=== PATIENT | male | born 1950 | race Caucasian/White ===

== ENCOUNTER → 2018-12-31 09:29 | Outpatient (CLI) | payer MEDICARE, SELFPAY ==
[2018-12-31 11:01] LABS: Hemoglobin A1C% w Est Avg Glu 7.7 % (4.0-6.0)
[2018-12-31 11:09] LABS: BUN Creatinine Ratio 25.6 (6-22); Blood Urea Nitrogen 23 mg/dL (9-20); Calcium 9.6 mg/dL (8.4-10.2); Carbon Dioxide 27 mmol/L (22-32); Chloride 101 mmol/L (98-107); Cholesterol 164 mg/dL (140-199); Estimated Glomerular Filt Rate > 60.0 mL/min (>60); Glucose 199 mg/dL (80-110); HDL Cholesterol 50 mg/dL (40-60); HEMOLYSIS 17 (0-50); LDL Cholesterol Calculated 96 mg/dL (<100); Potassium 4.6 mmol/L (3.4-5.1); Sodium 137 mmol/L (137-145); Triglycerides 92 mg/dL (35-150)
[2018-12-31 11:10] LABS: Creatinine Urine Random 38.7 mg/dL
[2018-12-31 11:14] LABS: Microalbumi Creatinin Ratio Ur 51.6 ug/mg CR (<30)
[2018-12-31 11:38] LABS: Prostate Specific Antigen 8.36 ng/mL (0.10-4.00)
== END ==
PROVIDERS: PCP Internal Medicine; Visit Provider Internal Medicine
DX: E11.9 Type 2 diabetes mellitus without complications (principal); I25.10 Atherosclerotic heart disease of native coronary artery without angina pectoris; I48.91 Unspecified atrial fibrillation; K52.9 Noninfective gastroenteritis and colitis, unspecified; Z87.898 Personal history of other specified conditions
CPT/HCPCS: 36415; 80048; 80061; 82043; 82570; 83036; 84153

== ENCOUNTER → 2019-03-19 10:12 | Outpatient (CLI) | payer MEDICARE, SELFPAY ==
[2019-03-19 11:28] LABS: Hemoglobin A1C% w Est Avg Glu 9.4 % (4.0-6.0)
[2019-03-19 11:38] LABS: Blood Urea Nitrogen 19 mg/dL (9-20); Calcium 9.9 mg/dL (8.4-10.2); Carbon Dioxide 28 mmol/L (22-32); Chloride 100 mmol/L (98-107); Estimated Glomerular Filt Rate > 60.0 mL/min (>60); Glucose 235 mg/dL (80-110); HEMOLYSIS < 15 (0-50); Sodium 136 mmol/L (137-145)
[2019-03-19 11:40] LABS: Potassium 5.5 mmol/L (3.4-5.1)
== END ==
PROVIDERS: PCP Internal Medicine; Visit Provider Internal Medicine
DX: E11.9 Type 2 diabetes mellitus without complications (principal); J44.9 Chronic obstructive pulmonary disease, unspecified; Z87.898 Personal history of other specified conditions
CPT/HCPCS: 36415; 80048; 83036

== ENCOUNTER → 2019-06-09 09:12 | Outpatient (CLI) | payer MEDICARE, SELFPAY ==
[2019-06-09 09:46] LABS: Hemoglobin A1C% w Est Avg Glu 8.5 % (4.0-6.0)
[2019-06-09 09:47] LABS: BUN Creatinine Ratio 19.6 (6-22); Blood Urea Nitrogen 18 mg/dL (9-20); Calcium 9.6 mg/dL (8.4-10.2); Carbon Dioxide 28 mmol/L (22-32); Chloride 104 mmol/L (98-107); Estimated Glomerular Filt Rate > 60.0 mL/min (>60); Glucose 198 mg/dL (80-110); HEMOLYSIS < 15 (0-50); Potassium 5.1 mmol/L (3.4-5.1); Sodium 137 mmol/L (137-145)
== END ==
PROVIDERS: PCP Internal Medicine; Referring Provider Internal Medicine; Visit Provider Internal Medicine
DX: E11.65 Type 2 diabetes mellitus with hyperglycemia (principal)
CPT/HCPCS: 36415; 80048; 83036

== ENCOUNTER → 2019-08-30 08:51 | Outpatient (CLI) | payer MEDICARE, SELFPAY ==
[2019-08-30 10:02] LABS: Hemoglobin A1C% w Est Avg Glu 7.3 % (4.0-6.0)
[2019-08-30 10:19] LABS: BUN Creatinine Ratio 24.5 (6-22); Blood Urea Nitrogen 24 mg/dL (9-20); Calcium 9.9 mg/dL (8.4-10.2); Carbon Dioxide 28 mmol/L (22-32); Chloride 105 mmol/L (98-107); Estimated Glomerular Filt Rate > 60.0 mL/min (>60); Glucose 132 mg/dL (80-110); HEMOLYSIS < 15 (0-50); Potassium 4.2 mmol/L (3.4-5.1); Sodium 138 mmol/L (137-145)
[2019-08-30 10:48] LABS: Prostate Specific Antigen 7.41 ng/mL (0.10-4.00)
== END ==
PROVIDERS: PCP Internal Medicine; Referring Provider Internal Medicine; Visit Provider Internal Medicine
DX: E11.65 Type 2 diabetes mellitus with hyperglycemia (principal); R97.20 Elevated prostate specific antigen [PSA]
CPT/HCPCS: 36415; 80048; 83036; 84153

== ENCOUNTER → 2019-12-15 10:00 | Outpatient (CLI) | payer MEDICARE, SELFPAY ==
[2019-12-15 11:21] LABS: Hemoglobin A1C% w Est Avg Glu 8.2 % (4.0-6.0)
[2019-12-15 11:42] LABS: BUN Creatinine Ratio 22.5 (6-22); Blood Urea Nitrogen 23 mg/dL (9-20); Calcium 9.3 mg/dL (8.4-10.2); Carbon Dioxide 27 mmol/L (22-32); Chloride 105 mmol/L (98-107); Estimated Glomerular Filt Rate > 60.0 mL/min (>60); Glucose 206 mg/dL (80-110); HEMOLYSIS < 15 (0-50); Potassium 4.9 mmol/L (3.4-5.1); Sodium 137 mmol/L (137-145)
== END ==
PROVIDERS: PCP Internal Medicine; Referring Provider Internal Medicine; Visit Provider Internal Medicine
DX: E11.65 Type 2 diabetes mellitus with hyperglycemia (principal)
CPT/HCPCS: 36415; 80048; 83036

== ENCOUNTER → 2020-03-16 07:32 | Outpatient (CLI) | payer MEDICARE, SELFPAY ==
[2020-03-16 08:38] LABS: Hemoglobin A1C% w Est Avg Glu 9.7 % (4.0-6.0)
[2020-03-16 08:59] LABS: BUN Creatinine Ratio 23.3 (6-22); Blood Urea Nitrogen 24 mg/dL (9-20); Calcium 9.2 mg/dL (8.4-10.2); Carbon Dioxide 26 mmol/L (22-32); Chloride 103 mmol/L (98-107); Estimated Glomerular Filt Rate > 60.0 mL/min (>60); Glucose 314 mg/dL (80-110); HEMOLYSIS < 15 (0-50); Sodium 135 mmol/L (137-145)
== END ==
PROVIDERS: PCP Internal Medicine; Referring Provider Internal Medicine; Visit Provider Internal Medicine
DX: E11.65 Type 2 diabetes mellitus with hyperglycemia (principal); I25.10 Atherosclerotic heart disease of native coronary artery without angina pectoris
CPT/HCPCS: 36415; 80048; 83036

== ENCOUNTER → 2020-06-16 07:00 | Outpatient (CLI) | payer MEDICARE, SELFPAY ==
[2020-06-16 08:17] LABS: Hemoglobin A1C% w Est Avg Glu 8.7 % (4.0-6.0)
[2020-06-16 08:19] LABS: Alanine Aminotransferase 14 IU/L (<50); Albumin Globulin Ratio 1.5 (1.0-2.8); Alkaline Phosphatase 62 U/L (38-126); Aspartate Aminotransferase 18 IU/L (17-59); BUN Creatinine Ratio 18.9 (6-22); Bilirubin Total 0.3 mg/dL (0.2-1.3); Blood Urea Nitrogen 17 mg/dL (9-20); Calcium 9.5 mg/dL (8.4-10.2); Carbon Dioxide 29 mmol/L (22-32); Chloride 105 mmol/L (98-107); Estimated Glomerular Filt Rate > 60.0 mL/min (>60); Globulin 2.6 g/dL (1.7-4.1); Glucose 187 mg/dL (80-110); HEMOLYSIS < 15 (0-50); Potassium 4.4 mmol/L (3.4-5.1); Sodium 138 mmol/L (137-145); Total Protein 6.6 g/dL (6.3-8.2)
== END ==
PROVIDERS: PCP Internal Medicine; Referring Provider Internal Medicine; Visit Provider Internal Medicine
DX: E11.65 Type 2 diabetes mellitus with hyperglycemia (principal)
CPT/HCPCS: 36415; 80053; 83036

== ENCOUNTER → 2020-06-16 15:01 | Outpatient (CLI) | payer MEDICARE, SELFPAY ==
[2020-06-16] MEDS: COVID-19 VACC, Ad26(JANSSEN)/PF 0.5 ML IM (15:11)
== END ==
PROVIDERS: PCP Internal Medicine; Visit Provider Internal Medicine
DX: Z23 Encounter for immunization (principal); E11.65 Type 2 diabetes mellitus with hyperglycemia
CPT/HCPCS: 0031A; 36415; 80053; 83036; 91303

== ENCOUNTER → 2020-08-28 07:55 | Outpatient (CLI) | payer MEDICARE, SELFPAY ==
[2020-08-28 08:55] LABS: Add Manual Diff / Slide Review NO; Basophils Absolute Auto 100 /uL (0-100); Eosinophils Absolute Auto 200 /uL (0-450); Eosinophils Percent Auto 2.9 % (2-4); Hemoglobin 14.8 g/dL (13.5-17.5); Lymphocytes Absolute Auto 1900 /uL (1100-4500); Lymphocytes Percent Auto 27.4 % (25-40); Mean Corpuscular HGB Conc 34.4 % (30-36); Mean Corpuscular Hemoglobin 30.9 PG (26-34); Mean Corpuscular Volume 89.7 fL (80-100); Monocytes Absolute Auto 600 /uL (0-900); Monocytes Percent Auto 8.1 % (3-14); Neutrophils Absolute Auto 4200 /uL (1500-7000); Neutrophils Percent Auto 60.6 % (50-75); Platelet Count 193 X10^3/uL (150-400); Red Blood Cell Count 4.79 X10^6/uL (4.5-5.9)
[2020-08-28 08:59] LABS: Hemoglobin A1C% w Est Avg Glu 9.1 % (4.0-6.0)
[2020-08-28 09:01] LABS: Alanine Aminotransferase 14 IU/L (<50); Albumin 3.9 g/dL (3.5-5.0); Albumin Globulin Ratio 1.4 (1.0-2.8); Alkaline Phosphatase 73 U/L (38-126); Aspartate Aminotransferase 16 IU/L (17-59); BUN Creatinine Ratio 19.5 (6-22); Bilirubin Total 0.6 mg/dL (0.2-1.3); Blood Urea Nitrogen 17 mg/dL (9-20); Calcium 9.4 mg/dL (8.4-10.2); Carbon Dioxide 26 mmol/L (22-32); Chloride 105 mmol/L (98-107); Cholesterol 116 mg/dL (140-199); Estimated Glomerular Filt Rate > 60.0 mL/min (>60); Globulin 2.8 g/dL (1.7-4.1); Glucose 242 mg/dL (80-110); HDL Cholesterol 42 mg/dL (40-60); HEMOLYSIS < 15 (0-50); LDL Cholesterol Calculated 63 mg/dL (<100); Potassium 4.8 mmol/L (3.4-5.1); Sodium 138 mmol/L (137-145); Total Protein 6.7 g/dL (6.3-8.2); Triglycerides 55 mg/dL (35-150)
== END ==
PROVIDERS: PCP Internal Medicine; Referring Provider Internal Medicine; Visit Provider Internal Medicine
DX: E11.65 Type 2 diabetes mellitus with hyperglycemia (principal); I10 Essential (primary) hypertension; I25.10 Atherosclerotic heart disease of native coronary artery without angina pectoris; I48.91 Unspecified atrial fibrillation; J44.9 Chronic obstructive pulmonary disease, unspecified; Z79.01 Long term (current) use of anticoagulants
CPT/HCPCS: 36415; 80053; 80061; 83036; 85025

== ENCOUNTER → 2020-12-07 09:06 | Outpatient (CLI) | payer MEDICARE, SELFPAY ==
[2020-12-07 11:01] LABS: Hemoglobin A1C% w Est Avg Glu 8.1 % (4.0-6.0)
[2020-12-07 11:39] LABS: BUN Creatinine Ratio 26.1 (6-22); Blood Urea Nitrogen 23 mg/dL (9-20); Calcium 9.4 mg/dL (8.4-10.2); Carbon Dioxide 27 mmol/L (22-32); Chloride 105 mmol/L (98-107); Estimated Glomerular Filt Rate > 60.0 mL/min (>60); Glucose 163 mg/dL (80-110); HEMOLYSIS < 15 (0-50); Potassium 4.7 mmol/L (3.4-5.1); Sodium 137 mmol/L (137-145)
== END ==
PROVIDERS: PCP Internal Medicine; Referring Provider Internal Medicine; Visit Provider Internal Medicine
DX: E11.65 Type 2 diabetes mellitus with hyperglycemia (principal)
CPT/HCPCS: 36415; 80048; 83036

== ENCOUNTER → 2021-03-12 10:18 | Outpatient (CLI) | payer MEDICARE, SELFPAY ==
[2021-03-12 12:09] LABS: Alanine Aminotransferase 14 IU/L (<50); Albumin 4.3 g/dL (3.5-5.0); Albumin Globulin Ratio 1.4 (1.0-2.8); Alkaline Phosphatase 77 U/L (38-126); Aspartate Aminotransferase 17 IU/L (17-59); BUN Creatinine Ratio 14.3 (6-22); Bilirubin Total 0.9 mg/dL (0.2-1.3); Blood Urea Nitrogen 14 mg/dL (9-20); Calcium 9.6 mg/dL (8.4-10.2); Carbon Dioxide 28 mmol/L (22-32); Chloride 100 mmol/L (98-107); Cholesterol 123 mg/dL (140-199); Estimated Glomerular Filt Rate > 60.0 mL/min (>60); Globulin 3.1 g/dL (1.7-4.1); Glucose 216 mg/dL (80-110); HDL Cholesterol 49 mg/dL (40-60); HEMOLYSIS < 15 (0-50); LDL Cholesterol Calculated 57 mg/dL (<100); Potassium 4.7 mmol/L (3.4-5.1); Sodium 135 mmol/L (137-145); Total Protein 7.4 g/dL (6.3-8.2); Triglycerides 85 mg/dL (35-150)
== END ==
PROVIDERS: PCP Internal Medicine; Referring Provider Internal Medicine; Visit Provider Internal Medicine
DX: E11.65 Type 2 diabetes mellitus with hyperglycemia (principal); I10 Essential (primary) hypertension; E78.2 Mixed hyperlipidemia
CPT/HCPCS: 36415; 80053; 80061; 83036

== ENCOUNTER → 2021-10-03 08:25 | Outpatient (CLI) | payer MEDICARE, SELFPAY ==
[2021-10-03 08:50] LABS: Hemoglobin A1C% w Est Avg Glu 9.9 % (4.0-6.0)
[2021-10-03 08:59] LABS: BUN Creatinine Ratio 24.7 (6-22); Blood Urea Nitrogen 24 mg/dL (9-20); Calcium 9.5 mg/dL (8.4-10.2); Carbon Dioxide 24 mmol/L (22-32); Chloride 104 mmol/L (98-107); Estimated Glomerular Filt Rate > 60 mL/min (>60); Glucose 242 mg/dL (80-110); HEMOLYSIS < 15 (0-50); Potassium 4.6 mmol/L (3.4-5.1); Sodium 138 mmol/L (137-145)
== END ==
PROVIDERS: PCP Internal Medicine; Referring Provider Internal Medicine; Visit Provider Internal Medicine
DX: E11.65 Type 2 diabetes mellitus with hyperglycemia (principal); E78.2 Mixed hyperlipidemia; I10 Essential (primary) hypertension
CPT/HCPCS: 36415; 80048; 83036

== ENCOUNTER → 2021-10-08 09:58 | Outpatient (CLI) | payer MEDICARE, SELFPAY ==
--- NOTE | 2021-10-08 10:00 | DI.RAD.S_ITS ---
PROCEDURE: XR CHEST 2V INDICATIONS: dyspnea on exertion TECHNIQUE: 2 views of the chest were acquired. COMPARISON: None. FINDINGS: Surgical changes and devices: None. Lungs and pleura: Minimal generalized interstitial prominence can be seen. No pleural effusions or pneumothorax. Mediastinum: The cardiac contours are mildly enlarged. The aorta demonstrates calcification and tortuosity. Bones and chest wall: No suspicious bony abnormalities. Age-appropriate bony degenerative changes are seen. Soft tissues appear unremarkable. IMPRESSION: Mild cardiomegaly with minimal interstitial prominence. Please consider early CHF. Dictated by: Mk Cotto M.D. on 10/08/2021 at 10:36 Approved by: Mk Cotto M.D. on 10/08/2021 at 10:37
== END ==
PROVIDERS: PCP Internal Medicine; Referring Provider Internal Medicine; Visit Provider Internal Medicine
DX: I51.7 Cardiomegaly (principal); R06.00 Dyspnea, unspecified
CPT/HCPCS: 71046

== ENCOUNTER → 2021-10-26 12:59 | Outpatient (CLI) | payer MEDICARE, SELFPAY ==
[2021-10-26 13:38] LABS: COVID19 -Nasal RAPID Negative (Negative)
== END ==
PROVIDERS: PCP Internal Medicine; Referring Provider Internal Medicine; Visit Provider Internal Medicine
DX: Z20.822 Contact with and (suspected) exposure to COVID-19 (principal)
CPT/HCPCS: 87635; C9803

== ENCOUNTER → 2021-10-26 13:04 | Outpatient (CLI) | payer MEDICARE, SELFPAY ==
--- NOTE | 2021-10-31 09:15 | P.PFT.S_ITS ---
Pulmonary Function Test Referral & Results Date Patient Seen: 10/26/21 Requesting provider: Homer Falk Results: The spirometry demonstrates an FVC of 4.35 L which is 83% of predicted. The FEV1 was measured at 2.79 L which is 73% of predicted. The FEV1/FVC ratio was 64 which is 88% of predicted. Following the administration of bronchodilator there was a 37% improvement in FEF 25-75%. Lung volumes show an SVC of 3.99 L which is 75% of predicted. The diffusing capacity was measured at 24.07 which is 61% of predicted. No hemoglobin value was provided, so no correction for potential anemia could be made, if appropriate. The maximum voluntary ventilation was reduced Interpretation: This study demonstrates mild obstructive lung disease based on reduction FEV1 although FEV1/FVC ratio is preserved. There is evidence of benefit in small airway flow after bronchodilator administration based on improvement in FEF 25- 75% as above There is also [id number] reduction in lung volumes based on reduced SVC which may explain the abnormality in the FEV1 above There is a audl-pj-thicefsg reduction diffusing capacity as well suggesting disease at the capillary alveolar level Clinical correlation suggested
== END ==
PROVIDERS: PCP Internal Medicine; Referring Provider Internal Medicine; Visit Provider Internal Medicine
DX: R06.09 Other forms of dyspnea (principal); Z20.822 Contact with and (suspected) exposure to COVID-19; F17.210 Nicotine dependence, cigarettes, uncomplicated; J98.8 Other specified respiratory disorders
CPT/HCPCS: 87635; 94060; 94726; 94729; C9803

== ENCOUNTER → 2021-12-11 13:02 | Outpatient (CLI) | payer MEDICARE, SELFPAY ==
--- NOTE | 2022-01-02 11:55 | DIAB.MNT ---
Initial Diabetes Medical Nutrition Therapy Assessment Name: Jim Dominguez Date: 01/02/22 Time: 110-205p Dx: Type II Diabetes Provider: Dileep Jim presents for initial visit regarding T2Dm. Reports diagnosis of DM when he had his NV in 2005. Denies FH of DM. Reports eating at his brother's house often since passed three years ago. States he does not cook. Most meals come from brother's house, convenience foods, or the casino. Reports trying to read food labels but needs more help. Feels DM is somewhat overwhelming due to not completely understanding DM and potentially needing insulin. Recently cut out ice cream, misses this. Reduced CHO intake. Cut out peas and reduced other carb portions. Declined DSME classes at this time. Diet Recall: 730a: apple sauce cup or half can sliced peaches or sausage 1p: hot dog without bun or leftovers 6p: 8oz meat with green beans or half cup corn, and small baked potato or half cup rice sn: nothing or sf cookies x 2-3 Beverages: 16oz x 2-3 water, cocktail with sf soda Anthropometrics: Ht: 6'3 Wt: 215# reported Physical Activity: COPD barrier. Will walk 30 mins infrequently Self-Monitoring Blood Glucose: None. Interested in starting. No rx for supplies currently. Contacted PCP JESUS for rx today. Diabetes Medications: 1000mg Metformin BID 5mg glipizide BID 30mg Pioglitizone Pertinent Labs: hgA1c 9.9% 09/2021 Past Medical History: (Last Updated 12/11/20 @ 13:56 by Homer Falk MD) Atrial fibrillation (~2005) CAD (coronary artery disease) (~2005) [place] 2006 Colitis (~2004) COPD (chronic obstructive pulmonary disease) (~2008) Diabetes mellitus (~2005) Diabetes type 2, uncontrolled Elevated PSA Negative biopsy in past Essential hypertension Hearing loss (~1999) Knee pain Mixed hyperlipidemia Vision disorder Wear glasses Nutrition Rx: Plate Method Nutrition Diagnosis: - Physical inactivity r/t COPD barrier and stage of change aeb pt report - Self monitoring deficit r/t knowledge deficit aeb pt report - Nutrition knowledge deficit r/t no previous MNT /DSME aeb pt report Intervention: This participant was very receptive. Provided appropriate educational handouts. Discussed the following topics: Completed intake assessment. Discussed barriers to care. Pathophysiology of T2DM HgA1c, its correlation to blood glucose numbers, and rationale for goal Importance of self-monitoring, how often, and when to check. Suggested checking at different times to evaluate meals Plate Method, impact of macronutrients on blood sugar, meal timing, carbohydrate counting, pairing macronutrients and spreading out carbohydrates for better blood glucose management Recommended servings for carbohydrates at meals and snacks [facility] nutrition Hydration and BG Brainstormed appropriate meal plan based on food preferences Role of physical activity and following provider guidelines for safety Created SMART goals for patient self-care and success. Goals: Aim for 3-4 x 16oz water per day Try to walk daily (aim for 10 min after meals) Pair CHO and pro for meals/snacks Follow-up: YUSEF BURDICK follow-up in 2-3 weeks Rahel Bartlett RDN, CDCES Certified Diabetes Care and Bar Manager P: [phone] Thank you for this referral
== END ==
PROVIDERS: PCP Internal Medicine; Referring Provider Internal Medicine; Visit Provider Internal Medicine
DX: E11.9 Type 2 diabetes mellitus without complications (principal); Z71.3 Dietary counseling and surveillance; Z79.84 Long term (current) use of oral hypoglycemic drugs
CPT/HCPCS: 97802

== ENCOUNTER → 2022-01-02 10:01 | Outpatient (CLI) | payer MEDICARE, SELFPAY ==
--- NOTE | 2022-01-16 10:55 | DIAB.MNTFU ---
Follow-up Diabetes Medical Nutrition Therapy Assessment Name: Jim Dominguez Date: 01/02/22 Time: [id number] Dx: Type II Diabetes Provider: Dileep Jim presents for follow-up today. States he has been conscious of carb portions, especially when eating at the casino, which he anticipates will be more often with brother and his going out of town. Also endorses increased vegetable intake. He cut out cookies and pastries. Furthermore, he is no longer going back for second helpings when eating at his brother's house. Has increased water intake as discussed. Diet recall indicates some high saturated fat intake with sausages and steak. Additionally, some meals at the casino high in carb with fries and fruit portions. Today he has questions about the different types of DM. overdue for eye appt. Anthropometrics: Ht: 6'3 Wt: 215# reported last visit Physical Activity: COPD barrier. Has tried walking more, but having knee pain. States he needs a knee replacement. Plans to chat with ortho on this today. Use to love walking the beach soon after his passed. Considering stationary bike. Self-Monitoring Blood Glucose: Reports checki nsome FBG and pc readings. Recent FBG elevated at 160 and 152. PC readings 180 and 190 (H). Diabetes Medications: 1000mg Metformin BID 5mg glipizide BID 30mg Pioglitizone Pertinent Labs: hgA1c 9.9% 09/2021 Past Medical History: (Last Updated 01/14/22 @ 15:09 by Homer Falk MD) Atrial fibrillation (~2005) CAD (coronary artery disease) (~2005) [place] 2006 Colitis (~2004) COPD (chronic obstructive pulmonary disease) (~2008) Diabetes mellitus (~2005) Elevated PSA Negative biopsy in past Essential hypertension Hearing loss (~1999) Knee pain Mixed hyperlipidemia Vision disorder Wear glasses Nutrition Rx: Plate Method Nutrition Diagnosis: - Physical inactivity r/t COPD barrier and knee pain aeb pt report- in progress - Self monitoring deficit r/t knowledge deficit aeb pt report- improved - Nutrition knowledge deficit r/t no previous MNT /DSME aeb pt report - improved Intervention: This participant was very receptive. Provided appropriate educational handouts. Discussed the following topics: Blood sugar review. Impact of food intake on results. Different types of DM. Plate Method and eating out portions Heart health nutrition: fats, fiber, and sodium Physical activity plan and progress Created SMART goals for patient self-care and success. Goals: Aim for 3-4 x 16oz water per day- met Try to walk daily (aim for 10 min after meals)- not met Pair CHO and pro for meals/snacks- met Call for eye appointment-new Look into exercise bike-new For cod dinner at [employer] order baked potato instead of fries-new Bring meter next visit- new Follow-up: YUSEF BURDICK follow-up in 3-4 weeks Rahel Bartlett RDN, GENNARO Certified Diabetes Care and Roll Sheeting Cutter P: [phone] Thank you for this referral
== END ==
PROVIDERS: PCP Internal Medicine; Referring Provider Internal Medicine; Visit Provider Internal Medicine
DX: E11.9 Type 2 diabetes mellitus without complications (principal); Z79.84 Long term (current) use of oral hypoglycemic drugs; Z71.3 Dietary counseling and surveillance
CPT/HCPCS: 97803

== ENCOUNTER → 2022-01-08 12:57 | Outpatient (CLI) | payer MEDICARE, SELFPAY ==
[2022-01-08 13:55] LABS: Hemoglobin A1C% w Est Avg Glu 7.5 % (4.0-6.0)
[2022-01-08 14:46] LABS: BUN Creatinine Ratio 23.5 (6-22); Blood Urea Nitrogen 23 mg/dL (9-20); Calcium 9.4 mg/dL (8.4-10.2); Carbon Dioxide 25 mmol/L (22-32); Chloride 104 mmol/L (98-107); Estimated Glomerular Filt Rate > 60 mL/min (>60); Glucose 168 mg/dL (80-110); HEMOLYSIS < 15 (0-50); Potassium 4.5 mmol/L (3.4-5.1); Sodium 138 mmol/L (137-145)
== END ==
PROVIDERS: PCP Internal Medicine; Referring Provider Internal Medicine; Visit Provider Internal Medicine
DX: E11.65 Type 2 diabetes mellitus with hyperglycemia (principal); E11.9 Type 2 diabetes mellitus without complications; E78.2 Mixed hyperlipidemia
CPT/HCPCS: 36415; 80048; 83036

== ENCOUNTER → 2022-01-21 13:57 | Outpatient (CLI) | payer MEDICARE, SELFPAY ==
[2022-01-21 15:18] LABS: Influenza A - CEPHEID Flu A NEGATIVE (NEGATIVE); Influenza B - CEPHEID Flu B NEGATIVE (NEGATIVE)
[2022-01-21 15:22] LABS: COVID-19 CEPHEID 4-PLEX PCR POSITIVE (Negative)
== END ==
PROVIDERS: PCP Internal Medicine; Visit Provider Nurse Practitioner Family
DX: R05.1 Acute cough (principal); Z20.828 Contact with and (suspected) exposure to other viral communicable diseases
CPT/HCPCS: 0240U

== ENCOUNTER → 2022-05-01 12:46 | Outpatient (CLI) | payer MEDICARE, SELFPAY ==
[2022-05-01 14:06] LABS: Hemoglobin A1C% w Est Avg Glu 8.7 % (4.0-6.0)
[2022-05-01 14:14] LABS: BUN Creatinine Ratio 24.7 (6-22); Blood Urea Nitrogen 24 mg/dL (9-20); Calcium 9.4 mg/dL (8.4-10.2); Carbon Dioxide 27 mmol/L (22-32); Chloride 102 mmol/L (98-107); Estimated Glomerular Filt Rate > 60 mL/min (>60); Glucose 210 mg/dL (80-110); HEMOLYSIS < 15 (0-50); Potassium 4.5 mmol/L (3.4-5.1); Sodium 138 mmol/L (137-145)
== END ==
PROVIDERS: PCP Internal Medicine; Referring Provider Internal Medicine; Visit Provider Internal Medicine
DX: E11.65 Type 2 diabetes mellitus with hyperglycemia (principal); E11.29 Type 2 diabetes mellitus with other diabetic kidney complication; I10 Essential (primary) hypertension; R80.9 Proteinuria, unspecified
CPT/HCPCS: 36415; 80048; 83036

== ENCOUNTER 2022-05-29 19:38 | Emergency (ER) | payer MEDICARE, SELFPAY ==
[2022-05-29] VITALS (11 sets, daily range): BP systolic 111–138; BP diastolic 65–87; PULSE 85–112; RESP 18–26; O2SAT 97–99; BMI 27.5
--- NOTE | 2022-05-29 19:40 | DI.CT.S_ITS ---
PROCEDURE: CT CERVICAL SPINE WO CON INDICATIONS: fall, head injury, eliquis, LOC, etoh TECHNIQUE: Noncontrast 3 mm thick sections acquired from the skull base to the T4 level. Sagittal and coronal reformats were then constructed. For radiation dose reduction, the following was used: automated exposure control, adjustment of mA and/or kV according to patient size. COMPARISON: None. FINDINGS: Image quality: Excellent. Bones: The craniocervical junction is intact. Mild degenerative space loss and spurring at the atlantodental interval. No cervical vertebral body fractures or pathologic subluxation. Grade 1 anterolisthesis C4 on five. Facet degeneration and ankylosis on the left at C3-4 and degeneration without ankylosis on the left at C4-5 and C5-6. Moderate disc degeneration at C6-7. Mild endplate spurring. Soft tissues: Prevertebral soft tissues are normal in thickness. No paravertebral hematomas. No apical pneumothoraces. IMPRESSION: 1. No CT evidence of acute cervical spine injury. 2. Multilevel degeneration as described. Dictated by: Anna Wells M.D. on 05/29/2022 at 20:46 Approved by: Anna Wlels M.D. on 05/29/2022 at 20:50
--- NOTE | 2022-05-29 19:40 | DI.CT.S_ITS ---
PROCEDURE: CT HEAD/BRAIN WO CON INDICATIONS: fall, LOC, thinners, LOC TECHNIQUE: Noncontrast 4.5 mm thick angled axial sections acquired from the foramen magnum to the vertex, with coronal and sagittal reformats. For radiation dose reduction, the following was used: automated exposure control, adjustment of mA and/or kV according to patient size. COMPARISON: None. FINDINGS: Image quality: Excellent. CSF spaces: Basal cisterns are patent. No extra-axial fluid collections. The ventricles are symmetric in size and shape. Brain: No intracranial bleeds or masses. There is cerebral volume loss for age, with resultant ventricular and sulcal prominence. There are periventricular and deep white matter chronic small vessel ischemic changes. Tiny left basal ganglia lacunar infarct. There is intracranial internal carotid artery atherosclerosis. Skull and face: Small midline frontal soft tissue contusion and moderate laceration. No underlying fracture or foreign body. Sinuses: Visualized sinuses and mastoids are clear. IMPRESSION: 1. No CT evidence of acute intracranial trauma. 2. Frontal laceration without foreign body or underlying fracture. Dictated by: Anna Wells M.D. on 05/29/2022 at 20:11 Approved by: Anna Wells M.D. on 05/29/2022 at 20:15
--- NOTE | 2022-05-29 19:41 | ED.TRAUMA ---
HPI - Trauma General Chief Complaint: Trauma Stated Complaint: GLF Thinners Time Seen by Provider: 05/29/22 19:39 History of Present Illness HPI narrative: 71-year-old male smoker and daily drinker with history of hypertension, hyperlipidemia, coronary artery disease, AFib on Eliquis presents by EMS as a modified trauma for injury sustained as a consequence of a ground level fall just prior to arrival. The patient had been at the [facility] and admits to drinking a large amount of alcohol today and somehow tripped and fell forward striking his head on a rock. He has a large irregular laceration in his central forehead. He does not have full recall of the event and had a loss of consciousness. He denies any blurred vision or trouble with speech. He denies neck pain, nausea, vomiting, chest pain or shortness of breath. He denies any extremity injuries. His tetanus will need to be updated today Related Data Previous Rx's Medication Instructions Recorded fluocinonide 0.05 % topical 1 applic topical BID #60 mL 10/09/20 solution budesonide 3 mg 3 mg PO DAILY #90 ea 07/09/21 capsule,delayed,extended release albuterol sulfate 90 mcg/actuation 2 puff inhalation Q6H PRN 09/07/21 aerosol inhaler shortness of breath or wheezing #54 grams atorvastatin 20 mg tablet 20 mg PO DAILY #90 tabs 11/08/21 blood sugar diagnostic (Blood #100 ea 12/11/21 Glucose Test strips) blood-glucose meter #1 ea 12/11/21 lancets 30 gauge #100 ea 12/11/21 fluticasone 500 mcg-salmeterol 50 1 inh inhalation BID #60 ea 01/14/22 mcg/dose blistr powdr for inhalation (Advair Diskus) pioglitazone 30 mg tablet 30 mg PO DAILY #90 tabs 02/07/22 apixaban 5 mg tablet (Eliquis) 5 mg PO BID #180 tabs 02/11/22 metformin 1,000 mg tablet 1,000 mg PO BID #180 tabs 02/11/22 omeprazole 20 mg capsule,delayed 20 mg PO DAILY #90 caps 04/08/22 release glipizide 10 mg tablet, extended 10 mg PO BID #180 tabs 05/07/22 release 24 hr lisinopril 5 mg tablet 5 mg PO DAILY #90 tabs 05/07/22 metoprolol succinate 100 mg 100 mg PO BID #180 tabs 05/07/22 tablet,extended release 24 hr cephalexin 500 mg capsule 500 mg PO Q6H 7 days #28 caps 05/30/22 Allergies Allergy/AdvReac Type Severity Reaction Status Date / Time naproxen Allergy Severe Anaphylaxis Verified 05/29/22 19:56 linagliptin AdvReac Severe myalgias Verified 05/29/22 19:56 Review of Systems Review of Systems Narrative: GENERAL: See HPI HEENT: Denies sinus pain, ear pain, sore throat, difficulty swallowing, dizziness. RESPIRATORY: Denies dyspnea, cough, wheezing, hemoptysis, sputum. CARDIOVASCULAR: Denies chest pain, palpitations, orthopnea, edema, GASTROINTESTINAL: Denies nausea, vomiting, abdominal pain, diarrhea, constipation, melena. : Denies dysuria, frequency, incontinence, hematuria, urinary retention. MUSCULOSKELETAL: See HP SKIN: Denies rash, skin lesions, or other NEUROLOGIC: See HPI PSYCHIATRIC: No concerning psychosocial issues. 12 point review of systems is negative except for those stated above Patient History Medical History Atrial fibrillation (~2005) CAD (coronary artery disease) (~2005) Colitis (~2004) COPD (chronic obstructive pulmonary disease) (~2008) Diabetes mellitus (~2005) Elevated PSA Essential hypertension Hearing loss (~1999) Knee pain Mixed hyperlipidemia Vision disorder Surgical History Anesthesia History of heart artery stent (~2005) Family History Father History of heart disease Mother Aneurysm Sister Cancer Social History Smoking Status: Current every day smoker Smoking Status: Current every day smoker (1/2 a day now per patient. 10/08/21.) Exam Narrative Exam Narrative: GENERAL: [71] year old patient appears stated age. Well-developed patient, in mild distress. GCS 15 HEAD: Large irregular depressed wound and central forehead with minimal bleeding, no other obvious head injury, abrasions, lacerations. EYES: Pupils equal round and reactive. No hyphema Extraocular motions intact. No scleral icterus. No injection or drainage. ENT: Nose without bleeding, purulent drainage. No nasal septal hematoma Throat without erythema, tonsillar hypertrophy or exudate. Airway patent. NECK: Trachea midline. Non tender, no step-offs or crepitance. Patient in C-collar from EMS CARDIOVASCULAR: Regular rate and rhythm without murmurs, gallops, or rubs. RESPIRATORY: Clear to auscultation. Breath sounds equal bilaterally. No wheezes, rales, or rhonchi. GASTROINTESTINAL: Abdomen soft, non-tender, nondistended. EXTREMITIES: No edema or joint tenderness. BACK: Nontender without deformity or crepitance. No flank tenderness. NEURO: AOx3. SKIN: No rash or erythema of visible areas Initial Vital Signs Initial Vital Signs: Vital Signs Pulse Rate 103 H 05/29/22 19:52 Pulse Oximetry 97 05/29/22 19:52 Procedures Laceration Repair Laceration 1: Site: face Size (cm): 4 Description: stellate Depth: involves muscle layer Local Anesthetic: lidocaine 2% and with epi Amount of anesthesia used (mL): 6 Pre-repair: wound explored and irrigated extensively Skin layer closed with: nylon Skin layer suture size: 5-0 Number of sutures: 5 Technique: simple, interrupted Subcutaneous layer closed with: vicryl Subcutaneous layer suture size: 4-0 Number of sutures: 3 Technique: simple, interrupted Course Orders Ordered: ED Orders 05/29/22 19:40 CT cervical spine wo con Stat CT head/brain wo con Stat 05/29/22 19:52 Complete Blood Count AUTO DIFF Stat Comprehensive Metabolic Panel Stat Ethanol (ETOH) Stat Prothrombin Time INR Stat 05/29/22 21:57 Urine Culture Stat Urine Microscopic Stat 05/30/22 00:03 CT head/brain wo con Stat 05/30/22 01:46 CT chest abd pel w con Stat Discontinued Medications Diphtheria/Tetanus/Acell Pertussis (Tet,Diph,Pertuss(Acell),Vac/Pf 0.5 Ml Syringe) 0.5 ml IM .ONCE ONE Stop: 05/29/22 19:40 Last Admin: 05/29/22 20:11 Dose: 0.5 ml Documented By: ARJUN Metoprolol Succinate (Metoprolol Er 50 Mg Tablet) 100 mg PO NOW ONE Stop: 05/30/22 03:17 Last Admin: 05/30/22 03:38 Dose: 100 mg Documented By: EMMA Reevaluation(s) Reevaluation #1: Patient is speaking clearly, ambulating through the department with significant improvement over the course of the visit MDM - Trauma Lab Data 05/29/22 19:52 05/29/22 19:52 Labs: Lab Results 05/29/22 05/29/22 05/29/22 Range/Units 19:52 19:52 19:52 WBC 10.2 (4.5-11.0) X10^3/uL RBC 4.83 (4.5-5.9) X10^6/uL Hgb 14.6 (13.5-17.5) g/dL Hct 44.0 (41-53) % MCV 91.0 (80-100) fL MCH 30.2 (26-34) PG MCHC 33.2 (30-36) % RDW 14.7 (11.6-14.8) % Plt Count 240 (150-400) X10^3/uL Neut % (Auto) 56.9 (50-75) % Lymph % (Auto) 31.9 (25-40) % [place] % (Auto) 8.6 (3-14) % Eos % (Auto) 1.7 L (2-4) % Baso % (Auto) 0.9 (0-2) % Neut # (Auto) 5800 (2646-7405) /uL Lymph # (Auto) 3300 (4729-2204) /uL [place] # (Auto) 900 (0-900) /uL Eos # (Auto) 200 (0-450) /uL Baso # (Auto) 100 (0-100) /uL PT 13.1 H (10.1-12.7) SECONDS INR 1.1 (0.9-1.3) Sodium 138 (137-145) mmol/L Potassium 4.0 (3.4-5.1) mmol/L Chloride 103 (98-107) mmol/L Carbon Dioxide 19 L (22-32) mmol/L BUN 25 H (9-20) mg/dL Creatinine 1.27 H (0.66-1.25) mg/dL Estimated GFR 60 (>60) mL/min BUN/Creatinine Ratio 19.7 (6-22) Glucose 143 H (80-110) mg/dL Calcium 9.3 (8.4-10.2) mg/dL Total Bilirubin 0.4 (0.2-1.3) mg/dL AST 22 (17-59) IU/L ALT 20 (<50) IU/L Alkaline Phosphatase 73 (38-126) U/L Total Protein 7.7 (6.3-8.2) g/dL Albumin 4.5 (3.5-5.0) g/dL Globulin 3.2 (1.7-4.1) g/dL Albumin/Globulin Ratio 1.4 (1.0-2.8) Urine RBC (0-5/HPF) Urine WBC (0-5/HPF) Ur Squamous Epith Cells (0-5/HPF) Urine Bacteria (None) Hyaline Casts (None) Urine Mucus (Negative) Ethyl Alcohol ( - 10) mg/dL 05/29/22 05/29/22 Range/Units 19:52 21:57 WBC (4.5-11.0) X10^3/uL RBC (4.5-5.9) X10^6/uL Hgb (13.5-17.5) g/dL Hct (41-53) % MCV (80-100) fL MCH (26-34) PG MCHC (30-36) % RDW (11.6-14.8) % Plt Count (150-400) X10^3/uL Neut % (Auto) (50-75) % Lymph % (Auto) (25-40) % [place] % (Auto) (3-14) % Eos % (Auto) (2-4) % Baso % (Auto) (0-2) % Neut # (Auto) (1806-6539) /uL Lymph # (Auto) (9069-9627) /uL [place] # (Auto) (0-900) /uL Eos # (Auto) (0-450) /uL Baso # (Auto) (0-100) /uL PT (10.1-12.7) SECONDS INR (0.9-1.3) Sodium (137-145) mmol/L Potassium (3.4-5.1) mmol/L Chloride (98-107) mmol/L Carbon Dioxide (22-32) mmol/L BUN (9-20) mg/dL Creatinine (0.66-1.25) mg/dL Estimated GFR (>60) mL/min BUN/Creatinine Ratio (6-22) Glucose (80-110) mg/dL Calcium (8.4-10.2) mg/dL Total Bilirubin (0.2-1.3) mg/dL AST (17-59) IU/L ALT (<50) IU/L Alkaline Phosphatase (38-126) U/L Total Protein (6.3-8.2) g/dL Albumin (3.5-5.0) g/dL Globulin (1.7-4.1) g/dL Albumin/Globulin Ratio (1.0-2.8) Urine RBC 1-5/hpf (0-5/HPF) Urine WBC None seen (0-5/HPF) Ur Squamous Epith Cells 0-1 /hpf (0-5/HPF) Urine Bacteria Occasional (0-1) (None) Hyaline Casts 5-10/lpf (None) Urine Mucus 2+ H (Negative) Ethyl Alcohol 112 H ( - 10) mg/dL Urine Dip Bedside Urine Glucose Negative Bedside Urine Bilirubin - Negative Bedside Urine Ketone +/- 5 Urine Specific [place] 1.025 Bedside Urine Occult Blood +/- Bedside Urine pH 6.0 Bedside Urine Protein + 30 Bedside Urine Urobilinogen - Negative Bedside Urine Nitrite - Negative Bedside Urine Leukocytes - Negative Esterase MDM Narrative Medical decision making narrative: CC: 71-year-old male ground level fall with head injury Complicating co-morbidities: Age, anticoagulation Data collected from: Patient Medical records reviewed: Prior notes reviewed in our EMR Differential considered, but not limited to: Laceration, depressed skull fracture, intracranial hemorrhage versus other Exam documented above, pertinent findings include: Large irregular, deep centrally located forehead laceration with a small amount of tissue loss, no other head injury, no neck pain, lungs clear, abdomen soft Lab Test results independently reviewed as above. Pertinent findings: Independently reviewed EKG as above Imaging studies independently reviewed: CT of head without intracranial hemorrhage, repeated a few hours later without change. C-spine clear, no significant traumatic injury on chest, abdomen or pelvis Treatments: Metoprolol 100 mg, patient had not had his nightly meds and became a bit tachycardic over the course of the night, Re-evaluations: Patient becomes increasingly alert and oriented over the course of the visit, GCS is 15 Discussion: Patient with high-risk ground level fall on anticoagulation and alcohol. Over the course of the visit he becomes greatly improved in terms of alertness and mentation. Imaging is reassuring, labs are unremarkable. Irregular laceration on forehead is repaired. He has a great friend at the bedside that will be with him over the course of the night. Disposition: see below, along with detailed discharge instructions that have been reviewed with patient as well as indications for ED re-evaluation and additional outpatient follow up Discharge Plan Departure Patient Disposition: Home Clinical Impression: Complex laceration of forehead Instructions: DI for Trauma Activity Restrictions/Additional Instructions: *You have been diagnosed with [fall with head injury ] *What to do: *Please continue to take your regular medications as directed. [x ] New medication prescriptions sent to your pharmacy: [facility] [ ] New medication written as a paper prescription [ ] No new medications given *Please follow up with your primary care provider in 2-3 days, call for an appointment. Let them know you were seen in the Emergency Department and that we ask that you be seen in follow up. We will electronically transmit a record of today's note if your PCP is in our system Please keep the wound clean and dry to the best of your ability. Please monitor for signs of infection such as redness to the skin or increasing pain. Have the sutures/zohra removed by your doctor in about 7 days. If you are unable to get into your doctor, we would be happy to remove the sutures/zohra in that same timeframe. *Return to Emergency Department if you should have any new, worsening or concerning symptoms, such as [fever greater than 101 F, shaking chills, worsening pain, persistent vomiting or other bothersome symptoms] Prescriptions: New cephalexin 500 mg capsule 500 mg PO Q6H 7 Days Qty: 28 0RF No Action fluocinonide 0.05 % solution 1 applic topical BID Qty: 60 3RF budesonide 3 mg capsule,delayed,extend.release 3 mg PO DAILY Qty: 90 3RF albuterol sulfate 90 mcg/actuation HFA aerosol inhaler 2 puff inhalation Q6H PRN (Reason: shortness of breath or wheezing) Qty: 54 0RF atorvastatin 20 mg tablet 20 mg PO DAILY Qty: 90 3RF (DME) blood-glucose meter Misc See Rx Instructions .Route Qty: 1 0RF Rx Instructions: Use to check BS once daily (DME) Blood Glucose Test Strip See Rx Instructions .Route Qty: 100 3RF Rx Instructions: Use to test BS once daily. (DME) lancets 30 gauge misc See Rx Instructions .Route Qty: 100 3RF Rx Instructions: Use to check BS once daily. pioglitazone 30 mg tablet 30 mg PO DAILY Qty: 90 1RF metformin 1,000 mg tablet 1,000 mg PO BID Qty: 180 3RF Eliquis 5 mg tablet 5 mg PO BID Qty: 180 3RF omeprazole 20 mg capsule,delayed release(DR/EC) 20 mg PO DAILY Qty: 90 3RF glipizide 10 mg tablet extended release 24hr 10 mg PO BID Qty: 180 2RF lisinopril 5 mg tablet 5 mg PO DAILY Qty: 90 2RF metoprolol succinate 100 mg tablet extended release 24 hr 100 mg PO BID Qty: 180 2RF fluticasone propion-salmeterol [Advair Diskus] 500-50 mcg/dose blister with device 1 inh inhalation BID Qty: 60 4RF Referrals: Homer Falk MD [Primary Care Provider] - Stand Alone Forms: Patient Portal/API
[2022-05-29 19:55] LABS: Add Manual Diff / Slide Review NO; Basophils Absolute Auto 100 /uL (0-100); Basophils Percent Auto 0.9 % (0-2); Eosinophils Absolute Auto 200 /uL (0-450); Eosinophils Percent Auto 1.7 % (2-4); Hemoglobin 14.6 g/dL (13.5-17.5); Lymphocytes Absolute Auto 3300 /uL (1100-4500); Lymphocytes Percent Auto 31.9 % (25-40); Mean Corpuscular HGB Conc 33.2 % (30-36); Mean Corpuscular Hemoglobin 30.2 PG (26-34); Monocytes Absolute Auto 900 /uL (0-900); Monocytes Percent Auto 8.6 % (3-14); Neutrophils Absolute Auto 5800 /uL (1500-7000); Neutrophils Percent Auto 56.9 % (50-75); Platelet Count 240 X10^3/uL (150-400); Red Blood Cell Count 4.83 X10^6/uL (4.5-5.9); Red Cell Distribution Width 14.7 % (11.6-14.8); White Blood Cell Count 10.2 X10^3/uL (4.5-11.0)
[2022-05-29 20:08] LABS: INR 1.1 (0.9-1.3); Prothrombin Time 13.1 SECONDS (10.1-12.7)
[2022-05-29] MEDS: TET,DIPH,PERTUSS(ACELL),VAC/PF 0.5 ML SYRINGE IM (20:11)
[2022-05-29 20:21] LABS: Ethanol (ETOH) 112 mg/dL
[2022-05-29 20:22] LABS: Alanine Aminotransferase 20 IU/L (<50); Albumin 4.5 g/dL (3.5-5.0); Albumin Globulin Ratio 1.4 (1.0-2.8); Alkaline Phosphatase 73 U/L (38-126); Aspartate Aminotransferase 22 IU/L (17-59); BUN Creatinine Ratio 19.7 (6-22); Bilirubin Total 0.4 mg/dL (0.2-1.3); Blood Urea Nitrogen 25 mg/dL (9-20); Calcium 9.3 mg/dL (8.4-10.2); Carbon Dioxide 19 mmol/L (22-32); Chloride 103 mmol/L (98-107); Estimated Glomerular Filt Rate 60 mL/min (>60); Globulin 3.2 g/dL (1.7-4.1); Glucose 143 mg/dL (80-110); HEMOLYSIS 16 (0-50); Sodium 138 mmol/L (137-145); Total Protein 7.7 g/dL (6.3-8.2)
[2022-05-29 22:17] LABS: RBC Urine 1-5/HPF (0-5/HPF)
[2022-05-29 22:18] LABS: Bacteria Urine Occasional (0-1); Hyaline Casts Urine 5-10/LPF; Mucus Urine 2+ (Negative); Squamous Epithelial Cell Urine 0-1 /HPF (0-5/HPF); WBC Urine None Seen (0-5/HPF)
[2022-05-30] VITALS (9 sets, daily range): BP systolic 143–176; BP diastolic 81–103; PULSE 72–129; RESP 18–25; O2SAT 84–100
--- NOTE | 2022-05-30 00:03 | DI.CT.S_ITS ---
PROCEDURE: CT HEAD/BRAIN WO CON INDICATIONS: head injury, high risk TECHNIQUE: Noncontrast 4.5 mm thick angled axial sections acquired from the foramen magnum to the vertex, with coronal and sagittal reformats. For radiation dose reduction, the following was used: automated exposure control, adjustment of mA and/or kV according to patient size. COMPARISON: [facility], CT, CT HEAD/BRAIN WO CON, 05/29/2022, 19:44. FINDINGS: Image quality: Excellent. CSF spaces: Basal cisterns are patent. No extra-axial fluid collections. There is moderate cerebral volume loss, with resultant ventricular and sulcal prominence. Brain: No intracranial hemorrhage, mass, or mass effect. There are subcortical, periventricular and deep white matter hypodensities consistent with moderate chronic small vessel ischemic changes. A focal hypodensity is also redemonstrated in the left basal ganglia consistent sequelae of a prior lacunar infarct or prominent [place] space. The jackson-white matter junction appears preserved. There is intracranial internal carotid artery atherosclerosis. Skull and face: Calvarium and visualized facial bones appear intact, without suspicious lesions. There is a soft tissue laceration anteriorly in the forehead region. Sinuses: Visualized sinuses and mastoids are clear. IMPRESSION: 1. No acute intracranial abnormality. 2. Moderate cerebral volume loss and chronic white matter small vessel ischemic changes. 3. Hypodensity in the left basal ganglia redemonstrated suggesting sequelae of a prior lacunar infarct or prominent [place] space. Dictated by: Sameer Roche M.D. on 05/30/2022 at 1:09 Approved by: Sameer Roche M.D. on 05/30/2022 at 1:12
--- NOTE | 2022-05-30 01:46 | DI.CT.S_ITS ---
PROCEDURE: CT CHEST ABD PEL W CON INDICATIONS: worsening left chest/rib/abdominal pain, thinners TECHNIQUE: After the administration of oral and intravenous contrast, axial sections acquired from the supraclavicular neck to the pubic symphysis. Coronal and sagittal reformats were performed. For radiation dose reduction, the following was used: automated exposure control, adjustment of mA and/or kV according to patient size. COMPARISON: None. FINDINGS: Image quality: Excellent. CHEST: Lower Neck: No enlarged lymph nodes. Thyroid: Thyroid gland appears unremarkable. Axillae: No enlarged lymph nodes. Chest Wall: Unremarkable. Lungs and Airways: No consolidation or suspicious nodules. Upper lobe predominant pulmonary emphysematous changes. No suspicious nodules or masses. No septal thickening or nodularity. Bibasilar atelectasis. Pleura: No pneumothorax or pleural effusions. Heart: Heart size is normal. No pericardial effusion. Coronary atherosclerotic vascular calcifications are noted. Thoracic Vessels: The aorta and pulmonary arteries demonstrate normal size. Atherosclerotic calcifications of the aortic arch are present. Mediastinum and [place]: A nonspecific enlarged prevascular lymph node adjacent to the aortic arch measuring approximately 1.3 x 2.0 cm (image 20/series 2). Otherwise, no evidence for suspicious mediastinal or hilar adenopathy. Esophagus: No wall thickening. No hiatal hernia. ABDOMEN: Liver: There are a few scattered subcentimeter hepatic hypodensities which are too small to accurately characterize but likely represent cysts versus hemangiomas. Gallbladder: Unremarkable. Biliary ducts: Unremarkable. Pancreas: Unremarkable. Spleen: Unremarkable. Adrenal Glands: Unremarkable. Kidneys and Ureters: Kidneys are symmetric in size and enhancement, and there is no obstructive uropathy. No perinephric inflammatory changes. Ureters are normal in course and caliber. Small incompletely characterized partially exophytic right renal hypodensities likely representing cysts. Stomach and Bowel: Stomach, small bowel loops, and colon are unremarkable. Peritoneum: No abnormal intraperitoneal fluid. No free air. Ventral Wall: No hernia. Abdominal Nodes: No retroperitoneal or mesenteric adenopathy by size criteria. Vessels: Scattered atherosclerotic calcifications of the abdominal aorta and iliac vessels without aneurysmal dilatation. The inferior vena cava appears patent.. PELVIS: Pelvic Organs: Mild prostatomegaly. Prostate gland measures approximately 5.6 x 4.2 cm in axial cross-sectional dimension (image 127/series 2). Bladder: Urinary bladder thickness appears normal for degree of distention. No perivesicular inflammatory stranding. Pelvic Nodes: No enlarged lymph nodes. Miscellaneous: No inguinal hernias are seen. Bones: No acute vertebral body compression fractures. Multilevel spondylitic changes throughout the imaged spine. No suspicious osseous lesions. IMPRESSION: 1. CT chest, abdomen, and pelvis without acute abnormalities. 2. A nonspecific enlarged prevascular mediastinal lymph node. Attention on follow-up imaging recommended. 3. Prostatomegaly. 4. Atherosclerosis. 5. Upper lobe predominant pulmonary emphysematous changes. Other chronic findings as above. No significant discrepancy with the security shift manager radiology preliminary report. Dictated by: Marino Orozco M.D. on 05/30/2022 at 7:30 Approved by: Marino Orozco M.D. on 05/30/2022 at 7:39
[2022-05-30] MEDS: METOPROLOL ER 50 MG TABLET 100 MG PO (03:38)
== END 2022-05-30 04:44 | disposition home or self-care (01) ==
PROVIDERS: Emergency Provider Emergency Medicine; PCP Internal Medicine
DX: S01.81XA Laceration without foreign body of other part of head, initial encounter (principal); F10.129 Alcohol abuse with intoxication, unspecified; Y90.5 Blood alcohol level of 100-119 mg/100 ml; W01.198A Fall on same level from slipping, tripping and stumbling with subsequent striking against other object, initial encounter; Z23 Encounter for immunization; R07.9 Chest pain, unspecified; Z79.01 Long term (current) use of anticoagulants
CPT/HCPCS: 12013; 36415; 70450; 71260; 72125; 74177; 80053; 80320; 81003; 81015; 85025; 85610; 87086; 90471; 93005; 93010; 99284; 99285; 90715; Q9967

== ENCOUNTER 2022-06-06 14:07 | Emergency (ER) | payer MEDICARE, SELFPAY ==
[2022-06-06] VITALS (13 sets, daily range): BP systolic 126–165; BP diastolic 69–81; PULSE 72–112; RESP 15–24; TEMP 36.6; O2SAT 96–99; BMI 26.9
--- NOTE | 2022-06-06 14:40 | DI.CT.S_ITS ---
PROCEDURE: CT HEAD/BRAIN WO CON INDICATIONS: confusion prior fall TECHNIQUE: Noncontrast 4.5 mm thick angled axial sections acquired from the foramen magnum to the vertex, with coronal and sagittal reformats. For radiation dose reduction, the following was used: automated exposure control, adjustment of mA and/or kV according to patient size. COMPARISON: [facility], CT, CT HEAD/BRAIN WO CON, 05/29/2022, 19:44. [facility], CT, CT HEAD/BRAIN WO CON, 05/30/2022, 0:17. FINDINGS: Image quality: Excellent. CSF spaces: Basal cisterns are patent. No extra-axial fluid collections. The ventricles are symmetric in size and shape. Brain: No intracranial bleeds or masses. There is cerebral volume loss for age, with resultant ventricular and sulcal prominence. There are periventricular and deep white matter chronic small vessel ischemic changes. A few scattered apparent remote lacunar infarcts can be seen. There is intracranial internal carotid artery atherosclerosis. Skull and face: Mild hematoma can be seen involving the central/right forehead, which is improved compared to the prior head CT. Calvarium and visualized facial bones appear intact, without suspicious lesions. Sinuses: Visualized sinuses and mastoids are clear. IMPRESSION: No acute intracranial hemorrhage is seen. No acute intracranial process is seen. Central/right forehead hematoma seen, which is improved compared to the prior. Dictated by: Mk Cotto M.D. on 06/06/2022 at 14:10 Approved by: Mk Cotto M.D. on 06/06/2022 at 14:11
[2022-06-06 14:56] LABS: Add Manual Diff / Slide Review NO; Basophils Absolute Auto 100 /uL (0-100); Basophils Percent Auto 1.2 % (0-2); Eosinophils Absolute Auto 100 /uL (0-450); Eosinophils Percent Auto 1.7 % (2-4); Hematocrit 42.1 % (41-53); Hemoglobin 14.2 g/dL (13.5-17.5); Lymphocytes Absolute Auto 1700 /uL (1100-4500); Lymphocytes Percent Auto 22.3 % (25-40); Mean Corpuscular HGB Conc 33.8 % (30-36); Mean Corpuscular Volume 88.9 fL (80-100); Monocytes Absolute Auto 700 /uL (0-900); Monocytes Percent Auto 9.2 % (3-14); Neutrophils Absolute Auto 5100 /uL (1500-7000); Neutrophils Percent Auto 65.6 % (50-75); Platelet Count 263 X10^3/uL (150-400); Red Blood Cell Count 4.73 X10^6/uL (4.5-5.9); Red Cell Distribution Width 14.5 % (11.6-14.8); White Blood Cell Count 7.8 X10^3/uL (4.5-11.0)
--- NOTE | 2022-06-06 15:01 | PC.NURSE ---
Patient was seen in the ER t-8 for GLF and head laceration. Patient states he has been having pain and tinnitus in the left ear since the fall. Patient states he is taking 1500mg of tylenol three times, daily.
[2022-06-06 15:10] LABS: Alanine Aminotransferase 21 IU/L (<50); Albumin 4.2 g/dL (3.5-5.0); Albumin Globulin Ratio 1.2 (1.0-2.8); Alkaline Phosphatase 73 U/L (38-126); Aspartate Aminotransferase 20 IU/L (17-59); BUN Creatinine Ratio 19.1 (6-22); Bilirubin Total 0.4 mg/dL (0.2-1.3); Blood Urea Nitrogen 18 mg/dL (9-20); Calcium 9.7 mg/dL (8.4-10.2); Carbon Dioxide 27 mmol/L (22-32); Chloride 101 mmol/L (98-107); Creatine Kinase 46 U/L (55-170); Estimated Glomerular Filt Rate > 60 mL/min (>60); Globulin 3.4 g/dL (1.7-4.1); Glucose 198 mg/dL (80-110); HEMOLYSIS < 15 (0-50); Lactate (Lactic Acid) 2.6 mmol/L (0.7-2.1); Lipase 85 U/L (23-300); Potassium 4.3 mmol/L (3.4-5.1); Sodium 136 mmol/L (137-145); Total Protein 7.6 g/dL (6.3-8.2)
[2022-06-06] MEDS: SODIUM CHLORIDE 0.9% 1,000 ML 150 ML IV (15:14)
[2022-06-06 15:21] LABS: Troponin I < 0.012 ng/mL (0.01-0.034)
[2022-06-06 15:27] LABS: Procalcitonin 0.03 ng/mL (<0.5)
[2022-06-06 15:29] LABS: Appearance Urine UA CLEAR; Bilirubin Urine UA NEGATIVE (NEGATIVE); Color Urine UA YELLOW; Glucose Urine UA NEGATIVE (Negative); Ketones Urine UA NEGATIVE (NEGATIVE); Leukocyte Esterase Urine UA NEGATIVE (NEGATIVE); Nitrite Urine UA NEGATIVE (Negative); Occult Blood Urine UA TRACE-INTACT (Negative); Protein Urine UA NEGATIVE (Negative); Urobilinogen Urine UA 0.2 E.U./dL (0.2); pH Urine UA 5.5 (4.5-8.0)
[2022-06-06 15:39] LABS: Amorphous Sediment Urine 1+; Bacteria Urine None Seen; Culture Indicated Urine Cult Not Indicated; RBC Urine 1-5/HPF (0-5/HPF); WBC Urine None Seen (0-5/HPF)
--- NOTE | 2022-06-06 16:10 | ED.HEATRA ---
HPI - Head Injury General Chief complaint: Head Injury Stated complaint: F/U from [facility] Time Seen by Provider: 06/06/22 14:39 Source: patient and RN notes reviewed Mode of arrival: Wheelchair History of Present Illness HPI Narrative: Patient is a 71-year-old male history of atrial fibrillation on Eliquis presenting today from PCP office. He was seen and evaluated in the ED on 05/29/2022 for a ground level fall loss of consciousness in forehead laceration. He was following up to have sutures removed. It was found that he had a very large scab unable to find 2 of the 5 sutures and thought he may have been more confused than normal. Patient is A&O x4 he is able to follow commands. He reports that he quit drinking at the time of the event. He has not had any shakes or seizures. He is reports that he did not drink that much. He denies any chest pain palpitations shortness of breath fevers chills nausea vomiting or any other symptoms. Concern was for increased confusion on Eliquis after fall. Related Data Previous Rx's Medication Instructions Recorded fluocinonide 0.05 % topical 1 applic topical BID #60 mL 10/09/20 solution budesonide 3 mg 3 mg PO DAILY #90 ea 07/09/21 capsule,delayed,extended release albuterol sulfate 90 mcg/actuation 2 puff inhalation Q6H PRN 09/07/21 aerosol inhaler shortness of breath or wheezing #54 grams atorvastatin 20 mg tablet 20 mg PO DAILY #90 tabs 11/08/21 blood sugar diagnostic (Blood #100 ea 12/11/21 Glucose Test strips) blood-glucose meter #1 ea 12/11/21 lancets 30 gauge #100 ea 12/11/21 fluticasone 500 mcg-salmeterol 50 1 inh inhalation BID #60 ea 01/14/22 mcg/dose blistr powdr for inhalation (Advair Diskus) pioglitazone 30 mg tablet 30 mg PO DAILY #90 tabs 02/07/22 apixaban 5 mg tablet (Eliquis) 5 mg PO BID #180 tabs 02/11/22 metformin 1,000 mg tablet 1,000 mg PO BID #180 tabs 02/11/22 omeprazole 20 mg capsule,delayed 20 mg PO DAILY #90 caps 04/08/22 release glipizide 10 mg tablet, extended 10 mg PO BID #180 tabs 05/07/22 release 24 hr lisinopril 5 mg tablet 5 mg PO DAILY #90 tabs 05/07/22 metoprolol succinate 100 mg 100 mg PO BID #180 tabs 05/07/22 tablet,extended release 24 hr Allergies Allergy/AdvReac Type Severity Reaction Status Date / Time naproxen Allergy Severe Anaphylaxis Verified 06/06/22 14:35 linagliptin AdvReac Severe myalgias Verified 06/06/22 14:35 Review of Systems Review of Systems ROS Unobtainable: All systems reviewed & are unremarkable except as noted in HPI and below Patient History Medical History Atrial fibrillation (~2005) CAD (coronary artery disease) (~2005) Colitis (~2004) COPD (chronic obstructive pulmonary disease) (~2008) Diabetes mellitus (~2005) Elevated PSA Essential hypertension Hearing loss (~1999) Knee pain Mixed hyperlipidemia Vision disorder Surgical History Anesthesia History of heart artery stent (~2005) Family History Father History of heart disease Mother Aneurysm Sister Cancer Social History Smoking Status: Current every day smoker Smoking Status: Current every day smoker tobacco type: cigarettes alcohol intake frequency: holidays/special occasions only Alcohol type: beer Substance Use Type: does not use Exam Initial Vital Signs Initial Vital Signs: Vital Signs Temperature 97.9 F 06/06/22 14:28 Pulse Rate 72 06/06/22 14:28 Respiratory Rate 16 06/06/22 14:28 Blood Pressure 155/77 H 06/06/22 14:28 Pulse Oximetry 99 06/06/22 14:28 Oxygen Delivery Method Room Air 06/06/22 14:28 GENERAL: Alert well-appearing 71-year-old and in no acute distress. HEENT: Head scabbed over forehead no obvious sutures seen slight depression,EOMI, pupils reactive, face symmetric, moist mucous membranes CARDIOVASCULAR: Regular rate and rhythm without murmurs, rubs or gallops. RESPIRATORY: Breath sounds equal bilaterally, no wheezes rales or rhonchi. ABDOMEN: Soft, nontender. Normoactive bowel sounds all 4 quadrants. No guarding or rebound. EXTREMITIES: Normal range of motion, no clubbing or edema. Neurovascularly intact NEUROLOGICAL: Alert and oriented x4.Normal gait and speech. [employer] strength equal bilaterally SKIN: Warm, dry, no laceration, no petechiae, no rashes or lesions. Course Orders Ordered: Discontinued Medications Sodium Chloride (Normal Saline 0.9%) 1,000 mls @ 150 mls/hr IV CONT YOU Last Infusion: 06/06/22 16:40 Dose: 0 mls/hr Documented By: Admin: 06/06/22 15:14 Dose: 150 mls/hr Documented By: RB Vital Signs Vital signs: Vital Signs - 8 hr 06/06/22 14:28 Temperature 97.9 F Pulse Rate 72 Respiratory Rate 16 Blood Pressure 155/77 H Pulse Oximetry 99 Oxygen Delivery Method Room Air MDM - Head Injury Lab Data 06/06/22 14:40 06/06/22 14:40 Labs: Lab Results 06/06/22 06/06/22 06/06/22 Range/Units 14:40 14:40 14:40 WBC 7.8 (4.5-11.0) X10^3/uL RBC 4.73 (4.5-5.9) X10^6/uL Hgb 14.2 (13.5-17.5) g/dL Hct 42.1 (41-53) % MCV 88.9 (80-100) fL MCH 30.0 (26-34) PG MCHC 33.8 (30-36) % RDW 14.5 (11.6-14.8) % Plt Count 263 (150-400) X10^3/uL Neut % (Auto) 65.6 (50-75) % Lymph % (Auto) 22.3 L (25-40) % [place] % (Auto) 9.2 (3-14) % Eos % (Auto) 1.7 L (2-4) % Baso % (Auto) 1.2 (0-2) % Neut # (Auto) 5100 (5964-4468) /uL Lymph # (Auto) 1700 (9892-7270) /uL [place] # (Auto) 700 (0-900) /uL Eos # (Auto) 100 (0-450) /uL Baso # (Auto) 100 (0-100) /uL Sodium 136 L (137-145) mmol/L Potassium 4.3 (3.4-5.1) mmol/L Chloride 101 (98-107) mmol/L Carbon Dioxide 27 (22-32) mmol/L BUN 18 (9-20) mg/dL Creatinine 0.94 (0.66-1.25) mg/dL Estimated GFR > 60 (>60) mL/min BUN/Creatinine Ratio 19.1 (6-22) Glucose 198 H (80-110) mg/dL Lactate 2.6 H (0.7-2.1) mmol/L Calcium 9.7 (8.4-10.2) mg/dL Total Bilirubin 0.4 (0.2-1.3) mg/dL AST 20 (17-59) IU/L ALT 21 (<50) IU/L Alkaline Phosphatase 73 (38-126) U/L Total Creatine Kinase 46 L (55-170) U/L CK-MB (CK-2) TNP CK-MB (CK-2) Rel Index TNP Troponin I < 0.012 (0.01-0.034) ng/mL Total Protein 7.6 (6.3-8.2) g/dL Albumin 4.2 (3.5-5.0) g/dL Globulin 3.4 (1.7-4.1) g/dL Albumin/Globulin Ratio 1.2 (1.0-2.8) Lipase 85 (23-300) U/L Procalcitonin (<0.5) ng/mL Urine Color Urine Appearance Urine pH (4.5-8.0) Ur Specific [place] (1.000-1.035) Urine Protein (Negative) Urine Glucose (UA) (Negative) g/dL Urine Ketones (NEGATIVE) Urine Occult Blood (Negative) Urine Nitrate (Negative) Urine Bilirubin (NEGATIVE) Urine Urobilinogen (0.2) E.U./dL Ur Leukocyte Esterase (NEGATIVE) Urine RBC (0-5/HPF) Urine WBC (0-5/HPF) Amorphous Sediment Urine Bacteria (None) Ur Culture Indicated? SARS-CoV-2 (PCR) (Negative) Influenza A (RT-PCR) (NEGATIVE) Influenza B (RT-PCR) (NEGATIVE) RSV (PCR) (Negative) 03/06/06/22 06/06/22 Range/Units 14:40 15:03 16:10 WBC (4.5-11.0) X10^3/uL RBC (4.5-5.9) X10^6/uL Hgb (13.5-17.5) g/dL Hct (41-53) % MCV (80-100) fL MCH (26-34) PG MCHC (30-36) % RDW (11.6-14.8) % Plt Count (150-400) X10^3/uL Neut % (Auto) (50-75) % Lymph % (Auto) (25-40) % [place] % (Auto) (3-14) % Eos % (Auto) (2-4) % Baso % (Auto) (0-2) % Neut # (Auto) (7280-0862) /uL Lymph # (Auto) (0479-3862) /uL [place] # (Auto) (0-900) /uL Eos # (Auto) (0-450) /uL Baso # (Auto) (0-100) /uL Sodium (137-145) mmol/L Potassium (3.4-5.1) mmol/L Chloride (98-107) mmol/L Carbon Dioxide (22-32) mmol/L BUN (9-20) mg/dL Creatinine (0.66-1.25) mg/dL Estimated GFR (>60) mL/min BUN/Creatinine Ratio (6-22) Glucose (80-110) mg/dL Lactate (0.7-2.1) mmol/L Calcium (8.4-10.2) mg/dL Total Bilirubin (0.2-1.3) mg/dL AST (17-59) IU/L ALT (<50) IU/L Alkaline Phosphatase (38-126) U/L Total Creatine Kinase (55-170) U/L CK-MB (CK-2) CK-MB (CK-2) Rel Index Troponin I (0.01-0.034) ng/mL Total Protein (6.3-8.2) g/dL Albumin (3.5-5.0) g/dL Globulin (1.7-4.1) g/dL Albumin/Globulin Ratio (1.0-2.8) Lipase (23-300) U/L Procalcitonin 0.03 (<0.5) ng/mL Urine Color Yellow Urine Appearance Clear Urine pH 5.5 (4.5-8.0) Ur Specific [place] 1.010 (1.000-1.035) Urine Protein Negative (Negative) Urine Glucose (UA) Negative (Negative) g/dL Urine Ketones Negative (NEGATIVE) Urine Occult Blood Trace-intact (Negative) Urine Nitrate Negative (Negative) Urine Bilirubin Negative (NEGATIVE) Urine Urobilinogen 0.2 (0.2) E.U./dL Ur Leukocyte Esterase Negative (NEGATIVE) Urine RBC 1-5/hpf (0-5/HPF) Urine WBC None seen (0-5/HPF) Amorphous Sediment 1+ Urine Bacteria None seen (None) Ur Culture Indicated? Cult not indicated SARS-CoV-2 (PCR) Negative (Negative) Influenza A (RT-PCR) Flu a negative (NEGATIVE) Influenza B (RT-PCR) Flu b negative (NEGATIVE) RSV (PCR) Negative (Negative) Imaging Data CT scan - head: Radiologist's Impression: PROCEDURE:? CT HEAD/BRAIN WO CON ? INDICATIONS:? confusion prior fall ? TECHNIQUE:? Noncontrast 4.5 mm thick angled axial sections acquired from the foramen magnum to the vertex, with coronal and sagittal reformats.? For radiation dose reduction, the following was used:? automated exposure control, adjustment of mA and/or kV according to patient size.? ? COMPARISON:? [facility], CT, CT HEAD/BRAIN WO CON, 05/29/2022, 19:44.? [facility], CT, CT HEAD/BRAIN WO CON, 05/30/2022, 0:17. ? FINDINGS:? Image quality:? Excellent.? ? CSF spaces:? Basal cisterns are patent.? No extra-axial fluid collections.? The ventricles are symmetric in size and shape.? ? Brain:? No intracranial bleeds or masses.? There is cerebral volume loss for age, with resultant ventricular and sulcal prominence.? There are periventricular and deep white matter chronic small vessel ischemic changes.? A few scattered apparent remote lacunar infarcts can be seen.? There is intracranial internal carotid artery atherosclerosis.? ? Skull and face:? Mild hematoma can be seen involving the central/right forehead, which is improved compared to the prior head CT.? Calvarium and visualized facial bones appear intact, without suspicious lesions.? ? Sinuses:? Visualized sinuses and mastoids are clear.? ? ? IMPRESSION:? No acute intracranial hemorrhage is seen.? ? No acute intracranial process is seen.? ? Central/right forehead hematoma seen, which is improved compared to the prior. ? ? Dictated by: Mk Cotto M.D. on 06/06/2022 at 14:10 ? ? ECG Data Interpretation: Atrial fibrillation rate [address] changes right bundle-branch block noted similar to priors MDM Narrative Medical decision making narrative: Patient is 71-year-old male who presents from PCP with possible increasing confusion. He is doing A&O x3 here without focal deficits. Repeat head CT does not show any intracranial hemorrhage. Blood work is overall reassuring without sign of infection. Viral panel is pending but he is not really having infectious symptoms. Lactate minimally elevated 2.6 procalcitonin 0.03 troponin is negative. He does not seem significantly confused he is ambulatory. At this time no indication for admission or further workup Discharge Plan Departure Patient Disposition: Home Clinical Impression: Closed head injury Instructions: DI for Closed Head Injury Activity Restrictions/Additional Instructions: *You have been diagnosed with closed head injury *What to do: At this time use soap and water, apply antibiotic ointment 1-2 times daily *Continue to take medications as directed *Follow up with your primary care provider in 2-3 days or call [phone] *Return to ER if you should have increasing confusion falls weakness numbness tingling or any new, worsening or concerning symptoms Prescriptions: No Action fluocinonide 0.05 % solution 1 applic topical BID Qty: 60 3RF budesonide 3 mg capsule,delayed,extend.release 3 mg PO DAILY Qty: 90 3RF albuterol sulfate 90 mcg/actuation HFA aerosol inhaler 2 puff inhalation Q6H PRN (Reason: shortness of breath or wheezing) Qty: 54 0RF atorvastatin 20 mg tablet 20 mg PO DAILY Qty: 90 3RF (DME) blood-glucose meter Misc See Rx Instructions .Route Qty: 1 0RF Rx Instructions: Use to check BS once daily (DME) Blood Glucose Test Strip See Rx Instructions .Route Qty: 100 3RF Rx Instructions: Use to test BS once daily. (DME) lancets 30 gauge misc See Rx Instructions .Route Qty: 100 3RF Rx Instructions: Use to check BS once daily. pioglitazone 30 mg tablet 30 mg PO DAILY Qty: 90 1RF metformin 1,000 mg tablet 1,000 mg PO BID Qty: 180 3RF Eliquis 5 mg tablet 5 mg PO BID Qty: 180 3RF omeprazole 20 mg capsule,delayed release(DR/EC) 20 mg PO DAILY Qty: 90 3RF glipizide 10 mg tablet extended release 24hr 10 mg PO BID Qty: 180 2RF lisinopril 5 mg tablet 5 mg PO DAILY Qty: 90 2RF metoprolol succinate 100 mg tablet extended release 24 hr 100 mg PO BID Qty: 180 2RF fluticasone propion-salmeterol [Advair Diskus] 500-50 mcg/dose blister with device 1 inh inhalation BID Qty: 60 4RF Referrals: Homer Falk MD [Primary Care Provider] - Stand Alone Forms: Patient Portal/API
[2022-06-06 16:51] LABS: Reflexed Lactate in 2 Hours Y
[2022-06-06 16:59] LABS: Influenza A - CEPHEID Flu A NEGATIVE (NEGATIVE); Influenza B - CEPHEID Flu B NEGATIVE (NEGATIVE); Respiratory Syncytial Virus Negative (Negative)
[2022-06-06 17:42] LABS: COVID-19 CEPHEID 4-PLEX PCR Negative (Negative)
== END 2022-06-06 16:40 | disposition home or self-care (01) ==
PROVIDERS: Emergency Provider Emergency Medicine; PCP Internal Medicine
DX: R41.0 Disorientation, unspecified (principal); S09.90XA Unspecified injury of head, initial encounter; Z20.822 Contact with and (suspected) exposure to COVID-19; Z79.01 Long term (current) use of anticoagulants
CPT/HCPCS: 0241U; 36415; 70450; 80053; 81001; 82550; 83605; 83690; 84145; 84484; 85025; 93005; 99284

== ENCOUNTER → 2022-07-30 11:30 | Outpatient (CLI) | payer MEDICARE, SELFPAY ==
[2022-07-30 13:37] LABS: Alanine Aminotransferase 17 IU/L (<50); Albumin 4.6 g/dL (3.5-5.0); Albumin Globulin Ratio 1.5 (1.0-2.8); Alkaline Phosphatase 88 U/L (38-126); Aspartate Aminotransferase 19 IU/L (17-59); BUN Creatinine Ratio 18.2 (6-22); Bilirubin Total 0.8 mg/dL (0.2-1.3); Blood Urea Nitrogen 18 mg/dL (9-20); Calcium 9.9 mg/dL (8.4-10.2); Carbon Dioxide 27 mmol/L (22-32); Chloride 101 mmol/L (98-107); Estimated Glomerular Filt Rate > 60 mL/min (>60); Globulin 3.1 g/dL (1.7-4.1); Glucose 168 mg/dL (80-110); HEMOLYSIS < 15 (0-50); Potassium 4.8 mmol/L (3.4-5.1); Sodium 138 mmol/L (137-145); Total Protein 7.7 g/dL (6.3-8.2)
[2022-07-30 15:10] LABS: Creatinine Urine Random 19.9 mg/dL
[2022-07-30 15:14] LABS: Microalbumi Creatinin Ratio Ur 195.9 ug/mg CR (<30); Microalbumin Urine Random 3.9 mg/dL (0-1.6)
[2022-07-31 04:12] LABS: x Labcorp Estim. Avg Glu (eAG) 200 mg/dL (.); x Labcorp Hemoglobin A1c 8.6 % (4.8-5.6)
== END ==
PROVIDERS: PCP Internal Medicine; Referring Provider Internal Medicine; Visit Provider Internal Medicine
DX: E78.2 Mixed hyperlipidemia (principal); I10 Essential (primary) hypertension; R80.9 Proteinuria, unspecified; E11.29 Type 2 diabetes mellitus with other diabetic kidney complication
CPT/HCPCS: 36415; 80053; 82043; 82570; 83036

== ENCOUNTER → 2022-10-09 13:21 | Outpatient (CLI) | payer MEDICARE, SELFPAY ==
--- NOTE | 2022-10-09 13:23 | DI.US.S_ITS ---
PROCEDURE: US ARTERIAL DUPLEX LE RT INDICATIONS: Type 2 diabetes mellitus with foot ulcer TECHNIQUE: Color and pulse Doppler interrogation was performed of the right lower extremity arterial system, with image documentation. COMPARISON: None. FINDINGS: Common femoral artery: 85 cm/sec, with triphasic flow. Deep femoral artery: 77 cm/sec, with biphasic flow. Proximal superficial femoral artery: 94 cm/sec, with biphasic flow. Mid superficial femoral artery: 133 cm/sec, with triphasic flow. Distal superficial femoral artery: 43 cm/sec, with triphasic flow. Popliteal artery: 49 cm/sec, with triphasic flow. Posterior tibial artery: 23 cm/sec, with biphasic flow. Anterior tibial artery/dorsalis pedis: 111 cm/sec, with biphasic flow. Quintana-scale imaging description: Mild atheromatous plaque throughout. No sonographic evidence for hemodynamically significant stenosis. IMPRESSION: No sonographic findings to suggest hemodynamically significant stenosis of the right lower extremity. Dictated by: Johana Omalley M.D. on 10/09/2022 at 16:56 Approved by: Johana Omalley M.D. on 10/09/2022 at 16:57
== END ==
PROVIDERS: PCP Internal Medicine; Referring Provider Podiatrist; Visit Provider Podiatrist
DX: E11.621 Type 2 diabetes mellitus with foot ulcer (principal); L97.512 Non-pressure chronic ulcer of other part of right foot with fat layer exposed
CPT/HCPCS: 93926

== ENCOUNTER → 2022-10-30 11:39 | Outpatient (CLI) | payer MEDICARE, SELFPAY ==
[2022-10-30 12:45] LABS: Hemoglobin A1C% w Est Avg Glu 8.3 % (4.0-6.0)
[2022-10-30 13:02] LABS: Alanine Aminotransferase 19 IU/L (<50); Albumin 4.1 g/dL (3.5-5.0); Albumin Globulin Ratio 1.4 (1.0-2.8); Alkaline Phosphatase 68 U/L (38-126); Aspartate Aminotransferase 20 IU/L (17-59); BUN Creatinine Ratio 17.6 (6-22); Bilirubin Total 0.5 mg/dL (0.2-1.3); Blood Urea Nitrogen 16 mg/dL (9-20); Calcium 9.3 mg/dL (8.4-10.2); Carbon Dioxide 26 mmol/L (22-32); Chloride 104 mmol/L (98-107); Cholesterol 135 mg/dL (140-199); Estimated Glomerular Filt Rate > 60 mL/min (>60); Glucose 175 mg/dL (80-110); HDL Cholesterol 47 mg/dL (40-60); HEMOLYSIS < 15 (0-50); LDL Cholesterol Calculated 72 mg/dL (<100); Potassium 4.8 mmol/L (3.4-5.1); Sodium 138 mmol/L (137-145); Total Protein 7.1 g/dL (6.3-8.2); Triglycerides 78 mg/dL (35-150)
== END ==
PROVIDERS: PCP Internal Medicine; Referring Provider Internal Medicine; Visit Provider Internal Medicine
DX: E11.9 Type 2 diabetes mellitus without complications (principal); I10 Essential (primary) hypertension; I48.91 Unspecified atrial fibrillation
CPT/HCPCS: 36415; 80053; 80061; 83036

== ENCOUNTER 2022-11-28 12:11 | Day surgery (SDC) | payer MEDICARE, SELFPAY ==
--- NOTE | 2022-11-28 | PATH_ITS ---
[facility] Accession Number: [id number] No. of containers..03 Tissue . 01 Material submitted: . PART A: colon - CECAL POLYP PART B: colon - TRANSVERSE POLYP PART C: rectum - RECTAL POLYPS . 01 Diagnosis: A. COLON, CECUM, POLYP BIOPSY: - TUBULAR ADENOMA --- B. COLON, TRANSVERSE, POLYP BIOPSY: - TUBULAR ADENOMA --- C. COLON, RECTUM, POLYPS BIOPSIES: -HYPERPLASTIC POLYPS. TXN 12/02/2022 1246 Local . 01 Electronically signed: . Tawfeq MD Joanna, Pathologist NPI- [id number] . 01 Gross description: . Part A: CECAL POLYP: Received in formalin is multiple fragment(s) of montoya, soft tissue measuring 1.5 x 0.5 x 0.2 cm in aggregate submitted entirely in 1 cassette(s) Part B: TRANSVERSE POLYP: Received in formalin is multiple fragment(s) of montoya, soft tissue measuring 1.0 x 0.5 x 0.1 cm in aggregate submitted entirely in 1 cassette(s) Part C: RECTAL POLYPS: Received in formalin is multiple fragment(s) of montoya, soft tissue measuring 1.2 x 0.5 x 0.1 cm in aggregate submitted entirely in 1 cassette(s) /AAY 11/30/2022 2232 Local . 01 Pathologist provided ICD-10: Z12.11 . 01 CPT . 528064, 806574, 669099 Specimen Comment: A courtesy copy of this report has been sent to [phone] Performed at: 01 [facility] [address] [place] [address] [address] [facility], [place], [place] [id number] MD Sameer Valerio MD Phone: [phone]
[2022-11-28] MEDS: LACTATED RINGERS 1,000 ML 42 ML IV (12:34)
[2022-11-28 12:53] VITALS: BP 154/88; PULSE 110; RESP 20; TEMP 36.3; O2SAT 99; BMI 26.9
--- NOTE | 2022-11-28 13:27 | PM.HP.1 ---
History of Present Illness History of Present Illness Date Patient Seen: 11/28/22 Time Patient Seen: 13:27 Chief complaint: Colonoscopy Narrative: Jim is a 72 year old man here for his colonoscopy. His last colonoscopy was about 10 years ago. He did not have polyps but was diagnosed with colitis. He takes eliquis for atrial fibrillation. [facility] Medical History Atrial fibrillation (~2005) CAD (coronary artery disease) (~2005) Colitis (~2004) COPD (chronic obstructive pulmonary disease) (~2008) Diabetes mellitus (~2005) Elevated PSA Essential hypertension Fungal infection of toenail Hearing loss (~1999) Knee pain Mixed hyperlipidemia Vision disorder Surgical History Anesthesia History of heart artery stent (~2005) Family History Father History of heart disease Mother Aneurysm Sister Cancer Social History household members: none Smoking Status: Current every day smoker Meds Home Medications and Allergies Home Medications Medication Instructions Recorded Confirmed Type albuterol sulfate 90 mcg/actuation 2 puff inhalation Q6H PRN 09/07/21 11/28/22 Rx aerosol inhaler shortness of breath or wheezing #54 grams atorvastatin 20 mg tablet 20 mg PO DAILY #90 tabs 11/08/21 11/28/22 Rx blood sugar diagnostic (Blood #100 ea 12/11/21 11/18/22 Rx Glucose Test strips) blood-glucose meter #1 ea 12/11/21 11/18/22 Rx lancets 30 gauge #100 ea 12/11/21 11/18/22 Rx apixaban 5 mg tablet (Eliquis) 5 mg PO BID #180 tabs 02/11/22 11/28/22 Rx metformin 1,000 mg tablet 1,000 mg PO BID #180 tabs 02/11/22 11/28/22 Rx omeprazole 20 mg capsule,delayed 20 mg PO DAILY #90 caps 04/08/22 11/28/22 Rx release glipizide 10 mg tablet, extended 10 mg PO BID #180 tabs 05/07/22 11/28/22 Rx release 24 hr lisinopril 20 mg tablet 20 mg PO DAILY #90 tabs 06/25/22 11/28/22 Rx budesonide 3 mg 3 mg PO DAILY #90 ea 08/12/22 11/28/22 Rx capsule,delayed,extended release pioglitazone 30 mg tablet 30 mg PO DAILY #90 tabs 08/12/22 11/28/22 Rx metoprolol succinate 100 mg 100 mg PO BID #180 tabs 11/04/22 11/28/22 Rx tablet,extended release 24 hr Allergies Allergy/AdvReac Type Severity Reaction Status Date / Time naproxen Allergy Severe Anaphylaxis Verified 11/28/22 12:43 linagliptin AdvReac Severe myalgias Verified 11/28/22 12:43 Exam Vital Signs (past 8 hours): - 11/28/22 12:53 Temperature 97.3 F L Pulse Rate 110 H Respiratory Rate 20 Blood Pressure 154/88 H Pulse Oximetry 99 Oxygen Delivery Method Room Air Oxygen Delivery Method Room Air Const General: No acute distress Assessment & Plan Assessment and plan (1) Colon cancer screening: Status: Acute Plan Jim is here for his colonoscopy. We reviewed the risks and benefits and he would like to proceed.
--- NOTE | 2022-11-28 14:52 | PM.OP.COLON ---
Operative Date/Time/Diagnoses Date of procedure: 11/28/22 Time of procedure: 14:52 Pre-op diagnosis: Colon cancer screening Post-op diagnosis: same Procedure & Clinicians Study performed: Colonoscopy Same procedure as scheduled: Yes Surgeon: Sky Higgins Procedure Notes Procedure in detail: Surgeon: Sky Higgins MD Anesthesia: Tavia Hawthorne CRNA Procedure: The patient was brought to the endoscopy suite, placed in left lateral decubitus position. The patient was connected to monitoring devices. A time-out was performed. Sedation was administered. Once the patient was adequately sedated, a digital rectal exam was performed and was normal. The scope was then inserted and advanced to the cecum where the appendiceal orifice was identified and photographed. The scope was then slowly withdrawn over greater than 6 minutes. The mucosa was thoroughly inspected. There was a 1 cm flat polyp in the cecum removed with a hot snare. There was a 5 mm polyp in the transverse colon removed with a cold snare. There were 2 flat polyps in the rectum each about 7 mm, both removed cold snare and sent together. The scope was retroflexed in the rectum. No other abnormalities were seen. The scope was straightened and removed. The patient was awakened and brought to recovery. Scope withdrawal time: 16 minutes Sedation time: 23 minutes EBL: 5 mL Findings: 1 cm flat polyp in the cecum, 5 mm polyp in the transverse colon and 2 7 mm flat polyps in the rectum Post-procedure Disposition: PACU
[2022-11-28 14:55] VITALS: BP 127/79; PULSE 122; RESP 16; TEMP 36.1; O2SAT 98
[2022-11-28 15:00] VITALS: BP 126/79; PULSE 115; RESP 16; O2SAT 98
[2022-11-28 15:02] VITALS: BP 134/87; PULSE 100; RESP 16; O2SAT 98
[2022-11-28 15:10] VITALS: BP 123/99; PULSE 92; RESP 16; TEMP 36.2; O2SAT 99
[2022-11-28] MEDS: ONDANSETRON 4 MG/2 ML INJ (15:19)
[2022-11-28 15:34] VITALS: BP 124/77; PULSE 114; RESP 16; TEMP 36.2; O2SAT 98
== END 2022-11-28 15:50 | disposition home or self-care (01) ==
PROVIDERS: PCP Internal Medicine; Referring Provider Surgery; Visit Provider Surgery
PROC: 0DJD8ZZ Inspection of Lower Intestinal Tract, Via Natural or Artificial Opening Endoscopic (ICD-10-PCS; CPT 45378; principal; 2022-11-28 13:15)
DX: Z12.11 Encounter for screening for malignant neoplasm of colon (principal); D12.0 Benign neoplasm of cecum; D12.3 Benign neoplasm of transverse colon; K62.1 Rectal polyp
CPT/HCPCS: 45385; J2405; J2704

== ENCOUNTER → 2022-12-24 12:27 | Outpatient (CLI) | payer MEDICARE, SELFPAY ==
[2022-12-24 13:29] LABS: Influenza A - CEPHEID Flu A NEGATIVE (NEGATIVE); Influenza B - CEPHEID Flu B NEGATIVE (NEGATIVE); Respiratory Syncytial Virus Negative (Negative)
[2022-12-24 13:40] LABS: COVID-19 CEPHEID 4-PLEX PCR Negative (Negative)
== END ==
PROVIDERS: PCP Internal Medicine; Visit Provider Physician Assistant
DX: R05.1 Acute cough (principal)
CPT/HCPCS: 0241U

== ENCOUNTER → 2023-02-01 09:24 | Outpatient (CLI) | payer MEDICARE, SELFPAY ==
[2023-02-01 09:58] LABS: Hemoglobin A1C% w Est Avg Glu 9.4 % (4.0-6.0)
[2023-02-01 10:02] LABS: BUN Creatinine Ratio 17.4 (6-22); Blood Urea Nitrogen 16 mg/dL (9-20); Calcium 9.8 mg/dL (8.4-10.2); Carbon Dioxide 27 mmol/L (22-32); Chloride 101 mmol/L (98-107); Estimated Glomerular Filt Rate > 60 mL/min (>60); Glucose 229 mg/dL (80-110); HEMOLYSIS 15 (0-50); Potassium 4.5 mmol/L (3.4-5.1); Sodium 135 mmol/L (137-145)
== END ==
PROVIDERS: PCP Internal Medicine; Referring Provider Internal Medicine; Visit Provider Internal Medicine
DX: E11.9 Type 2 diabetes mellitus without complications (principal); E78.2 Mixed hyperlipidemia; I10 Essential (primary) hypertension
CPT/HCPCS: 36415; 80048; 83036

== ENCOUNTER → 2023-02-19 11:17 | Outpatient (CLI) | payer MEDICARE, SELFPAY | PROVIDERS: PCP Internal Medicine; Referring Provider Internal Medicine; Visit Provider Internal Medicine | DX: J44.9 Chronic obstructive pulmonary disease, unspecified (principal); F17.210 Nicotine dependence, cigarettes, uncomplicated | CPT/HCPCS: 94060; 94726; 94729 ==

== ENCOUNTER → 2023-02-19 14:28 | Outpatient (CLI) | payer MEDICARE, SELFPAY ==
--- NOTE | 2023-02-19 17:15 | DIAB.MNT ---
Addendum entered by Rahel Bartlett 03/13/23 17:18: Jim called today and reported 250mg/dl 2 hour after one applesauce. Reports most BG ranging from 180-260mg/dl. RD messaged provider regarding GLP1 coverage. No Bydureon rx on file and no response from provider. Message was closed out. Today RD re messaged provider + workgroup to see if a plan could be instated sooner than later. Pt seems particularly worried about BG. Asked that he call provider to either determine a plan or perhaps move appt up if possible if hyperglycemia continues, especially >250mg/dl. Addendum entered by Rahel Bartlett 02/26/23 14:40: Jim called today to report bydureon is covered by insurance for $160 for 3 mo versus $200 per month for Trulicity. Open to trying GLP1 or insulin at this point. Waking with elevated BG >180. BG often 200-300 during day per report. Only checks BG q couple days. Discussed pros/cons for both GLP1 and insulin. he would like to try bydureon. RD messaged provider workgroup. Original Note: Initial Diabetes Medical Nutrition Therapy Assessment Name: Jim Dominguez Date: 02/19/23 Time: 235-335p Dx: Type II Diabetes Provider: Dileep Jim presents for initial DM education visit. Last visit over one year ago. HgA1c up to 9.4%. Reports a finger stick of 300mg/dl pre lunch this week. PCP added Trulicity, however pt report this is unaffordable for him, >$200/mo. Has been weary of any injectables, however recent BG of 300 has made him more amenable to these therapies. Diet recall indicates large carb portions at dinner. Brother is recovering from cancer tx and has been rather sick. Jim has not been able to go over for dinner as he did previously, which was previously a balanced lower carb meal for him. Limited cooking knowledge. Eats at Polish restaurant or casino or frozen dinner. Reports leg pain that is exacerbated with walking. Has reduced smoking from 20 to 5 cigarettes per day. Smoker x40 years. Peripheral artery disease risk with DM and smoking. Reports increased SOB which has impacted his ability to go on walks. States he is not sure why hgA1c has increased or why this might be bad for health. Diet Recall: 730a: apple sauce cup 1p: beef brat and sugar free cookies OR 2 hot dogs OR veggie and ranch 5-6p: Polish restaurant (3 tacos, rice and beans 1-2 x per week), Casino (steak, veg, mashed potatoes OR fish with fruit cup and some fries OR shrimp scampi x 3+ cups no veg) 8-9p: nothing or Sf cookies with milk x 12-16oz Beverages: water 16oz x 4-5, milk, sf gatorade Anthropometrics: Ht: 6'3 Wt: 98kg at last PCP visit Physical Activity: No program d/t SOB and knee pain. States he needs a knee replacement, but cannot get replacement with elevated hgA1c. Self-Monitoring Blood Glucose: Limited results. Those reported 180-300mg/dl Diabetes Medications: 1000mg Metformin BID 10 mg glipizide BID 30mg Pioglitizone 0.75mg Trulicity (not taking) Pertinent Labs: HgA1c 8.6% 07/2022 8.3% 10/2022 9.4% 01/2023 Past Medical History: (Last Updated 02/03/23 @ 14:06 by Homer Falk MD) Atrial fibrillation (~2005) CAD (coronary artery disease) (~2005) [place] 2006 Colitis (~2004) COPD (chronic obstructive pulmonary disease) (~2008) Diabetes mellitus (~2005) Elevated PSA Negative biopsy in past Essential hypertension Fungal infection of toenail H/O adenomatous polyp of colon Hearing loss (~1999) Knee pain Mixed hyperlipidemia Vision disorder Wear glasses Nutrition Rx: Carbohydrates: Meal: 45-60g Snack: 15-30g Nutrition Diagnosis: Excessive CHO intake r/t increased eating out and limited cooking knowledge aeb diet recall, pt report, increase in hgA1c Physical inactivity r/t knee and leg pain aeb pt report Self monitoring deficit r/t stage of change preparation aeb pt report of motivation after finger stick of 300mg/dl Intervention: This participant was very receptive. Provided appropriate educational handouts. Discussed the following topics: Completed intake assessment. HgA1c, its correlation to blood glucose numbers, and rationale for goal Importance of self-monitoring, how often, and when to check. Plate Method, impact of macronutrients on blood sugar, pairing macronutrients and spreading out carbohydrates for better blood glucose management Eating out strategies Easy cooking for one ideas Recommended servings for carbohydrates at meals and snacks Heart health nutrition Brainstormed appropriate meal plan based on food preferences Role of physical activity Medication management: GLP1 and insulin education Created SMART goals for patient self-care and success. Goals: Call insurance regarding GLP1 coverage Try steamer veggies Try frozen brown rice When eating out, cut meal in half and add veggies Check FBG and bring next visit Follow-up: YUSEF BURDICK follow-up in 2-3 weeks. Jim plans to call RD/[facility] about GLP1 coverage next week. Will reach out to PCP for update if different GLP1 is covered or insulin is indicated. Rahel Bartlett RDN, [facility] Certified Diabetes Care and Materials Specialist P: [phone] Thank you for this referral
== END ==
PROVIDERS: PCP Internal Medicine; Referring Provider Internal Medicine; Visit Provider Internal Medicine
DX: E11.9 Type 2 diabetes mellitus without complications (principal); Z79.84 Long term (current) use of oral hypoglycemic drugs; Z79.85 Long-term (current) use of injectable non-insulin antidiabetic drugs; Z71.3 Dietary counseling and surveillance; J44.9 Chronic obstructive pulmonary disease, unspecified; F17.210 Nicotine dependence, cigarettes, uncomplicated
CPT/HCPCS: 94060; 94726; 94729; 97802

== ENCOUNTER → 2023-04-02 11:14 | Outpatient (CLI) | payer MEDICARE, SELFPAY ==
[2023-04-02 12:10] LABS: BUN Creatinine Ratio 16.9 (6-22); Blood Urea Nitrogen 14 mg/dL (9-20); Calcium 9.2 mg/dL (8.4-10.2); Carbon Dioxide 24 mmol/L (22-32); Chloride 101 mmol/L (98-107); Estimated Glomerular Filt Rate > 60 mL/min (>60); Glucose 239 mg/dL (80-110); HEMOLYSIS < 15 (0-50); Potassium 4.6 mmol/L (3.4-5.1); Sodium 134 mmol/L (137-145)
[2023-04-02 12:21] LABS: Hemoglobin A1C% w Est Avg Glu 8.9 % (4.0-6.0)
== END ==
LOC: LAB 11:14
PROVIDERS: PCP Internal Medicine; Referring Provider Internal Medicine; Visit Provider Internal Medicine
DX: E11.29 Type 2 diabetes mellitus with other diabetic kidney complication (principal); R80.9 Proteinuria, unspecified; I10 Essential (primary) hypertension
CPT/HCPCS: 36415; 80048; 83036

== ENCOUNTER → 2023-04-11 10:53 | Outpatient (CLI) | payer MEDICARE, SELFPAY ==
--- NOTE | 2023-04-22 17:12 | DIAB.FU ---
Addendum entered by Rahel Bartlett 04/22/23 17:20: RD has msged provider about rx for insulin and cgm. Original Note: Follow-up Diabetes Education Assessment Name: Jim Dominguez Date: 04/11/23 Time: Dx: Type II Diabetes Jim presents for follow-up. Last PCP visit, they discussed insulin and potential for CGM. Jim does not have a smart phone, but we can use the Dexcom instrument and control service person to demo a CGM. Provider notes indicate potential for 70/30 due to cost, however [facility] now limits cost of insulin to $35 per month. Jim has reported increasingly SOB. Per provider notes, this is r/t COPD. Jim reports still smoking about 20 cigarettes per day in his efforts of cessation. Self-Monitoring Blood Glucose: Not checking BG as often. Reports morning reading recently of 160mg/dl and afternoon 1 hr pc of 210mg/dl. Diabetes Medications: 1000mg Metformin BID 10 mg glipizide BID Pertinent Labs: HgA1c 8.6% 07/2022 8.3% 10/2022 9.4% 01/2023 Past Medical History: (Last Updated 02/03/23 @ 14:06 by Homer Falk MD) Atrial fibrillation (~2005) CAD (coronary artery disease) (~2005) [place] 2006 Colitis (~2004) COPD (chronic obstructive pulmonary disease) (~2008) Diabetes mellitus (~2005) Elevated PSA Negative biopsy in past Essential hypertension Fungal infection of toenail H/O adenomatous polyp of colon Hearing loss (~1999) Knee pain Mixed hyperlipidemia Vision disorder Wear glasses Intervention: This participant was very receptive. Provided appropriate educational handouts. Discussed the following topics: Blood sugar and hga1c correlation and rationale Goals for BG and hga1c CMG options and pros/cons Insulin types, actions, and MCR coverage CGM self placement of starter kit, precautions, when to finger stick, insurance coverage for devices Created SMART goals for patient self-care and success. Goals: Wear CGM x 10 days Call [facility] about ordering if wanting to keep CGM Use meter as needed, as directed Follow-up: YUSEF BURDICK follow-up in 2-3 weeks Rahel Bartlett RDN, [facility] Certified Diabetes Care and Grind Operator P: [phone] Thank you for this referral
== END ==
LOC: DIET 10:53
PROVIDERS: PCP Internal Medicine; Referring Provider Internal Medicine; Visit Provider Internal Medicine
DX: E11.9 Type 2 diabetes mellitus without complications (principal); Z79.84 Long term (current) use of oral hypoglycemic drugs; Z71.3 Dietary counseling and surveillance
CPT/HCPCS: G0108

== ENCOUNTER → 2023-04-25 13:44 | Outpatient (CLI) | payer MEDICARE, SELFPAY ==
--- NOTE | 2023-05-07 17:31 | DIAB.MNTFU ---
Follow-up Diabetes Medical Nutrition Therapy Assessment Name: Jim Dominguez Date: 04/25/23 Time: 2-3p Dx: Type II Diabetes Jim presents for DM follow-up. Reports significant reduction in food portions. So much so that his BG per the CGM are 78% in range. With these changes, he may not need insulin. May benefit from low dose HS long acting insulin to get some of the elevations in range, but overall much improved. He is very interested in keeping the CGM going, however insurance is unlikely to cover without insulin. We reviewed out of pocket options. Jim also signed up for MOW. Continues to be SOB, has appt to see pulmonology. Also reports leg pain that gets worse with walking, resolves with sitting. Potentially PAD, which with more activity and improved bg could help with this. Cont at 4-5 cigarettes per day. Diet recall: 730a: apple sauce cup 1230p: 2 hot dogs with bread 5-6p: brats with v dinner pasta lean cuisine OR reduced portions at [facility] (taking home some) 8-9p: sf coofies with milk Has lost 8# per report with diet changes. Anthropometrics: Wt: 93kg last EMR wt Physical Activity: Limited by SOB and let pain Self-Monitoring Blood Glucose: Some elevations after lunch or dinner, but overall much improved BG. Previous checks showing consistent BG >200mg/dl. TIR: <1% very high 21% high 78% in range <1% low Diabetes Medications: 1000mg Metformin BID 10 mg glipizide BID Pertinent Labs: HgA1c 8.6% 07/2022 8.3% 10/2022 9.4% 01/2023 Past Medical History: (Last Updated 02/03/23 @ 14:06 by Homer Falk MD) Atrial fibrillation (~2005) CAD (coronary artery disease) (~2005) [place] 2006 Colitis (~2004) COPD (chronic obstructive pulmonary disease) (~2008) Diabetes mellitus (~2005) Elevated PSA Negative biopsy in past Essential hypertension Fungal infection of toenail H/O adenomatous polyp of colon Hearing loss (~1999) Knee pain Mixed hyperlipidemia Vision disorder Wear glasses Nutrition Rx: Carbohydrates: Meal:45-60g Snack:15-30g Nutrition Diagnosis: Excessive CHO intake r/t increased eating out and limited cooking knowledge aeb diet recall, pt report, increase in hgA1c- improved Physical inactivity r/t knee and leg pain aeb pt report- in progress Self monitoring deficit r/t stage of change preparation aeb pt report of motivation after finger stick of 300mg/dl- improved Intervention: This participant was very receptive. Provided appropriate educational handouts. Discussed the following topics: Blood sugar review and trends. Impact of food intake on results. Eating out and portion recs Physical activity plan and progress and barriers Smoking cessation CGM options Created SMART goals for patient self-care and success. Goals: Wear CGM x 10 days- met Use meter as needed, as directed - met Reduce cigarettes to 3-4 per day or less- new Continue to reduce carb portions- new Continue to take home part of casino meal- new Follow-up: YUSEF BURDICK follow-up in 2-3 weeks Rahel Bartlett RDN, [facility] Certified Diabetes Care and Control Officer Manager P: [phone] Thank you for this referral
== END ==
PROVIDERS: PCP Internal Medicine; Referring Provider Internal Medicine; Visit Provider Internal Medicine
DX: E11.9 Type 2 diabetes mellitus without complications (principal); Z79.84 Long term (current) use of oral hypoglycemic drugs; Z71.3 Dietary counseling and surveillance
CPT/HCPCS: 97803

== ENCOUNTER → 2023-05-14 12:59 | Outpatient (CLI) | payer MEDICARE, SELFPAY ==
--- NOTE | 2023-05-15 15:15 | DIAB.MNTFU ---
Follow-up Diabetes Medical Nutrition Therapy Assessment Name: Jim Dominguez Date: 05/14/23 Time: 1-145p Dx: Type II Diabetes Jim presents for Dm follow-up. Continues watching portions, as he did when wearing CGM. Enjoying MOW for lunch meals. Chooses DM friendly option. Was down to 3 cigarettes for a few days, but other days up to 5. Reports CGM out of pocket may be expensive but wants to explore options. Unclear if he is having elevated FBG, which might warrant HS insulin. This would also support CGM coverage by insurance. Last time he wore a CGM, he had varying FBG levels in range and elevated. Also, plans to start pulmonary rehab and increase activity. This may help reduce BG as well resulting in no need for insulin or CGM. Reports overall feels unstable on his feet, especially in the morning. Hoping pulmonary rehab may help with strength and balance. use to walk daily for exercise. Unable to do this currently due to SOB. Diet recall: 730a: apple sauce ns added cup 1p:MOW meal, ie salmon few potatoes and broccoli sn:nothing or sf cookies with milk 6p: casino meal, ie 3pc fish without batter, half portion fries and 1c fruit 8-9p nothing or sf cookies x 5 with milk OR banana OR orange Leida: water 48-60oz, sf orange gatorade Anthropometrics: Wt: 93kg last EMR wt Physical Activity: Limited by SOB and leg pain and balance. Self-Monitoring Blood Glucose: Difficulty with finger sticks due to unable to get blood from finger. Reports one result recently of 200mg/dl 1 hour after casserole from MOW. Last CGM wear: TIR: <1% very high 21% high 78% in range <1% low Diabetes Medications: 1000mg Metformin BID 10 mg glipizide BID Pertinent Labs: HgA1c 8.6% 07/2022 8.3% 10/2022 9.4% 01/2023 Past Medical History: (Last Updated 02/03/23 @ 14:06 by Homer Falk MD) Atrial fibrillation (~2005) CAD (coronary artery disease) (~2005) [place] 2006 Colitis (~2004) COPD (chronic obstructive pulmonary disease) (~2008) Diabetes mellitus (~2005) Elevated PSA Negative biopsy in past Essential hypertension Fungal infection of toenail H/O adenomatous polyp of colon Hearing loss (~1999) Knee pain Mixed hyperlipidemia Vision disorder Wear glasses Nutrition Rx: Carbohydrates: Meal:45-60g Snack:15-30g Nutrition Diagnosis: Physical inactivity r/t knee and leg pain, SOB, unsteadiness aeb pt report- in progress Self monitoring deficit r/t difficulty with finger sticks aeb pt report - new Inconsistent protein intake r/t nutrition knowledge deficit aeb diet recall- new Intervention: This participant was very receptive. Provided appropriate educational handouts. Discussed the following topics: Blood sugar checks strategy Checking FBG to present to provider to determine DM med options prn CGM options: if on insulin vs not on insulin out of pocket (coupon options) v not using CGM if BG improving with activity and diet changes Macronutrient pairing and carb portion review Physical activity plan Smoking cessation progress and plan Created SMART goals for patient self-care and success. Goals: Reduce cigarettes to 3-4 per day or less- in progress Continue to reduce carb portions- met Continue to take home part of casino meal- met Keep cigarettes to 4 or less per day- new Add nuts to fruit and apple sauce- new Check FBG as best as you can and bring to PCP - new Follow-up: YUSEF BURDICK follow-up in 4 weeks Rahel Bartlett RDN, [facility] Certified Diabetes Care and Product Development Worker P: [phone] Thank you for this referral
== END ==
PROVIDERS: PCP Internal Medicine; Referring Provider Internal Medicine; Visit Provider Internal Medicine
DX: E11.9 Type 2 diabetes mellitus without complications (principal); Z79.84 Long term (current) use of oral hypoglycemic drugs; Z71.3 Dietary counseling and surveillance
CPT/HCPCS: 97803

== ENCOUNTER → 2023-07-02 10:08 | Outpatient (CLI) | payer MEDICARE, SELFPAY ==
[2023-07-02 11:03] LABS: Hemoglobin A1C% w Est Avg Glu 9.5 % (4.0-6.0)
[2023-07-02 11:09] LABS: BUN Creatinine Ratio 15.1 (6-22); Blood Urea Nitrogen 14 mg/dL (9-20); Calcium 9.8 mg/dL (8.4-10.2); Carbon Dioxide 27 mmol/L (22-32); Chloride 102 mmol/L (98-107); Estimated Glomerular Filt Rate > 60 mL/min (>60); Glucose 167 mg/dL (80-110); HEMOLYSIS < 15 (0-50); Potassium 4.5 mmol/L (3.4-5.1); Sodium 136 mmol/L (137-145)
== END ==
LOC: LAB 10:09
PROVIDERS: PCP Internal Medicine; Referring Provider Internal Medicine; Visit Provider Internal Medicine
DX: E11.9 Type 2 diabetes mellitus without complications (principal); I10 Essential (primary) hypertension
CPT/HCPCS: 36415; 80048; 83036

== ENCOUNTER → 2023-07-10 13:54 | Outpatient (CLI) | payer MEDICARE, SELFPAY ==
--- NOTE | 2023-07-29 08:30 | DIAB.FU ---
Addendum entered by Rahel Bartlett 07/29/23 13:19: Asked him to call pharmacy again to determine hold up on SMBG supplies. If further issue to call PCP about rx. RD messaged ADS to determine CGM supplies status. Addendum entered by Rahel Bartlett 07/29/23 13:12: Phone call: has not received CGM. Cannot garbage pick up man test strips either. Contacted PCP and pharmacy to troubleshoot issues. HS insulin x 12u. One low and tx with OJ. Most FBG 90-120mg/dl. Original Note: Follow-up Diabetes Education Assessment Name: Jim Dominguez Date: 07/10/23 Time: Dx: Type II Diabetes Jim presents for Dm follow-up. New rx for insulin. Needing insulin education. Has not received CGM. Rx for glargine 15u BID. Pt is weary of this dose since last visit we discussed usual starting dose to 10-15u HS. If pt decides to start at lower than Rx dose, RD will follow-up via phone call to help titrate up prn. Self-Monitoring Blood Glucose: Finger sticks, inconsistent recently. Plans to restart FBG and start CGM once received. Diabetes Medications: 1000mg Metformin BID 10 mg glipizide BID 15u BID Glargine Pertinent Labs: HgA1c 8.6% 07/2022 8.3% 10/2022 9.4% 01/2023 8.9% 03/2023 9.5% 06/2023 Past Medical History: (Last Updated 02/03/23 @ 14:06 by Homer Falk MD) Atrial fibrillation (~2005) CAD (coronary artery disease) (~2005) [place] 2006 Colitis (~2004) COPD (chronic obstructive pulmonary disease) (~2008) Diabetes mellitus (~2005) Elevated PSA Negative biopsy in past Essential hypertension Fungal infection of toenail H/O adenomatous polyp of colon Hearing loss (~1999) Knee pain Mixed hyperlipidemia Vision disorder Wear glasses Intervention: This participant was very receptive. Provided appropriate educational handouts. Discussed the following topics: Medication management Instructions on how to inject insulin, where to inject, used demo pen in cushion for return demo Rule of 15 review Action of insulin and precautions Titration schedule based on FBG Created SMART goals for patient self-care and success. Goals: Keep cigarettes to 4 or less per day- not discussed today Add nuts to fruit and apple sauce- met Check FBG as best as you can and bring to PCP - met Start Glargine at 10-15u HS- new Check FBG and increase 2-3u q 2-3 days if FBG >130mg/dl- new Follow-up: YUSEF BURDICK follow-up in 2-3 weeks 1:1. RD to call Jim tomorrow for FBG review and then again in one week for review of FBG. Rahel Bartlett RDN, [facility] Certified Diabetes Care and Prosthetist P: [phone] Thank you for this referral
== END ==
PROVIDERS: PCP Internal Medicine; Referring Provider Internal Medicine
DX: E11.9 Type 2 diabetes mellitus without complications (principal); Z79.4 Long term (current) use of insulin; Z79.84 Long term (current) use of oral hypoglycemic drugs; Z71.3 Dietary counseling and surveillance
CPT/HCPCS: G0109

== ENCOUNTER → 2023-08-05 15:03 | Outpatient (CLI) | payer MEDICARE, SELFPAY ==
--- NOTE | 2023-08-05 15:40 | DIAB.FU ---
Continuous Glucose Monitor (CGM) Diabetes Education Name: Jim Dominguez Date: 08/05/23 Time: 3-330p Presents with personal CGM devices, G7 with international nurse. Reduced insulin to 10u HS. FBG all low 100s. Recent after lunch 140mg/dl. Interventions: ? Reviewed CGM use and equipment ? Discussed when to check blood sugars using finger stick ? Reviewed high and low blood sugar signs/symptoms and treatment options ? Provided education for self-administration of CGM placement ? Educated patient on alarm settings ? Discussed when to replace equipment and disposal Follow-up: 10 days if needing additional review of self placement and for review of BG trends Rahel Bartlett RDN, [facility] Registered Dietitian, Certified Diabetes Care and Monogram Operator [phone] [email or web address]
== END ==
PROVIDERS: PCP Internal Medicine
DX: E11.9 Type 2 diabetes mellitus without complications (principal); Z79.4 Long term (current) use of insulin; Z71.3 Dietary counseling and surveillance
CPT/HCPCS: 95249

== ENCOUNTER → 2023-08-15 11:31 | Outpatient (CLI) | payer MEDICARE, SELFPAY ==
--- NOTE | 2023-09-18 10:50 | DIAB.FU ---
Follow-up Diabetes Education Assessment Name: Jim Dominguez Date: 08/15/23 Time: 9005-6276 Dx: Type II Diabetes Jim presents for Dm follow-up. Continues to work on diet changes. Insulin injections going well per report. Needs review of CGM sensor placement. Does endorse a few lows, which he seemingly over treated with juice and glucose tabs and resulted in hyperglycemia. Self-Monitoring Blood Glucose: FBG in goal per CGM report with some a little too low, often 65-115mg/dl. Denies any low symptoms. TIR: 3% very high 24% high 72% in range <1% low 0% very low 150mg/dl average 50mg/dl std dev 33.5% variation Diabetes Medications: 1000mg Metformin BID 10 mg glipizide BID 12u BID Glargine Pertinent Labs: HgA1c 8.6% 07/2022 8.3% 10/2022 9.4% 01/2023 8.9% 03/2023 9.5% 06/2023 Past Medical History: (Last Updated 02/03/23 @ 14:06 by Homer Falk MD) Atrial fibrillation (~2005) CAD (coronary artery disease) (~2005) [place] 2006 Colitis (~2004) COPD (chronic obstructive pulmonary disease) (~2008) Diabetes mellitus (~2005) Elevated PSA Negative biopsy in past Essential hypertension Fungal infection of toenail H/O adenomatous polyp of colon Hearing loss (~1999) Knee pain Mixed hyperlipidemia Vision disorder Wear glasses Intervention: This participant was very receptive. Provided appropriate educational handouts. Discussed the following topics: Rule of 15 Review to tx lows but avoid elevations after Brief review of how to start new CGM sensor Medication management Reducing Lantus to lower risk of lows Created SMART goals for patient self-care and success. Goals: Keep cigarettes to 4 or less per day- not discussed today Add nuts to fruit and apple sauce- met Check FBG as best as you can and bring to PCP - met Start Glargine at 10-15u HS- new Check FBG and increase 2-3u q 2-3 days if FBG >130mg/dl- new Follow-up: YUSEF BURDICK follow-up in 2-3 weeks Rahel Bartlett RDN, GENNARO Certified Diabetes Care and Spanish Speaking Babysitter P: [phone] Thank you for this referral
== END ==
PROVIDERS: PCP Internal Medicine; Referring Provider Internal Medicine
DX: E11.9 Type 2 diabetes mellitus without complications (principal); Z71.3 Dietary counseling and surveillance; Z79.84 Long term (current) use of oral hypoglycemic drugs; Z79.4 Long term (current) use of insulin
CPT/HCPCS: G0108

== ENCOUNTER 2023-08-23 19:55 | Inpatient (IN) | payer MEDICARE, SELFPAY ==
[2023-08-23 19:57] VITALS: BP 148/83; PULSE 86; RESP 18; TEMP 37.3; O2SAT 98; BMI 26.2
[2023-08-23] MEDS: SODIUM CHLORIDE 0.9% 1,000 ML 1000 ML IV ×2 (20:20→21:36)
[2023-08-23 20:31] LABS: Add Manual Diff / Slide Review NO; Basophils Absolute Auto 100 /uL (0-100); Basophils Percent Auto 0.7 % (0-2); Eosinophils Absolute Auto 0 /uL (0-450); Eosinophils Percent Auto 0.2 % (2-4); Hematocrit 39.9 % (41-53); Hemoglobin 13.2 g/dL (13.5-17.5); Lymphocytes Absolute Auto 1300 /uL (1100-4500); Lymphocytes Percent Auto 8.9 % (25-40); Mean Corpuscular Hemoglobin 29.1 PG (26-34); Mean Corpuscular Volume 88.1 fL (80-100); Monocytes Absolute Auto 1300 /uL (0-900); Neutrophils Absolute Auto 11600 /uL (1500-7000); Neutrophils Percent Auto 81.2 % (50-75); Platelet Count 223 X10^3/uL (150-400); Red Blood Cell Count 4.53 X10^6/uL (4.5-5.9); Red Cell Distribution Width 14.4 % (11.6-14.8); White Blood Cell Count 14.3 X10^3/uL (4.5-11.0)
[2023-08-23 20:35] LABS: BUN Creatinine Ratio 20.7 (6-22); Blood Urea Nitrogen 19 mg/dL (9-20); Calcium 9.3 mg/dL (8.4-10.2); Carbon Dioxide 22 mmol/L (22-32); Chloride 105 mmol/L (98-107); Estimated Glomerular Filt Rate > 60 mL/min (>60); Glucose 160 mg/dL (80-110); HEMOLYSIS 35 (0-50); Lactate (Lactic Acid) 1.3 mmol/L (0.7-2.1); Potassium 4.5 mmol/L (3.4-5.1); Sodium 132 mmol/L (137-145)
--- NOTE | 2023-08-23 21:10 | ED_ITS ---
HPI - Abdominal Pain General Chief Complaint: Abdominal Pain Stated Complaint: freq. painful urination Time Seen by Provider: 08/23/23 20:12 Source: patient and EMS Mode of arrival: EMS History of Present Illness HPI narrative: Patient is a 73-year-old male history of insulin-dependent diabetes, atrial fibrillation on Eliquis, presenting today with increased confusion and painful frequent urination. He reports he lives alone he is significantly weak and can not get up and around at home. He called EMS to bring him to. He has been complaining of some painful frequent urination probably for a couple days. Denies any sort of pain. He is confused and generally weak. Denies any chest pain palpitations or shortness of breath. Related Data Previous Rx's Medication Instructions Recorded albuterol sulfate 90 mcg/actuation 2 puff inhalation Q6H PRN 09/07/21 aerosol inhaler shortness of breath or wheezing #54 grams blood-glucose meter #1 ea 12/11/21 budesonide 3 mg 3 mg PO DAILY #90 ea 08/12/22 capsule,delayed,extended release metoprolol succinate 100 mg 100 mg PO BID #180 tabs 11/04/22 tablet,extended release 24 hr glipizide 10 mg tablet, extended 10 mg PO BID #180 tabs 12/25/22 release 24 hr atorvastatin 20 mg tablet 20 mg PO DAILY #90 tabs 12/30/22 omeprazole 20 mg capsule,delayed 20 mg PO DAILY #90 caps 01/07/23 release apixaban 5 mg tablet (Eliquis) 5 mg PO BID #180 tabs 01/29/23 metformin 1,000 mg tablet 1,000 mg PO BID #180 tabs 02/28/23 fluticasone 250 mcg-salmeterol 50 1 inh inhalation BID #60 ea 04/29/23 mcg/dose blistr powdr for inhalation (Wixela Inhub) ipratropium 0.5 mg-albuterol 3 mg 3 ml inhalation BID #180 mL 04/29/23 (2.5 mg base)/3 mL nebulization soln fluticasone furoate 200 1 inh inhalation DAILY #60 ea 05/20/23 mcg-vilanterol 25 mcg/dose inhalation powder (Breo Ellipta) lisinopril 20 mg tablet 20 mg PO DAILY #90 tabs 03/26/24 pen needle, diabetic 31 gauge x #100 ea 07/10/2303/13 blood sugar diagnostic (Blood #100 ea 07/23/23 Glucose Test strips) lancets 30 gauge #100 ea 07/23/23 insulin glargine 100 unit/mL (3 12 unit (0.12 mL) SUBCUT QPM #15 mL 07/31/23 mL) subcutaneous pen Disabled Parking #1 ea 08/01/23 Allergies Allergy/AdvReac Type Severity Reaction Status Date / Time naproxen Allergy Severe Anaphylaxis Verified 07/31/23 15:19 linagliptin AdvReac Severe myalgias Verified 07/31/23 15:19 Patient History Medical History (Updated 08/24/23 @ 00:04 by Kristie Crystal DO) H/O adenomatous polyp of colon Fungal infection of toenail Mixed hyperlipidemia Essential hypertension Elevated PSA CAD (coronary artery disease) (~2005) Knee pain Vision disorder COPD (chronic obstructive pulmonary disease) (~2008) Hearing loss (~1999) Colitis (~2004) Diabetes mellitus (~2005) Atrial fibrillation (~2005) Surgical History Anesthesia History of heart artery stent (~2005) Family History Father History of heart disease Mother Aneurysm Sister Cancer Social History household members: none Smoking Status: Current every day smoker Smoking Status: Current every day smoker tobacco type: cigarettes alcohol intake frequency: holidays/special occasions only Alcohol type: beer Substance Use Type: does not use Exam Initial Vital Signs Initial Vital Signs: Vital Signs Temperature 99.2 F 08/23/23 19:57 Pulse Rate 86 08/23/23 19:57 Respiratory Rate 18 08/23/23 19:57 Blood Pressure 148/83 H 08/23/23 19:57 Pulse Oximetry 98 08/23/23 19:57 Oxygen Delivery Method Room Air 08/23/23 19:57 GENERAL: Alert mildly confused 73-year-old male and in no acute distress. HEENT: Head atraumatic,EOMI, pupils reactive, face symmetric, dry mucous membranes CARDIOVASCULAR: Regular rate and rhythm without murmurs, rubs or gallops. RESPIRATORY: Breath sounds equal bilaterally, no wheezes rales or rhonchi. ABDOMEN: Soft, nontender. Normoactive bowel sounds all 4 quadrants. No guarding or rebound. EXTREMITIES: Normal range of motion, no clubbing or edema. Neurovascularly intact NEUROLOGICAL: Alert, can move extremities but all very weak hard time lifting legs. No focal deficits SKIN: Warm, dry, no laceration, no petechiae, no rashes or lesions. Course Orders Ordered: ED Orders 08/23/23 20:00 BMP [Basic Metabolic Panel] Stat CBC Auto Diff [Complete Blood Count AUTO DIFF] Stat Lactate (Lactic Acid) Stat Troponin & CK Cardiac Panel Stat 08/23/23 20:33 Blood Culture Stat 08/23/23 21:15 CT head/brain wo con Stat Chest [XR chest 1V] Stat EKG-12 Lead Stat 08/23/23 21:54 UA Complete [Urinalysis and Microscopic] Stat Urine Culture Stat Acetaminophen (Acetaminophen 325 Mg Tablet) 650 mg PO Q6H PRN PRN Reason: Fever/Mild Pain (1-3) Albuterol (Albuterol Hfa Mdi 60 Puff/8 Gm Inhaler) 2 puff INH Q6H PRN PRN Reason: shortness of breath or wheezing Albuterol (Albuterol 2.5 Mg/3 Ml Neb (Adult)) 2.5 mg INH Q4HRWA [facility] Albuterol/Ipratropium (Albuterol/Ipratropium 3 Ml Ampul) 3 ml INH BID [facility] Apixaban (Apixaban 5 Mg Tablet) 5 mg PO BID [facility] Atorvastatin Calcium (Atorvastatin 20 Mg Tablet) 20 mg PO DAILY [facility] Budesonide (Budesonide 3 Mg Cap) 3 mg PO DAILY [facility] Budesonide (Budesonide 0.5 Mg/2 Ml Neb) 0.5 mg INH RTBID [facility] Insulin Glargine (Insulin Glargine 100 Unit/Ml 3ml Pen) 12 unit SUBCUT QPM [facility] Lisinopril (Lisinopril 20 Mg Tablet) 20 mg PO DAILY [facility] Metformin HCl (Metformin Hcl 500 Mg Tablet) 1,000 mg PO BID [facility] Metoprolol Succinate (Metoprolol Er 50 Mg Tablet) 100 mg PO BID [facility] Naloxone HCl (Naloxone 0.4 Mg/Ml Vial) 0.2 mg IV Q2MIN PRN PRN Reason: Opiate Reversal Ondansetron HCl (Ondansetron 4 Mg Odt) 4 mg PO Q8HR PRN PRN Reason: Nausea And Vomiting Pantoprazole Sodium (Pantoprazole Dr 20 Mg Tablet) 20 mg PO 0600 [facility] Discontinued Medications Sodium Chloride (Normal Saline 0.9%) 1,000 mls @ 1,000 mls/hr IV BOLUS ONE Stop: 08/23/23 21:11 Last Infusion: 08/23/23 21:30 Dose: Infused Documented By: Admin: 08/23/23 20:20 Dose: 1,000 mls/hr Documented By: MARKIE Sodium Chloride (Normal Saline 0.9%) 1,000 mls @ 1,000 mls/hr IV BOLUS ONE Stop: 08/23/23 22:14 Last Infusion: 08/23/23 22:39 Dose: Infused Documented By: Admin: 08/23/23 21:36 Dose: 1,000 mls/hr Documented By: MARKIE Ceftriaxone Sodium 1,000 mg/ (Sodium Chloride) 100 mls @ 200 mls/hr IV NOW ONE Stop: 08/23/23 22:42 Last Infusion: 08/23/23 23:35 Dose: Infused Documented By: Admin: 08/23/23 22:50 Dose: 200 mls/hr Documented By: MARKIE Vital Signs Vital signs: Vital Signs - 8 hr 08/23/23 19:57 Temperature 99.2 F Pulse Rate 86 Respiratory Rate 18 Blood Pressure 148/83 H Pulse Oximetry 98 Oxygen Delivery Method Room Air MDM - Abdominal Pain Lab Data 08/23/23 20:00 08/23/23 20:00 Labs: Lab Results 08/23/23 08/23/23 Range/Units 20:00 21:54 WBC 14.3 H (4.5-11.0) X10^3/uL RBC 4.53 (4.5-5.9) X10^6/uL Hgb 13.2 L (13.5-17.5) g/dL Hct 39.9 L (41-53) % MCV 88.1 (80-100) fL MCH 29.1 (26-34) PG MCHC 33.0 (30-36) % RDW 14.4 (11.6-14.8) % Plt Count 223 (150-400) X10^3/uL Neut % (Auto) 81.2 H (50-75) % Lymph % (Auto) 8.9 L (25-40) % [place] % (Auto) 9.0 (3-14) % Eos % (Auto) 0.2 L (2-4) % Baso % (Auto) 0.7 (0-2) % Neut # (Auto) 62455 H (5888-2886) /uL Lymph # (Auto) 1300 (8826-5155) /uL [place] # (Auto) 1300 H (0-900) /uL Eos # (Auto) 0 (0-450) /uL Baso # (Auto) 100 (0-100) /uL Sodium 132 L (137-145) mmol/L Potassium 4.5 (3.4-5.1) mmol/L Chloride 105 (98-107) mmol/L Carbon Dioxide 22 (22-32) mmol/L BUN 19 (9-20) mg/dL Creatinine 0.92 (0.66-1.25) mg/dL Estimated GFR > 60 (>60) mL/min BUN/Creatinine Ratio 20.7 (6-22) Glucose 160 H (80-110) mg/dL Lactate 1.3 (0.7-2.1) mmol/L Calcium 9.3 (8.4-10.2) mg/dL Total Creatine Kinase 55 (55-170) U/L Troponin I < 0.012 (0.01-0.034) ng/mL Urine Color Yellow Urine Appearance Sl cloudy Urine pH 6.0 (4.5-8.0) Ur Specific [place] 1.015 (1.000-1.035) Urine Protein 1+ H (Negative) Urine Glucose (UA) Negative (Negative) g/dL Urine Ketones Negative (NEGATIVE) Urine Occult Blood 3+ H (Negative) Urine Nitrate Positive H (Negative) Urine Bilirubin Negative (NEGATIVE) Urine Urobilinogen 1.0 (0.2) E.U./dL Ur Leukocyte Esterase 3+ H (NEGATIVE) Urine RBC 10-30/hpf H (0-5/HPF) Urine WBC 10-30/hpf H (0-5/HPF) Ur Squamous Epith Cells 1-5 /hpf (0-5/HPF) Urine Bacteria Many (>30) H (None) Ur Culture Indicated? Specimen cultured Vol Urine Centrifuged 10ml (spun) Point of care testing: Urine Dip Bedside Urine Glucose Negative Bedside Urine Bilirubin - Negative Bedside Urine Ketone - Negative Urine Specific [place] 1.015 Bedside Urine Occult Blood +++ Bedside Urine pH 5.5 Bedside Urine Protein + 30 Bedside Urine Urobilinogen - Negative Bedside Urine Nitrite + Positive Bedside Urine Leukocytes +++ [address] scan - head: Radiologist's Impression: PROCEDURE: CT HEAD/BRAIN WO CON INDICATIONS: confusion weakness TECHNIQUE: Noncontrast 4.5 mm thick angled axial sections acquired from the foramen magnum to the vertex, with coronal and sagittal reformats. For radiation dose reduction, the following was used: automated exposure control, adjustment of mA and/or kV according to patient size. COMPARISON: [facility], CT, CT HEAD/BRAIN WO CON, 06/06/2022, 14:53. [facility], CT, CT HEAD/BRAIN WO CON, 05/30/2022, 0:17. FINDINGS: Image quality: Diagnostic. CSF spaces: Basal cisterns are patent. No extra-axial fluid collections. The ventricles are symmetric in size and shape. Brain: No intracranial bleeds or masses. There is cerebral volume loss for age, with resultant ventricular and sulcal prominence. There are periventricular and deep white matter chronic small vessel ischemic changes. There is intracranial internal carotid artery atherosclerosis. Skull and face: Calvarium and visualized facial bones appear intact, without suspicious lesions. Sinuses: Visualized sinuses and mastoids are clear. IMPRESSION: No acute intracranial pathology. Dictated by: Moi Lopez M.D. on 08/23/2023 at 22:10 CT scan - abdomen/pelvis: Radiologist's Impression: PROCEDURE: CT KIDNEY URETER BLADDER (KUB) INDICATIONS: uti sepsis r/o stone TECHNIQUE: Axial sections were acquired from the lung bases to the pubic symphysis. Coronal and sagittal reformats were performed. For radiation dose reduction, the following was used: automated exposure control, adjustment of mA and/or kV according to patient size. COMPARISON: [facility], CT, CT HEAD/BRAIN WO CON, 06/06/2022, 14:53. FINDINGS: Image quality: Diagnostic. Lower Chest: No significant findings. URINARY: Right Kidney: No stones or hydronephrosis. Right Ureter: No hydroureter. Left Kidney: No stones or hydronephrosis. Left Ureter: No hydroureter. Bladder: Normal wall thickness. No stones. ABDOMEN: Liver: No contour-deforming solid mass. Gallbladder: No radiopaque gallstones or wall thickening. Biliary ducts: No biliary dilation. Pancreas: No ductal dilation. Spleen: Size is within normal limits. Adrenal Glands: No adrenal nodules. Stomach and Bowel: Normal colonic caliber, without significant wall thickening. Peritoneum: No abnormal intraperitoneal fluid. No free air. Ventral Wall: No hernia. Abdominal Nodes: No enlarged retroperitoneal or mesenteric lymph nodes. Vessels: Aorta and inferior vena cava are normal in size. PELVIS: Pelvic Organs: Unremarkable. Pelvic Nodes: Unremarkable. Miscellaneous: No inguinal hernias are seen. Bones: Unremarkable. IMPRESSION: No obstructing stones or hydronephrosis. No visualized evidence of urinary tract infection. Dictated by: Moi Lopez M.D. on 08/23/2023 at 23:46 Approved by: Moi Lopez M.D. on 08/23/2023 at 23:47 ECG Data Interpretation: Atrial fibrillation rate 84 right bundle-branch block similar to previous EKG no ischemic changes MDM Narrative Medical decision making narrative: MDM CC: Weakness painful frequent urination Complicating co-morbidities: Atrial fibrillation on Eliquis Corroborating data: [ ] Data collected from: [ ] Medical records reviewed: yes Differential considered: [ ] Exam documented above, pertinent findings include: Generally weak mildly confused male dry mucous membranes diffusely weak difficulty lifting legs off gurney Lab Test results independently reviewed a urinalysis is s above. Pertinent findings: WBC 14, hemoglobin 13.2, hematocrit 39.9, platelets sodium 132, potassium 4.5 , chloride 105, carbon dioxide 22, BUN 19, creatinine 0.9, lactate 1.3 troponin negative Urinalysis positive for nitrates and bacteria consistent with UTI Independently reviewed EKG as above atrial fibrillation without ischemia Imaging studies independently reviewed: Consultations: [ ] accepts patient Treatments: IV fluids normal saline, Rocephin Re-evaluations: [ ] Discussion: Patient 73-year-old male presents today with painful frequent urination along with weakness. He is unable to get up on his own. He is found to have a UTI with leukocytosis of 14. He is overall weak he seems mildly confused. Lactate is noted to be 1.3 no evidence of severe sepsis no, hypotension Discharge Plan Departure Patient Disposition: Admitted as Observation Clinical Impression: Acute UTI, Weakness Admit Date/Time: 08/23/23 22:58 Admit Provider: Arcenio Dotson
--- NOTE | 2023-08-23 21:15 | DI.RAD.S_ITS ---
PROCEDURE: XR CHEST 1V INDICATIONS: weakness TECHNIQUE: One view of the chest was acquired. COMPARISON: [facility], CR, XR CHEST 2V, 10/08/2021, 10:01. FINDINGS: Surgical changes and devices: None. Lungs and pleura: Lungs are clear. No pleural effusions or pneumothorax. Mediastinum: Mediastinal contours appear normal. Heart size is mildly globally enlarged. Bones and chest wall: No suspicious bony lesions. Overlying soft tissues appear unremarkable. IMPRESSION: Mild global cardiomegaly without evidence of acute CHF. Dictated by: Moi Lopez M.D. on 08/23/2023 at 22:09 Approved by: Moi Lopez M.D. on 08/23/2023 at 22:09
--- NOTE | 2023-08-23 21:15 | EKG_ITS ---
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
--- NOTE | 2023-08-23 21:15 | DI.CT.S_ITS ---
PROCEDURE: CT HEAD/BRAIN WO CON INDICATIONS: confusion weakness TECHNIQUE: Noncontrast 4.5 mm thick angled axial sections acquired from the foramen magnum to the vertex, with coronal and sagittal reformats. For radiation dose reduction, the following was used: automated exposure control, adjustment of mA and/or kV according to patient size. COMPARISON: [facility], CT, CT HEAD/BRAIN WO CON, 06/06/2022, 14:53. [facility], CT, CT HEAD/BRAIN WO CON, 05/30/2022, 0:17. FINDINGS: Image quality: Diagnostic. CSF spaces: Basal cisterns are patent. No extra-axial fluid collections. The ventricles are symmetric in size and shape. Brain: No intracranial bleeds or masses. There is cerebral volume loss for age, with resultant ventricular and sulcal prominence. There are periventricular and deep white matter chronic small vessel ischemic changes. There is intracranial internal carotid artery atherosclerosis. Skull and face: Calvarium and visualized facial bones appear intact, without suspicious lesions. Sinuses: Visualized sinuses and mastoids are clear. IMPRESSION: No acute intracranial pathology. Dictated by: Moi Lopez M.D. on 08/23/2023 at 22:10 Approved by: Moi Lopez M.D. on 08/23/2023 at 22:10
[2023-08-23 21:33] LABS: Creatine Kinase 55 U/L (55-170)
[2023-08-23 21:46] LABS: Troponin I < 0.012 ng/mL (0.01-0.034)
--- NOTE | 2023-08-23 21:47 | EKG_ITS ---
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
[2023-08-23 22:03] LABS: Appearance Urine UA SL CLOUDY; Bilirubin Urine UA NEGATIVE (NEGATIVE); Color Urine UA YELLOW; Glucose Urine UA NEGATIVE (Negative); Ketones Urine UA NEGATIVE (NEGATIVE); Leukocyte Esterase Urine UA 3+ (NEGATIVE); Nitrite Urine UA POSITIVE (Negative); Occult Blood Urine UA 3+ (Negative); Protein Urine UA 1+ (Negative); Specific Gravity Urine UA 1.015 (1.000-1.035)
[2023-08-23 22:18] LABS: Bacteria Urine Many (>30); Culture Indicated Urine Specimen Cultured; RBC Urine 10-30/HPF (0-5/HPF); Squamous Epithelial Cell Urine 1-5 /HPF (0-5/HPF); Urine Volume 10mL (spun); WBC Urine 10-30/HPF (0-5/HPF)
[2023-08-23] MEDS: cefTRIAXone 1,000 MG in SODIUM CHLORIDE 0.9% 100 ML 200 MG IV (22:50)
--- NOTE | 2023-08-23 22:59 | DI.CT.S_ITS ---
PROCEDURE: CT KIDNEY URETER BLADDER (KUB) INDICATIONS: uti sepsis r/o stone TECHNIQUE: Axial sections were acquired from the lung bases to the pubic symphysis. Coronal and sagittal reformats were performed. For radiation dose reduction, the following was used: automated exposure control, adjustment of mA and/or kV according to patient size. COMPARISON: [facility], CT, CT HEAD/BRAIN WO CON, 06/06/2022, 14:53. FINDINGS: Image quality: Diagnostic. Lower Chest: No significant findings. URINARY: Right Kidney: No stones or hydronephrosis. Right Ureter: No hydroureter. Left Kidney: No stones or hydronephrosis. Left Ureter: No hydroureter. Bladder: Normal wall thickness. No stones. ABDOMEN: Liver: No contour-deforming solid mass. Gallbladder: No radiopaque gallstones or wall thickening. Biliary ducts: No biliary dilation. Pancreas: No ductal dilation. Spleen: Size is within normal limits. Adrenal Glands: No adrenal nodules. Stomach and Bowel: Normal colonic caliber, without significant wall thickening. Peritoneum: No abnormal intraperitoneal fluid. No free air. Ventral Wall: No hernia. Abdominal Nodes: No enlarged retroperitoneal or mesenteric lymph nodes. Vessels: Aorta and inferior vena cava are normal in size. PELVIS: Pelvic Organs: Unremarkable. Pelvic Nodes: Unremarkable. Miscellaneous: No inguinal hernias are seen. Bones: Unremarkable. IMPRESSION: No obstructing stones or hydronephrosis. No visualized evidence of urinary tract infection. Dictated by: Moi Lopez M.D. on 08/23/2023 at 23:46 Approved by: Moi Lopez M.D. on 08/23/2023 at 23:47
[2023-08-23 23:34] VITALS: BMI 26.2
[2023-08-23 23:47] VITALS: BP 135/65; PULSE 84; RESP 18; O2SAT 95
[2023-08-24] VITALS (8 sets, daily range): BP systolic 99–145; BP diastolic 48–95; PULSE 71–97; RESP 16–18; TEMP 36.2–36.6; O2SAT 97–98
--- NOTE | 2023-08-24 01:50 | PC.ADMIT ---
[address] Admission Note: Patient admitted to AC unit @ 23:30 from ED. Alert and oriented x 4, pleasant. Stand pivot to bed with SBA. Denies pain. Oriented to room and call light. Call light within reach and calls appropriately. The patient,Jim Dominguez,73 y/o, was given written information regarding hospital policies, unit procedures and contact persons. Patient's smoking status: Current every day smoker. Vital Signs - 8 hr 08/23/23 19:57 08/23/23 23:34 08/23/23 23:47 Temperature 99.2 F Pulse Rate 86 84 Respiratory Rate 18 18 Blood Pressure 148/83 H 135/65 Pulse Oximetry 98 95 Oxygen Delivery Method Room Air Room Air Room Air Oxygen Flow Rate 08/24/23 00:00 Temperature 97.1 F L Pulse Rate 87 Respiratory Rate 18 Blood Pressure 135/95 H Pulse Oximetry 98 Oxygen Delivery Method Oxygen Flow Rate 0
[2023-08-24] MEDS: PANTOPRAZOLE DR 20 MG TABLET PO (05:12)
[2023-08-24 06:54] LABS: Add Manual Diff / Slide Review NO; Basophils Absolute Auto 0 /uL (0-100); Basophils Percent Auto 0.2 % (0-2); Eosinophils Absolute Auto 100 /uL (0-450); Eosinophils Percent Auto 0.8 % (2-4); Hematocrit 35.3 % (41-53); Hemoglobin 11.8 g/dL (13.5-17.5); Lymphocytes Absolute Auto 1500 /uL (1100-4500); Lymphocytes Percent Auto 13.2 % (25-40); Mean Corpuscular HGB Conc 33.4 % (30-36); Mean Corpuscular Hemoglobin 29.3 PG (26-34); Mean Corpuscular Volume 87.7 fL (80-100); Monocytes Absolute Auto 1100 /uL (0-900); Monocytes Percent Auto 9.6 % (3-14); Neutrophils Absolute Auto 8800 /uL (1500-7000); Neutrophils Percent Auto 76.2 % (50-75); Platelet Count 191 X10^3/uL (150-400); Red Blood Cell Count 4.03 X10^6/uL (4.5-5.9); Red Cell Distribution Width 14.5 % (11.6-14.8); White Blood Cell Count 11.6 X10^3/uL (4.5-11.0)
[2023-08-24 07:10] LABS: BUN Creatinine Ratio 20.8 (6-22); Blood Urea Nitrogen 16 mg/dL (9-20); Calcium 8.4 mg/dL (8.4-10.2); Carbon Dioxide 24 mmol/L (22-32); Chloride 107 mmol/L (98-107); Estimated Glomerular Filt Rate > 60 mL/min (>60); Glucose 145 mg/dL (80-110); HEMOLYSIS < 15 (0-50); Potassium 3.9 mmol/L (3.4-5.1); Sodium 134 mmol/L (137-145)
[2023-08-24] MEDS: METFORMIN HCL 500 MG TABLET 1000 MG PO ×2 (09:29→20:52)
[2023-08-24] MEDS: lisinopriL 20 MG TABLET PO (09:29)
[2023-08-24] MEDS: ATORVASTATIN 20 MG TABLET PO (09:29)
[2023-08-24] MEDS: APIXABAN 5 MG TABLET PO ×2 (09:29→20:51)
[2023-08-24] MEDS: METOPROLOL ER 50 MG TABLET 100 MG PO ×2 (09:30→20:50)
[2023-08-24] MEDS: BUDESONIDE 3 MG CAP PO (09:30)
--- NOTE | 2023-08-24 09:55 | P.HP_ITS ---
History of Present Illness History of Present Illness Date Patient Seen: 08/24/23 Time Patient Seen: 10:30 Date of Onset of Symptoms: 08/22/23 Chief complaint: freq. painful urination Narrative: Jim is a 73-year-old male with diabetes, hypertension, AFib on Xarelto, COPD. Patient is new to me and seen as cross cover for Dr. Falk. Presented to the ER last night with increasing confusion and frequent, painful urination. Lives alone and reported being too weak to get up from his recliner so called EMS to bring him to hospital. Dysuria and frequency started day prior to presentation. No fever, chills, chest pain, shortness for breath. ER evaluation notable for mild leukocytosis 14.3, mild anemia 13.2, sodium 132, glucose 160, lactate 1.3, CK 55, negative troponin. UA demonstrated leuk esterase and occult blood, positive nitrite. EKG with atrial fibrillation, no ischemic changes. CT head negative for acute intracranial pathology. CT KUB did not reveal any obstructing stones or hydronephrosis. Received ceftriaxone 1 g IV and was admitted for UTI treatment due to weakness and inability to discharge safely since he lives alone. [facility] Medical History (Updated 08/24/23 @ 00:04 by Kristie Crystal DO) H/O adenomatous polyp of colon Fungal infection of toenail Mixed hyperlipidemia Essential hypertension Elevated PSA CAD (coronary artery disease) (~2005) Knee pain Vision disorder COPD (chronic obstructive pulmonary disease) (~2008) Hearing loss (~1999) Colitis (~2004) Diabetes mellitus (~2005) Atrial fibrillation (~2005) Surgical History Anesthesia History of heart artery stent (~2005) Family History Father History of heart disease Mother Aneurysm Sister Cancer Social History household members: none Smoking Status: Current every day smoker Meds Home Medications and Allergies Home Medications Medication Instructions Recorded Confirmed Type albuterol sulfate 90 mcg/actuation 2 puff inhalation Q6H PRN 09/07/21 08/24/23 Rx aerosol inhaler shortness of breath or wheezing #54 grams blood-glucose meter #1 ea 12/11/21 07/31/23 Rx budesonide 3 mg 3 mg PO DAILY #90 ea 08/12/22 08/24/23 Rx capsule,delayed,extended release metoprolol succinate 100 mg 100 mg PO BID #180 tabs 11/04/22 08/24/23 Rx tablet,extended release 24 hr glipizide 10 mg tablet, extended 10 mg PO BID #180 tabs 12/25/22 08/24/23 Rx release 24 hr atorvastatin 20 mg tablet 20 mg PO DAILY #90 tabs 12/30/22 08/24/23 Rx omeprazole 20 mg capsule,delayed 20 mg PO DAILY #90 caps 01/07/23 08/24/23 Rx release apixaban 5 mg tablet (Eliquis) 5 mg PO BID #180 tabs 01/29/23 08/24/23 Rx metformin 1,000 mg tablet 1,000 mg PO BID #180 tabs 02/28/23 08/24/23 Rx fluticasone 250 mcg-salmeterol 50 1 inh inhalation BID #60 ea 04/29/23 08/24/23 Rx mcg/dose blistr powdr for inhalation (Wixela Inhub) ipratropium 0.5 mg-albuterol 3 mg 3 ml inhalation BID #180 mL 04/29/23 08/24/23 Rx (2.5 mg base)/3 mL nebulization soln fluticasone furoate 200 1 inh inhalation DAILY #60 ea 05/20/23 08/24/23 Rx mcg-vilanterol 25 mcg/dose inhalation powder (Breo Ellipta) lisinopril 20 mg tablet 20 mg PO DAILY #90 tabs 06/03/23 08/24/23 Rx pen needle, diabetic 31 gauge x #100 ea 07/10/23 07/31/23 Rx 1/4 blood sugar diagnostic (Blood #100 ea 07/23/23 07/31/23 Rx Glucose Test strips) lancets 30 gauge #100 ea 07/23/23 07/31/23 Rx insulin glargine 100 unit/mL (3 12 unit (0.12 mL) SUBCUT QPM #15 mL 07/31/23 08/24/23 Rx mL) subcutaneous pen Disabled Parking #1 ea 08/01/23 Rx Allergies Allergy/AdvReac Type Severity Reaction Status Date / Time naproxen Allergy Severe Anaphylaxis Verified 07/31/23 15:19 linagliptin AdvReac Severe myalgias Verified 07/31/23 15:19 Review of Systems Review of Systems ROS: Yes All systems reviewed with the patient and are negative except as otherwise documented Exam Vital Signs (past 8 hours): - 08/24/23 06:00 Temperature 97.9 F Pulse Rate 80 Respiratory Rate 16 Blood Pressure 124/75 Pulse Oximetry 97 Oxygen Flow Rate 0 Oxygen Delivery Method Room Air Oxygen Flow Rate 0 Narrative Exam Narrative: General: Pleasant, NAD HEENT: NC/AT, EOMI, moist membranes CV: RRR, normal S1-S2, no m/g/r Resp: CTAB, comfortable WOB Abd: Soft, NTND, +BS Ext: No edema Skin: No rash or lesions noted Neuro: A&O x3, moves all extremities, no focal deficits Objective Imaging CT scan - head: Radiologist's impression: PROCEDURE: CT HEAD/BRAIN WO CON INDICATIONS: confusion weakness TECHNIQUE: Noncontrast 4.5 mm thick angled axial sections acquired from the foramen magnum to the vertex, with coronal and sagittal reformats. For radiation dose reduction, the following was used: automated exposure control, adjustment of mA and/or kV according to patient size. COMPARISON: [facility], CT, CT HEAD/BRAIN WO CON, 06/06/2022, 14:53. [facility], CT, CT HEAD/BRAIN WO CON, 05/30/2022, 0:17. FINDINGS: Image quality: Diagnostic. CSF spaces: Basal cisterns are patent. No extra-axial fluid collections. The ventricles are symmetric in size and shape. Brain: No intracranial bleeds or masses. There is cerebral volume loss for age, with resultant ventricular and sulcal prominence. There are periventricular and deep white matter chronic small vessel ischemic changes. There is intracranial internal carotid artery atherosclerosis. Skull and face: Calvarium and visualized facial bones appear intact, without suspicious lesions. Sinuses: Visualized sinuses and mastoids are clear. IMPRESSION: No acute intracranial pathology. Dictated by: Moi Lopez M.D. on 08/23/2023 at 22:10 Approved by: Moi Lopez M.D. on 08/23/2023 at 22:10 CT scan - abdomen: Radiologist's impression: PROCEDURE: CT KIDNEY URETER BLADDER (KUB) INDICATIONS: uti sepsis r/o stone TECHNIQUE: Axial sections were acquired from the lung bases to the pubic symphysis. Coronal and sagittal reformats were performed. For radiation dose reduction, the following was used: automated exposure control, adjustment of mA and/or kV according to patient size. COMPARISON: [facility], CT, CT HEAD/BRAIN WO CON, 06/06/2022, 14:53. FINDINGS: Image quality: Diagnostic. Lower Chest: No significant findings. URINARY: Right Kidney: No stones or hydronephrosis. Right Ureter: No hydroureter. Left Kidney: No stones or hydronephrosis. Left Ureter: No hydroureter. Bladder: Normal wall thickness. No stones. ABDOMEN: Liver: No contour-deforming solid mass. Gallbladder: No radiopaque gallstones or wall thickening. Biliary ducts: No biliary dilation. Pancreas: No ductal dilation. Spleen: Size is within normal limits. Adrenal Glands: No adrenal nodules. Stomach and Bowel: Normal colonic caliber, without significant wall thickening. Peritoneum: No abnormal intraperitoneal fluid. No free air. Ventral Wall: No hernia. Abdominal Nodes: No enlarged retroperitoneal or mesenteric lymph nodes. Vessels: Aorta and inferior vena cava are normal in size. PELVIS: Pelvic Organs: Unremarkable. Pelvic Nodes: Unremarkable. Miscellaneous: No inguinal hernias are seen. Bones: Unremarkable. IMPRESSION: No obstructing stones or hydronephrosis. No visualized evidence of urinary tract infection. Dictated by: Moi Lopez M.D. on 08/23/2023 at 23:46 Approved by: Moi Lopez M.D. on 08/23/2023 at 23:47 Labs 08/24/23 06:40 08/24/23 06:40 Labs: Laboratory Results - last 24 hr 08/23/23 08/23/23 08/24/23 20:00 21:54 06:40 WBC 14.3 H 11.6 H RBC 4.53 4.03 L Hgb 13.2 L 11.8 L Hct 39.9 L 35.3 L MCV 88.1 87.7 MCH 29.1 29.3 MCHC 33.0 33.4 RDW 14.4 14.5 Plt Count 223 191 Neut % (Auto) 81.2 H 76.2 H Lymph % (Auto) 8.9 L 13.2 L [place] % (Auto) 9.0 9.6 Eos % (Auto) 0.2 L 0.8 L Baso % (Auto) 0.7 0.2 Neut # (Auto) 70075 H 8800 H Lymph # (Auto) 1300 1500 [place] # (Auto) 1300 H 1100 H Eos # (Auto) 0 100 Baso # (Auto) 100 0 Sodium 132 L 134 L Potassium 4.5 3.9 Chloride 105 107 Carbon Dioxide 22 24 BUN 19 16 Creatinine 0.92 0.77 Estimated GFR > 60 > 60 BUN/Creatinine Ratio 20.7 20.8 Glucose 160 H 145 H Lactate 1.3 Calcium 9.3 8.4 Total Creatine Kinase 55 Troponin I < 0.012 Urine Color Yellow Urine Appearance Sl cloudy Urine pH 6.0 Ur Specific [place] 1.015 Urine Protein 1+ H Urine Glucose (UA) Negative Urine Ketones Negative Urine Occult Blood 3+ H Urine Nitrate Positive H Urine Bilirubin Negative Urine Urobilinogen 1.0 Ur Leukocyte Esterase 3+ H Urine RBC 10-30/hpf H Urine WBC 10-30/hpf H Ur Squamous Epith Cells 1-5 /hpf Urine Bacteria Many (>30) H Ur Culture Indicated? 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 use Diabetes mellitus complication status: with kidney complications Diabetes mellitus complication detail: with microalbuminuria Qualified Code(s): E11.29 - Type 2 diabetes mellitus with other diabetic kidney complication; R80.9 - Proteinuria, unspecified Status: Chronic (4) Atrial fibrillation: Qualifiers: Atrial fibrillation type: unspecified Qualified Code(s): I48.91 - Unspecified atrial fibrillation Status: Chronic (5) Essential hypertension: Status: Chronic (6) CAD (coronary artery disease): Problem details: [place] 2005 Qualifiers: Coronary Disease-Associated Artery/Lesion type: [place] artery [place] vs. transplanted heart: [place] heart Associated angina: without angina Qualified Code(s): I25.10 - Atherosclerotic heart disease of [place] coronary artery without angina pectoris Status: Chronic (7) COPD (chronic obstructive pulmonary disease): Qualifiers: COPD type: emphysema Emphysema type: centrilobular Qualified Code(s): J43.2 - Centrilobular emphysema Status: Chronic Assessment & Plan narrative: # UTI -Rocephin 1 g daily -Ucx pending # Weakness: Most likely due to infection -PT eval -CM consulted for dispo planning # DM -Home metformin, glipizide, glargine 12 units q.h.s. -Carb controlled diet # AFib -Home Eliquis b.i.d. -Tele # CAD/HTN -Home lisinopril, metoprolol # COPD -Home fluticasone-salmeterol, budesonide, DuoNebs Dispo: Obs vs full admit pending PT eval of weakness, safety for discharge Diet: Carb controlled DVT ppx: Eliquis Code: DNAR PCP: Dileep MDM: Amy Dominguez (brother, ) Time Spent With Patient Time with patient: less than 30 minutes PROFEE Charge Codes Initial inpatient/observation care: [id number]
--- NOTE | 2023-08-24 12:16 | PT.IIE ---
Surgical History (Last Reviewed 11/18/22 @ 12:03 by TYLER Ambriz) Anesthesia History of heart artery stent (~2005) Medical History (Last Updated 02/03/23 @ 14:06 by Homer Falk MD) Atrial fibrillation (~2005) CAD (coronary artery disease) (~2005) Colitis (~2004) COPD (chronic obstructive pulmonary disease) (~2008) Diabetes mellitus (~2005) Elevated PSA Essential hypertension Fungal infection of toenail H/O adenomatous polyp of colon Hearing loss (~1999) Knee pain Mixed hyperlipidemia Vision disorder Physical Therapy Inpatient Evaluation/Re-Eval M1 PT/OT-IP Prior Functional Status Start: 08/24/23 11:04 Freq: NEEDED Status: Active Protocol: Document 08/24/23 11:30 MB (Rec: 08/24/23 12:16 MB [id number]) Medical Review Prior Functional Status Medical History Reviewed Yes Diet/Fluid Consistency Regular Communication PAUMA Mobility and Gait I, pt reports near falls and fall at home Activities of Daily Living and IADL's I, drove, brother checks in on him Social History Household Members none Living Arrangements House Number of Floors (Floors) One Floor Number of Stairs To Enter/Railing? 7 steps with one rail to enter Home Environment Standard Height Toilet,Walk in Shower Home Equipment Straight Cane Employment Status Retired M2 PT-IP Current Condition Start: 08/24/23 11:04 Freq: NEEDED Status: Active Protocol: Document 08/24/23 11:30 MB (Rec: 08/24/23 12:16 MB [id number]) Physical Therapy Current Condition Current Condition Evaluation Date 08/24/23 Treatment Diagnosis UTI and weakness M3 PT-IP Subjective Start: 08/24/23 11:04 Freq: NEEDED Status: Active Protocol: Document 08/24/23 11:30 MB (Rec: 08/24/23 12:16 MB [id number]) Subjective Physical Therapy Visit Type Type Initial Evaluation Visit Start Time 11:30 Visit Stop Time 12:02 Number of SWEET PICKLED FRUIT MAKER Visits 0 Physical Therapy Visit Comments Patient Comments Pt is agreeable to PT. Therapy Pain Assessment Pain When Pain Assessed At Rest Pain Present Pain Present Denied Pain M4 PT-IP Mobility and Gait Start: 08/24/23 11:04 Freq: NEEDED Status: Active Protocol: Document 08/24/23 11:30 MB (Rec: 06/16/24 12:16 MB [id number]) PT-Bed Mobility Assessment Supine to Sit Supine to Sit Standby Assistance,1 Person Assistance,Head of Bed Elevated,Bedrails Scooting Scooting to Edge of Bed Standby Assistance PT-Transfer Assessment Sit to and From Stand Sit to and from Stand Contact Guard Assistance,1 Person Assistance,Use of Upper Extremities Equipment Transfer Assistive Device Gait Belt,Front Wheeled Walker Orthotic/Prosthetic Devices or Brace: No Transfers Transfer Destination Chair,Toilet Transfer Technique Ambulation Transfer Ability Level of Assist Contact Guard Assistance,1 Person Assistance,Use of Upper Extremities Comments Mobility Comments PT provides CGA to move pt to check orthostatics and BP and HR in RUE: supine 126/79, 78; standing 166/80, 85 and pt has urinary incontinence once standing and asks to walk to BR. Pt starts walking before PT is ready. Set-up assist and sitting on toilet to doff wet brief and re-don, similar to doff wet socks and don clean ones Gait Assessment Gait Gait Assistance Required: Contact Guard Assist Distance (Feet) 15 Able to Maintain Weight Bearing Status Yes During Gait Assistive Devices Assistive Device Gait Belt,Front Wheeled Walker Orthotic/Prosthetic Devices or Brace: No Gait Deviations General Gait Pattern Flexed Trunk Factors Limiting Gait Function Factors Limiting Gait Function Decreased Strength,Poor Safety Awareness Comments Gait Comments Pt presents with decreased functional strength with standing and gait today and he requires use of RW for balance. He does not use AD at baseline. Gait 15'x1 and 10' x1 with RW PT-Balance Assessment Sitting Balance and Reactions Static Sitting Balance Ability Good Dynamic Sitting Balance Ability Good Standing Balance and Reactions Static Standing Balance Ability Fair Dynamic Standing Balance Ability Fair Device Used RW M5 PT-IP Objective Assessments Start: 08/24/23 11:04 Freq: NEEDED Status: Active Protocol: Document 08/24/23 11:30 MB (Rec: 08/24/23 12:16 MB [id number]) Orientation Orientation/Cognition Level of Alertness Alert Orientation Name,Birthday,Month,Date,Year, Day of Week,Place,Situation Language Function Ability Hard of Hearing Safety Awareness Decreased Safety Awareness Memory Description No Deficits Noted Comments Brother often interrupts to disagree with pt and he states that pt has had recent increase in urinary incontinence and weakness and they are both concerned about this Gross Range of Motion Upper Extremity ROM Assessment Within Functional Limits Lower Extremity ROM Impairments Decreased ankle and foot movement with doffing and donning briefs and socks in sitting Strength Comments Strength Comments Pt does not tolerate MMT well today and he has functional weakness in legs, greater in distal LE with standing and gait today Other Assessments Other Other Assessments Discoloration in distal LEs in dependent position when sitting on toilet M6 PT-IP Treatment Start: 08/24/23 11:04 Freq: NEEDED Status: Active Protocol: Document 08/24/23 11:30 MB (Rec: 08/24/23 12:16 MB [id number]) Physical Therapy Treatment Education Education Provided Safety M7 PT-IP Assessment and Plan Start: 08/24/23 11:04 Freq: NEEDED Status: Active Protocol: Document 08/24/23 11:30 MB (Rec: 08/24/23 12:16 MB [id number]) PT Summary Assessment and Plan Potential Rehabilitation Potential Fair Status of Condition at Evaluation Evolving Summary Impairments Strength,Balance,Bed Mobility, Transfers,Gait,Activity Tolerance Progress Towards Goals Slow Progress due to Activity Tolerance Assessment Summary Pt is a 73 y/o male who lives alone and whose older brother checks in on him and who is present for evaluation. Brother and pt are concerned about progressive urinary incontinence and weakness. Pt is incontinent of urine upon standing today and he presents with functional weakness in his legs with STS, gait and donning and doffing briefs and socks sitting on commode today. Attempting to check orthostatics and urinary incontinence limit for ROM and MMT and coordination and longer gait today. Pt will benefit from ongoing PT and increased assistance at d/c. Recommend up with nsg and RW. Goals Bed Mobility Goal Independent Transfer Goal Independent,Cane,Front Wheeled Walker Gait Goal Independent,Cane,Front Wheel Walker Gait Distance 100 Other Goals Pt will ascend and descend 7 steps with rail and no more than superv to allow safe home entrance. Days to Meet Goals 5 Frequency of Treatment Frequency Of Treatment Once a Day Treatment Plan Physical Therapy Treatment Plan Bed Mobility Training,Transfer Training,Gait Training, Therapeutic Exercise,Balance Retraining,Discharge Planning, Hot or Cold Pack,Neuromuscular Re-ed,Coordination Retraining ,Manual Therapy Weight Bearing Status Weight Bearing Status Weight Bear as Tolerated Recommendations To Nursing Amount of Assist Needed 1 Person Assist Discharge Recommendations Other Discharge Recommendations Ongoing PT and increased assistance at d/c Transportation Needs at Discharge Private Vehicle,Wheelchair/ Cabulance
--- NOTE | 2023-08-24 14:09 | CM.DANOTE ---
Initial DCP Assessment Visit Note Reviewed EMR and team rounds for status updates. Met with pt and his brother at bedside to introduce self and role, pt was found to be sitting upright in his recliner, alert/oriented but still slightly forgetful and confused. Pt resides alone in his own home here in [place], his brother also lives in [place] and is available for post-d/c assistance in the home. Brother confirms that he will also plan to transport pt home once he's medically cleared for home d/c. Payor: Medicare PCP: Dr. Falk Pt is a 73 year-old M who presented to to the ED via EMS last evening after he was experiencing worsening confusion, weakness, painful/frequent urination, and could not even get up to walk around the house. CT imaging of his bladder along with labs confirmed a UTI/sepsis, and was started on IV ABO's. Pt also needed 2LO2 in the ED, however today he has been weaned off of oxygen, blood pressure is low today. Pt will be working with therapies today, pt is agreeable to either Home Health or continue OP PT. THEE has not made any referrals at this time, will plan to discuss this with him again on Friday. DCP will continue to follow and assist with any further evolving needs/assistance prior to his home d/c. Discharge Planning/Care Management CM Discharge Assessment Start: 08/24/23 13:54 Freq: Status: Active Protocol: Document 08/24/23 13:54 DPL (Rec: 08/24/23 14:09 DPL [id number]) Discharge Planning Assessment Assigned Environmental Science Program Director THEE Ching Advance Directives? No History Provided By Patient,Family Member,Medical Record Has Patient been admitted in last 30 No days? Prior Living Arrangements House Household Members none Type of transporation used prior to Drives own vehicle admit Independent with ADL's Yes Is patient alert and oriented? Yes Caregiver for Another No Community Services used prior to Physical Therapy admission: Comment OP PT DME Already Rented / Owned FWW / Walker,Cane Patient/Family Preference Home with Home Health Comment Need to confirm preference and initiate referral. Barriers to Discharge No Discharge Plan Home Community Services Physical Therapy Transportation Arrangement Brother If patient plan is home with home health No : Has signed face to face form been completed? Whiteboard Updated in Patient Room with Yes name and ext. # of Environmental Science Program Director Review Status In Process Please Provide Date Initial DC 08/24/23 Assessment Was Performed
[2023-08-24] MEDS: glipiZIDE 5 MG TABLET 10 MG PO (16:49)
[2023-08-24] MEDS: cefTRIAXone 1,000 MG in SODIUM CHLORIDE 0.9% 100 ML 200 MG IV (16:55)
[2023-08-24] MEDS: BUDESONIDE 0.5 MG/2 ML NEB INH (19:25)
[2023-08-24] MEDS: ALBUTEROL/IPRATROPIUM 3 ML AMPUL INH (19:25)
[2023-08-24] MEDS: ALBUTEROL 2.5 MG/3 ML NEB (ADULT) INH (23:28)
[2023-08-25] VITALS (8 sets, daily range): BP systolic 133–156; BP diastolic 69–88; PULSE 73–86; RESP 16–18; TEMP 35.9–36.7; O2SAT 96–100
[2023-08-25] MEDS: glipiZIDE 5 MG TABLET 10 MG PO ×2 (06:11→17:44)
[2023-08-25] MEDS: PANTOPRAZOLE DR 20 MG TABLET PO (06:12)
--- NOTE | 2023-08-25 07:44 | P.PN_ITS ---
Subjective Subjective Date Patient Seen: 08/25/23 Time Patient Seen: 07:44 Interval history: Patient admitted by Dr. Dotson yesterday for weakness classic UTI symptoms maybe some element of confusion Vital signs have been stable since admission. Up with physical therapy yesterday still quite weak and unstable on his feet. Blood sugars have been remarkably well controlled since admission, blood cultures negative and urine culture still pending Continues on parental antibiotic therapy Patient feels better seems more oriented alert etcetera but very hesitant about going home today which he understood might be possible Exam Vital Signs (past 8 hours): - 08/25/23 05:20 Temperature 98.0 F Pulse Rate 79 Respiratory Rate 18 Blood Pressure 156/87 H Pulse Oximetry 100 Oxygen Flow Rate 0 Oxygen Delivery Method Room Air Oxygen Flow Rate 0 Objective Labs 08/24/23 06:40 08/24/23 06:40 [facility] Medical History (Updated 08/24/23 @ 00:04 by Kristie Crystal DO) H/O adenomatous polyp of colon Fungal infection of toenail Mixed hyperlipidemia Essential hypertension Elevated PSA CAD (coronary artery disease) (~2005) Knee pain Vision disorder COPD (chronic obstructive pulmonary disease) (~2008) Hearing loss (~1999) Colitis (~2004) Diabetes mellitus (~2005) Atrial fibrillation (~2005) Surgical History Anesthesia History of heart artery stent (~2005) Family History Father History of heart disease Mother Aneurysm Sister Cancer Social History household members: none Smoking Status: Current every day smoker Assessment & Plan Assessment & Plan narrative: 1. Complicated UTI-continue with the parental ceftriaxone until we have culture results. 2. Weakness-continue with physical therapy, expect to improve as infection is treated 3. Diabetes-adequate control for now. No changes today 4. COPD-stable. Continue current meds 5. History coronary disease-no evidence of active cardiac ischemia etcetera 6. Atrial fibrillation-stable. Continue current meds including anticoagulation 7. Disposition-depending on physical therapy anticipate patient here another day or 2 regaining strength and probably can return home to his previous living environment. May or may not require home health services. PROFEE Charge codes Subsequent inpatient/observation care: [id number]
[2023-08-25] MEDS: BUDESONIDE 3 MG CAP PO (08:30)
[2023-08-25] MEDS: APIXABAN 5 MG TABLET PO ×2 (08:30→20:46)
[2023-08-25] MEDS: ATORVASTATIN 20 MG TABLET PO (08:30)
[2023-08-25] MEDS: lisinopriL 20 MG TABLET PO (08:31)
[2023-08-25] MEDS: METOPROLOL ER 50 MG TABLET 100 MG PO ×2 (08:31→20:46)
[2023-08-25] MEDS: METFORMIN HCL 500 MG TABLET 1000 MG PO ×2 (08:31→20:46)
--- NOTE | 2023-08-25 12:25 | PT.IPTN ---
Current Diagnoses Type 2 diabetes mellitus with other diabetic kidney complication (08/23/23) Essential (primary) hypertension (08/23/23) Atherosclerotic heart disease of [place] coronary artery without angina pectoris (08/23/23) Unspecified atrial fibrillation (08/23/23) Centrilobular emphysema (08/23/23) Urinary tract infection, site not specified (08/23/23) Weakness (08/23/23) Proteinuria, unspecified (08/23/23) Physical Therapy Treatment Note M2 PT-IP Current Condition Start: 08/24/23 11:04 Freq: NEEDED Status: Active Protocol: Document 08/24/23 11:30 MB (Rec: 08/24/23 12:16 MB [id number]) Physical Therapy Current Condition Current Condition Evaluation Date 08/24/23 Treatment Diagnosis UTI and weakness M3 PT-IP Subjective Start: 08/24/23 11:04 Freq: NEEDED Status: Active Protocol: Document 08/25/23 11:50 NM (Rec: 08/25/23 12:25 NM [id number]) Subjective Physical Therapy Visit Type Type Treatment Note Visit Start Time 11:50 Visit Stop Time 12:02 Physical Therapy Visit Comments Patient Comments Pt agrees to participate in PT , reports has been up ambulating with nursing and to shower M4 PT-IP Mobility and Gait Start: 08/24/23 11:04 Freq: NEEDED Status: Active Protocol: Document 08/25/23 11:50 NM (Rec: 08/25/23 12:25 NM [id number]) PT-Transfer Assessment Sit to and From Stand Sit to and from Stand Standby Assistance Equipment Transfer Assistive Device Gait Belt,Front Wheeled Walker Comments Mobility Comments Pt sitting on EOB with nursing upon PT arrival. Pt performed several seated marches prior to standing. Performed sit> stand to FWW from elevated bed with CGA to steady, PT cueing pt for FWW placement for safety. Gait Assessment Gait Gait Assistance Required: Contact Guard Assist Distance (Feet) 80 Assistive Devices Assistive Device Front Wheeled Walker Comments Gait Comments Pt ambulated in [place] with FWW x40 ft with CGA to steady, then turned and returned to room. Reports legs are fatigued and wanting to sit again. Pt cued pt for FWW safety while turning as pt extending arms to hold FWW in front. Ambulated x40 ft using FWW with CGA, transferring to chair. PT cued pt to maintain hold on FWW while turning to back up to chair for safety as pt attempts to discard FWW to side. Stand>sit with CGA for safety, cueing to reach back to chair for safety prior to sitting and eccentric control with descent. Pt left sitting up in chair with tray in front , chair alarm activated, and call light within reach. M5 PT-IP Objective Assessments Start: 08/24/23 11:04 Freq: NEEDED Status: Active Protocol: Document 08/24/23 11:30 MB (Rec: 08/24/23 12:16 MB [id number]) Orientation Orientation/Cognition Level of Alertness Alert Orientation Name,Birthday,Month,Date,Year, Day of Week,Place,Situation Language Function Ability Hard of Hearing Safety Awareness Decreased Safety Awareness Memory Description No Deficits Noted Comments Brother often interrupts to disagree with pt and he states that pt has had recent increase in urinary incontinence and weakness and they are both concerned about this Gross Range of Motion Upper Extremity ROM Assessment Within Functional Limits Lower Extremity ROM Impairments Decreased ankle and foot movement with doffing and donning briefs and socks in sitting Strength Comments Strength Comments Pt does not tolerate MMT well today and he has functional weakness in legs, greater in distal LE with standing and gait today Other Assessments Other Other Assessments Discoloration in distal LEs in dependent position when sitting on toilet M6 PT-IP Treatment Start: 08/24/23 11:04 Freq: NEEDED Status: Active Protocol: Document 08/24/23 11:30 MB (Rec: 08/24/23 12:16 MB [id number]) Physical Therapy Treatment Education Education Provided Safety M7 PT-IP Assessment and Plan Start: 08/24/23 11:04 Freq: NEEDED Status: Active Protocol: Document 08/25/23 11:50 NM (Rec: 08/25/23 12:25 NM [id number]) PT Summary Assessment and Plan Summary Assessment Summary Pt CGA for transfers to FWW and gait with FWW for safety. Able to ambulate 80 ft with FWW, but fatigues easily and requires assistance to maintain balance. Pt also requires frequent cues for safety with FWW placement. Pt has decreased activity tolerance, poor BLE strength and balance. Pt would benefit from AD use for balance during gait and transfers, in addition to decrease fall risk . PT recommending home with assistance and HHPT or OP PT. Goals Bed Mobility Goal Independent Transfer Goal Independent,Cane,Front Wheeled Walker Gait Goal Independent,Cane,Front Wheel Walker Gait Distance 100 Other Goals Pt will ascend and descend 7 steps with rail and no more than superv to allow safe home entrance. Days to Meet Goals 5 Frequency of Treatment Frequency Of Treatment Once a Day Treatment Plan Physical Therapy Treatment Plan Bed Mobility Training,Transfer Training,Gait Training, Therapeutic Exercise,Balance Retraining,Discharge Planning, Hot or Cold Pack,Neuromuscular Re-ed,Coordination Retraining ,Manual Therapy Other Recommendations and Next Treatment Gait training and stairs Focus Recommendations To Nursing Amount of Assist Needed 1 Person Assist Discharge Recommendations Other Discharge Recommendations Ongoing PT and increased assistance at d/c Transportation Needs at Discharge Private Vehicle,Wheelchair/ Cabulance
--- NOTE | 2023-08-25 15:02 | CM.DPC ---
DCP Cont Per MD, pt's cultures still pending and to work with PT more and not yet medically stable to discharge. Per PT, recommending home with increased assist and outpt vs HH. SW met bedside with pt (who is [facility]) and his older brother and explained role and discussed outpt vs HH. Pt confirms he is currently active with outpt PT 3xs a week and brother feels there is some benefit to pt going to appointments and working on his strength at outpt but they will review [facility] regarding HH services and discussed PT would only be twice a week but could maybe benefit from OT and/fieldwork coordinator. Brother lives nearby and rents pt the house he lives in and they are regularly in contact and spend time together. Plan: SW to follow closely for further PT and ongoing discussion with pt and brother to determine HH vs resume outpt PT 3x week at discharge. THEE Ferrell
[2023-08-25] MEDS: cefTRIAXone 1,000 MG in SODIUM CHLORIDE 0.9% 100 ML 200 MG IV (17:44)
[2023-08-25] MEDS: BUDESONIDE 0.5 MG/2 ML NEB INH (20:39)
[2023-08-25] MEDS: ALBUTEROL/IPRATROPIUM 3 ML AMPUL INH (20:39)
[2023-08-25] MEDS: SODIUM CHLORIDE 0.9% FLUSH 10 ML IV (20:59)
[2023-08-26] VITALS (7 sets, daily range): BP systolic 128–157; BP diastolic 67–82; PULSE 58–110; RESP 18–20; TEMP 35.8–36.4; O2SAT 97–99
[2023-08-26] MEDS: PANTOPRAZOLE DR 20 MG TABLET PO (05:31)
[2023-08-26] MEDS: glipiZIDE 5 MG TABLET 10 MG PO ×2 (06:37→16:10)
[2023-08-26] MEDS: APIXABAN 5 MG TABLET PO ×2 (08:13→21:25)
[2023-08-26] MEDS: ATORVASTATIN 20 MG TABLET PO (08:13)
[2023-08-26] MEDS: METFORMIN HCL 500 MG TABLET 1000 MG PO ×2 (08:13→21:25)
[2023-08-26] MEDS: METOPROLOL ER 50 MG TABLET 100 MG PO ×2 (08:14→21:25)
[2023-08-26] MEDS: lisinopriL 20 MG TABLET PO (08:15)
[2023-08-26] MEDS: SODIUM CHLORIDE 0.9% FLUSH 10 ML IV ×2 (08:16→21:26)
--- NOTE | 2023-08-26 08:25 | PM.PN.1 ---
Subjective Subjective Date Patient Seen: 08/26/23 Time Patient Seen: 08:25 Interval history: Patient is still quite weak up on his feet. Does not really feel like he is much improved over yesterday but somewhat improved over admission status Growing E coli from urine and nothing from blood cultures. E coli is sensitive to all tested antibiotics Blood sugars reasonably well controlled Exam Vital Signs (past 8 hours): - 08/26/23 02:00 08/26/23 08:14 08/26/23 08:15 Temperature 97.2 F L Pulse Rate 79 Respiratory Rate 20 Blood Pressure 139/78 157/82 H 157/82 H Pulse Oximetry 98 Oxygen Delivery Method Room Air Oxygen Flow Rate 0 Objective Labs 08/24/23 06:40 08/24/23 06:40 [facility] Medical History (Updated 08/24/23 @ 00:04 by Kristie Crystal DO) H/O adenomatous polyp of colon Fungal infection of toenail Mixed hyperlipidemia Essential hypertension Elevated PSA CAD (coronary artery disease) (~2005) Knee pain Vision disorder COPD (chronic obstructive pulmonary disease) (~2008) Hearing loss (~1999) Colitis (~2004) Diabetes mellitus (~2005) Atrial fibrillation (~2005) Surgical History Anesthesia History of heart artery stent (~2005) Family History Father History of heart disease Mother Aneurysm Sister Cancer Social History household members: none Smoking Status: Current every day smoker Assessment & Plan Assessment & Plan narrative: 1. Complicated UTI-based on culture results will switch to IV first generation cephalosporin. Still think he would benefit from parental antibiotics given lack of improvement in his global weakness but hopefully can switch to oral antibiotics in the next 24 hours or so 2. Weakness-continue with physical therapy, expect to improve as infection is treated. Hopefully as we continue treatment he will improve 3. Diabetes-adequate control for now. No changes today 4. COPD-stable. Continue current meds 5. History coronary disease-no evidence of active cardiac ischemia etcetera 6. Atrial fibrillation-stable. Continue current meds including anticoagulation 7. Disposition-depending on physical therapy anticipate patient here another day or 2 regaining strength and probably can return home to his previous living environment. May or may not require home health services. PROFEE Charge codes Subsequent inpatient/observation care: [id number]
[2023-08-26] MEDS: CEFAZOLIN VIAL 1 GM in SODIUM CHLORIDE 0.9% 100 ML IV ×2 (09:29→16:10)
--- NOTE | 2023-08-26 09:47 | PT.IPTN ---
Current Diagnoses Type 2 diabetes mellitus with other diabetic kidney complication (08/23/23) Essential (primary) hypertension (08/23/23) Atherosclerotic heart disease of [place] coronary artery without angina pectoris (08/23/23) Unspecified atrial fibrillation (08/23/23) Centrilobular emphysema (08/23/23) Urinary tract infection, site not specified (08/23/23) Weakness (08/23/23) Proteinuria, unspecified (08/23/23) Physical Therapy Treatment Note M2 PT-IP Current Condition Start: 08/24/23 11:04 Freq: NEEDED Status: Active Protocol: Document 08/24/23 11:30 MB (Rec: 08/24/23 12:16 MB [id number]) Physical Therapy Current Condition Current Condition Evaluation Date 08/24/23 Treatment Diagnosis UTI and weakness M3 PT-IP Subjective Start: 08/24/23 11:04 Freq: NEEDED Status: Active Protocol: Document 08/26/23 10:13 TS (Rec: 08/26/23 10:22 TS [id number]) Subjective Physical Therapy Visit Type Type Treatment Note Visit Start Time 09:47 Visit Stop Time 10:10 Number of 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 Pt is agreeable to PT. M4 PT-IP Mobility and Gait Start: 08/24/23 11:04 Freq: NEEDED Status: Active Protocol: Document 08/26/23 10:13 TS (Rec: 08/26/23 10:22 TS [id number]) PT-Transfer Assessment Sit to and From Stand Sit to and from Stand Standby Assistance Equipment Transfer Assistive Device None,Gait Belt Orthotic/Prosthetic Devices or Brace: No Comments Mobility Comments Pt is impulsive to stand before therapist is ready. STS with no AD SBA. He ambulated in room ~30 CGA with no AD, he is unsteady and grabs for IV pole for balance. Pt ambulated ~100 with FWW in hallway, has better balance with use of AD . Pt ambulated back to room, performed stairs x7 with single rail SBA. Pt was left in chair, all needs met. Gait Assessment Gait Gait Assistance Required: Standby Assistance,Contact Guard Assist Distance (Feet) 130 Able to Maintain Weight Bearing Status Yes During Gait Assistive Devices Assistive Device None,Gait Belt,Front Wheeled Walker Orthotic/Prosthetic Devices or Brace: No Factors Limiting Gait Function Factors Limiting Gait Function Decreased Activity Tolerance, Decreased Strength,Poor Safety Awareness Stair Climbing Assessment Evaluation Level of Assist On Stairs Standby Assistance Devices Stair Climbing Assistive Devices Front Wheel Walker Technique/Endurance Stair Climbing Direction Ascend and Descend Stair Climbing Technique Step to Step Number of Steps Climbed 7 Comments Stair Climbing Comments See mobility comments PT-Balance Assessment Sitting Balance and Reactions Static Sitting Balance Ability Good Dynamic Sitting Balance Ability Good Standing Balance and Reactions Static Standing Balance Ability Fair Dynamic Standing Balance Ability Fair Device Used RW M5 PT-IP Objective Assessments Start: 08/24/23 11:04 Freq: NEEDED Status: Active Protocol: Document 08/24/23 11:30 MB (Rec: 08/24/23 12:16 MB [id number]) Orientation Orientation/Cognition Level of Alertness Alert Orientation Name,Birthday,Month,Date,Year, Day of Week,Place,Situation Language Function Ability Hard of Hearing Safety Awareness Decreased Safety Awareness Memory Description No Deficits Noted Comments Brother often interrupts to disagree with pt and he states that pt has had recent increase in urinary incontinence and weakness and they are both concerned about this Gross Range of Motion Upper Extremity ROM Assessment Within Functional Limits Lower Extremity ROM Impairments Decreased ankle and foot movement with doffing and donning briefs and socks in sitting Strength Comments Strength Comments Pt does not tolerate MMT well today and he has functional weakness in legs, greater in distal LE with standing and gait today Other Assessments Other Other Assessments Discoloration in distal LEs in dependent position when sitting on toilet M6 PT-IP Treatment Start: 08/24/23 11:04 Freq: NEEDED Status: Active Protocol: Document 08/26/23 10:13 TS (Rec: 08/26/23 10:22 [id number]) Physical Therapy Treatment Education Education Provided Safety M7 PT-IP Assessment and Plan Start: 08/24/23 11:04 Freq: NEEDED Status: Active Protocol: Document 08/26/23 10:13 TS (Rec: 08/26/23 10:22 TS [id number]) PT Summary Assessment and Plan Potential Rehabilitation Potential Fair Summary Impairments Strength,Balance,Bed Mobility, Gait,Activity Tolerance Assessment Summary Jim is making progress with his mobility. He is SBA for STS with no AD, he is impulsive to stand before therapist is ready. He ambulated ~30'CGA with no AD, he is unsteady with no AD and reaches for IV pole for balance. He ambulated ~100' with FWW, he is more steady and CIGAR MAKING MACHINE SUPERVISOR is recommending use of FWW. He progressed to stairs x7 with use of single rail. His movements overall are slowdue to wekaness and fatigue. PT is recommending home with assist and HHPT. Goals Bed Mobility Goal Independent Transfer Goal Independent,Cane,Front Wheeled Walker Gait Goal Independent,Cane,Front Wheel Walker Gait Distance 100 Other Goals Pt will ascend and descend 7 steps with rail and no more than superv to allow safe home entrance. Days to Meet Goals 5 Frequency of Treatment Frequency Of Treatment Once a Day Treatment Plan Physical Therapy Treatment Plan Bed Mobility Training,Transfer Training,Gait Training, Therapeutic Exercise,Balance Retraining,Discharge Planning, Hot or Cold Pack,Neuromuscular Re-ed,Coordination Retraining ,Manual Therapy Other Recommendations and Next Treatment Gait training and stairs Focus Weight Bearing Status Weight Bearing Status Weight Bear as Tolerated Recommendations To Nursing Amount of Assist Needed Standby Assistance Discharge Recommendations PT Discharge Recommendations Home with Assistance,Home Health Transportation Needs at Discharge Private Vehicle
--- NOTE | 2023-08-26 10:27 | CM.DPC ---
DCP Cont. Reviewed EMR and team rounds for status updates. Pt will need to remain inpt for at least another few days, he was started on a new IV antibiotic today, remains very weak when standing, UTI is complicated, per MD. We will be upgrading him to INPT. Plan to continue to monitor for d/c needs re: HH vs. OP PT.
[2023-08-26] MEDS: INSULIN GLARGINE 100 UNIT/ML 3ML PEN 12 UNIT SUBCUT (17:15)
[2023-08-27] VITALS (9 sets, daily range): BP systolic 110–148; BP diastolic 59–92; PULSE 63–102; RESP 14–18; TEMP 35.9–36.7; O2SAT 98–99
[2023-08-27] MEDS: CEFAZOLIN VIAL 1 GM in SODIUM CHLORIDE 0.9% 100 ML IV ×3 (00:04→16:04)
[2023-08-27] MEDS: glipiZIDE 5 MG TABLET 10 MG PO ×2 (07:53→16:04)
[2023-08-27] MEDS: PANTOPRAZOLE DR 20 MG TABLET PO (07:54)
[2023-08-27] MEDS: APIXABAN 5 MG TABLET PO ×2 (08:01→21:10)
[2023-08-27] MEDS: lisinopriL 20 MG TABLET PO (08:01)
[2023-08-27] MEDS: METFORMIN HCL 500 MG TABLET 1000 MG PO ×2 (08:01→21:10)
[2023-08-27] MEDS: ATORVASTATIN 20 MG TABLET PO (08:02)
[2023-08-27] MEDS: SODIUM CHLORIDE 0.9% FLUSH 10 ML IV ×2 (08:03→21:11)
[2023-08-27] MEDS: METOPROLOL ER 50 MG TABLET 100 MG PO ×2 (08:03→21:10)
--- NOTE | 2023-08-27 08:43 | PM.PN.1 ---
Subjective Subjective Date Patient Seen: 08/27/23 Time Patient Seen: 08:44 Interval history: Patient is still says he feels pretty weak on his feet although he was walking with a walker around the hospital pretty effectively yesterday. Urine culture shows E coli that is sensitive to all tested antibiotics, as noted previously Antibiotic switch to first generation cephalosporin yesterday without evidence of negative effect Patient reports still has urinary frequency and burning with urination Blood sugar probably barely adequately controlled averaging around 180 Patient is somewhat hesitant to return home as yet as he lives alone etcetera Exam Vital Signs (past 8 hours): - 08/27/23 05:46 08/27/23 08:01 08/27/23 08:03 Temperature 98.1 F Pulse Rate 63 Respiratory Rate 14 Blood Pressure 133/59 L 145/92 H 145/92 H Pulse Oximetry 98 Oxygen Delivery Method Room Air Oxygen Flow Rate 0 Objective Labs 08/24/23 06:40 08/24/23 06:40 [facility] Medical History (Updated 08/24/23 @ 00:04 by Kristie Crystal DO) H/O adenomatous polyp of colon Fungal infection of toenail Mixed hyperlipidemia Essential hypertension Elevated PSA CAD (coronary artery disease) (~2005) Knee pain Vision disorder COPD (chronic obstructive pulmonary disease) (~2008) Hearing loss (~1999) Colitis (~2004) Diabetes mellitus (~2005) Atrial fibrillation (~2005) Surgical History Anesthesia History of heart artery stent (~2005) Family History Father History of heart disease Mother Aneurysm Sister Cancer Social History household members: none Smoking Status: Current every day smoker Assessment & Plan Assessment & Plan narrative: 1. Complicated UTI-continue with parental antibiotics for now. Plan to switch to oral antibiotics and most likely discharge tomorrow 2. Weakness-continue with physical therapy here in the hospital. At this point it has not clear whether he will require outpatient or home health physical therapy upon discharge but he would benefit from 1 or the other. I think he needs another 24 hours in the hospital to work with skilled therapy here before he would be truly safe for discharge home 3. Diabetes-barely adequate control for now. No changes today 4. COPD-stable. Continue current meds. Patient is not really wanting scheduled nebulizer treatments so we have discontinued those he will have them available as needed 5. History coronary disease-no evidence of active cardiac ischemia etcetera 6. Atrial fibrillation-stable. Continue current meds including anticoagulation 7. Disposition-I am planning on most likely discharging patient tomorrow. Whether not he will need home health physical therapy verses outpatient physical therapy has yet to be determined 1 of the reasons to keep him in the hospital today. I am afraid that if he went home today he would be much more likely to fail and need to return than if he was kept in the hospital another 24 or more hours [facility]EE Charge codes Subsequent inpatient/observation care: [id number]
--- NOTE | 2023-08-27 09:45 | PT.IPTN ---
Current Diagnoses Type 2 diabetes mellitus with other diabetic kidney complication (08/26/23) Essential (primary) hypertension (08/26/23) Atherosclerotic heart disease of [place] coronary artery without angina pectoris (08/26/23) Unspecified atrial fibrillation (08/26/23) Centrilobular emphysema (08/26/23) Urinary tract infection, site not specified (08/26/23) Weakness (08/26/23) Proteinuria, unspecified (08/26/23) Physical Therapy Treatment Note M2 PT-IP Current Condition Start: 08/24/23 11:04 Freq: NEEDED Status: Active Protocol: Document 08/24/23 11:30 MB (Rec: 08/24/23 12:16 MB [id number]) Physical Therapy Current Condition Current Condition Evaluation Date 08/24/23 Treatment Diagnosis UTI and weakness M3 PT-IP Subjective Start: 08/24/23 11:04 Freq: NEEDED Status: Active Protocol: Document 08/27/23 10:11 TS (Rec: 08/27/23 10:21 TS [id number]) Subjective Physical Therapy Visit Type Type Treatment Note Visit Start Time 09:45 Visit Stop Time 10:05 Number of HAT MARKER Visits 2 Physical Therapy Visit Comments Patient Comments Pt found resting sitting EOB, reports feeling like he has more energy today, is agreeable to PT. M4 PT-IP Mobility and Gait Start: 08/24/23 11:04 Freq: NEEDED Status: Active Protocol: Document 08/27/23 10:11 TS (Rec: 08/27/23 10:21 TS [id number]) PT-Transfer Assessment Sit to and From Stand Sit to and from Stand Standby Assistance Equipment Transfer Assistive Device None,Gait Belt Orthotic/Prosthetic Devices or Brace: No Comments Mobility Comments Pt is impulsive to stand before therapist is ready with FWW. STS with no AD SBA, pt braces back of LE's against bed for support. He ambulated ~250'SBA with FWW. He performed steps x6 with BUE support on handrails, pt is slow to descend steps and reports pain in B knees. He ambulated back to room, sat EOB, all needs met. Gait Assessment Gait Gait Assistance Required: Standby Assistance Distance (Feet) 250 Able to Maintain Weight Bearing Status Yes During Gait Assistive Devices Assistive Device None,Gait Belt,Front Wheeled Walker Orthotic/Prosthetic Devices or Brace: No Factors Limiting Gait Function Factors Limiting Gait Function Decreased Activity Tolerance, Decreased Strength,Poor Safety Awareness Comments Gait Comments See mobility comments Stair Climbing Assessment Evaluation Level of Assist On Stairs Standby Assistance Devices Stair Climbing Assistive Devices Front Wheel Walker Technique/Endurance Stair Climbing Direction Ascend and Descend Stair Climbing Technique Step to Step Number of Steps Climbed 7 Comments Stair Climbing Comments See mobility comments PT-Balance Assessment Sitting Balance and Reactions Static Sitting Balance Ability Good Dynamic Sitting Balance Ability Good Standing Balance and Reactions Static Standing Balance Ability Fair Dynamic Standing Balance Ability Fair Device Used RW M5 PT-IP Objective Assessments Start: 08/24/23 11:04 Freq: NEEDED Status: Active Protocol: Document 08/24/23 11:30 MB (Rec: 08/24/23 12:16 MB [id number]) Orientation Orientation/Cognition Level of Alertness Alert Orientation Name,Birthday,Month,Date,Year, Day of Week,Place,Situation Language Function Ability Hard of Hearing Safety Awareness Decreased Safety Awareness Memory Description No Deficits Noted Comments Brother often interrupts to disagree with pt and he states that pt has had recent increase in urinary incontinence and weakness and they are both concerned about this Gross Range of Motion Upper Extremity ROM Assessment Within Functional Limits Lower Extremity ROM Impairments Decreased ankle and foot movement with doffing and donning briefs and socks in sitting Strength Comments Strength Comments Pt does not tolerate MMT well today and he has functional weakness in legs, greater in distal LE with standing and gait today Other Assessments Other Other Assessments Discoloration in distal LEs in dependent position when sitting on toilet M6 PT-IP Treatment Start: 08/24/23 11:04 Freq: NEEDED Status: Active Protocol: Document 08/27/23 10:11 TS (Rec: 08/27/23 10:21 [id number]) Physical Therapy Treatment Education Education Provided Safety M7 PT-IP Assessment and Plan Start: 08/24/23 11:04 Freq: NEEDED Status: Active Protocol: Document 08/27/23 10:11 TS (Rec: 08/27/23 10:21 [id number]) PT Summary Assessment and Plan Potential Rehabilitation Potential Fair Summary Impairments Strength,Balance,Bed Mobility, Gait,Activity Tolerance Progress Towards Goals Progressing Toward Goals Assessment Summary Jim is making progress with his mobility. He is SBA for STS with no AD. He continues to be impulsive to stand before therapist is ready with FWW. He progressed his ambulation to ~250'SBA with FWW, has no buckling or LOB. He performed stairs x6 with B handrails. His energy is improved but continues to have slow movements. PT is recommending Home with assist and HHPT. Goals Bed Mobility Goal Independent Transfer Goal Independent,Cane,Front Wheeled Walker Gait Goal Independent,Cane,Front Wheel Walker Gait Distance 100 Other Goals Pt will ascend and descend 7 steps with rail and no more than superv to allow safe home entrance. Days to Meet Goals 5 Frequency of Treatment Frequency Of Treatment Once a Day Treatment Plan Physical Therapy Treatment Plan Bed Mobility Training,Transfer Training,Gait Training, Therapeutic Exercise,Balance Retraining,Discharge Planning, Hot or Cold Pack,Neuromuscular Re-ed,Coordination Retraining ,Manual Therapy Other Recommendations and Next Treatment Gait training and stairs Focus Weight Bearing Status Weight Bearing Status Weight Bear as Tolerated Recommendations To Nursing Amount of Assist Needed Standby Assistance Discharge Recommendations PT Discharge Recommendations Home with Assistance,Home Health Transportation Needs at Discharge Private Vehicle
--- NOTE | 2023-08-27 10:40 | CM.DPC ---
DCP Cont. Reviewed EMR and team rounds for status updates. Dr. Falk has decided to keep pt for 1-more day for continued IV ABO's. Pt declines the need for Home Health at d/c, plan is for discharge home tomorrow. His brother is planning on transporting him.
[2023-08-27] MEDS: INSULIN GLARGINE 100 UNIT/ML 3ML PEN 12 UNIT SUBCUT (16:49)
[2023-08-28] VITALS: BP 153/78; PULSE 71; RESP 18; TEMP 36.8; O2SAT 98
[2023-08-28] MEDS: CEFAZOLIN VIAL 1 GM in SODIUM CHLORIDE 0.9% 100 ML IV ×2 (00:33→08:26)
[2023-08-28 05:45] VITALS: BP 152/76; PULSE 66; RESP 16; TEMP 36.9; O2SAT 97
[2023-08-28] MEDS: PANTOPRAZOLE DR 20 MG TABLET PO (06:06)
[2023-08-28 08:00] VITALS: BP 141/86; PULSE 90; RESP 16; TEMP 36.3; O2SAT 98
--- NOTE | 2023-08-28 08:19 | PM.DS.1 ---
History of Present Illness History of Present Illness Date Patient Seen: 08/28/23 Time Patient Seen: 08:19 Chief complaint: freq. painful urination Narrative: Jim is a 73-year-old male with diabetes, hypertension, AFib on Xarelto, COPD. Patient is new to me and seen as cross cover for Dr. Falk. Presented to the ER last night with increasing confusion and frequent, painful urination. Lives alone and reported being too weak to get up from his recliner so called EMS to bring him to hospital. Dysuria and frequency started day prior to presentation. No fever, chills, chest pain, shortness for breath. ER evaluation notable for mild leukocytosis 14.3, mild anemia 13.2, sodium 132, glucose 160, lactate 1.3, CK 55, negative troponin. UA demonstrated leuk esterase and occult blood, positive nitrite. EKG with atrial fibrillation, no ischemic changes. CT head negative for acute intracranial pathology. CT KUB did not reveal any obstructing stones or hydronephrosis. Received ceftriaxone 1 g IV and was admitted for UTI treatment due to weakness and inability to discharge safely since he lives alone. {from Dr. Dotson's H&P 08/24/2023} Discharge Providers Provider Date of admission: 08/26/23 11:42 Discharge Date: 08/28/23 Primary care physician: Homer Falk MD Consults: 08/24/23 00:36 Consult to Discharge Planning Routine Comment: 08/24/23 10:17 Consult to Physical Therapy Evaluate & Treat Comment: Physician Instructions: Evaluate and Treat Discharge provider: Homer Falk MD Summary Hospital Course Discharge Diagnosis: 1. Complicated urinary tract infection with E coli 2. Diabetes mellitus type 2 on oral medication, without long-term use of insulin 3. COPD 4. Chronic atrial fibrillation 5. Coronary artery disease 6. Hypertension 7. Hyperlipidemia Hospital Course: Patient was admitted as above with probable UTI. Blood cultures remained negative but urine culture eventually did grow E coli that was sensitive to all tested antibiotics. Initially started on broad-spectrum parental antibiotics once the organism was identified this was tailored to more appropriate parental antibiotics. He was continued on parental antibiotics given his slow improvement in regards to his symptoms of urinary frequency and dysuria. He also remained globally weak for longer than I would have expected However with physical therapy and time patient was much improved he was up and around able to ambulate in his room without difficulty and able to ambulate without particular difficulty in the halls of the hospital. He was quickly fatigued but otherwise had no other symptoms Therefore he was felt to be safe for discharge by the morning of the 27 August to continue a course of outpatient oral antibiotic therapy Patient's blood pressure and blood sugars are adequately controlled during this hospitalization Patient's breathing was not an active issue Patient has heart rate with his atrial fibrillation was not an active issue either Status at Discharge Cognitive/behavioral status at discharge: oriented Functional status at discharge: independent ambulation Overall status at discharge: patient is progressing back to baseline Time Spent with Patient Time spent: Less than 30 minutes Exam Vital Signs (past 8 hours): - 08/28/23 05:45 Temperature 98.4 F Pulse Rate 66 Respiratory Rate 16 Blood Pressure 152/76 H Pulse Oximetry 97 Oxygen Flow Rate 0 Oxygen Delivery Method Room Air Oxygen Flow Rate 0 Narrative Exam Narrative: HEENT-unremarkable, normocephalic atraumatic Neck-no lymphadenopathy no bruits Lungs-clear anteriorly and posteriorly no wheezes no crackles good breath sounds Heart-regular rate and rhythm, no murmur, rub, or gallop. normal S1-S2 Abdomen-positive bowel tones, soft, nontender, nondistended, no hepatosplenomegaly, no masses palpable Neuro-normal to screening exam, gait not tested Extremities-no cyanosis clubbing or edema Objective Labs 08/24/23 06:40 08/24/23 06:40 [facility] Medical History H/O adenomatous polyp of colon Fungal infection of toenail Mixed hyperlipidemia Essential hypertension Elevated PSA CAD (coronary artery disease) (~2005) Knee pain Vision disorder COPD (chronic obstructive pulmonary disease) (~2008) Hearing loss (~1999) Colitis (~2004) Diabetes mellitus (~2005) Atrial fibrillation (~2005) Surgical History Anesthesia History of heart artery stent (~2005) Family History Father History of heart disease Mother Aneurysm Sister Cancer Social History household members: none Smoking Status: Current every day smoker Discharge Assessment & Plan Assessment and Plan Plan of Treatment: Patient to continue all his usual medications upon discharge Patient will continue on oral antibiotic therapy for an additional 7 days, in part due to the slow improvement he experienced while on IV antibiotics Patient will be seen in the outpatient clinic in 7-10 days as well, for follow-up to ensure near complete resolution of symptoms Discharge Plan Discharge Plan Patient Disposition: Home Discharge orders & Medications Prescriptions: New cephalexin 500 mg capsule 1,000 mg PO BID 7 Days Qty: 28 0RF Continued albuterol sulfate 90 mcg/actuation HFA aerosol inhaler 2 puff inhalation Q6H PRN (Reason: shortness of breath or wheezing) Qty: 54 0RF Patient Comments: takes PRN (DME) blood-glucose meter Misc See Rx Instructions .Route Qty: 1 0RF Rx Instructions: Use to check BS once daily budesonide 3 mg capsule,delayed,extend.release 3 mg PO DAILY Qty: 90 3RF metoprolol succinate 100 mg tablet extended release 24 hr 100 mg PO BID Qty: 180 3RF glipizide 10 mg tablet extended release 24hr 10 mg PO BID Qty: 180 2RF atorvastatin 20 mg tablet 20 mg PO DAILY Qty: 90 3RF omeprazole 20 mg capsule,delayed release(DR/EC) 20 mg PO DAILY Qty: 90 3RF Eliquis 5 mg tablet 5 mg PO BID Qty: 180 3RF metformin 1,000 mg tablet 1,000 mg PO BID Qty: 180 3RF fluticasone furoate-vilanterol [Breo Ellipta] 200-25 mcg/dose blister with device 1 inh inhalation DAILY Qty: 60 11RF lisinopril 20 mg tablet 20 mg PO DAILY Qty: 90 3RF (DME) pen needle, diabetic 31 gauge x 1/4 needle See Rx Instructions .Route Qty: 100 6RF Rx Instructions: Use to Inject Insulin twice a day (DME) Blood Glucose Test Strip See Rx Instructions .Route Qty: 100 3RF Rx Instructions: Use to test BS once daily. (DME) lancets 30 gauge misc See Rx Instructions .Route Qty: 100 3RF Rx Instructions: Use to check BS once daily. (DME) Disabled Parking See Rx Instructions .ROUTE .MEDSUPPLY Qty: 1 0RF Rx Instructions: Patient qualifies for disabled parking as per the attached form. insulin glargine 100 unit/mL (3 mL) insulin pen 12 unit SUBCUT QPM Qty: 15 3RF pioglitazone [Actos] 30 mg Tablet 30 mg PO DAILY fluticasone propion-salmeterol [Wixela Inhub] 250-50 mcg/dose blister with device 1 inh inhalation BID Qty: 60 5RF Patient Comments: takes prn ipratropium-albuterol 0.5 mg-3 mg(2.5 mg base)/3 mL solution for nebulization 3 ml inhalation BID Qty: 180 5RF Patient Comments: takes PRN Follow up/Referrals: Homer Falk MD [Primary Care Provider] - 1 Week Discharge Health Status Multidrug resistant organism: No MDRO Diet/Activity/Treatments Diet: Diet as Tolerated and Carb-consistent/Diabetic Skin/Wound/Dressing Care Report to your healthcare provider any signs of infection, such as:: chills, fever and increased pain Visit Report/Discharge Packet Instructions: DI for Urinary Tract Infection (UTI), How to Prevent Falls Stand Alone Forms: Patient Portal/API, Stroke Signs & Symptoms Discharge Data Primary Care Provider: Homer Falk PROFEE Charge Codes Discharge inpatient/observation: [id number]
--- NOTE | 2023-08-28 08:25 | CM.DPC ---
DCP Cont. Reviewed EMR and team rounds for status updates. Pt has been medically cleared for home d/c, his brother will transport him home later this morning, no further d/c needs identified at this time.
[2023-08-28] MEDS: METFORMIN HCL 500 MG TABLET 1000 MG PO (08:27)
[2023-08-28] MEDS: ATORVASTATIN 20 MG TABLET PO (08:27)
[2023-08-28] MEDS: APIXABAN 5 MG TABLET PO (08:27)
[2023-08-28 08:28] VITALS: BP 141/86; PULSE 90
[2023-08-28] MEDS: METOPROLOL ER 50 MG TABLET 100 MG PO (08:28)
[2023-08-28] MEDS: lisinopriL 20 MG TABLET PO (08:28)
[2023-08-28] MEDS: SODIUM CHLORIDE 0.9% FLUSH 10 ML IV (08:35)
[2023-08-28] MEDS: glipiZIDE 5 MG TABLET 10 MG PO (08:38)
[2023-08-28] MEDS: BUDESONIDE 3 MG CAP PO (08:40)
--- NOTE | 2023-08-28 11:31 | PC.NURSE ---
Patient is A&OX4, VSS, afebrile. MD Falk at bedside clearing patient for discharge home today. He receives a.m. medications with last IV antibiotics. He calls his brother for ride home. He finishes breakfast and verbalizes understanding of discharge medications, recommendations and follow up appointment with MD Falk in 1 week. He is escorted by [employer] with all belongings for discharge home today at approximately 1010 this a.m.
== END 2023-08-28 10:10 | disposition home or self-care (01) | DRG 689 ==
LOC: ED 21:09 → AC 22:59
PROVIDERS: Admitting Provider Family Medicine; Emergency Provider Emergency Medicine; PCP Internal Medicine; Referring Provider Emergency Medicine; Visit Provider Internal Medicine
DX: N39.0 Urinary tract infection, site not specified (principal); G93.41 Metabolic encephalopathy; I48.20 Chronic atrial fibrillation, unspecified; F17.200 Nicotine dependence, unspecified, uncomplicated; E11.29 Type 2 diabetes mellitus with other diabetic kidney complication; R80.9 Proteinuria, unspecified; I10 Essential (primary) hypertension; I25.10 Atherosclerotic heart disease of native coronary artery without angina pectoris; J43.2 Centrilobular emphysema; B96.20 Unspecified Escherichia coli [E. coli] as the cause of diseases classified elsewhere; E78.2 Mixed hyperlipidemia; Z79.84 Long term (current) use of oral hypoglycemic drugs; Z79.01 Long term (current) use of anticoagulants
CPT/HCPCS: 36415; 70450; 71045; 74176; 80048; 81001; 81003; 82550; 82962; 83605; 84484; 85025; 87040; 87077; 87086; 87186; 93005; 96365; 97116; 97161; 97530; 99222; 99232; 99238; 99284; 99406; G0378; A9270; J0690; J0696; J7613

== ENCOUNTER 2023-09-04 14:15 | Outpatient (RCR) | payer MEDICARE, SELFPAY | END 2023-09-04 16:15 | LOC: PUL 14:15 | PROVIDERS: PCP Internal Medicine; Referring Provider Internal Medicine Critical Care Medicine; Visit Provider Internal Medicine Critical Care Medicine | DX: J44.9 Chronic obstructive pulmonary disease, unspecified (principal) | CPT/HCPCS: 93010; 94625; 94626 ==

== ENCOUNTER 2023-09-12 06:46 | Emergency (ER) | payer MEDICARE, SELFPAY ==
[2023-09-12] VITALS (7 sets, daily range): BP systolic 131–174; BP diastolic 70–83; PULSE 80–98; RESP 18–20; TEMP 36.8–37; O2SAT 94–99; BMI 25.6
--- NOTE | 2023-09-12 07:54 | PC.NURSE ---
Pt seen d/c from on 08/27 with PO abx for UTI. Pt states that he took the full course of abx and he is now experiencing increased urinary frequency, burning and pain with urination. Pt experiencing hematuria with clots. Pt a&ox4.
--- NOTE | 2023-09-12 07:59 | ED_ITS ---
HPI - Male Genitourinary General Chief complaint: Urogenital-Male Stated complaint: peeing blood clots had bladder infection 08/27 Time Seen by Provider: 09/12/23 07:58 Source: patient, RN notes reviewed and old records reviewed Mode of arrival: Ambulatory Limitations: no limitations History of Present Illness HPI Narrative: 73-year-old male with a history of diabetes on insulin, hypertension, atrial fibrillation on apixaban, COPD who had recent hospitalization for UTI with metabolic encephalopathy discharged on 08/28/2023 discharged home on cephalexin and presents with complaint of hematuria, frequency and dysuria. Patient states he noticed bit of urinary frequency sense of urgency on the when he saw his primary care physician. States his urine was not tested at that time. Patient states started having hematuria in the last 24 hours, he is seeing clots in his urine. He thinks he is emptying his bladder but states he is having frequency, urgency and persistent hematuria. Patient states no fevers, no confusion or alterations in mental status, no chest pain or shortness of breath, no nausea or vomiting. Denies any abdominal back or flank pain. No other bleeding. Patient states he did finish his antibiotics after his hospitalization. Related Data Home Medications Medication Instructions Recorded Confirmed pioglitazone 30 mg tablet (Actos) 30 mg PO DAILY 08/24/23 09/08/23 Previous Rx's Medication Instructions Recorded albuterol sulfate 90 mcg/actuation 2 puff inhalation Q6H PRN 09/07/21 aerosol inhaler shortness of breath or wheezing #54 grams blood-glucose meter #1 ea 12/11/21 metoprolol succinate 100 mg 100 mg PO BID #180 tabs 11/04/22 tablet,extended release 24 hr glipizide 10 mg tablet, extended 10 mg PO BID #180 tabs 12/25/22 release 24 hr atorvastatin 20 mg tablet 20 mg PO DAILY #90 tabs 12/30/22 omeprazole 20 mg capsule,delayed 20 mg PO DAILY #90 caps 01/07/23 release apixaban 5 mg tablet (Eliquis) 5 mg PO BID #180 tabs 01/29/23 metformin 1,000 mg tablet 1,000 mg PO BID #180 tabs 02/28/23 fluticasone 250 mcg-salmeterol 50 1 inh inhalation BID #60 ea 04/29/23 mcg/dose blistr powdr for inhalation (Wixela Inhub) ipratropium 0.5 mg-albuterol 3 mg 3 ml inhalation BID #180 mL 04/29/23 (2.5 mg base)/3 mL nebulization soln fluticasone furoate 200 1 inh inhalation DAILY #60 ea 05/20/23 mcg-vilanterol 25 mcg/dose inhalation powder (Breo Ellipta) lisinopril 20 mg tablet 20 mg PO DAILY #90 tabs 06/03/23 pen needle, diabetic 31 gauge x #100 ea 07/10/2303/13 blood sugar diagnostic (Blood #100 ea 07/23/23 Glucose Test strips) lancets 30 gauge #100 ea 07/23/23 insulin glargine 100 unit/mL (3 12 unit (0.12 mL) SUBCUT QPM #15 mL 07/31/23 mL) subcutaneous pen Disabled Parking #1 ea 08/01/23 budesonide 3 mg 3 mg PO DAILY #90 ea 08/28/23 capsule,delayed,extended release nitrofurantoin 100 mg PO Q12H 7 days #14 caps 09/12/23 monohydrate/macrocrystals 100 mg capsule (Macrobid) Allergies Allergy/AdvReac Type Severity Reaction Status Date / Time naproxen Allergy Severe Anaphylaxis Verified 09/08/23 10:30 linagliptin AdvReac Severe myalgias Verified 09/08/23 10:30 Review of Systems Review of Systems ROS Unobtainable: All systems reviewed & are unremarkable except as noted in HPI and below Patient History Medical History H/O adenomatous polyp of colon Fungal infection of toenail Mixed hyperlipidemia Essential hypertension Elevated PSA CAD (coronary artery disease) (~2005) Knee pain Vision disorder COPD (chronic obstructive pulmonary disease) (~2008) Hearing loss (~1999) Colitis (~2004) Diabetes mellitus (~2005) Atrial fibrillation (~2005) Surgical History Anesthesia History of heart artery stent (~2005) Family History Father History of heart disease Mother Aneurysm Sister Cancer Social History household members: none Smoking Status: Current every day smoker Smoking Status: Current every day smoker tobacco type: cigarettes alcohol intake frequency: holidays/special occasions only Alcohol type: beer Substance Use Type: does not use Exam Narrative Exam Narrative: GENERAL: Alert and oriented x three, male in mild distress seated on the edge of the bed. HEENT: Head normocephalic, atraumatic, EOMI, pupils reactive, face symmetric, moist mucous membranes NECK: Supple, full range of motion CARDIOVASCULAR: Regular rate and rhythm without murmurs, rubs or gallops. RESPIRATORY: Breath sounds equal bilaterally, no wheezes rales or rhonchi. ABDOMEN: Soft, nontender. Normoactive bowel sounds all 4 quadrants. No guarding or rebound, rigidity, no mass : No CVA tenderness bilaterally EXTREMITIES: Normal range of motion, no clubbing or edema. Neurovascularly intact NEUROLOGICAL: Cranial nerves II through XII grossly intact. Moving all extremities, normal gait. SKIN: Warm, dry, no petechiae, no rashes or lesions. Initial Vital Signs Initial Vital Signs: Vital Signs Temperature 98.3 F 09/12/23 06:53 Pulse Rate 82 09/12/23 06:53 Respiratory Rate 18 09/12/23 06:53 Blood Pressure 174/83 H 09/12/23 06:53 Pulse Oximetry 97 09/12/23 06:53 Oxygen Delivery Method Room Air 09/12/23 06:53 Course Orders Ordered: Discontinued Medications Nitrofurantoin Macrocrystals (Nitrofurantoin Er 100 Mg Capsule) 100 mg PO NOW ONE Stop: 09/12/23 08:21 Last Admin: 09/12/23 08:45 Dose: 100 mg Documented By: ALIYAH Vital Signs Vital signs: Vital Signs - 8 hr 09/12/23 06:53 09/12/23 07:14 09/12/23 07:15 Temperature 98.3 F Pulse Rate 82 98 H Respiratory Rate 18 Blood Pressure 174/83 H 131/70 Pulse Oximetry 97 99 Oxygen Delivery Method Room Air 09/12/23 07:15 Temperature Pulse Rate 91 H Respiratory Rate Blood Pressure Pulse Oximetry 97 Oxygen Delivery Method MDM - Male Genitourinary Lab Data Labs: Lab Results 09/12/23 Range/Units 07:57 Urine Color Red Urine Appearance Turbid Urine pH 6.5 (4.5-8.0) Ur Specific [place] 1.025 (1.000-1.035) Urine Protein 3+ H (Negative) Urine Glucose (UA) Negative (Negative) g/dL Urine Ketones Negative (NEGATIVE) Urine Occult Blood 3+ H (Negative) Urine Nitrate Negative (Negative) Urine Bilirubin Negative (NEGATIVE) Urine Urobilinogen 1.0 (0.2) E.U./dL Ur Leukocyte Esterase Trace H (NEGATIVE) Urine RBC >100/hpf H (0-5/HPF) Urine WBC 1-5/hpf (0-5/HPF) Ur Squamous Epith Cells None seen (0-5/HPF) Ur Transition Epith Cell 0-1/hpf (0-5/HPF) Urine Bacteria Few (2-10) H (None) Ur Culture Indicated? Specimen cultured Vol Urine Centrifuged 10ml (spun) MDM Narrative Medical decision making narrative: 73-year-old male with recent E coli, pansensitive UTI who was treated with cephalexin for 7 days later on 08/28/2023. Patient presents with frequency, dysuria and hematuria. He is on apixaban daily. UA shows Bladder scan Patient's vitals are overall appropriate, he states he does not feel similar to when he had his UTI required hospitalization. After discussion about lab work this was deferred. We will start patient on antibiotic. Discharge Plan Departure Patient Disposition: Home Clinical Impression: Acute UTI, Hematuria Instructions: DI for Urinary Tract Infection (UTI) Activity Restrictions/Additional Instructions: Your urine does show signs of infection today, it was sent for culture. Cultures takes 48-72 hours to result, if it shows resistance to the antibiotic you have been prescribed you will be contacted to change it. If it shows appropriate antibiotics you will not be contacted. Take antibiotics until completed. Prescription sent to [facility] in [place]. Please return for fevers, new or worsening abdominal back or flank pain, increasing bleeding, difficulty or inability to urinate, new lightheadedness or passing out, nausea or vomiting or other new or concerning changes. Prescriptions: New nitrofurantoin monohyd/m-cryst [Macrobid] 100 mg capsule 100 mg PO Q12H 7 Days Qty: 14 0RF Rx Instructions: must administer with a meal/food No Action albuterol sulfate 90 mcg/actuation HFA aerosol inhaler 2 puff inhalation Q6H PRN (Reason: shortness of breath or wheezing) Qty: 54 0RF Patient Comments: takes PRN (DME) blood-glucose meter Misc See Rx Instructions .Route Qty: 1 0RF Rx Instructions: Use to check BS once daily metoprolol succinate 100 mg tablet extended release 24 hr 100 mg PO BID Qty: 180 3RF glipizide 10 mg tablet extended release 24hr 10 mg PO BID Qty: 180 2RF atorvastatin 20 mg tablet 20 mg PO DAILY Qty: 90 3RF omeprazole 20 mg capsule,delayed release(DR/EC) 20 mg PO DAILY Qty: 90 3RF Eliquis 5 mg tablet 5 mg PO BID Qty: 180 3RF metformin 1,000 mg tablet 1,000 mg PO BID Qty: 180 3RF fluticasone furoate-vilanterol [Breo Ellipta] 200-25 mcg/dose blister with device 1 inh inhalation DAILY Qty: 60 11RF lisinopril 20 mg tablet 20 mg PO DAILY Qty: 90 3RF (DME) pen needle, diabetic 31 gauge x 1/4 needle See Rx Instructions .Route Qty: 100 6RF Rx Instructions: Use to Inject Insulin twice a day (DME) Blood Glucose Test Strip See Rx Instructions .Route Qty: 100 3RF Rx Instructions: Use to test BS once daily. (DME) lancets 30 gauge misc See Rx Instructions .Route Qty: 100 3RF Rx Instructions: Use to check BS once daily. (DME) Disabled Parking See Rx Instructions .ROUTE .MEDSUPPLY Qty: 1 0RF Rx Instructions: Patient qualifies for disabled parking as per the attached form. budesonide 3 mg capsule,delayed,extend.release 3 mg PO DAILY Qty: 90 3RF insulin glargine 100 unit/mL (3 mL) insulin pen 12 unit SUBCUT QPM Qty: 15 3RF pioglitazone [Actos] 30 mg Tablet 30 mg PO DAILY fluticasone propion-salmeterol [Wixela Inhub] 250-50 mcg/dose blister with device 1 inh inhalation BID Qty: 60 5RF Patient Comments: takes prn ipratropium-albuterol 0.5 mg-3 mg(2.5 mg base)/3 mL solution for nebulization 3 ml inhalation BID Qty: 180 5RF Patient Comments: takes PRN Referrals: Homer Falk MD [Primary Care Provider] - Stand Alone Forms: Patient Portal/API
[2023-09-12 08:10] LABS: Bilirubin Urine UA NEGATIVE (NEGATIVE); Glucose Urine UA NEGATIVE (Negative); Ketones Urine UA NEGATIVE (NEGATIVE); Leukocyte Esterase Urine UA TRACE (NEGATIVE); Nitrite Urine UA NEGATIVE (Negative); Protein Urine UA 3+ (Negative); Specific Gravity Urine UA 1.025 (1.000-1.035); pH Urine UA 6.5 (4.5-8.0)
[2023-09-12 08:13] LABS: Appearance Urine UA TURBID; Bacteria Urine Few (2-10); Color Urine UA RED; Occult Blood Urine UA 3+ (Negative); RBC Urine >100/HPF (0-5/HPF); Squamous Epithelial Cell Urine None Seen (0-5/HPF); Transitional Epi Cells Urine 0-1/HPF (0-5/HPF); Urine Volume 10mL (spun); WBC Urine 1-5/HPF (0-5/HPF)
[2023-09-12 08:14] LABS: Culture Indicated Urine Specimen Cultured
[2023-09-12] MEDS: NITROFURANTOIN ER 100 MG CAPSULE PO (08:45)
== END 2023-09-12 08:55 | disposition home or self-care (01) ==
PROVIDERS: Emergency Provider Emergency Medicine; PCP Internal Medicine
DX: N39.0 Urinary tract infection, site not specified (principal)
CPT/HCPCS: 81001; 87077; 87086; 87186; 99283

== ENCOUNTER → 2023-09-20 12:17 | Outpatient (CLI) | payer MEDICARE, SELFPAY ==
[2023-08-23 23:34] VITALS: BMI 26.2
[2023-09-20 13:28] LABS: Hemoglobin A1C% w Est Avg Glu 7.7 % (4.0-6.0)
[2023-09-20 14:18] LABS: BUN Creatinine Ratio 23.2 (6-22); Blood Urea Nitrogen 22 mg/dL (9-20); Calcium 9.5 mg/dL (8.4-10.2); Carbon Dioxide 24 mmol/L (22-32); Chloride 103 mmol/L (98-107); Estimated Glomerular Filt Rate > 60 mL/min (>60); Glucose 172 mg/dL (80-110); HEMOLYSIS < 15 (0-50); Potassium 4.3 mmol/L (3.4-5.1); Sodium 135 mmol/L (137-145)
== END ==
LOC: LAB 12:18
PROVIDERS: PCP Internal Medicine; Referring Provider Internal Medicine; Visit Provider Internal Medicine
DX: E11.9 Type 2 diabetes mellitus without complications (principal)
CPT/HCPCS: 36415; 80048; 83036

== ENCOUNTER 2023-09-20 19:00 | Inpatient (IN) | payer MEDICARE, SELFPAY ==
--- NOTE | 2023-09-20 | DI.MRI.S_ITS ---
PROCEDURE: MR HEAD/BRAIN WO CON INDICATIONS: suspected stroke, facial droop and unilateral weakness TECHNIQUE: Non-contrast axial T1 spin echo, axial T2 fast spin echo, sagittal and axial FLAIR, coronal T2 fast spin echo, axial gradient echo, axial diffusion and ADC through the brain. COMPARISON: [facility], CT, CT ANGIO HEAD AND NECK, 09/20/2023, 19:15. [facility], CT, CT HEAD/BRAIN WO CON, 09/20/2023, 19:15. FINDINGS: Image quality: Diagnostic, with note made of motion artifact. CSF spaces: Ventricles appear symmetric in size and shape. Basal cisterns are patent. No extra-axial fluid collections. Brain: There are few patchy areas abnormal increase diffusion-weighted signal within the right MCA distribution. Associated dark signal can be seen on the ADC map. There is developing T2 weighted signal seen at these sites. No intracranial bleeds or mass effects. There is cerebral volume loss for age. There are periventricular and deep white matter chronic small vessel ischemic changes. Brainstem appears normal. No chronic ischemic insults. Normal intravascular flow voids are present. Skull and face: Calvarial bone marrow is normal in signal. Orbits are normal. Sinuses: Sinuses and mastoids are clear. 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 Dictated by: Mk Cotto M.D. on 09/21/2023 at 8:21 Approved by: Mk Cotto M.D. on 09/21/2023 at 8:25
--- NOTE | 2023-09-20 19:01 | DI.CT.S_ITS ---
PROCEDURE: CT HEAD/BRAIN WO CON INDICATIONS: L FACIAL DROOP, LUE/LLE WEAKNESS X 28HRS TECHNIQUE: Noncontrast 4.5 mm thick angled axial sections acquired from the foramen magnum to the vertex, with coronal and sagittal reformats. For radiation dose reduction, the following was used: automated exposure control, adjustment of mA and/or kV according to patient size. COMPARISON: [facility], CT, CT HEAD/BRAIN WO CON, 06/06/2022, 14:53. [facility], CT, CT ANGIO HEAD AND NECK, 09/20/2023, 19:15. [facility], CT, CT HEAD/BRAIN WO CON, 08/23/2023, 21:26. FINDINGS: Image quality: Diagnostic. CSF spaces: Basal cisterns are patent. No extra-axial fluid collections. The ventricles are symmetric in size and shape. Brain: No intracranial bleeds or masses. There is cerebral volume loss for age, with resultant ventricular and sulcal prominence. There are periventricular and deep white matter chronic small vessel ischemic changes. Multiple areas of remote appearing lacunar infarct can be seen, which appear similar to the prior. There is intracranial internal carotid artery atherosclerosis. Skull and face: Calvarium and visualized facial bones appear intact, without suspicious lesions. Sinuses: Visualized sinuses and mastoids are clear. IMPRESSION: No acute intracranial hemorrhage is seen. No acute intracranial pathology. If there is strong clinical suspicion for an acute stroke, please consider a brain MRI for further evaluation, as it is more sensitive (assuming that there is no contraindication to MRI). Dictated by: Mk Cotto M.D. on 09/20/2023 at 18:54 Approved by: Mk Cotto M.D. on 09/20/2023 at 18:56
--- NOTE | 2023-09-20 19:01 | DI.RAD.S_ITS ---
PROCEDURE: XR CHEST 1V INDICATIONS: STROKE SYMPTOMS X 28HRS TECHNIQUE: One view of the chest was acquired. COMPARISON: [facility], CR, XR CHEST 1V, 08/23/2023, 21:26. FINDINGS: Surgical changes and devices: None. Lungs and pleura: On this semiupright portable chest examination, no large pneumothorax or large pleural effusions are seen. No focal infiltrates are seen. Mediastinum: The cardiac contours are within normal limits. The aorta demonstrates calcification and tortuosity. Bones and chest wall: No suspicious bony lesions. Age-appropriate bony degenerative changes are seen. Overlying soft tissues appear unremarkable. IMPRESSION: Limited portable chest examination, without a significant cardiopulmonary abnormality identified. No focal infiltrates are seen. Dictated by: Mk Cotto M.D. on 09/20/2023 at 18:18 Approved by: Mk Cotto M.D. on 09/20/2023 at 18:18
[2023-09-20 19:06] VITALS: BP 160/77; PULSE 73; RESP 17; TEMP 36.6; O2SAT 97
--- NOTE | 2023-09-20 19:09 | DI.CT.S_ITS ---
PROCEDURE: CT ANGIO HEAD AND NECK INDICATIONS: L SIDED WEAKNESS/DROOP X 28HRS TECHNIQUE: After the administration of intravenous contrast, 1 mm thick sections acquired from the aortic arch through the [place]. 3-dimensional glnqmgw-ssdtjfhmu-fwolwspxpk (MIP) and/or volume rendering reformats were acquired of the central intracranial vasculature and neck separately. For radiation dose reduction, the following was used: automated exposure control, adjustment of mA and/or kV according to patient size. COMPARISON: None. FINDINGS: Image quality: Limited by bolus timing, with venous contamination. BRAIN: CSF spaces: Ventricles are normal in size and shape. Basal cisterns are patent. No extra-axial fluid collections. Brain: No significant abnormality of the brain can be seen. Skull and face: Calvarium and facial bones appear intact, without suspicious lesions. Orbits appear normal. Sinuses: Sinuses and mastoids are clear. HEAD CT ANGIOGRAPHY: Anterior circulation: Intracranial internal carotid arteries are normal in size and flow. There is a diminutive left A1 segment, with a corresponding robust right A1 segment. This is considered to be a normal developmental variant of the [place], of typically no clinical consequence. The flow within the paired anterior cerebral arteries is otherwise normal and symmetric. The flow within the middle cerebral arteries is normal and symmetric. The anterior communicating artery is seen. No aneurysms are seen. Posterior circulation: Visualized portions of the vertebral arteries demonstrate normal caliber, and join to form a normal appearing basilar artery. Flow within the posterior cerebral arteries is normal and symmetric. No aneurysms are seen. NECK CT ANGIOGRAPHY: Carotid system: The great vessels demonstrate a conventional anatomy as they arise from the aortic arch. The origins of the common carotid arteries appear patent. The common carotid arteries demonstrate normal caliber and courses. The bifurcation regions demonstrate atherosclerotic irregularity and calcification. Less than 50% narrowing can be seen on each side. The more distal internal carotid arteries demonstrate normal course and caliber. Posterior circulation: The origins of the vertebral arteries both appear widely patent. The more superior extracranial portions of both vertebral arteries also demonstrate normal courses and calibers. They join to form a normal appearing basilar artery. Soft tissues: Visualized neck soft tissues demonstrate no suspicious abnormalities. Bones: No suspicious bony lesions. Visualized cervical spine appears normally aligned. Moderate cervical spine degenerative change is seen. IMPRESSION: No significant intracranial arterial abnormality is seen. No significant abnormality is seen within the arteries of the neck, with note made of focal atherosclerotic change of the carotid bifurcation regions. Any quantitative measurements of stenosis were performed using NASCET criteria. Dictated by: Mk Cotto M.D. on 09/20/2023 at 18:57 Approved by: Mk Cotto M.D. on 09/20/2023 at 18:59
--- NOTE | 2023-09-20 19:09 | ED.PEDFEVER ---
HPI - Pediatric Fever General Stated Complaint: Stroke Alert Time Seen by Provider: 09/20/23 19:00 Related Data Home Medications Medication Instructions Recorded Confirmed pioglitazone 30 mg tablet (Actos) 30 mg PO DAILY 08/24/23 09/08/23 Previous Rx's Medication Instructions Recorded albuterol sulfate 90 mcg/actuation 2 puff inhalation Q6H PRN 09/07/21 aerosol inhaler shortness of breath or wheezing #54 grams blood-glucose meter #1 ea 12/11/21 metoprolol succinate 100 mg 100 mg PO BID #180 tabs 11/04/22 tablet,extended release 24 hr glipizide 10 mg tablet, extended 10 mg PO BID #180 tabs 12/25/22 release 24 hr atorvastatin 20 mg tablet 20 mg PO DAILY #90 tabs 12/30/22 omeprazole 20 mg capsule,delayed 20 mg PO DAILY #90 caps 01/07/23 release apixaban 5 mg tablet (Eliquis) 5 mg PO BID #180 tabs 01/29/23 metformin 1,000 mg tablet 1,000 mg PO BID #180 tabs 02/28/23 fluticasone 250 mcg-salmeterol 50 1 inh inhalation BID #60 ea 04/29/23 mcg/dose blistr powdr for inhalation (Wixela Inhub) ipratropium 0.5 mg-albuterol 3 mg 3 ml inhalation BID #180 mL 04/29/23 (2.5 mg base)/3 mL nebulization soln fluticasone furoate 200 1 inh inhalation DAILY #60 ea 05/20/23 mcg-vilanterol 25 mcg/dose inhalation powder (Breo Ellipta) lisinopril 20 mg tablet 20 mg PO DAILY #90 tabs 06/03/23 pen needle, diabetic 31 gauge x #100 ea 07/10/2303/13 blood sugar diagnostic (Blood #100 ea 07/23/23 Glucose Test strips) lancets 30 gauge #100 ea 07/23/23 insulin glargine 100 unit/mL (3 12 unit (0.12 mL) SUBCUT QPM #15 mL 07/31/23 mL) subcutaneous pen Disabled Parking #1 ea 08/01/23 budesonide 3 mg 3 mg PO DAILY #90 ea 08/28/23 capsule,delayed,extended release Allergies Allergy/AdvReac Type Severity Reaction Status Date / Time naproxen Allergy Severe Anaphylaxis Verified 09/08/23 10:30 linagliptin AdvReac Severe myalgias Verified 09/08/23 10:30 Patient History Medical History H/O adenomatous polyp of colon Fungal infection of toenail Mixed hyperlipidemia Essential hypertension Elevated PSA CAD (coronary artery disease) (~2005) Knee pain Vision disorder COPD (chronic obstructive pulmonary disease) (~2008) Hearing loss (~1999) Colitis (~2004) Diabetes mellitus (~2005) Atrial fibrillation (~2005) Surgical History Anesthesia History of heart artery stent (~2005) Family History Father History of heart disease Mother Aneurysm Sister Cancer Social History household members: none Smoking Status: Current every day smoker Smoking Status: Current every day smoker tobacco type: cigarettes alcohol intake frequency: holidays/special occasions only Alcohol type: beer Substance Use Type: does not use Course Orders Ordered: ED Orders 09/20/23 19:00 CBC Auto Diff [Complete Blood Count AUTO DIFF] Stat CMP [Comprehensive Metabolic Panel] Stat 09/20/23 19:01 CT head/brain wo con Stat Chest [XR chest 1V] Stat Ethanol (ETOH) Stat MAG [Magnesium] Stat PT [Prothrombin Time INR] Stat TSH [Thyroid Stimulating Hormone] Stat Troponin & CK Cardiac Panel Stat Type and Screen Stat UA Complete [Urinalysis and Microscopic] Stat 09/20/23 19:09 CT angio head and neck Stat Discharge Plan Departure Prescriptions: No Action albuterol sulfate 90 mcg/actuation HFA aerosol inhaler 2 puff inhalation Q6H PRN (Reason: shortness of breath or wheezing) Qty: 54 0RF Patient Comments: takes PRN (DME) blood-glucose meter Misc See Rx Instructions .Route Qty: 1 0RF Rx Instructions: Use to check BS once daily metoprolol succinate 100 mg tablet extended release 24 hr 100 mg PO BID Qty: 180 3RF glipizide 10 mg tablet extended release 24hr 10 mg PO BID Qty: 180 2RF atorvastatin 20 mg tablet 20 mg PO DAILY Qty: 90 3RF omeprazole 20 mg capsule,delayed release(DR/EC) 20 mg PO DAILY Qty: 90 3RF Eliquis 5 mg tablet 5 mg PO BID Qty: 180 3RF metformin 1,000 mg tablet 1,000 mg PO BID Qty: 180 3RF fluticasone furoate-vilanterol [Breo Ellipta] 200-25 mcg/dose blister with device 1 inh inhalation DAILY Qty: 60 11RF lisinopril 20 mg tablet 20 mg PO DAILY Qty: 90 3RF (DME) pen needle, diabetic 31 gauge x 1/4 needle See Rx Instructions .Route Qty: 100 6RF Rx Instructions: Use to Inject Insulin twice a day (DME) Blood Glucose Test Strip See Rx Instructions .Route Qty: 100 3RF Rx Instructions: Use to test BS once daily. (DME) lancets 30 gauge misc See Rx Instructions .Route Qty: 100 3RF Rx Instructions: Use to check BS once daily. (DME) Disabled Parking See Rx Instructions .ROUTE .MEDSUPPLY Qty: 1 0RF Rx Instructions: Patient qualifies for disabled parking as per the attached form. budesonide 3 mg capsule,delayed,extend.release 3 mg PO DAILY Qty: 90 3RF insulin glargine 100 unit/mL (3 mL) insulin pen 12 unit SUBCUT QPM Qty: 15 3RF pioglitazone [Actos] 30 mg Tablet 30 mg PO DAILY fluticasone propion-salmeterol [Wixela Inhub] 250-50 mcg/dose blister with device 1 inh inhalation BID Qty: 60 5RF Patient Comments: takes prn ipratropium-albuterol 0.5 mg-3 mg(2.5 mg base)/3 mL solution for nebulization 3 ml inhalation BID Qty: 180 5RF Patient Comments: takes PRN Referrals: Homer Falk MD [Primary Care Provider] -
--- NOTE | 2023-09-20 19:15 | ED.NEUROSD ---
HPI - Neuro Symptoms/Deficit General Chief Complaint: Neuro Symptoms/Deficit Stated Complaint: Stroke Alert Time Seen by Provider: 09/20/23 19:00 Source: patient Mode of arrival: Ambulatory History of Present Illness HPI Narrative: 73-year-old male with history of atrial fibrillation on Eliquis, hypertension, hyperlipidemia presents by EMS from home for possible stroke. Patient began to notice some facial droop and left upper extremity weakness yesterday morning around 8:00 a.m.. He states that he thought it would go away on its own, but when it did not improve he thought he may have had a stroke and called 911. EMS noted left facial droop, left upper extremity clumsiness, and drift in his left lower extremity. Point of care glucose 170 EN route. On Anticoagulants: Yes (eliquis) Related Data Home Medications Medication Instructions Recorded Confirmed pioglitazone 30 mg tablet (Actos) 30 mg PO DAILY Diabetes 08/24/23 09/20/23 blood sugar diagnostic (True 09/20/23 09/20/23 Metrix Glucose Test Strip) blood-glucose meter,continuous 09/20/23 09/20/23 budesonide 3 mg 3 mg PO DAILY Colitis 09/20/23 09/20/23 capsule,delayed,extended release glipizide 10 mg tablet, extended 10 mg PO BID 09/20/23 09/20/23 release 24 hr insulin glargine 100 unit/mL (3 15 unit SUBCUT BID 09/20/23 09/20/23 mL) subcutaneous pen (Lantus Solostar U-100 Insulin) pen needle, diabetic 31 gauge x 09/20/23 09/20/23 3/16 (BD Ultra-Fine Mini Pen Needle) Previous Rx's Medication Instructions Recorded albuterol sulfate 90 mcg/actuation 2 puff inhalation Q6H PRN 09/07/21 aerosol inhaler shortness of breath or wheezing #54 grams metoprolol succinate 100 mg 100 mg PO BID #180 tabs 11/04/22 tablet,extended release 24 hr atorvastatin 20 mg tablet 20 mg PO DAILY #90 tabs 12/30/22 omeprazole 20 mg capsule,delayed 20 mg PO DAILY #90 caps 01/07/23 release apixaban 5 mg tablet (Eliquis) 5 mg PO BID #180 tabs 01/29/23 metformin 1,000 mg tablet 1,000 mg PO BID #180 tabs 02/28/23 lisinopril 20 mg tablet 20 mg PO DAILY #90 tabs 06/03/23 lancets 30 gauge #100 ea 07/23/23 Disabled Parking #1 ea 08/01/23 Allergies Allergy/AdvReac Type Severity Reaction Status Date / Time naproxen Allergy Severe Anaphylaxis Verified 09/08/23 10:30 linagliptin AdvReac Severe myalgias Verified 09/08/23 10:30 Review of Systems Review of Systems Narrative: See HPI Hematologic/Lymphatic On Anticoagulants: Yes (eliquis) Patient History Medical History H/O adenomatous polyp of colon Fungal infection of toenail Mixed hyperlipidemia Essential hypertension Elevated PSA CAD (coronary artery disease) (~2005) Knee pain Vision disorder COPD (chronic obstructive pulmonary disease) (~2008) Hearing loss (~1999) Colitis (~2004) Diabetes mellitus (~2005) Atrial fibrillation (~2005) Surgical History Anesthesia History of heart artery stent (~2005) Family History Father History of heart disease Mother Aneurysm Sister Cancer Social History household members: none Smoking Status: Current every day smoker alcohol intake: current Smoking Status: Current every day smoker tobacco type: cigarettes alcohol intake frequency: holidays/special occasions only Alcohol type: beer Substance Use Type: does not use Exam Initial Vital Signs Initial Vital Signs: Vital Signs Temperature 98 F 09/20/23 19:06 Pulse Rate 73 09/20/23 19:06 Respiratory Rate 17 09/20/23 19:06 Blood Pressure 160/77 H 09/20/23 19:06 Pulse Oximetry 97 09/20/23 19:06 Oxygen Delivery Method Room Air 09/20/23 19:06 Const: Awake, alert, no acute distress, nontoxic appearing Cardiac: Irregularly irregular rhythm RESP: unlabored, clear bilaterally, no wheezing GI: Soft, nontender, nondistended, no rebound, no guarding Skin: Warm, Dry, intact, no rashes Neuro: AO x3, left-sided facial droop that spares forehead, finger-nose on left-hand side clumsy, 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, droop, does not hit bed left lower extremity Course Orders Ordered: Acetaminophen (Acetaminophen 325 Mg Tablet) 650 mg PO Q6H PRN PRN Reason: Fever/Mild Pain (1-3) Albuterol (Albuterol 2.5 Mg/3 Ml Neb (Adult)) 2.5 mg INH [id number] [facility] Last Admin: 09/21/23 23:33 Dose: 2.5 mg Documented By: Admin: 09/21/23 19:11 Dose: 2.5 mg Documented By: Albuterol (Albuterol 2.5 Mg/3 Ml Neb (Adult)) 2.5 mg INH RTQ2HR PRN PRN Reason: shortness of breath Apixaban (Apixaban 5 Mg Tablet) 5 mg PO BID [facility] Last Admin: 09/21/23 21:11 Dose: 5 mg Documented By: Admin: 09/21/23 09:46 Dose: 5 mg Documented By: Aspirin (Aspirin Ec 81 Mg Tablet) 81 mg PO DAILY [facility] Last Admin: 09/21/23 09:45 Dose: 81 mg Documented By: Atorvastatin Calcium (Atorvastatin 20 Mg Tablet) 20 mg PO DAILY [facility] Last Admin: 09/21/23 09:46 Dose: 20 mg Documented By: Bisacodyl (Bisacodyl 5 Mg Tablet) 10 mg PO DAILY PRN PRN Reason: Constipation Budesonide (Budesonide 3 Mg Cap) 3 mg PO DAILY [facility] Last Admin: 09/21/23 10:27 Dose: 3 mg Documented By: Budesonide (Budesonide 0.5 Mg/2 Ml Neb) 0.5 mg INH RTBID [facility] Last Admin: 09/21/23 23:32 Dose: 0.5 mg Documented By: Calcium Carbonate (Calcium Carbonate 500 Mg Tab) 1,000 mg PO Q4HR PRN PRN Reason: Dyspepsia Insulin Glargine (Insulin Glargine 100 Unit/Ml 3ml Pen) 6 unit SUBCUT BEDTIME [facility] Last Admin: 09/21/23 21:09 Dose: 6 unit Documented By: AM Co-signed By: JEAN Admin: 09/21/23 01:46 Dose: Not Given Documented By: AM Insulin Human Lispro (Insulin Lispro 100 Unit/Ml 3ml Vial) 0 unit SUBCUT ACHS [facility]; Protocol Last Admin: 09/21/23 21:10 Dose: 1 unit Documented By: ANGY Co-signed By: JEAN Admin: 09/21/23 17:29 Dose: 1 unit Documented By: RY Co-signed By: DEON Admin: 09/21/23 12:43 Dose: 2 unit Documented By: RY Co-signed By: SOILA Admin: 09/21/23 09:40 Dose: Not Given Documented By: RY Labetalol HCl (Labetalol 20 Mg/4 Ml Syringe) 5 mg IV Q4HR PRN PRN Reason: Blood Pressure - High Lisinopril (Lisinopril 20 Mg Tablet) 20 mg PO DAILY [facility] Last Admin: 09/21/23 09:46 Dose: 20 mg Documented By: RY Magnesium Hydroxide (Magnesium Hydroxide 30 Ml Udc) 30 ml PO DAILY PRN PRN Reason: Constipation Metoprolol Succinate (Metoprolol Er 50 Mg Tablet) 100 mg PO BID [facility] Last Admin: 09/21/23 21:11 Dose: 100 mg Documented By: Admin: 09/21/23 09:45 Dose: 100 mg Documented By: RY Naloxone HCl (Naloxone 0.4 Mg/Ml Vial) 0.2 mg IV Q2MIN PRN PRN Reason: Opiate Reversal Ondansetron HCl (Ondansetron 4 Mg/2 Ml Inj) 4 mg IV Q8HR PRN PRN Reason: Nausea And Vomiting Pantoprazole Sodium (Pantoprazole Dr 20 Mg Tablet) 20 mg PO 0600 [facility] Discontinued Medications Albuterol (Albuterol Hfa Mdi 60 Puff/8 Gm Inhaler) 2 puff INH Q6H PRN PRN Reason: shortness of breath or wheezing Aspirin (Aspirin Ec 325 Mg Tablet) 325 mg PO NOW ONE Stop: 09/20/23 20:36 Last Admin: 09/20/23 21:12 Dose: 325 mg Documented By: CRISTY Lorazepam (Lorazepam 2 Mg/Ml Inj) 1 mg IV NOW ONE Stop: 09/21/23 08:16 Last Admin: 09/21/23 08:17 Dose: 1 mg Documented By: RY Magnesium Chloride (Magnesium Chloride 64 Mg Tablet) 128 mg PO Q8H [facility] Stop: 09/21/23 19:16 Last Admin: 09/21/23 18:34 Dose: 128 mg Documented By: Admin: 09/21/23 11:18 Dose: 128 mg Documented By: Non-Formulary Medication (Fluticasone Furoate-Vilanterol [Breo Ellipta]) 1 inhalation INHALATION DAILY [facility] Last Admin: 09/21/23 09:47 Dose: Not Given Documented By: Non-Formulary Medication (Omeprazole) 20 mg PO DAILY [facility] Last Admin: 09/21/23 09:52 Dose: Not Given Documented By: Vital Signs Vital signs: Vital Signs - 8 hr 09/20/23 19:06 Temperature 98 F Pulse Rate 73 Respiratory Rate 17 Blood Pressure 160/77 H Pulse Oximetry 97 Oxygen Delivery Method Room Air MDM - Neuro Symptoms/Deficit Lab Data 09/21/23 04:51 09/21/23 04:51 Labs: Lab Results 09/20/23 09/20/23 09/20/23 Range/Units 19:00 19:18 20:26 WBC 8.0 (4.5-11.0) X10^3/uL RBC 4.70 (4.5-5.9) X10^6/uL Hgb 13.8 (13.5-17.5) g/dL Hct 41.0 (41-53) % MCV 87.1 (80-100) fL MCH 29.4 (26-34) PG MCHC 33.8 (30-36) % RDW 14.3 (11.6-14.8) % Plt Count 291 (150-400) X10^3/uL Neut % (Auto) 65.2 (50-75) % Lymph % (Auto) 22.0 L (25-40) % [place] % (Auto) 10.3 (3-14) % Eos % (Auto) 1.5 L (2-4) % Baso % (Auto) 1.0 (0-2) % Neut # (Auto) 5200 (4354-8035) /uL Lymph # (Auto) 1800 (1652-5081) /uL [place] # (Auto) 800 (0-900) /uL Eos # (Auto) 100 (0-450) /uL Baso # (Auto) 100 (0-100) /uL PT 13.7 H (9.4-12.5) SECONDS INR 1.2 (0.9-1.3) Sodium 137 (137-145) mmol/L Potassium 4.2 (3.4-5.1) mmol/L Chloride 106 (98-107) mmol/L Carbon Dioxide 24 (22-32) mmol/L BUN 25 H (9-20) mg/dL Creatinine 1.07 (0.66-1.25) mg/dL Estimated GFR > 60 (>60) mL/min BUN/Creatinine Ratio 23.4 H (6-22) Glucose 166 H (80-110) mg/dL Calcium 9.6 (8.4-10.2) mg/dL Magnesium 1.1 L (1.6-2.3) mg/dL Total Bilirubin 0.6 (0.2-1.3) mg/dL AST 22 (17-59) IU/L ALT 15 (<50) IU/L Alkaline Phosphatase 68 (38-126) U/L Total Creatine Kinase 120 (55-170) U/L Troponin I < 0.012 (0.01-0.034) ng/mL Total Protein 7.8 (6.3-8.2) g/dL Albumin 4.4 (3.5-5.0) g/dL Globulin 3.4 (1.7-4.1) g/dL Albumin/Globulin Ratio 1.3 (1.0-2.8) TSH 3.58 (0.47-4.68) uIU/mL Urine Color Yellow Urine Appearance Clear Urine pH 5.5 (4.5-8.0) Ur Specific [place] <=1.005 (1.000-1.035) Urine Protein Negative (Negative) Urine Glucose (UA) Negative (Negative) g/dL Urine Ketones Negative (NEGATIVE) Urine Occult Blood Negative (Negative) Urine Nitrate Negative (Negative) Urine Bilirubin Negative (NEGATIVE) Urine Urobilinogen 1.0 (0.2) E.U./dL Ur Leukocyte Esterase Negative (NEGATIVE) Urine RBC None seen (0-5/HPF) Urine WBC 0-1/hpf (0-5/HPF) Ur Squamous Epith Cells None seen (0-5/HPF) Urine Bacteria None seen (None) Ur Culture Indicated? Cult not indicated Vol Urine Centrifuged 10ml (spun) Ethyl Alcohol < 10 ( - 10) mg/dL Blood Type A Positive Antibody Screen Negative Point of Care Testing Glucose POC 150 MDM Narrative Medical decision making narrative: Left-sided weakness since yesterday. Patient's symptoms has been greater than 24 hours in duration, he was not a tPA or interventional candidate. CT and CTA negative for acute findings. Laboratory work reviewed. Patient given full-dose aspirin. Admitted for stroke workup. Discharge Plan Departure Patient Disposition: Admitted as Observation Clinical Impression: Acute left-sided weakness Admit Date/Time: 09/20/23 21:08 Admit Provider: Shahnaz Powers
--- NOTE | 2023-09-20 19:22 | EKG_ITS ---
[facility] [address] [address] Test Date: 2023-09-20 Pat Name: Jim Ashdown Department: [facility] Room: Gender: Male Voice Professor: : 1950 Requested By: Order Number: [id number] Reading MD: Homer Falk MD Measurements Intervals [place] Rate: 79 P: [place]: QRS: -34 QRSD: 146 T: 7 QT: 400 QTc: 458 Interpretive Statements Atrial fibrillation Left axis deviation Right bundle branch block NO SIGNIFICANT CHANGE FROM PRIOR TRACING Electronically Signed On 09-20-2023 22:35:48 PDT by Homer Falk MD
[2023-09-20 19:28] LABS: Add Manual Diff / Slide Review NO; Basophils Absolute Auto 100 /uL (0-100); Eosinophils Absolute Auto 100 /uL (0-450); Eosinophils Percent Auto 1.5 % (2-4); Hemoglobin 13.8 g/dL (13.5-17.5); Lymphocytes Absolute Auto 1800 /uL (1100-4500); Mean Corpuscular HGB Conc 33.8 % (30-36); Mean Corpuscular Hemoglobin 29.4 PG (26-34); Mean Corpuscular Volume 87.1 fL (80-100); Monocytes Absolute Auto 800 /uL (0-900); Monocytes Percent Auto 10.3 % (3-14); Neutrophils Absolute Auto 5200 /uL (1500-7000); Neutrophils Percent Auto 65.2 % (50-75); Platelet Count 291 X10^3/uL (150-400); Red Cell Distribution Width 14.3 % (11.6-14.8)
[2023-09-20 19:29] LABS: Alanine Aminotransferase 15 IU/L (<50); Albumin 4.4 g/dL (3.5-5.0); Albumin Globulin Ratio 1.3 (1.0-2.8); Alkaline Phosphatase 68 U/L (38-126); Aspartate Aminotransferase 22 IU/L (17-59); BUN Creatinine Ratio 23.4 (6-22); Bilirubin Total 0.6 mg/dL (0.2-1.3); Blood Urea Nitrogen 25 mg/dL (9-20); Calcium 9.6 mg/dL (8.4-10.2); Carbon Dioxide 24 mmol/L (22-32); Chloride 106 mmol/L (98-107); Creatine Kinase 120 U/L (55-170); Estimated Glomerular Filt Rate > 60 mL/min (>60); Ethanol (ETOH) < 10 mg/dL; Globulin 3.4 g/dL (1.7-4.1); Glucose 166 mg/dL (80-110); HEMOLYSIS < 15 (0-50); Magnesium 1.1 mg/dL (1.6-2.3); Potassium 4.2 mmol/L (3.4-5.1); Sodium 137 mmol/L (137-145); Total Protein 7.8 g/dL (6.3-8.2)
[2023-09-20 19:37] LABS: INR 1.2 (0.9-1.3); Prothrombin Time 13.7 SECONDS (9.4-12.5)
[2023-09-20 19:41] LABS: Troponin I < 0.012 ng/mL (0.01-0.034)
[2023-09-20 20:18] LABS: Thyroid Stimulating Hormone 3.58 uIU/mL (0.47-4.68)
[2023-09-20 20:39] LABS: Appearance Urine UA CLEAR; Bilirubin Urine UA NEGATIVE (NEGATIVE); Color Urine UA YELLOW; Glucose Urine UA NEGATIVE (Negative); Ketones Urine UA NEGATIVE (NEGATIVE); Leukocyte Esterase Urine UA NEGATIVE (NEGATIVE); Nitrite Urine UA NEGATIVE (Negative); Occult Blood Urine UA NEGATIVE (Negative); Protein Urine UA NEGATIVE (Negative); Specific Gravity Urine UA <=1.005 (1.000-1.035); pH Urine UA 5.5 (4.5-8.0)
[2023-09-20 20:48] LABS: Bacteria Urine None Seen; Culture Indicated Urine Cult Not Indicated; RBC Urine None Seen (0-5/HPF); Squamous Epithelial Cell Urine None Seen (0-5/HPF); Urine Volume 10mL (spun); WBC Urine 0-1/HPF (0-5/HPF)
[2023-09-20] MEDS: ASPIRIN EC 325 MG TABLET PO (21:12)
--- NOTE | 2023-09-20 21:31 | DI.ECHO.S_ITS ---
[facility] : : [address] : : [place] : : [id number] : : Phone: [phone] Echocardiogram Report + + :Name: CAREN LIN Study Date: 09/21/2023 Height: 75 in : :Hospital ReadingLocation: Weight: 210 lb : : Gender: Male BSA: 2.2 m2 : :: 1950 Age: 73 yrs BP: 139/78 mmHg: :Reason For Study: CVA : :Ordering Physician: FARHEEN, : :HERMILO Jensen Performed By: Arcenio Woodson : :Referring: HERMILO ZHONG : + + Interpretation Summary The patient was in atrial fibrillation with heart rates between 78-102 bpm during the exam. The patient had a bundle branch block rhythm during the exam. The left ventricle is normal in size. There is no thrombus. The ejection fraction is estimated to be 55-60%. There is a severe dyssynchronous contraction pattern, consistent with a conduction abnormality. The right ventricle is normal size. Visually RV function appears to be preserved. No significant gross valvular pathology seen. The IVC is of normal diameter and collapses greater than 50% with a sniff. This suggests a low right atrial pressure of 3 mm Hg. There is mild luminal irregularity and echogenicity in the abdominal aorta, suggestive of aortic atherosclerotic disease. Procedure: A two-dimensional transthoracic echocardiogram with color flow and Doppler was performed. The study quality was technically adequate. There is no prior echocardiogram noted for this patient. The patient was in atrial fibrillation with heart rates between 78-102 bpm during the exam. The patient had a bundle branch block rhythm during the exam. Left Ventricle: The left ventricle is normal in size. Left ventricular wall thickness is mildly increased. There is no thrombus. The ejection fraction is estimated to be 55-60%. There is a severe dyssynchronous contraction pattern, consistent with a conduction abnormality. Diastolic function could not be accurately assessed due to atrial fibrillation. Right Ventricle: The right ventricle is normal size. Visually RV function appears to be preserved. Atria: The left atrium is mildly dilated. The right atrium is mildly dilated. The interatrial septum grossly appears intact with no obvious evidence for an atrial septal defect. Mitral Valve: There is mild mitral annular calcification. There is no mitral valve stenosis. There is trace mitral regurgitation. Aortic Valve: The aortic valve is trileaflet. The aortic valve is mildly calcified. There is discrete nodular thickening of the non- coronary cusp. There is no aortic valve stenosis. There is trace aortic regurgitation. Tricuspid Valve: The tricuspid valve is normal. There is no tricuspid stenosis. There is trace tricuspid regurgitation. Pulmonary artery pressures cannot be estimated because of the lack of a measurable TR jet velocity. Pulmonic Valve: The pulmonic valve is not well visualized. There is no pulmonic valvular stenosis. There is no pulmonic valvular regurgitation. Great Vessels: The aortic root is normal size. The dimensions of the ascending aorta are normal. There is mild luminal irregularity and echogenicity in the abdominal aorta, suggestive of aortic atherosclerotic disease. The IVC is of normal diameter and collapses greater than 50% with a sniff. This suggests a low right atrial pressure of 3 mm Hg. Pericardium/ Pleura There is no pericardial effusion. There is no pleural effusion. MMode/2D Measurements & Calculations LVIDd: 4.5 cm LVOT diam: 2.0 cm LVIDs: 3.1 cm Ao root diam: 3.8 cm FS: 32.1 % asc Aorta Diam: 3.6 cm IVSd: 1.2 cm LVPWd: 1.4 cm LV rowland. diameter/BSA (cm/m^2): 2.0 LV sys. diameter/BSA (cm/m^2): 1.4 LA A2 area: 18.5 cm2 RA long axis: 5.7 cm LA A4 area: 25.7 cm2 RA area: 20.2 cm2 LA length (vol): 7.4 cm RA vol: 61.5 ml LA vol: 54.6 ml RA : 27.4 ml/m2 LA vol index: 24.4 ml/m2 IVC diam: 1.6 cm RVD1 (basal): 3.4 cm RVD2 (mid): 2.9 cm TAPSE: 1.5 cm Doppler Measurements & Calculations Ao V2 max: 122.0 cm/sec LVOT Max Marko: 83.3 cm/sec Ao V2 mean: 82.4 cm/sec LV V1 max P.8 mmHg Ao max P.1 mmHg LV V1 VTI: 13.2 cm Ao mean P.1 mmHg LAKESHA(I,D): 2.2 cm2 Ao V2 VTI: 19.0 cm LAKESHA(V,D): 2.2 cm2 sev ratio: 0.69 LAKESHA indexed to BSA (cm^2/m^2): 0.98 MV E max marko: 87.6 cm/sec PA V2 max: 124.5 cm/sec MV A max marko: 11.0 cm/sec PA V2 mean: 91.8 cm/sec MV E/A: 7.9 PA mean P.7 mmHg Med Peak E' Marko: 7.3 cm/sec PA pr(Accel): 42.5 mmHg E/E' med: 12.1 Lat Peak E' Marko: 6.0 cm/sec E/E' lat: 14.5 E/e' average: 13.3 MV dec time: 0.15 sec SV(LVOT): 41.8 ml Reading Physician:12:06 PM
[2023-09-20 22:00] VITALS: BP 122/81; PULSE 61; RESP 16; TEMP 36.1; O2SAT 98
[2023-09-20 22:17] VITALS: BMI 24.0
[2023-09-21] VITALS (9 sets, daily range): BP systolic 113–143; BP diastolic 76–94; PULSE 66–78; RESP 14–20; TEMP 36.4–37.1; O2SAT 96–100
[2023-09-21 05:35] LABS: Add Manual Diff / Slide Review NO; Basophils Absolute Auto 100 /uL (0-100); Basophils Percent Auto 1.3 % (0-2); Eosinophils Absolute Auto 300 /uL (0-450); Eosinophils Percent Auto 4.6 % (2-4); Hematocrit 38.6 % (41-53); Hemoglobin 12.9 g/dL (13.5-17.5); Lymphocytes Absolute Auto 1800 /uL (1100-4500); Lymphocytes Percent Auto 29.9 % (25-40); Mean Corpuscular HGB Conc 33.5 % (30-36); Mean Corpuscular Hemoglobin 29.2 PG (26-34); Mean Corpuscular Volume 87.4 fL (80-100); Monocytes Absolute Auto 700 /uL (0-900); Monocytes Percent Auto 11.3 % (3-14); Neutrophils Absolute Auto 3300 /uL (1500-7000); Neutrophils Percent Auto 52.9 % (50-75); Platelet Count 237 X10^3/uL (150-400); Red Blood Cell Count 4.42 X10^6/uL (4.5-5.9); Red Cell Distribution Width 14.6 % (11.6-14.8); White Blood Cell Count 6.1 X10^3/uL (4.5-11.0)
[2023-09-21 05:55] LABS: BUN Creatinine Ratio 23.3 (6-22); Blood Urea Nitrogen 20 mg/dL (9-20); Calcium 9.2 mg/dL (8.4-10.2); Carbon Dioxide 26 mmol/L (22-32); Chloride 107 mmol/L (98-107); Estimated Glomerular Filt Rate > 60 mL/min (>60); Glucose 87 mg/dL (80-110); HEMOLYSIS < 15 (0-50); Potassium 3.6 mmol/L (3.4-5.1); Sodium 137 mmol/L (137-145)
[2023-09-21 06:11] LABS: Cholesterol 125 mg/dL (140-199); HDL Cholesterol 45 mg/dL (40-60); LDL Cholesterol Calculated 64 mg/dL (<100); Triglycerides 79 mg/dL (35-150)
[2023-09-21] MEDS: LORazepam 2 MG/ML INJ 1 MG IV (08:17)
--- NOTE | 2023-09-21 09:38 | P.HP_ITS ---
History of Present Illness History of Present Illness Date Patient Seen: 09/21/23 Chief complaint: Stroke Alert Narrative: Patient is a 73 yo M with PMH a fib (on Eliquis), HTN, HLD, T2DM who presented via EMS for concerns of stroke. Patient noted facial droop and L UE weakness day prior to arrival in ER at 08:00. He thought symptoms may improve so waited but when they did not he called 911. EMS noted left facial droop, left upper extremity clumsiness, and drift in his left lower extremity. Point of care glucose 170 en route. ER evaluation revealed: Overall reassuring labs including CBC, CMP, coags, TSH. Mag low at 1.1. a1c 7.7 CT head, CTA head and neck without acute findings. EKG - a fib CXR without acute findings NIHSS 4 in ER MRI this AM showed - scattered patchy areas subacute infarction seen involving the right MCA distribution. This morning reporting persistent L sided weakness. Unsure if any better. No speech concerns or confusion. No pain. No NV. Eating well except trouble with utensils. No dysphagia. Reports he likely missed a dose or two of Eliquis - often forgets to take at night when he goes out to [employer]. ROS as above PFSH Medical History H/O adenomatous polyp of colon Fungal infection of toenail Mixed hyperlipidemia Essential hypertension Elevated PSA CAD (coronary artery disease) (~2005) Knee pain Vision disorder COPD (chronic obstructive pulmonary disease) (~2008) Hearing loss (~1999) Colitis (~2004) Diabetes mellitus (~2005) Atrial fibrillation (~2005) Surgical History Anesthesia History of heart artery stent (~2005) Family History Father History of heart disease Mother Aneurysm Sister Cancer Social History household members: none Smoking Status: Current every day smoker alcohol intake: current Meds Home Medications and Allergies Home Medications Medication Instructions Recorded Confirmed Type albuterol sulfate 90 mcg/actuation 2 puff inhalation Q6H PRN 09/07/21 09/20/23 Rx aerosol inhaler shortness of breath or wheezing #54 grams metoprolol succinate 100 mg 100 mg PO BID #180 tabs 11/04/22 09/20/23 Rx tablet,extended release 24 hr atorvastatin 20 mg tablet 20 mg PO DAILY #90 tabs 12/30/22 09/20/23 Rx omeprazole 20 mg capsule,delayed 20 mg PO DAILY #90 caps 01/07/23 09/20/23 Rx release apixaban 5 mg tablet (Eliquis) 5 mg PO BID #180 tabs 01/29/23 09/20/23 Rx metformin 1,000 mg tablet 1,000 mg PO BID #180 tabs 02/28/23 09/20/23 Rx lisinopril 20 mg tablet 20 mg PO DAILY #90 tabs 06/03/23 09/20/23 Rx lancets 30 gauge #100 ea 07/23/23 09/20/23 Rx Disabled Parking #1 ea 08/01/23 09/20/23 Rx pioglitazone 30 mg tablet (Actos) 30 mg PO DAILY Diabetes 08/24/23 09/20/23 History blood sugar diagnostic (True 09/20/23 09/20/23 History Metrix Glucose Test Strip) blood-glucose meter,continuous 09/20/23 09/20/23 History budesonide 3 mg 3 mg PO DAILY Colitis 09/20/23 09/20/23 History capsule,delayed,extended release glipizide 10 mg tablet, extended 10 mg PO BID 09/20/23 09/20/23 History release 24 hr insulin glargine 100 unit/mL (3 15 unit SUBCUT BID 09/20/23 09/20/23 History mL) subcutaneous pen (Lantus Solostar U-100 Insulin) pen needle, diabetic 31 gauge x 09/20/23 09/20/23 History 3/16 (BD Ultra-Fine Mini Pen Needle) Allergies Allergy/AdvReac Type Severity Reaction Status Date / Time naproxen Allergy Severe Anaphylaxis Verified 09/08/23 10:30 linagliptin AdvReac Severe myalgias Verified 09/08/23 10:30 Exam Vital Signs (past 8 hours): - 09/21/23 04:21 Temperature 97.6 F Pulse Rate 66 Respiratory Rate 16 Blood Pressure 139/78 Pulse Oximetry 97 Oxygen Flow Rate 0 Oxygen Delivery Method Room Air Oxygen Flow Rate 0 Narrative Exam Narrative: Const: Awake, alert, no acute distress, sitting up in bed Cardiac: Irregularly irregular rhythm RESP: unlabored, clear bilaterally, no wheezing GI: Soft, nontender, nondistended, no rebound, no guarding Skin: Warm, Dry, intact, no rashes Neuro: AO x3, left-sided facial droop that spares forehead, finger-nose on left- hand side clumsy, 4+/5 LUE throughout, better in LLE - very marginally weak compared to R Objective Labs 09/21/23 04:51 09/21/23 04:51 Labs: Laboratory Results - last 24 hr 09/20/23 09/20/23 09/20/23 19:00 19:18 20:26 WBC 8.0 RBC 4.70 Hgb 13.8 Hct 41.0 MCV 87.1 MCH 29.4 MCHC 33.8 RDW 14.3 Plt Count 291 Neut % (Auto) 65.2 Lymph % (Auto) 22.0 L [place] % (Auto) 10.3 Eos % (Auto) 1.5 L Baso % (Auto) 1.0 Neut # (Auto) 5200 Lymph # (Auto) 1800 [place]inn # (Auto) 800 Eos # (Auto) 100 Baso # (Auto) 100 PT 13.7 H INR 1.2 Sodium 137 Potassium 4.2 Chloride 106 Carbon Dioxide 24 BUN 25 H Creatinine 1.07 Estimated GFR > 60 BUN/Creatinine Ratio 23.4 H Glucose 166 H Calcium 9.6 Magnesium 1.1 L Total Bilirubin 0.6 AST 22 ALT 15 Alkaline Phosphatase 68 Total Creatine Kinase 120 Troponin I < 0.012 Total Protein 7.8 Albumin 4.4 Globulin 3.4 Albumin/Globulin Ratio 1.3 Triglycerides Cholesterol LDL Cholesterol, Calc HDL Cholesterol TSH 3.58 Urine Color Yellow Urine Appearance Clear Urine pH 5.5 Ur Specific [place] <=1.005 Urine Protein Negative Urine Glucose (UA) Negative Urine Ketones Negative Urine Occult Blood Negative Urine Nitrate Negative Urine Bilirubin Negative Urine Urobilinogen 1.0 Ur Leukocyte Esterase Negative Urine RBC None seen Urine WBC 0-1/hpf Ur Squamous Epith Cells None seen Urine Bacteria None seen Ur Culture Indicated? Cult not indicated Vol Urine Centrifuged 10ml (spun) Ethyl Alcohol < 10 Blood Type A Positive Antibody Screen Negative 09/21/23 04:51 WBC 6.1 RBC 4.42 L Hgb 12.9 L Hct 38.6 L MCV 87.4 MCH 29.2 MCHC 33.5 RDW 14.6 Plt Count 237 Neut % (Auto) 52.9 Lymph % (Auto) 29.9 [place] % (Auto) 11.3 Eos % (Auto) 4.6 H Baso % (Auto) 1.3 Neut # (Auto) 3300 Lymph # (Auto) 1800 [place] # (Auto) 700 Eos # (Auto) 300 Baso # (Auto) 100 PT INR Sodium 137 Potassium 3.6 Chloride 107 Carbon Dioxide 26 BUN 20 Creatinine 0.86 Estimated GFR > 60 BUN/Creatinine Ratio 23.3 H Glucose 87 Calcium 9.2 Magnesium Total Bilirubin AST ALT Alkaline Phosphatase Total Creatine Kinase Troponin I Total Protein Albumin Globulin Albumin/Globulin Ratio Triglycerides 79 Cholesterol 125 L LDL Cholesterol, Calc 64 HDL Cholesterol 45 TSH Urine Color Urine Appearance Urine pH Ur Specific [place] Urine Protein Urine Glucose (UA) Urine Ketones Urine Occult Blood Urine Nitrate Urine Bilirubin Urine Urobilinogen Ur Leukocyte Esterase Urine RBC Urine WBC Ur Squamous Epith Cells Urine Bacteria Ur Culture Indicated? Vol Urine Centrifuged Ethyl Alcohol Blood Type Antibody Screen Assessment & Plan Assessment and plan (1) CVA (cerebral vascular accident): Qualifiers: CVA mechanism: unspecified Qualified Code(s): I63.9 - Cerebral infarction, unspecified Status: Acute (2) Essential hypertension: Status: Chronic (3) Mixed hyperlipidemia: Status: Chronic (4) Diabetes mellitus: Qualifiers: Diabetes mellitus type: type 2 Diabetes mellitus long term care social worker insulin use: without long term care social worker use Diabetes mellitus complication status: with kidney complications Diabetes mellitus complication detail: with microalbuminuria Qualified Code(s): E11.29 - Type 2 diabetes mellitus with other diabetic kidney complication; R80.9 - Proteinuria, unspecified Status: Chronic (5) COPD (chronic obstructive pulmonary disease): Qualifiers: COPD type: emphysema Emphysema type: centrilobular Qualified Code(s): J43.2 - Centrilobular emphysema Status: Chronic (6) Atrial fibrillation: Qualifiers: Atrial fibrillation type: unspecified Qualified Code(s): I48.91 - Unspecified atrial fibrillation Status: Chronic (7) CAD (coronary artery disease): Problem details: [place] 2005 Qualifiers: Coronary Disease-Associated Artery/Lesion type: [place] artery [place] vs. transplanted heart: lumbee heart Associated angina: without angina Qualified Code(s): I25.10 - Atherosclerotic heart disease of [place] coronary artery without angina pectoris Status: Chronic Plan Patient is a 73 yo M with PMH a fib (on Eliquis), HTN, HLD, T2DM who presented via EMS for concerns of stroke - work up consistent with subacute infarction seen involving the right MCA distribution. CVA - MRI confirmed, R MCA subacute stroke -Discussed with Dr. Velazco neurology at [facility] - no DAPT recommended, ASA alone, given more likely issue was missed Eliquis does -PT/OT consults today -ECHO in process now -Telemetry -Routine neuro checks -BP control as below, continue statin and Eliquis HypoMag - recheck this morning and replete if low Chronic conditions: HTN - stable -Continue metoprolol and lisinopril HLD - stable, lipids at goal -Continue atorvastatin T2DM - stable, a1c 7.7 -SSI and decreased lantus for now (6 u qhs) -Holding glipizide, metformin, actos A fib - stable, rate controlled -Continue metoprolol -Eliquis COPD - stable -Continue Albuterol GERD, Colitis - stable -Continue Budesonide Code: DNR DVT prophylaxis: home eliquis, >24 hours from symptom onset Diet: cardiac, consistent carb Dispo: pending improvement with rehab Time-Based Coding :: [TOTAL MINUTES] spent with patient and on the chart (including review of chart, obtaining history, exam, reviewing outside data, placing orders, documenting exam and treatment plan, and counseling patient) on [DATE]. Quality VTE Deep Vein Thrombosis/Pulmonary Embolism Present on Admission: No IH PROFEE Charge Codes Initial inpatient/observation care: [id number]
[2023-09-21] MEDS: METOPROLOL ER 50 MG TABLET 100 MG PO ×2 (09:45→21:11)
[2023-09-21] MEDS: ASPIRIN EC 81 MG TABLET PO (09:45)
[2023-09-21] MEDS: ATORVASTATIN 20 MG TABLET PO (09:46)
[2023-09-21] MEDS: lisinopriL 20 MG TABLET PO (09:46)
[2023-09-21] MEDS: APIXABAN 5 MG TABLET PO ×2 (09:46→21:11)
[2023-09-21] MEDS: BUDESONIDE 3 MG CAP PO (10:27)
[2023-09-21 10:46] LABS: Magnesium 1.3 mg/dL (1.6-2.3)
--- NOTE | 2023-09-21 11:00 | CM.DANOTE ---
Initial DCP Assessment Visit Note Reviewed EMR and team rounds for pt's medical status and updates, went to meet with pt at bedside, however he was not there, was getting his brain MRI at the time. Pt lives independently in his own mobile home here in [place], his primary support person is his brother, Amy Dominguez. His brother will also plan to transport him home once he's medically cleared for home d/c. Payor: Medicare PCP: Dr. Falk Pt is a 73 year-old M with a PMH of Afib, hypertension, hyperlipidemia on Eliquis presented to the ED last evening via EMS from home for possible stroke. EMS noted L-sided facial droopiness and left-sided weakness, pt states that he had been having symptoms since yesterday morning. MRI results this morning did show sub acute stroke. PT/OT evals and recommendations are pending. DCP will continue to follow and assist with any further recommendations/needs for d/c transition. Discharge Planning/Care Management CM Discharge Assessment Start: 09/21/23 10:57 Freq: Status: Active Protocol: Document 09/21/23 10:57 DPL (Rec: 09/21/23 10:59 DPL [id number]) Discharge Planning Assessment Assigned Farm Equipment Maintenance Supervisor THEE Ching Advance Directives? No History Provided By Patient,Medical Record Has Patient been admitted in last 30 No days? Comment He was admitted in August from -08/28/23 for a UTI. Prior Living Arrangements Mobile home Household Members none Type of transporation used prior to Drives own vehicle admit Independent with ADL's Yes Is patient alert and oriented? Yes Caregiver for Another No DME Already Rented / Owned FWW / Walker Patient/Family Preference Home with Home Health Comment Monitoring for PT/OT eval and recommendatins. Barriers to Discharge No Discharge Plan Home Transportation Arrangement Brother Referrals Initiated Home Health If patient plan is home with home health No : Has signed face to face form been completed? Comment pending Medicare Choice List Provided No Has Agency SNF been contacted No Whiteboard Updated in Patient Room with Yes name and ext. # of Farm Equipment Maintenance Supervisor Review Status In Process Please Provide Date Initial DC 09/21/23 Assessment Was Performed
[2023-09-21] MEDS: MAGNESIUM CHLORIDE 64 MG TABLET 128 MG PO ×2 (11:18→18:34)
[2023-09-21] MEDS: INSULIN LISPRO 100 UNIT/ML 3ML VIAL SUBCUT ×3 (12:43→21:10)
--- NOTE | 2023-09-21 13:46 | PT.IIE ---
Current Diagnoses Type 2 diabetes mellitus with other diabetic kidney complication (09/20/23) Mixed hyperlipidemia (09/20/23) Essential (primary) hypertension (09/20/23) Atherosclerotic heart disease of [place] coronary artery without angina pectoris (09/20/23) Unspecified atrial fibrillation (09/20/23) Cerebral infarction, unspecified (09/20/23) Centrilobular emphysema (09/20/23) Proteinuria, unspecified (09/20/23) Surgical History (Last Reviewed 09/20/23 @ 19:16 by Ciara Bass MD) Anesthesia History of heart artery stent (~2005) Medical History (Last Reviewed 09/20/23 @ 19:16 by Ciara Bass MD) Atrial fibrillation (~2005) CAD (coronary artery disease) (~2005) Colitis (~2004) COPD (chronic obstructive pulmonary disease) (~2008) Diabetes mellitus (~2005) Elevated PSA Essential hypertension Fungal infection of toenail H/O adenomatous polyp of colon Hearing loss (~1999) Knee pain Mixed hyperlipidemia Vision disorder Physical Therapy Inpatient Evaluation/Re-Eval M1 PT/OT-IP Prior Functional Status Start: 09/21/23 08:17 Freq: NEEDED Status: Active Protocol: Document 09/21/23 13:45 JChelly (Rec: 09/21/23 15:27 CRISTY [id number]) Medical Review Prior Functional Status Medical History Reviewed Yes Communication WNL Mobility and Gait I with mobility and gait without AD Activities of Daily Living and IADL's I with ADL's without AD Social History Household Members none Living Arrangements Mobile home Number of Floors (Floors) One Floor Number of Stairs To Enter/Railing? 7 with left rail ascend Home Environment Standard Height Toilet,Walk in Shower Home Equipment Four Wheel Walker Employment Status Retired M2 PT-IP Current Condition Start: 09/21/23 08:17 Freq: NEEDED Status: Active Protocol: Document 09/21/23 13:45 JG (Rec: 09/21/23 15:27 CRISTY [id number]) Physical Therapy Current Condition Current Condition Evaluation Date 09/21/23 Treatment Diagnosis R MCA stroke M3 PT-IP Subjective Start: 09/21/23 08:17 Freq: NEEDED Status: Active Protocol: Document 09/21/23 13:45 JG (Rec: 09/21/23 15:27 JG [id number]) Subjective Physical Therapy Visit Type Type Initial Evaluation Visit Start Time 13:45 Visit Stop Time 14:20 Number of MANPOWER DEVELOPMENT ADVISOR Visits 0 Physical Therapy Visit Comments Patient Comments Pt stated that both his legs are feeling very sore Therapy Pain Assessment Pain When Pain Assessed At Rest Pain Present Pain Present Pain Reported Location Bilateral Leg Intensity 6 Scale Used Numeric (0 - 10) Description Aching,With Movement Pain Behaviors Facial Grimacing,Guarding Pain Management Techniques Distraction,Re-positioning, Timing of Activity with Medications M4 PT-IP Mobility and Gait Start: 09/21/23 08:17 Freq: NEEDED Status: Active Protocol: Document 09/21/23 13:45 (Rec: 09/21/23 15:27 [id number]) PT-Bed Mobility Assessment Rolling Type of Rolling Roll to Right Level of Assist Standby Assistance,1 Person Assistance Supine to Sit Supine to Sit Standby Assistance,1 Person Assistance,Head of Bed Elevated,Bedrails Scooting Scooting to Edge of Bed Standby Assistance PT-Transfer Assessment Sit to and From Stand Sit to and from Stand Moderate Assistance,1 Person Assistance,Use of Upper Extremities Equipment Transfer Assistive Device Bed Rail,Gait Belt,Front Wheeled Walker Orthotic/Prosthetic Devices or Brace: No Transfers Transfer Destination Chair Transfer Technique Ambulation Transfer Ability Level of Assist Moderate Assistance,1 Person Assistance,Use of Upper Extremities Comments Mobility Comments Pt demonstrated a R lateral lean when sitting EOB. Pt requires use of bedrails and HOB increased to help sit EOB and needs minimal v/c to encourage feet on the ground before standing Gait Assessment Gait Gait Assistance Required: Moderate Assistance,1 Person Assist Distance (Feet) 5 Able to Maintain Weight Bearing Status Yes During Gait Assistive Devices Assistive Device Gait Belt,Front Wheeled Walker Orthotic/Prosthetic Devices or Brace: No Gait Deviations General Gait Pattern Decreased Stride Length, Decreased Feet Clearance, Flexed Trunk,Lateral Trunk Lean,Narrow Based Gait,Step-to Gait Factors Limiting Gait Function Factors Limiting Gait Function Decreased Activity Tolerance, Decreased Sensation,Decreased Strength,Difficulty Following Directions,Incoordination, Limited Range of Motion,Pain, Poor Balance Comments Gait Comments Pt had a step to gait pattern with FWW. Pt also demonstrated foot drag on LLE. Pt had loss of balance while ambulating to chair and required mod A to correct with use of RW PT-Balance Assessment Sitting Balance and Reactions Static Sitting Balance Ability Fair Dynamic Sitting Balance Ability Fair Standing Balance and Reactions Static Standing Balance Ability Fair Dynamic Standing Balance Ability Fair Device Used RW M5 PT-IP Objective Assessments Start: 09/21/23 08:17 Freq: NEEDED Status: Active Protocol: Document 09/21/23 13:45 JG (Rec: 09/21/23 15:27 JG [id number]) Orientation Orientation/Cognition Level of Alertness Alert Orientation Name,Age,Birthday,Month,Year, Day of Week,Place,Situation Language Function Ability Hard of Hearing Safety Awareness Decreased Safety Awareness Memory Description No Deficits Noted Comments Pt answered date incorrectly. (19 of September). Pt vocal tone is reduced and recommend EXECUTIVE PASTRY CHEF consult post-stroke, OT to check cognition and visual field. Gross Range of Motion Upper Extremity ROM Impairments Defer to OT Lower Extremity ROM Assessment Within Functional Limits Impairments Pt presents with functional foot drop and synergistic pattern with HS and pt ER hip Strength Lower Extremity Strength Assessment Left Impaired Knee R 5/5 L 4-/5 Ankle R 4+/5 L 4-/5 Comments Strength Comments UE strength will be defered to OT, Great toe ext. R 4+/5, L 3+/5, functional foot drop with gait. C/o B quad area pain with MMT knees and this is not expected in stroke diagnosis and more c/o on the right. Small bulge distal right quad with knee ROM ? muscular/adiopose/etc Coordination Assessment Gross Coordination Gross Coordination Impaired Assessment Finger to Nose Test Moderate Impairment Coordination Comments Finger to nose test moderate L >R impariment. Pt was slow to perform test bilaterally even when cued to go as fast as possble Sensation Assessment Sensation Gross Sensation Right LE Impaired,Left LE Impaired Light Touch Impaired Proprioception (Position) Impaired Comments Sensation Comments Pt had loss of sensation B below ankle level. Pt also had trouble with discrimination between L/R LE and was unable to tell if PT was touching one side or both. Muscle Tone Muscle Tone WNL Yes M6 PT-IP Treatment Start: 09/21/23 08:17 Freq: NEEDED Status: Active Protocol: Document 09/21/23 13:45 JG (Rec: 09/21/23 15:27 J [id number]) Physical Therapy Treatment Exercises Exercises Ankle Pumps,Heel Slides Education Education Provided Safety Other Treatments Other Treatment Performed LAQ M7 PT-IP Assessment and Plan Start: 09/21/23 08:17 Freq: NEEDED Status: Active Protocol: Document 09/21/23 13:45 CRISTY (Rec: 09/21/23 15:27 CRISTY [id number]) PT Summary Assessment and Plan Potential Rehabilitation Potential Good Status of Condition at Evaluation Evolving Summary Impairments Pain,ROM,Strength,Balance, Coordination,Sensation, Cognition,Bed Mobility, Transfers,Gait,Activity Tolerance Progress Towards Goals Progressing Toward Goals Assessment Summary Pt is a 73 y/o male that presents to [facility] s/ p R CVA. Pt lives by himself and was I at baseline with a hx of DM. Of note, PT did see pt in recent last adm and he c /o B leg weakness that has been progressive. PT made a note last adm. This adm, he reports B quad pain, worse on his normal side (R) and this is not expected with stroke. Pt is [place] and needs instructions to be repeated occasionally. Pt presents with functional left foot drop and imbalance with gait. Recommend acute rehab at d/c, acute EXECUTIVE PASTRY CHEF and OT consults including cognitive testing and visual field testing. Goals Bed Mobility Goal Independent Transfer Goal Independent,Front Wheeled Walker Gait Goal Independent,Front Wheel Walker Gait Distance 95 Other Goals Pt will be able to ascend and descend 7 stairs using L railing in order to mimic home set-up Pt will perform WNLs on a standardized balance test with use of LRAD to decrease fall risk (TUG or Tinetti). Days to Meet Goals 5 Frequency of Treatment Frequency Of Treatment Once a Day Treatment Plan Physical Therapy Treatment Plan Bed Mobility Training,Transfer Training,Gait Training, Therapeutic Exercise,Balance Retraining,Discharge Planning, Hot or Cold Pack,Neuromuscular Re-ed,Coordination Retraining ,Manual Therapy Other Recommendations and Next Treatment Focus on coordination of L Focus extremities, standing tolerance, gait training with AD, stair training, transfers Weight Bearing Status Weight Bearing Status Weight Bear as Tolerated Recommendations To Nursing Amount of Assist Needed 1 Person Assist Discharge Recommendations PT Discharge Recommendations Acute Rehab Transportation Needs at Discharge Private Vehicle
[2023-09-21] MEDS: ALBUTEROL 2.5 MG/3 ML NEB (ADULT) INH ×2 (19:11→23:33)
[2023-09-21] MEDS: INSULIN GLARGINE 100 UNIT/ML 3ML PEN 6 UNIT SUBCUT (21:09)
[2023-09-21] MEDS: BUDESONIDE 0.5 MG/2 ML NEB INH (23:32)
[2023-09-22] VITALS (9 sets, daily range): BP systolic 119–132; BP diastolic 70–84; PULSE 54–86; RESP 14–20; TEMP 36.1–37.1; O2SAT 96–100
[2023-09-22 06:13] LABS: Add Manual Diff / Slide Review NO; Basophils Absolute Auto 100 /uL (0-100); Basophils Percent Auto 1.3 % (0-2); Eosinophils Absolute Auto 200 /uL (0-450); Hematocrit 39.1 % (41-53); Lymphocytes Absolute Auto 1700 /uL (1100-4500); Lymphocytes Percent Auto 21.8 % (25-40); Mean Corpuscular HGB Conc 33.2 % (30-36); Mean Corpuscular Hemoglobin 28.9 PG (26-34); Mean Corpuscular Volume 87.2 fL (80-100); Monocytes Absolute Auto 700 /uL (0-900); Monocytes Percent Auto 8.7 % (3-14); Neutrophils Absolute Auto 5100 /uL (1500-7000); Neutrophils Percent Auto 65.2 % (50-75); Platelet Count 233 X10^3/uL (150-400); Red Blood Cell Count 4.48 X10^6/uL (4.5-5.9); Red Cell Distribution Width 14.2 % (11.6-14.8); White Blood Cell Count 7.8 X10^3/uL (4.5-11.0)
[2023-09-22] MEDS: PANTOPRAZOLE DR 20 MG TABLET PO (06:25)
[2023-09-22 06:29] LABS: Alanine Aminotransferase 13 IU/L (<50); Albumin 3.6 g/dL (3.5-5.0); Albumin Globulin Ratio 1.2 (1.0-2.8); Alkaline Phosphatase 68 U/L (38-126); Aspartate Aminotransferase 19 IU/L (17-59); BUN Creatinine Ratio 20.7 (6-22); Bilirubin Total 0.5 mg/dL (0.2-1.3); Blood Urea Nitrogen 18 mg/dL (9-20); Calcium 8.8 mg/dL (8.4-10.2); Carbon Dioxide 26 mmol/L (22-32); Chloride 109 mmol/L (98-107); Estimated Glomerular Filt Rate > 60 mL/min (>60); Globulin 2.9 g/dL (1.7-4.1); Glucose 144 mg/dL (80-110); HEMOLYSIS < 15 (0-50); Potassium 3.9 mmol/L (3.4-5.1); Sodium 138 mmol/L (137-145); Total Protein 6.5 g/dL (6.3-8.2)
[2023-09-22 06:30] LABS: Magnesium 1.5 mg/dL (1.6-2.3)
--- NOTE | 2023-09-22 07:56 | PM.PN.1 ---
Subjective Subjective Date Patient Seen: 09/22/23 Time Patient Seen: 07:56 Interval history: Patient admitted over the weekend with stroke-like symptoms. MRI demonstrated evidence of subacute infarct in right MCA distribution. Patient does have chronic atrial fibrillation in his chronic anticoagulated and does admit to occasionally missing doses of his Eliquis. This is by far the most likely etiology for his CVA Echo done yesterday unremarkable except for the atrial fibrillation and evidence of other conduction system disturbance but no clot present Working with physical therapy seem to improve over the last 48 hours. That is yet to be seen by occupational therapy but so far PT is recommending home with home health assistance Blood sugar a bit high when last checked but other than that that has been probably adequately controlled Vital signs are good no active issues his blood pressure etcetera Exam Vital Signs (past 8 hours): - 09/22/23 03:00 09/22/23 07:13 Temperature 98.7 F Pulse Rate 74 Respiratory Rate 18 14 Blood Pressure 127/81 Pulse Oximetry 98 97 Oxygen Delivery Method Room Air Oxygen Flow Rate 0 0 Fraction of Inspired Oxygen 21 Fraction of Inspired Oxygen 21 SaO2/FiO2 Ratio 461 Oxygen Delivery Method Room Air Oxygen Flow Rate 0 Objective Labs 09/22/23 05:45 09/22/23 05:45 Labs: Laboratory Results - last 24 hr 09/21/23 09/22/23 04:51 05:45 WBC 7.8 RBC 4.48 L Hgb 13.0 L Hct 39.1 L MCV 87.2 MCH 28.9 MCHC 33.2 RDW 14.2 Plt Count 233 Neut % (Auto) 65.2 Lymph % (Auto) 21.8 L [place] % (Auto) 8.7 Eos % (Auto) 3.0 Baso % (Auto) 1.3 Neut # (Auto) 5100 Lymph # (Auto) 1700 [place] # (Auto) 700 Eos # (Auto) 200 Baso # (Auto) 100 Sodium 138 Potassium 3.9 Chloride 109 H Carbon Dioxide 26 BUN 18 Creatinine 0.87 Estimated GFR > 60 BUN/Creatinine Ratio 20.7 Glucose 144 H Calcium 8.8 Magnesium 1.3 L 1.5 L Total Bilirubin 0.5 AST 19 ALT 13 Alkaline Phosphatase 68 Total Protein 6.5 Albumin 3.6 Globulin 2.9 Albumin/Globulin Ratio 1.2 [facility] Medical History H/O adenomatous polyp of colon Fungal infection of toenail Mixed hyperlipidemia Essential hypertension Elevated PSA CAD (coronary artery disease) (~2005) Knee pain Vision disorder COPD (chronic obstructive pulmonary disease) (~2008) Hearing loss (~1999) Colitis (~2004) Diabetes mellitus (~2005) Atrial fibrillation (~2005) Surgical History Anesthesia History of heart artery stent (~2005) Family History Father History of heart disease Mother Aneurysm Sister Cancer Social History household members: none Smoking Status: Current every day smoker alcohol intake: current Assessment & Plan Assessment & Plan narrative: 1. Acute CVA-continue work with skilled therapies. Probably safe to go home. Continue with his Eliquis plus aspirin. No need for additional anticoagulation in my opinion 2. Diabetes-continue to monitor numbers. Blood sugar seem just a bit high especially most recently. Will increase his insulin coverage just a little bit. Could consider adding back his oral meds. 3. Hypertension-blood pressure well controlled no active issues in the setting of a subacute CVA 4. COPD-stable. 5. Atrial fibrillation-patient adequately rate controlled not an active issue. Continue with Eliquis 6. Coronary disease-not an active issue. Continue on usual medications 7. Disposition-based on initial notes from physical therapy seem safe to go home. No notes yet from occupational therapy. I wonder if perhaps he would benefit from inpatient rehab come but will see what the next 24-48 hours look like with the skilled therapies. Time-Based Coding :: [TOTAL MINUTES] spent with patient and on the chart (including review of chart, obtaining history, exam, reviewing outside data, placing orders, documenting exam and treatment plan, and counseling patient) on [DATE]. Quality VTE Deep Vein Thrombosis/Pulmonary Embolism Present on Admission: No IH PROFEE Charge codes Subsequent inpatient/observation care: 64102
[2023-09-22] MEDS: ATORVASTATIN 20 MG TABLET PO (08:28)
[2023-09-22] MEDS: METOPROLOL ER 50 MG TABLET 100 MG PO ×2 (08:28→20:38)
[2023-09-22] MEDS: BUDESONIDE 3 MG CAP PO (08:28)
[2023-09-22] MEDS: ASPIRIN EC 81 MG TABLET PO (08:28)
[2023-09-22] MEDS: lisinopriL 20 MG TABLET PO (08:28)
[2023-09-22] MEDS: INSULIN LISPRO 100 UNIT/ML 3ML VIAL SUBCUT ×4 (08:29→20:43)
[2023-09-22] MEDS: APIXABAN 5 MG TABLET PO ×2 (08:29→20:38)
--- NOTE | 2023-09-22 08:53 | ST.IPCSEOM ---
Visit Care Team Role Provider Type Ciara Bass MD Emergency Provider Physician Referring Provider Specialty: Emergency Medicine Address: [address] [place] [address], [id number] Email: [email or web address] MD Attending Provider Physician Primary Care Provider Specialty: Internal Medicine Address: [address] [place] [address], [address], [address] Email: [email or web address] Shahnaz Powers MD Admit Provider Physician Other Providers Specialty: Family Practice SALES TRAINING REPRESENTATIVE Address: [address] [place] [address], [id number] Email: [email or web address] Current Diagnoses Type 2 diabetes mellitus with other diabetic kidney complication (09/20/23) Mixed hyperlipidemia (09/20/23) Essential (primary) hypertension (09/20/23) Atherosclerotic heart disease of [place] coronary artery without angina pectoris (09/20/23) Unspecified atrial fibrillation (09/20/23) Cerebral infarction, unspecified (09/20/23) Centrilobular emphysema (09/20/23) Proteinuria, unspecified (09/20/23) Past Medical History (Last Reviewed 09/20/23 @ 19:16 by Ciara Bass MD) Atrial fibrillation (Medical ~2005) CAD (coronary artery disease) (Medical ~2005) [place] 2006 Colitis (Medical ~2004) COPD (chronic obstructive pulmonary disease) (Medical ~2008) Diabetes mellitus (Medical ~2005) Elevated PSA (Medical) Negative biopsy in past Essential hypertension (Medical) Fungal infection of toenail (Medical) H/O adenomatous polyp of colon (Medical) Hearing loss (Medical ~1999) Knee pain (Medical) Mixed hyperlipidemia (Medical) Vision disorder (Medical) Wear glasses Speech-Language Pathology Swallow Evaluation BIT BENDER Clinical Swallow Evaluation Start: 09/22/23 08:41 Freq: Status: Active Protocol: Document 09/22/23 08:41 MA (Rec: 09/22/23 08:53 MA [id number]) Clinical Swallow Evaluation Session Time Visit Start Time 08:20 Visit Stop Time 09:45 Total Visit Minutes [address] Powers Reason for Referral CVA Setting Assessment Location Acute Care Visit Type Note Type Initial evaluation Patient Information Identification Type Name History Per H&P: Patient is a 73 yo M with PMH a fib (on Eliquis), HTN, HLD, T2DM who presented via EMS for concerns of stroke . Patient noted facial droop and L UE weakness day prior to arrival in ER at 08:00. He thought symptoms may improve so waited but when they did not he called 911. EMS noted left facial droop, left upper extremity clumsiness, and drift in his left lower extremity. Point of care glucose 170 en route. ER evaluation revealed: Overall reassuring labs including CBC, CMP, coags, TSH . Mag low at 1.1. a1c 7.7 CT head, CTA head and neck without acute findings. EKG - a fib CXR without acute findings NIHSS 4 in ER MRI this AM showed - scattered patchy areas subacute infarction seen involving the right MCA distribution. This morning reporting persistent L sided weakness. Unsure if any better. No speech concerns or confusion. No pain. No NV. Eating well except trouble with utensils. No dysphagia. Reports he likely missed a dose or two of Eliquis - often forgets to take at night when he goes out to [employer]. ROS as above [facility] Medical History (Reviewed @ 19:16 by Ciara Bass MD) H/O adenomatous polyp of colon Fungal infection of toenail Mixed hyperlipidemia Essential hypertension Elevated PSA CAD (coronary artery disease) (~2005) Knee pain Vision disorder COPD (chronic obstructive pulmonary disease) (~2008) Hearing loss (~1999) Colitis (~2004) Diabetes mellitus (~2005) Atrial fibrillation (~2005) Pt referred for ST evaluation d/t CVA and to assess swallow function. Subjective Observations Pt sitting upright in bed with breakfast tray. Pt awake, alert and oriented x3. Speech/ cognition/language appear WNL. Pt compliant with swallow evaluation. Reported by Patient/Caregiver Current Diet Regular (IDDSI 7) Baseline Feeding Method Independent in self-feeding The IDDSI Framework Protocol: IDDSI.1 Objective Assessment Mental Status Alert,Responsive,Cooperative Comment Oral motor exam revealed partial upper, full dentures bottom. Slight left sided weakness with smiling, WNL during rest. Lingual and labial strength and ROM appear WFL. Food and Liquid Trials Position During Assessment Upright (90 degrees) Liquids Trialed Thin (IDDSI 0) Solid Trials Regular (IDDSI 7) Administration Type Self-feeding Oral Impairment Within functional limits Oral Phase Comments Pt consumed migdalia crackers and 2 oz of coffee and about 4 oz of thin water via straw. For solids, Pt took adequate bite size and rate, prolonged mastication however adequate bolus formation and control, minimal oral stasis. For liquids Pt demonstrated adequate suction, good oral acceptance and containment. Pharyngeal Impairment Within functional limits Pharyngeal Phase Comments No overt s/s of aspiration with all PO trials, clear vocal quality, no reports of feeling of food stuck in throat. Fatigue/Endurance Endurance WNL The IDDSI Framework Protocol: IDDSI.1 Findings Swallowing Function Within functional limits Severity of Swallow Impairment Within functional limits Prognosis Good Based on Cognitive status,Family support Impact on Safety and Functioning No limitations Recommendations Instrumental Assessment No Swallowing Treatment No Recommended Solids Regular (IDDSI 7) Recommended Liquids Thin (IDDSI 0) Other Recommendations Pt appears with WFL swallow function. ST recommends IDDSI 7/IDDSI 0 with the below safe swallowing strategies in place . ST recommends re-referral for swallow eval if changes in status occur. Safety Precautions/Swallowing Remain upright (90 degrees) Recommendations during all oral intake,Upright position at least 30 minutes after meals,Small bites and sips when eating,Slow rate; swallow between bites, Alternate liquids and solids Medication Recommendations As Tolerated Education Patient/Caregiver Education Described results of evaluation,Patient expressed understanding of evaluation
--- NOTE | 2023-09-22 09:29 | OT.IP.EVAL ---
Current Diagnoses Type 2 diabetes mellitus with other diabetic kidney complication (09/20/23) Mixed hyperlipidemia (09/20/23) Essential (primary) hypertension (09/20/23) Atherosclerotic heart disease of [place] coronary artery without angina pectoris (09/20/23) Unspecified atrial fibrillation (09/20/23) Cerebral infarction, unspecified (09/20/23) Centrilobular emphysema (09/20/23) Proteinuria, unspecified (09/20/23) Past Medical History (Last Reviewed 09/20/23 @ 19:16 by Ciara Bass MD) Atrial fibrillation (~2005) CAD (coronary artery disease) (~2005) Colitis (~2004) COPD (chronic obstructive pulmonary disease) (~2008) Diabetes mellitus (~2005) Elevated PSA Essential hypertension Fungal infection of toenail H/O adenomatous polyp of colon Hearing loss (~1999) Knee pain Mixed hyperlipidemia Vision disorder Surgical History (Last Reviewed 09/20/23 @ 19:16 by iCara Bass MD) Anesthesia History of heart artery stent (~2005) Occupational Therapy Inpatient Evaluation/Re-Eval M1 PT/OT-IP Prior Functional Status Start: 09/21/23 08:17 Freq: NEEDED Status: Active Protocol: Document 09/22/23 10:59 CGR (Rec: 09/22/23 11:13 CGR [id number]) Medical Review Prior Functional Status Medical History Reviewed Yes Communication Pt is an effective verbal communicator. Mobility and Gait I with mobility and gait without AD Activities of Daily Living and IADL's I with ADL's without AD Social History Household Members none Living Arrangements Mobile home Number of Floors (Floors) One Floor Number of Stairs To Enter/Railing? 7 with left rail ascend Home Environment Standard Height Toilet,Walk in Shower Home Equipment Four Wheel Walker,Straight Cane Employment Status Retired Additional Social History Comment Pt sleeps in a flat bed and has a brother that lives in town. M2 OT-IP Current Condition Start: 09/22/23 10:58 Freq: Status: Active Protocol: Document 09/22/23 10:59 CGR (Rec: 09/22/23 11:13 CGR [id number]) Occupational Therapy Current Condition Current Condition Evaluation Date 09/22/23 Treatment Diagnosis R MCA CVA Diagnosis Onset Date 09/20/23 M3 OT- IP Subjective and Pain Start: 09/22/23 10:58 Freq: Status: Active Protocol: Document 09/22/23 10:59 CGR (Rec: 09/22/23 11:13 CGR [id number]) OT- Subjective Occupational Therapy Visit Type Type Initial Evaluation Visit Start Time 09:03 Visit Stop Time 09:29 OT Pain Assessment Pain When Pain Assessed At Rest Pain Present Pain Present Denied Pain M4 OT- IP ADL's Start: 09/22/23 10:58 Freq: Status: Active Protocol: Document 09/22/23 10:59 CGR (Rec: 09/22/23 11:13 CGR [id number]) OT [id number] Comments OT Self-Feeding Comments Pt had completed breakfast when OT entered but states that he did not have difficulty eating with his R hand. OT ADL-Grooming General Evaluation Grooming Ability Standby Assistance Areas Needing Assistance Combing/Brushing Hair,Face Washing Comments OT Grooming Comments standing at sink OT ADL-Oral Care General Eval Oral Care Ability Standby Assistance Areas of Assistance Brushing Teeth Comments Oral Care Comments standing at sink OT ADL-Dressing Comments OT Dressing Comments Pt states that LB dressing is difficult at baseline. OT ADL-Toileting General Evaluation Toileting Ability Standby Assistance Comments OT Toileting Comments Pt demonstrated ability to perform toilet transfer with unease and some difficulty. Pt did not doff brief for toielt transfer demonstration. OT ADL-Bathing Comments OT Bathing Comments not performed M5 OT- IP IADL's Start: 09/22/23 10:58 Freq: Status: Active Protocol: Document 09/22/23 10:59 CGR (Rec: 09/22/23 11:13 CGR [id number]) OT-Instrumental Activities of Daily Living Deficits IADL Deficits Identified No Deficits Home Safety Awareness Awareness of Need for Assistance at Home Good Awareness Ability to Problem Solve Emergency Able to Problem Solve Situations Medication Management Medication Management Comments Pt has been doing himself Money Management Money Management Comments Pt has been doing himself Meal Preparation Meal Preparation Comments Pt has been doing himself Construction 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 Construction 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 Member Comments Pt has been doing himself Driving Driving Comments Pt has been doing himself M6 OT- IP Functional Cognition Start: 09/22/23 10:58 Freq: Status: Active Protocol: Document 09/22/23 10:59 CGR (Rec: 09/22/23 11:13 CGR [id number]) Cognitive Factors Limiting Selfcare Function Cognitive Ability Level of Alertness Alert Patient Orientation Name,Age,Birthday,Month,Date, Year,Day of Week,Place, Situation Attention Span Ability Capable of Focused Attention, Capable of Sustained Attention Ability to Follow Commands Able to Follow One Step Commands with Increased Time, Able to Follow One Step Commands with Repetition Cognitive Comments Cognitive Assessment Comments Pt is slow to respond but appropritate. Likely minimally talkative at baseline. OT- Vision and Hearing OT- Hearing Assessment OT- Hearing Assessment Hearing Impaired OT- Vision Assessment Visual Acuity Glasses All The Time Visual Attentiveness WFL Occular Pursuits WFL Visual Convergence WFL Vision Assessment Comments pt wears bifocals. M7 OT- IP Mobility and Balance Start: 09/22/23 10:58 Freq: Status: Active Protocol: Document 09/22/23 10:59 CGR (Rec: 09/22/23 11:13 R [id number]) OT- Bed Mobility Assessment Supine to Sit Supine to Sit Assist Standby Assistance,Head of Bed Elevated,Bedrails Scooting Scooting to Edge of Bed Standby Assistance,Head of Bed Elevated,Bedrails OT-Transfer Assessment Sit to and From Stand Sit to and from Stand Contact Guard Assistance Transfers Transfer Ability Contact Guard Assistance, Minimal Assistance Technique Transfer Destination Bed,Chair,Toilet Transfer Technique Stand Step Pivot Devices Transfer Assistive Devices Gait Belt,Front Wheeled Walker Comments Mobility Comments Pt ambualted from the bed into the bathroom for toielt transfer then to the sink for ADLs and returned to chair at end of session. OT- Balance Assessment Sitting Balance and Reactions Static Sitting Balance Ability Good Dynamic Sitting Balance Ability Good M8 OT- IP Objective Assessments Start: 09/22/23 10:58 Freq: Status: Active Protocol: Document 09/22/23 10:59 CGR (Rec: 09/22/23 11:13 R [id number]) OT Gross Range of Motion Upper Extremity Range of Motion Assessment Within Functional Limits OT Strength Upper Extremity Strength Assessment Left Impaired Comments Strength Comments RUE 5/5 LUE drift with testing, and grossly 4/5 OT- Coordination Assessment Upper Extremity Finger to Nose Test Left UE Impaired Finger Tapping Test Left UE Impaired OT-Muscle Tone Assessment Muscle Tone WNL Yes OT Sensation Assessment Edema Edema Absent M9 OT- IP Assessment and Plan Start: 09/22/23 10:58 Freq: Status: Active Protocol: Document 09/22/23 10:59 CGR (Rec: 09/22/23 11:13 CGR [id number]) OT Summary Assessment and Plan Potential Rehabilitation Potential Excellent Analytic Complexity at Evaluation High Summary OT Impairments Strength,Balance,Coordination, Functional Mobility,Self- Feeding,Grooming,Dressing, Toileting,Bathing,Toilet Transfers,Shower Transfers, Activity Tolerance Progress Towards Goals Progressing Toward Goals Assessment Summary Pt presents as a high complexity evaluation s/p admit for new onset CVA. Pt found to have R MCA subacute CVA. Pt is moving around the room with CGA but noted LOB with trying to turn head to the R during sink activities. Pt will benefit from Acute Rehab. Pt states that he thinks he could stay with his brother upon discharge from Acute Rehab if necessary. Recommend d/c to Acute Rehab. Goals Self-Feeding Goal Independent Grooming Goal Independent Dressing Goal Independent Toileting Goal Independent Bathing Goal Independent Toilet Transfer Goal Independent Shower Transfer Goal Independent Days to Meet Goals 20 Frequency of Treatment Frequency Of Treatment Once a Day Treatment Plan OT Treatment Plan ADL Training,Functional Mobility,Neuromuscular Re- education,Therapeutic Exercises,Patient/Family Education,Discharge Planning Other Treatment Recommendations and Next toileting, shower, LUE Treatment Focus strengthing and coordination. Discharge Recommendations OT Discharge Recommendations Acute Rehab Transportation Needs at Discharge Private Vehicle
[2023-09-22] MEDS: ALBUTEROL 2.5 MG/3 ML NEB (ADULT) INH ×2 (11:36→20:06)
--- NOTE | 2023-09-22 11:37 | CM.DPC ---
[facility] Acute Rehab Planning: Per MD, pt with subacute infarct and to work with therapies today towards possible Acute Inpt Rehab and likely another 1-2 days needed for admission. Per PT/OT, recommending Acute Inpt Rehab and pt could benefit from further ST as well. TRISTON called [facility] Acute Re[facility] admissions and left msg to determine their bed availability and requested review to determine if they can accept. TRISTON faxed referral to [facility] admission to review. TRISTON met bedside with pt and explained role and discussed recommendation of Acute Rehab and provided the [facility] Acute Rehab brochure and discussed the services. Pt remains agreeable if accepted and Medicare covers. Pt confirms that his brother would be able to stay with him and provide assist after Acute Rehab if needed as pt is renting the house he lives in from his brother who lives nearby. Pt agreeable with referral to [facility] Acute. Pt discussed likely need of increased assist in the future and discussed hiring [facility] vs Assisted Living and pt aware that both are expensive options. SW discussed pending pt's financial monthly gross who potentially could apply for Medicaid for [facility] vs LTC. Return call from Salty at [facility] Acute stating they have bed openings and willing to review and requested referral also be faxed to the RN station at [phone] and SW forwarded referral to that fax number as well. Plan: SW to follow for Acute Rehab review to confirm if they can accept pt and then continue coordination with discussing if brother can provide transport to Acute rehab at d/c. THEE Ferrell
[2023-09-22] MEDS: MAGNESIUM CHLORIDE 64 MG TABLET 128 MG PO (12:30)
--- NOTE | 2023-09-22 13:48 | DIET.CONS ---
Dietary Consultation Note Admission Date: 09/20/2023 21:08 Assessment: 73 y M admitted for acute CVA. Nutrition screened for low MNA. Met with pt at bedside. Reports he has noticed recent weight loss of around 8 lb, per EMR weight loss 16.5 lb in 1 m. Reports, was not trying to lose weight, just happened. Started meals on wheels ~2 m ago, comments meal portions are small. Does his own grocery shopping, but may have trouble remembering items to buy. 75-100% recorded po intakes while admitted, pt had finished lunch tray in front of him during this visit and reports good appetite. A1c: 7.7 on 09/20/23. BG 139-247 in last 24 h. F/u with outpatient [facility]. Diet recall: B-SF pudding, sometimes fruit cocktail cup L-skips, sometimes SF cookies and glass of 1% milk D-meals on wheels, sometimes doesn't enjoy food provided and skips Nutrition focused physical exam: Muscle mass loss: mild loss temporalis, interosseous. Areas assessed: temporalis, clavicle region, interosseous No significant subcutaneous fat loss. Areas assessed: buccal, orbital, triceps Ht: 190.5 cm Wt: 87.5 kg BMI: 24.0 UBW: 95.254 kg on 08/23/23 (-8% weight in 1 m, severe) Last BM: 09/21/23 (09/21/23 03:51) MNA: 8 Jamie Score: 19 Diet: 09/21/23 Breakfast Carbohydrate Consistent Diet Diet Modifications: bedside swallow first Carbohydrate level: Medium (3 CHO) Reflex DM orders: No Nutrition Percent Meal Consumed 75% 09/21/23 18:00 Percent Meal Consumed 100% 09/21/23 14:00 Percent Meal Consumed 100% 09/21/23 10:00 Labs: RBC 4.48 X10^6/uL (4.5-5.9) L 09/22/23 05:45 Hgb 13.0 g/dL (13.5-17.5) L 09/22/23 05:45 Hct 39.1 % (41-53) L 09/22/23 05:45 Creatinine 0.87 mg/dL (0.66-1.25) 09/22/23 05:45 Nutrition Diagnosis: Mild-moderate acute Protein Calorie Malnutrition r/t social/environmental factors as evidenced by 8% weight loss in 1 month, severe, mild loss temporalis, interosseous, <75% estimated energy intake for 1 m, difficulty coordinating meals for self Interventions: 1. Reviewed realistic protein+ carb breakfast ideas (i.e. toast + pb, glucerna ONS, fruit+nuts) and lunch ideas 2. Encouraged 3 meals/d. PT/OT rec Acute Inpt Rehab EER: [id number] (25-27 kcals/kg per CVA) 100-110 g protein (1.25 g/kg per CVA/PCM) Monitoring/Evaluations: po intakes Electronically Signed by: Mini Mcgowan 09/22/23 13:48 Clinical Dietitian [address] [address]
--- NOTE | 2023-09-22 15:29 | PT.IPTN ---
Addendum entered and electronically signed by Hali Macias PT 09/22/23 15:39: PT provides direct superv during SPT treatment Original Note: Current Diagnoses Type 2 diabetes mellitus with other diabetic kidney complication (09/20/23) Mixed hyperlipidemia (09/20/23) Essential (primary) hypertension (09/20/23) Atherosclerotic heart disease of [place] coronary artery without angina pectoris (09/20/23) Unspecified atrial fibrillation (09/20/23) Cerebral infarction, unspecified (09/20/23) Centrilobular emphysema (09/20/23) Proteinuria, unspecified (09/20/23) Physical Therapy Treatment Note M2 PT-IP Current Condition Start: 09/21/23 08:17 Freq: NEEDED Status: Active Protocol: Document 09/21/23 13:45 JG (Rec: 09/21/23 15:27 JG [id number]) Physical Therapy Current Condition Current Condition Evaluation Date 09/21/23 Treatment Diagnosis R MCA stroke M3 PT-IP Subjective Start: 09/21/23 08:17 Freq: NEEDED Status: Active Protocol: Document 09/22/23 14:20 JG (Rec: 09/22/23 15:05 JG [id number]) Subjective Physical Therapy Visit Type Type Treatment Note Visit Start Time 14:20 Visit Stop Time 14:46 Number of BELT LINE FEEDER Visits 0 Physical Therapy Visit Comments Patient Comments Pt stated that he is ready to return to bed and that legs are still sore Therapy Pain Assessment Pain When Pain Assessed At Rest Pain Present Pain Present Pain Reported Location Bilateral Leg Intensity 5 Scale Used Numeric (0 - 10) Description Aching,With Movement Pain Behaviors Facial Grimacing,Guarding Pain Management Techniques Distraction,Re-positioning, Timing of Activity with Medications M4 PT-IP Mobility and Gait Start: 09/21/23 08:17 Freq: NEEDED Status: Active Protocol: Document 09/22/23 14:20 JG (Rec: 09/22/23 15:05 J [id number]) PT-Bed Mobility Assessment Sit to Supine Sit to Supine Standby Assistance,Bedrails Scooting Scooting to Edge of Bed Standby Assistance Scooting Up and Down in Bed Standby Assistance PT-Transfer Assessment Sit to and From Stand Sit to and from Stand Contact Guard Assistance,1 Person Assistance,Use of Upper Extremities Equipment Transfer Assistive Device Bed Rail,Gait Belt,Front Wheeled Walker Orthotic/Prosthetic Devices or Brace: No Transfers Transfer Destination Bed Transfer Technique Ambulation Transfer Ability Level of Assist Contact Guard Assistance,1 Person Assistance,Use of Upper Extremities Comments Mobility Comments Pt demonstrates L foot drag during gait training and posterior lean. Pt is able to perform dynamic balance activities such as weight shifts right to left leg, head turns, and marches but struggles with balance when FWW is removed. CGA with use of RW for these tasks and up to mod A without AD and trouble lifting and placing left foot back down d/t weakness and decreased functional proprioception, decreased body awareness. STS from bed similarly require more assistance without RW and he performs 5 reps to walker holding walker with CGA and 5 reps without RW and cues not to reach for it with min A. Pt has challenges with weight shifting forward on forefeet B , less heel raise on left foot when tried with RW. Gait Assessment Gait Gait Assistance Required: Contact Guard Assist,1 Person Assist Distance (Feet) 25 Able to Maintain Weight Bearing Status Yes During Gait Assistive Devices Assistive Device Gait Belt,Front Wheeled Walker Orthotic/Prosthetic Devices or Brace: No Gait Deviations General Gait Pattern Decreased Stride Length, Decreased Feet Clearance, Flexed Trunk,Lateral Trunk Lean,Narrow Based Gait,Step-to Gait Factors Limiting Gait Function Factors Limiting Gait Function Decreased Activity Tolerance, Decreased Sensation,Decreased Strength,Difficulty Following Directions,Incoordination, Limited Range of Motion,Pain, Poor Balance Comments Gait Comments Pt used a step-to gait pattern during gait today with FWW. Pt had a increased foot drag on L with a posterior lean. Pt was unsteady throughout gait training with FWW and experienced a slight LOB during gait and required min A from therapy to correct pt. Pt ambulated 25 ft x 6 PT-Balance Assessment Sitting Balance and Reactions Static Sitting Balance Ability Good Dynamic Sitting Balance Ability Good Standing Balance and Reactions Static Standing Balance Ability Fair Dynamic Standing Balance Ability Fair Device Used FWW M5 PT-IP Objective Assessments Start: 09/21/23 08:17 Freq: NEEDED Status: Active Protocol: Document 09/21/23 13:45 (Rec: 09/21/23 15:27 [id number]) Orientation Orientation/Cognition Level of Alertness Alert Orientation Name,Age,Birthday,Month,Year, Day of Week,Place,Situation Language Function Ability Hard of Hearing Safety Awareness Decreased Safety Awareness Memory Description No Deficits Noted Comments Pt answered date incorrectly. (19 of September). Pt vocal tone is reduced and recommend NURSING SERVICE DIRECTOR consult post-stroke, OT to check cognition and visual field. Gross Range of Motion Upper Extremity ROM Impairments Defer to OT Lower Extremity ROM Assessment Within Functional Limits Impairments Pt presents with functional foot drop and synergistic pattern with HS and pt ER hip Strength Lower Extremity Strength Assessment Left Impaired Knee R 5/5 L 4-/5 Ankle R 4+/5 L 4-/5 Comments Strength Comments UE strength will be defered to OT, Great toe ext. R 4+/5, L 3+/5, functional foot drop with gait. C/o B quad area pain with MMT knees and this is not expected in stroke diagnosis and more c/o on the right. Small bulge distal right quad with knee ROM ? muscular/adiopose/etc Coordination Assessment Gross Coordination Gross Coordination Impaired Assessment Finger to Nose Test Moderate Impairment Coordination Comments Finger to nose test moderate L >R impariment. Pt was slow to perform test bilaterally even when cued to go as fast as possble Sensation Assessment Sensation Gross Sensation Right LE Impaired,Left LE Impaired Light Touch Impaired Proprioception (Position) Impaired Comments Sensation Comments Pt had loss of sensation B below ankle level. Pt also had trouble with discrimination between L/R LE and was unable to tell if PT was touching one side or both. Muscle Tone Muscle Tone WNL Yes M6 PT-IP Treatment Start: 09/21/23 08:17 Freq: NEEDED Status: Active Protocol: Document 09/22/23 14:20 JG (Rec: 09/22/23 15:05 J [id number]) Physical Therapy Treatment Exercises Exercises Ankle Pumps Education Education Provided Safety Other Treatments Other Treatment Performed LAQ M7 PT-IP Assessment and Plan Start: 09/21/23 08:17 Freq: NEEDED Status: Active Protocol: Document 09/22/23 14:20 JG (Rec: 09/22/23 15:05 [id number]) PT Summary Assessment and Plan Potential Rehabilitation Potential Good Status of Condition at Evaluation Evolving Summary Impairments Pain,ROM,Strength,Balance, Coordination,Sensation, Cognition,Bed Mobility, Transfers,Gait,Activity Tolerance Progress Towards Goals Progressing Toward Goals Assessment Summary Pt was sitting in chair upon arrival of PT. Pt demonstrated unsteadiness during gait and balance actvities during treatment. Pt was able to tolerate increased gait activity but had a loss of balance during final turn. Pt complained of pain in RLE and PT noted significant discoloration in LE B in WB. ? if pt has an underlying vascular issue? Ongoing recs for acute rehab at d/c in a pt who lives I at baseline and now has significant neurological impairment after stroke. Goals Bed Mobility Goal Independent Transfer Goal Independent,Front Wheeled Walker Gait Goal Independent,Front Wheel Walker Gait Distance 95 Other Goals Pt will be able to ascend and descend 7 stairs using L railing in order to mimic home set-up Pt will perform WNLs on a standardized balance test with use of LRAD to decrease fall risk (TUG or Tinetti). Days to Meet Goals 5 Frequency of Treatment Frequency Of Treatment Once a Day Treatment Plan Physical Therapy Treatment Plan Bed Mobility Training,Transfer Training,Gait Training, Therapeutic Exercise,Balance Retraining,Discharge Planning, Hot or Cold Pack,Neuromuscular Re-ed,Coordination Retraining ,Manual Therapy Other Recommendations and Next Treatment Focus on coordination of L Focus extremities, standing tolerance, gait training with AD, stair training, transfers, dynamic balance exercises Weight Bearing Status Weight Bearing Status Weight Bear as Tolerated Recommendations To Nursing Amount of Assist Needed 1 Person Assist Discharge Recommendations PT Discharge Recommendations Acute Rehab Transportation Needs at Discharge Private Vehicle
[2023-09-22] MEDS: BUDESONIDE 0.5 MG/2 ML NEB INH (20:07)
[2023-09-22] MEDS: INSULIN GLARGINE 100 UNIT/ML 3ML PEN 6 UNIT SUBCUT (20:40)
[2023-09-23] VITALS (11 sets, daily range): BP systolic 121–151; BP diastolic 66–98; PULSE 59–89; RESP 16–19; TEMP 36.4–36.8; O2SAT 96–99
[2023-09-23] MEDS: PANTOPRAZOLE DR 20 MG TABLET PO (05:43)
[2023-09-23 06:24] LABS: Magnesium 1.6 mg/dL (1.6-2.3)
--- NOTE | 2023-09-23 07:54 | PM.PN.1 ---
Subjective Subjective Date Patient Seen: 09/23/23 Time Patient Seen: 07:55 Interval history: Patient working with skilled therapies. Both OT and PT feel like he would benefit from acute inpatient rehab Blood sugar still elevated in the 200+ range Vital signs for the most part okay. Little bit of hypertension earlier this morning. Was up on his feet yesterday felt like he was little stronger. Walked a little bit with staff and with his brother. Still struggling a lot with the dexterity of his left hand. Exam Vital Signs (past 8 hours): - 09/23/23 00:00 09/23/23 04:46 09/23/23 05:44 Temperature 98.1 F 97.6 F Pulse Rate 86 85 Respiratory Rate 18 19 Blood Pressure 140/82 151/98 H 136/82 Pulse Oximetry 99 97 Oxygen Flow Rate 0 0 Fraction of Inspired Oxygen 21 SaO2/FiO2 Ratio 461 Oxygen Delivery Method Room Air Oxygen Flow Rate 0 Objective Labs 09/22/23 05:45 09/22/23 05:45 Labs: Laboratory Results - last 24 hr 09/23/23 06:10 Magnesium 1.6 PFSH Medical History H/O adenomatous polyp of colon Fungal infection of toenail Mixed hyperlipidemia Essential hypertension Elevated PSA CAD (coronary artery disease) (~2005) Knee pain Vision disorder COPD (chronic obstructive pulmonary disease) (~2008) Hearing loss (~1999) Colitis (~2004) Diabetes mellitus (~2005) Atrial fibrillation (~2005) Surgical History Anesthesia History of heart artery stent (~2005) Family History Father History of heart disease Mother Aneurysm Sister Cancer Social History household members: none Smoking Status: Current every day smoker alcohol intake: current Assessment & Plan Assessment & Plan narrative: 1. Acute CVA-continue work with skilled therapies. I agree after reviewing all of the available information he would benefit from placement in acute rehab, especially since he lives alone needs to be at maximum functional ability before returning home. I do think there is a lot of room for improvement, and that is sort of facility will help him achieve maximum improvement in the shortness amount of time I believe. 2. Diabetes-continue to monitor numbers. Blood sugar numbers are too high. I increased his insulin coverage yesterday. I am going to add back his oral meds today. 3. Hypertension-blood pressure well controlled no active issues in the setting of a subacute CVA 4. COPD-stable. 5. Atrial fibrillation-patient adequately rate controlled not an active issue. Continue with Eliquis 6. Coronary disease-not an active issue. Continue on usual medications 7. Disposition-hopefully we can get him placed in a local acute rehab sometime in the next 24-48 hours. Patient basically medically ready for discharge any time an appropriate bed in such a facility can be found Time-Based Coding :: [TOTAL MINUTES] spent with patient and on the chart (including review of chart, obtaining history, exam, reviewing outside data, placing orders, documenting exam and treatment plan, and counseling patient) on [DATE]. Quality VTE Deep Vein Thrombosis/Pulmonary Embolism Present on Admission: No PROFEE Charge codes Subsequent inpatient/observation care: [id number]
[2023-09-23] MEDS: lisinopriL 20 MG TABLET PO (08:37)
[2023-09-23] MEDS: METOPROLOL ER 50 MG TABLET 100 MG PO ×2 (08:38→21:57)
[2023-09-23] MEDS: METFORMIN HCL 500 MG TABLET 1000 MG PO ×2 (08:38→17:46)
[2023-09-23] MEDS: ASPIRIN EC 81 MG TABLET PO (08:38)
[2023-09-23] MEDS: APIXABAN 5 MG TABLET PO ×2 (08:38→21:56)
[2023-09-23] MEDS: BUDESONIDE 3 MG CAP PO (08:38)
[2023-09-23] MEDS: ATORVASTATIN 20 MG TABLET PO (08:38)
[2023-09-23] MEDS: INSULIN LISPRO 100 UNIT/ML 3ML VIAL SUBCUT ×3 (08:39→21:58)
--- NOTE | 2023-09-23 08:55 | PT.IPTN ---
Current Diagnoses Type 2 diabetes mellitus with other diabetic kidney complication (09/20/23) Mixed hyperlipidemia (09/20/23) Essential (primary) hypertension (09/20/23) Atherosclerotic heart disease of [place] coronary artery without angina pectoris (09/20/23) Unspecified atrial fibrillation (09/20/23) Cerebral infarction, unspecified (09/20/23) Centrilobular emphysema (09/20/23) Proteinuria, unspecified (09/20/23) Physical Therapy Treatment Note M2 PT-IP Current Condition Start: 09/21/23 08:17 Freq: NEEDED Status: Active Protocol: Document 09/21/23 13:45 JG (Rec: 09/21/23 15:27 JG [id number]) Physical Therapy Current Condition Current Condition Evaluation Date 09/21/23 Treatment Diagnosis R MCA stroke M3 PT-IP Subjective Start: 09/21/23 08:17 Freq: NEEDED Status: Active Protocol: Document 09/23/23 09:27 TS (Rec: 09/23/23 09:37 TS [id number]) Subjective Physical Therapy Visit Type Type Treatment Note Visit Start Time 08:55 Visit Stop Time 09:25 Number of EDUCATIONAL RECRUITER Visits 1 Physical Therapy Visit Comments Patient Comments Pt found sitting EOB, is agreeable to PT. M4 PT-IP Mobility and Gait Start: 09/21/23 08:17 Freq: NEEDED Status: Active Protocol: Document 09/23/23 09:27 TS (Rec: 09/23/23 09:37 TS [id number]) PT-Transfer Assessment Sit to and From Stand Sit to and from Stand Standby Assistance,Use of Upper Extremities Equipment Transfer Assistive Device Gait Belt,Front Wheeled Walker Orthotic/Prosthetic Devices or Brace: No Comments Mobility Comments STS with FWW SBA, pt has a slight posterior lean. He ambulated in the hallway ~150' with cues for HT's. Pt takes smaller steps and tends to drift with HT's. He performed tandem stance, NBOS and NBOS with EC with counter support. He requires finger tips on counter to keep balance. Pt was left in chair, all needs met. Gait Assessment Gait Gait Assistance Required: Contact Guard Assist,1 Person Assist Distance (Feet) 150 Able to Maintain Weight Bearing Status Yes During Gait Assistive Devices Assistive Device Gait Belt,Front Wheeled Walker Orthotic/Prosthetic Devices or Brace: No Gait Deviations General Gait Pattern Decreased Stride Length, Decreased Feet Clearance, Flexed Trunk,Lateral Trunk Lean,Narrow Based Gait,Step-to Gait Factors Limiting Gait Function Factors Limiting Gait Function Decreased Activity Tolerance, Decreased Sensation,Decreased Strength,Difficulty Following Directions,Incoordination, Limited Range of Motion,Pain, Poor Balance PT-Balance Assessment Sitting Balance and Reactions Static Sitting Balance Ability Good Dynamic Sitting Balance Ability Good Standing Balance and Reactions Static Standing Balance Ability Fair Dynamic Standing Balance Ability Fair Device Used FWW M5 PT-IP Objective Assessments Start: 09/21/23 08:17 Freq: NEEDED Status: Active Protocol: Document 09/21/23 13:45 JG (Rec: 09/21/23 15:27 JG [id number]) Orientation Orientation/Cognition Level of Alertness Alert Orientation Name,Age,Birthday,Month,Year, Day of Week,Place,Situation Language Function Ability Hard of Hearing Safety Awareness Decreased Safety Awareness Memory Description No Deficits Noted Comments Pt answered date incorrectly. (19 of September). Pt vocal tone is reduced and recommend AIR BAG BUILDER consult post-stroke, OT to check cognition and visual field. Gross Range of Motion Upper Extremity ROM Impairments Defer to OT Lower Extremity ROM Assessment Within Functional Limits Impairments Pt presents with functional foot drop and synergistic pattern with HS and pt ER hip Strength Lower Extremity Strength Assessment Left Impaired Knee R 5/5 L 4-/5 Ankle R 4+/5 L 4-/5 Comments Strength Comments UE strength will be defered to OT, Great toe ext. R 4+/5, L 3+/5, functional foot drop with gait. C/o B quad area pain with MMT knees and this is not expected in stroke diagnosis and more c/o on the right. Small bulge distal right quad with knee ROM ? muscular/adiopose/etc Coordination Assessment Gross Coordination Gross Coordination Impaired Assessment Finger to Nose Test Moderate Impairment Coordination Comments Finger to nose test moderate L >R impariment. Pt was slow to perform test bilaterally even when cued to go as fast as possble Sensation Assessment Sensation Gross Sensation Right LE Impaired,Left LE Impaired Light Touch Impaired Proprioception (Position) Impaired Comments Sensation Comments Pt had loss of sensation B below ankle level. Pt also had trouble with discrimination between L/R LE and was unable to tell if PT was touching one side or both. Muscle Tone Muscle Tone WNL Yes M6 PT-IP Treatment Start: 09/21/23 08:17 Freq: NEEDED Status: Active Protocol: Document 09/23/23 09:27 TS (Rec: 09/23/23 09:37 TS [id number]) Physical Therapy Treatment Education Education Provided Safety M7 PT-IP Assessment and Plan Start: 09/21/23 08:17 Freq: NEEDED Status: Active Protocol: Document 09/23/23 09:27 TS (Rec: 09/23/23 09:37 TS [id number]) PT Summary Assessment and Plan Potential Rehabilitation Potential Good Summary Impairments Pain,ROM,Strength,Balance, Coordination,Sensation, Cognition,Bed Mobility, Transfers,Gait,Activity Tolerance Progress Towards Goals Progressing Toward Goals Assessment Summary Jim is making some progress with his mobility. He progressed his gait to ~150' with use of FWW. He was challeneged with HT's during gait, pt tends to slow down and drift. He requires CGA with use of counter support during balance testing. PT continues to recommend acute rehab. Goals Bed Mobility Goal Independent Transfer Goal Independent,Front Wheeled Walker Gait Goal Independent,Front Wheel Walker Gait Distance 95 Other Goals Pt will be able to ascend and descend 7 stairs using L railing in order to mimic home set-up Pt will perform WNLs on a standardized balance test with use of LRAD to decrease fall risk (TUG or Tinetti). Days to Meet Goals 5 Frequency of Treatment Frequency Of Treatment Once a Day Treatment Plan Physical Therapy Treatment Plan Bed Mobility Training,Transfer Training,Gait Training, Therapeutic Exercise,Balance Retraining,Discharge Planning, Hot or Cold Pack,Neuromuscular Re-ed,Coordination Retraining ,Manual Therapy Other Recommendations and Next Treatment Focus on coordination of L Focus extremities, standing tolerance, gait training with AD, stair training, transfers, dynamic balance exercises Weight Bearing Status Weight Bearing Status Weight Bear as Tolerated Recommendations To Nursing Amount of Assist Needed 1 Person Assist Discharge Recommendations PT Discharge Recommendations Acute Rehab Transportation Needs at Discharge Private Vehicle
--- NOTE | 2023-09-23 12:54 | CM.DPC ---
DCP Cont. Reviewed EMR and team rounds for status updates. Left 2-messages with [facility] to clarify if they have reviewed pt yet for admission. Will monitor closely and call back again tomorrow.
--- NOTE | 2023-09-23 15:36 | OT.IP.TRT ---
Current Diagnoses Type 2 diabetes mellitus with other diabetic kidney complication (09/20/23) Mixed hyperlipidemia (09/20/23) Essential (primary) hypertension (09/20/23) Atherosclerotic heart disease of [place] coronary artery without angina pectoris (09/20/23) Unspecified atrial fibrillation (09/20/23) Cerebral infarction, unspecified (09/20/23) Centrilobular emphysema (09/20/23) Proteinuria, unspecified (09/20/23) Occupational Therapy Treatment Note M2 OT-IP Current Condition Start: 09/22/23 10:58 Freq: Status: Active Protocol: Document 09/22/23 10:59 CGR (Rec: 09/22/23 11:13 CGR [id number]) Occupational Therapy Current Condition Current Condition Evaluation Date 09/22/23 Treatment Diagnosis R MCA CVA Diagnosis Onset Date 09/20/23 M3 OT- IP Subjective and Pain Start: 09/22/23 10:58 Freq: Status: Active Protocol: Document 09/23/23 15:53 CCC (Rec: 09/23/23 16:07 CCC [id number]) OT- Subjective Occupational Therapy Visit Type Type Treatment Note Visit Start Time 14:40 Visit Stop Time 15:50 Occupational Therapy Visit Comments Patient Comments Pt agreed to do cognitive assessments. Patient/Caregiver Goals To get better and be able to take care of himself. OT Pain Assessment Pain When Pain Assessed At Rest Pain Present Pain Present Pain Reported M5 OT- IP IADL's Start: 09/22/23 10:58 Freq: Status: Active Protocol: Document 09/22/23 10:59 CGR (Rec: 09/22/23 11:13 CGR [id number]) OT-Instrumental Activities of Daily Living Deficits IADL Deficits Identified No Deficits Home Safety Awareness Awareness of Need for Assistance at Home Good Awareness Ability to Problem Solve Emergency Able to Problem Solve Situations Medication Management Medication Management Comments Pt has been doing himself Money Management Money Management Comments Pt has been doing himself Meal Preparation Meal Preparation Comments Pt has been doing himself Manager Clinical Pharmacy Manager Clinical Pharmacy Comments Pt has been doing himself Driving Driving Comments Pt has been doing himself M6 OT- IP Functional Cognition Start: 09/22/23 10:58 Freq: Status: Active Protocol: Document 09/23/23 15:53 CCC (Rec: 09/23/23 16:07 CCC [id number]) Cognitive Factors Limiting Selfcare Function Cognitive Ability Level of Alertness Alert Patient Orientation Name,Age,Birthday,Month,Date, Year,Day of Week,Place, Situation Attention Span Ability Capable of Focused Attention, Capable of Sustained Attention Ability to Follow Commands Able to Follow One Step Commands with Increased Time, Able to Follow One Step Commands with Repetition Memory Description Short Term Impaired,Working Impaired Cognitive Tests SLUMS Pt scored 17/30 on the SLUMS which implies dementia, however pt had a R MCA subacute CVA which is probably affecting his cognition in addition to recent UTI's per pt. Pt having difficulty to subtract 23 from 100, able to states 11 animals in one minute, able to recall 1/5 objects after time passed, not able to draw the hands of the clock correctly after time given, and able to answer 2/4 questions write after paragraph read. Cognitive Comments Cognitive Assessment Comments Pt scored 130 seconds on [place] Making Part B which is below 40th percentile for his age and implies significant deficits for speed of processing, task switching, mental flexibility, executive functioning, and visual attention. Pt is well aware not to drive at this time. Pt notes since having UTI has had more difficulty with his memory and at times forgetting to take his medications. Spoke of various options via set an alarm, to have an automatic pill dispenser. etc. M7 OT- IP Mobility and Balance Start: 09/22/23 10:58 Freq: Status: Active Protocol: Document 09/23/23 15:53 [facility] (Rec: 09/23/23 16:07 [facility] [id number]) OT-Transfer Assessment Sit to and From Stand Sit to and from Stand Standby Assistance Transfers Transfer Ability Standby Assistance,Contact Guard Assistance Technique Transfer Destination Chair Transfer Technique Stand Step Pivot Devices Transfer Assistive Devices Gait Belt,Front Wheeled Walker Comments Mobility Comments Pt tend to lean to the left on the FWW when up on his feet. Pt having to use the FWW for balance while walking. Pt needing CGA/BELL to help slow his descent when coming to sit . OT- Balance Assessment Sitting Balance and Reactions Static Sitting Balance Ability Good Dynamic Sitting Balance Ability Good Standing Balance and Reactions Static Standing Balance Ability Fair Dynamic Standing Balance Ability Fair M8 OT- IP Objective Assessments Start: 09/22/23 10:58 Freq: Status: Active Protocol: Document 09/22/23 10:59 CGR (Rec: 09/22/23 11:13 CGR [id number]) OT Gross Range of Motion Upper Extremity Range of Motion Assessment Within Functional Limits OT Strength Upper Extremity Strength Assessment Left Impaired Comments Strength Comments RUE 5/5 LUE drift with testing, and grossly 4/5 OT- Coordination Assessment Upper Extremity Finger to Nose Test Left UE Impaired Finger Tapping Test Left UE Impaired OT-Muscle Tone Assessment Muscle Tone WNL Yes OT Sensation Assessment Edema Edema Absent M9 OT- IP Assessment and Plan Start: 09/22/23 10:58 Freq: Status: Active Protocol: Document 09/23/23 15:53 [facility] (Rec: 09/23/23 16:07 [facility] [id number]) OT Summary Assessment and Plan Potential Rehabilitation Potential Excellent Analytic Complexity at Evaluation High Summary OT Impairments Strength,Balance,Coordination, Functional Mobility,Self- Feeding,Grooming,Dressing, Toileting,Bathing,Toilet Transfers,Shower Transfers, Activity Tolerance Progress Towards Goals Progressing Toward Goals Assessment Summary Pt initially not able to medicinal plant picker a pen with his left hand and able to go over gentle stretches and techniques so pt able to medicinal plant picker a pen and working on picking up smaller objects at this time. Noted left index finger a bit swollen and having more difficulty bring his finger into full flexion. Pt scored 17/30 on the SLUM which score may also be affected by his recent UTI's and R MCA CVA. Pt will greatly benefit form acute rehab for all STONEWORK TRACER,OT, and PT services at this time. Pt is very motivated to get better. Goals Self-Feeding Goal Independent Grooming Goal Independent Dressing Goal Independent Toileting Goal Independent Bathing Goal Independent Toilet Transfer Goal Independent Shower Transfer Goal Independent Days to Meet Goals 20 Frequency of Treatment Frequency Of Treatment Once a Day Treatment Plan OT Treatment Plan ADL Training,Functional Mobility,Neuromuscular Re- education,Therapeutic Exercises,Patient/Family Education,Discharge Planning Discharge Recommendations OT Discharge Recommendations Acute Rehab Transportation Needs at Discharge Private Vehicle
[2023-09-23] MEDS: INSULIN GLARGINE 100 UNIT/ML 3ML PEN 6 UNIT SUBCUT (21:58)
[2023-09-24 00:11] VITALS: BP 142/91; PULSE 72; RESP 19; TEMP 36.5; O2SAT 98
[2023-09-24 04:25] VITALS: BP 144/71; PULSE 63; RESP 19; TEMP 36.5; O2SAT 99
[2023-09-24] MEDS: PANTOPRAZOLE DR 20 MG TABLET PO (05:47)
--- NOTE | 2023-09-24 07:22 | PM.PN.1 ---
Subjective Subjective Date Patient Seen: 09/24/23 Time Patient Seen: 07:22 Interval history: Up working with skilled therapies yesterday. Plan is for discharge to acute rehab still waiting for approval from facility Blood sugar still 200+ for the most part Vital signs otherwise okay Exam Vital Signs (past 8 hours): - 09/24/23 00:11 09/24/23 04:25 Temperature 97.7 F 97.7 F Pulse Rate 72 63 Respiratory Rate 19 19 Blood Pressure 142/91 H 144/71 H Pulse Oximetry 98 99 Oxygen Flow Rate 0 0 Fraction of Inspired Oxygen 21 SaO2/FiO2 Ratio 461 Oxygen Delivery Method Room Air Oxygen Flow Rate 0 Objective Labs 09/22/23 05:45 09/22/23 05:45 [facility] Medical History H/O adenomatous polyp of colon Fungal infection of toenail Mixed hyperlipidemia Essential hypertension Elevated PSA CAD (coronary artery disease) (~2005) Knee pain Vision disorder COPD (chronic obstructive pulmonary disease) (~2008) Hearing loss (~1999) Colitis (~2004) Diabetes mellitus (~2005) Atrial fibrillation (~2005) Surgical History Anesthesia History of heart artery stent (~2005) Family History Father History of heart disease Mother Aneurysm Sister Cancer Social History household members: none Smoking Status: Current every day smoker alcohol intake: current Assessment & Plan Assessment & Plan narrative: 1. Acute CVA-continue work with skilled therapies. Discharge to acute rehab when bed available 2. Diabetes-continue to monitor numbers. Blood sugar numbers still too high. Adding back more of patient's routine long-acting insulin today. 3. Hypertension-blood pressure well controlled no active issues in the setting of a subacute CVA 4. COPD-stable. 5. Atrial fibrillation-patient adequately rate controlled not an active issue. Continue with Eliquis 6. Coronary disease-not an active issue. Continue on usual medications 7. Disposition-hopefully we can get him placed in a local acute rehab sometime in the next 24-48 hours. Patient basically medically ready for discharge any time an appropriate bed in such a facility can be found Time-Based Coding :: [TOTAL MINUTES] spent with patient and on the chart (including review of chart, obtaining history, exam, reviewing outside data, placing orders, documenting exam and treatment plan, and counseling patient) on [DATE]. Quality VTE Deep Vein Thrombosis/Pulmonary Embolism Present on Admission: No PROFEE Charge codes Subsequent inpatient/observation care: [id number]
[2023-09-24 08:00] VITALS: BP 126/86; PULSE 70; RESP 16; TEMP 36.7; O2SAT 96
[2023-09-24] MEDS: APIXABAN 5 MG TABLET PO (08:32)
[2023-09-24 08:33] VITALS: BP 126/86; PULSE 70
[2023-09-24] MEDS: ASPIRIN EC 81 MG TABLET PO (08:33)
[2023-09-24] MEDS: METFORMIN HCL 500 MG TABLET 1000 MG PO (08:33)
[2023-09-24] MEDS: INSULIN LISPRO 100 UNIT/ML 3ML VIAL SUBCUT (08:33)
[2023-09-24] MEDS: ATORVASTATIN 20 MG TABLET PO (08:33)
[2023-09-24] MEDS: lisinopriL 20 MG TABLET PO (08:33)
[2023-09-24] MEDS: METOPROLOL ER 50 MG TABLET 100 MG PO (08:33)
[2023-09-24] MEDS: INSULIN GLARGINE 100 UNIT/ML 3ML PEN 10 UNIT SUBCUT (08:35)
--- NOTE | 2023-09-24 08:57 | PT.IPTN ---
Current Diagnoses Type 2 diabetes mellitus with other diabetic kidney complication (09/20/23) Mixed hyperlipidemia (09/20/23) Essential (primary) hypertension (09/20/23) Atherosclerotic heart disease of [place] coronary artery without angina pectoris (09/20/23) Unspecified atrial fibrillation (09/20/23) Cerebral infarction, unspecified (09/20/23) Centrilobular emphysema (09/20/23) Proteinuria, unspecified (09/20/23) Physical Therapy Treatment Note M2 PT-IP Current Condition Start: 09/21/23 08:17 Freq: NEEDED Status: Active Protocol: Document 09/21/23 13:45 JG (Rec: 09/21/23 15:27 JG [id number]) Physical Therapy Current Condition Current Condition Evaluation Date 09/21/23 Treatment Diagnosis R MCA stroke M3 PT-IP Subjective Start: 09/21/23 08:17 Freq: NEEDED Status: Active Protocol: Document 09/24/23 10:02 TS (Rec: 09/24/23 10:11 TS [id number]) Subjective Physical Therapy Visit Type Type Treatment Note Visit Start Time 08:57 Visit Stop Time 09:20 Number of INSULATION AND FLOORING ASSEMBLER Visits 2 Physical Therapy Visit Comments Patient Comments Pt found resting in bed, reports he is going to acute rehab at 11:00 today. He is agreeable to PT. M4 PT-IP Mobility and Gait Start: 09/21/23 08:17 Freq: NEEDED Status: Active Protocol: Document 09/24/23 10:02 TS (Rec: 09/24/23 10:11 TS [id number]) PT-Bed Mobility Assessment Supine to Sit Supine to Sit Standby Assistance,Head of Bed Elevated Sit to Supine Sit to Supine Standby Assistance,Bedrails Scooting Scooting to Edge of Bed Standby Assistance Scooting Up and Down in Bed Standby Assistance PT-Transfer Assessment Sit to and From Stand Sit to and from Stand Standby Assistance,Use of Upper Extremities Equipment Transfer Assistive Device Gait Belt,Front Wheeled Walker Orthotic/Prosthetic Devices or Brace: No Comments Mobility Comments Supine to sit SBA with HOB elevated and BUE support. STS from bed SBA with use of FWW, pt has loose demonstrator sewing techniques with L hand on FWW. He ambulated ~150'CGA with FWW, is unsteady at times and has decreased L foot clearance. He performed steps x3 CGA with B handrails to simulate getting into his brothers truck. Pt ambulated back to room. Performed tandem stance, NBOS, NBOS EC and 360 turns. Pt is challenged by balance acts. Pt was left back in bed, all needs met. Gait Assessment Gait Gait Assistance Required: Contact Guard Assist,1 Person Assist Distance (Feet) 150 Able to Maintain Weight Bearing Status Yes During Gait Assistive Devices Assistive Device Gait Belt,Front Wheeled Walker Orthotic/Prosthetic Devices or Brace: No Gait Deviations General Gait Pattern Decreased Stride Length, Decreased Feet Clearance, Flexed Trunk,Lateral Trunk Lean,Narrow Based Gait,Step-to Gait Factors Limiting Gait Function Factors Limiting Gait Function Decreased Activity Tolerance, Decreased Sensation,Decreased Strength,Difficulty Following Directions,Incoordination, Limited Range of Motion,Pain, Poor Balance PT-Balance Assessment Sitting Balance and Reactions Static Sitting Balance Ability Good Dynamic Sitting Balance Ability Good Standing Balance and Reactions Static Standing Balance Ability Fair Dynamic Standing Balance Ability Fair Device Used FWW M5 PT-IP Objective Assessments Start: 09/21/23 08:17 Freq: NEEDED Status: Active Protocol: Document 09/21/23 13:45 (Rec: 09/21/23 15:27 [id number]) Orientation Orientation/Cognition Level of Alertness Alert Orientation Name,Age,Birthday,Month,Year, Day of Week,Place,Situation Language Function Ability Hard of Hearing Safety Awareness Decreased Safety Awareness Memory Description No Deficits Noted Comments Pt answered date incorrectly. (19 of September). Pt vocal tone is reduced and recommend WHARF LABORER consult post-stroke, OT to check cognition and visual field. Gross Range of Motion Upper Extremity ROM Impairments Defer to OT Lower Extremity ROM Assessment Within Functional Limits Impairments Pt presents with functional foot drop and synergistic pattern with HS and pt ER hip Strength Lower Extremity Strength Assessment Left Impaired Knee R 5/5 L 4-/5 Ankle R 4+/5 L 4-/5 Comments Strength Comments UE strength will be defered to OT, Great toe ext. R 4+/5, L 3+/5, functional foot drop with gait. C/o B quad area pain with MMT knees and this is not expected in stroke diagnosis and more c/o on the right. Small bulge distal right quad with knee ROM ? muscular/adiopose/etc Coordination Assessment Gross Coordination Gross Coordination Impaired Assessment Finger to Nose Test Moderate Impairment Coordination Comments Finger to nose test moderate L >R impariment. Pt was slow to perform test bilaterally even when cued to go as fast as possble Sensation Assessment Sensation Gross Sensation Right LE Impaired,Left LE Impaired Light Touch Impaired Proprioception (Position) Impaired Comments Sensation Comments Pt had loss of sensation B below ankle level. Pt also had trouble with discrimination between L/R LE and was unable to tell if PT was touching one side or both. Muscle Tone Muscle Tone WNL Yes M6 PT-IP Treatment Start: 09/21/23 08:17 Freq: NEEDED Status: Active Protocol: Document 09/24/23 10:02 TS (Rec: 09/24/23 10:11 TS [id number]) Physical Therapy Treatment Education Education Provided Safety M7 PT-IP Assessment and Plan Start: 09/21/23 08:17 Freq: NEEDED Status: Active Protocol: Document 09/24/23 10:02 TS (Rec: 09/24/23 10:11 TS [id number]) PT Summary Assessment and Plan Potential Rehabilitation Potential Good Summary Impairments Pain,ROM,Strength,Balance, Coordination,Sensation, Cognition,Bed Mobility, Transfers,Gait,Activity Tolerance Progress Towards Goals Progressing Toward Goals Assessment Summary Jim continues to make some progress with his mobility. He is SBA for all bed mobility and STS with FWW. He continues to ambulate with some unsteadiness and decreased clearance of L foot. He progressed to stairs x3, attempted to simulate getting into [employer] truck. Neuro ex continues to be challenging for pt. He requires counter support for all neuro acts. Goals Bed Mobility Goal Independent Transfer Goal Independent,Front Wheeled Walker Gait Goal Independent,Front Wheel Walker Gait Distance 95 Other Goals Pt will be able to ascend and descend 7 stairs using L railing in order to mimic home set-up Pt will perform WNLs on a standardized balance test with use of LRAD to decrease fall risk (TUG or Tinetti). Days to Meet Goals 5 Frequency of Treatment Frequency Of Treatment Once a Day Treatment Plan Physical Therapy Treatment Plan Bed Mobility Training,Transfer Training,Gait Training, Therapeutic Exercise,Balance Retraining,Discharge Planning, Hot or Cold Pack,Neuromuscular Re-ed,Coordination Retraining ,Manual Therapy Other Recommendations and Next Treatment Focus on coordination of L Focus extremities, standing tolerance, gait training with AD, stair training, transfers, dynamic balance exercises Weight Bearing Status Weight Bearing Status Weight Bear as Tolerated Recommendations To Nursing Amount of Assist Needed 1 Person Assist Discharge Recommendations PT Discharge Recommendations Acute Rehab Transportation Needs at Discharge Private Vehicle
--- NOTE | 2023-09-24 09:19 | P.DS_ITS ---
History of Present Illness History of Present Illness Date Patient Seen: 09/24/23 Time Patient Seen: 09:19 Chief complaint: Stroke Alert Narrative: Patient is a 73 yo M with PMH a fib (on Eliquis), HTN, HLD, T2DM who presented via EMS for concerns of stroke. Patient noted facial droop and L UE weakness day prior to arrival in ER at 08:00. He thought symptoms may improve so waited but when they did not he called 911. EMS noted left facial droop, left upper extremity clumsiness, and drift in his left lower extremity. Point of care glucose 170 en route. ER evaluation revealed: Overall reassuring labs including CBC, CMP, coags, TSH. Mag low at 1.1. a1c 7.7 CT head, CTA head and neck without acute findings. EKG - a fib CXR without acute findings NIHSS 4 in ER MRI this AM showed - scattered patchy areas subacute infarction seen involving the right MCA distribution. This morning reporting persistent L sided weakness. Unsure if any better. No speech concerns or confusion. No pain. No NV. Eating well except trouble with utensils. No dysphagia. Reports he likely missed a dose or two of Eliquis - often forgets [facility] {from Dr. Powers's H&P 09/21/23} Discharge Providers Provider Date of admission: 09/20/23 21:08 Discharge Date: 09/24/23 Primary care physician: Homer Falk MD Consults: 09/20/23 21:24 Consult to Discharge Planning Routine Comment: Consult to Occupational Therapy Evaluate & Treat Comment: Physician Instructions: Evaluate and treat Consult to Physical Therapy Evaluate & Treat Comment: Physician Instructions: Evaluate and Treat 09/20/23 21:26 Consult to Speech Therapy Evaluate & Treat Comment: Physician Instructions: Evaluate and treat Discharge provider: Homer Falk MD Summary Hospital Course Discharge Diagnosis: 1. 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 Chronic atrial fibrillation 3. Diabetes type 2 on insulin 4. COPD 5. Hypertension 6. Chronic anticoagulation due to atrial fibrillation 7. Coronary artery disease Hospital Course: Patient was admitted as above. Imaging demonstrated evidence of infarct in right MCA distribution which is consistent with the patient's clinical symptoms. This is felt to be due to his atrial fibrillation and/or less than perfect compliance with his oral anticoagulation. He was seen by skilled therapies his primary problem seem to be left upper extremity issues and coordination. He was felt that he would benefit from acute inpatient rehabilitation Vital signs including blood pressure well controlled Blood sugar not well controlled initially, his oral medications were initially held per protocol but these were restarted. Insulin dosing was also reduced initially but this was increased prior to discharge. Status at Discharge Cognitive/behavioral status at discharge: at baseline, oriented Functional status at discharge: uses cane/walker Overall status at discharge: patient is not back to baseline Time Spent with Patient Time spent: Less than 30 minutes Exam Vital Signs (past 8 hours): - 09/24/23 04:25 09/24/23 08:33 09/24/23 08:33 Temperature 97.7 F Pulse Rate 63 70 70 Respiratory Rate 19 Blood Pressure 144/71 H 126/86 126/86 Pulse Oximetry 99 Oxygen Flow Rate 0 Fraction of Inspired Oxygen 21 SaO2/FiO2 Ratio 461 Oxygen Delivery Method Room Air Oxygen Flow Rate 0 Objective Labs 09/22/23 05:45 09/22/23 05:45 [facility] Medical History H/O adenomatous polyp of colon Fungal infection of toenail Mixed hyperlipidemia Essential hypertension Elevated PSA CAD (coronary artery disease) (~2005) Knee pain Vision disorder COPD (chronic obstructive pulmonary disease) (~2008) Hearing loss (~1999) Colitis (~2004) Diabetes mellitus (~2005) Atrial fibrillation (~2005) Surgical History Anesthesia History of heart artery stent (~2005) Family History Father History of heart disease Mother Aneurysm Sister Cancer Social History household members: none Smoking Status: Current every day smoker alcohol intake: current Discharge Plan Discharge Plan Patient Disposition: Xfer Inpatient Rehab Consult as needed: Dental, Hearing, Mental health, Podiatry and Vision Discharge orders & Medications Discharge Orders: Discharge (Order); Ordered 09/24/23 Ordered By: Homer Falk Prescriptions: New fluticasone furoate-vilanterol [Breo Ellipta] 200-25 mcg/dose blister with device 1 inh inhalation DAILY Qty: 60 3RF Continued albuterol sulfate 90 mcg/actuation HFA aerosol inhaler 2 puff inhalation Q6H PRN (Reason: shortness of breath or wheezing) Qty: 54 0RF Patient Comments: takes PRN metoprolol succinate 100 mg tablet extended release 24 hr 100 mg PO BID Qty: 180 3RF atorvastatin 20 mg tablet 20 mg PO DAILY Qty: 90 3RF omeprazole 20 mg capsule,delayed release(DR/EC) 20 mg PO DAILY Qty: 90 3RF Eliquis 5 mg tablet 5 mg PO BID Qty: 180 3RF metformin 1,000 mg tablet 1,000 mg PO BID Qty: 180 3RF lisinopril 20 mg tablet 20 mg PO DAILY Qty: 90 3RF (DME) lancets 30 gauge misc See Rx Instructions .Route Qty: 100 3RF Rx Instructions: Use to check BS once daily. (DME) Disabled Parking See Rx Instructions .ROUTE .MEDSUPPLY Qty: 1 0RF Rx Instructions: Patient qualifies for disabled parking as per the attached form. glipizide 10 mg tablet extended release 24hr 10 mg PO BID insulin glargine [Lantus Solostar U-100 Insulin] 100 unit/mL (3 mL) insulin pen 15 unit SUBCUT BID Patient Comments: pt states Dr. Falk provided blood sugar perimeters for when to hold or admin med. Pt states I cut back on the dose (DME) True Metrix Glucose Test Strip Strip MISCELLANEOUS DAILY (DME) pen needle, diabetic [BD Ultra-Fine Mini Pen Needle] 31 gauge x 3/16 needle MISCELLANEOUS BID (DME) Dexcom Dress Cutter Misc MISCELLANEOUS pioglitazone [Actos] 30 mg Tablet 30 mg PO DAILY Qty: 90 3RF budesonide 3 mg capsule,delayed,extend.release 3 mg PO DAILY Qty: 90 3RF Follow up/Referrals: Homer Falk MD [Primary Care Provider] - Discharge Health Status Multidrug resistant organism: No MDRO Precautions: [place] Diet/Activity/Treatments Diet: Diet as Tolerated and Carb-consistent/Diabetic Liquid consistency: Normal/Thin Food texture: Regular Special Rehabilitation Services Reason for rehabilitation: Therapy following stroke Rehab type: Physical therapy, Occupational therapy and Speech therapy Discharge Data Primary Care Provider: Homer Falk Quality VTE Deep Vein Thrombosis/Pulmonary Embolism Present on Admission: No IH PROFEE Charge Codes Discharge inpatient/observation: [id number]
--- NOTE | 2023-09-24 09:35 | OT.IP.TRT ---
Current Diagnoses Type 2 diabetes mellitus with other diabetic kidney complication (09/20/23) Mixed hyperlipidemia (09/20/23) Essential (primary) hypertension (09/20/23) Atherosclerotic heart disease of [place] coronary artery without angina pectoris (09/20/23) Unspecified atrial fibrillation (09/20/23) Cerebral infarction, unspecified (09/20/23) Centrilobular emphysema (09/20/23) Proteinuria, unspecified (09/20/23) Occupational Therapy Treatment Note M2 OT-IP Current Condition Start: 09/22/23 10:58 Freq: Status: Active Protocol: Document 09/22/23 10:59 CGR (Rec: 09/22/23 11:13 CGR [id number]) Occupational Therapy Current Condition Current Condition Evaluation Date 09/22/23 Treatment Diagnosis R MCA CVA Diagnosis Onset Date 09/20/23 M3 OT- IP Subjective and Pain Start: 09/22/23 10:58 Freq: Status: Active Protocol: Document 09/24/23 10:46 [facility] (Rec: 09/24/23 10:49 [facility] [id number]) OT- Subjective Occupational Therapy Visit Type Type Treatment Note Visit Start Time 09:20 Visit Stop Time 09:35 Occupational Therapy Visit Comments Patient Comments Pt agreed to work on left hand exercises of theraputty. Patient/Caregiver Goals TO get better. OT Pain Assessment Pain When Pain Assessed At Rest Pain Present Pain Present Denied Pain Freq: Status: Active Protocol: Document 09/22/23 10:59 CGR (Rec: 09/22/23 11:13 [facility] [id number]) OT-Instrumental Activities of Daily Living Deficits IADL Deficits Identified No Deficits Home Safety Awareness Awareness of Need for Assistance at Home Good Awareness Ability to Problem Solve Emergency Able to Problem Solve Situations Medication Management Medication Management Comments Pt has been doing himself Money Management Money Management Comments Pt has been doing himself Meal Preparation Meal Preparation Comments Pt has been doing himself Computer Processing Scheduler Computer Processing Scheduler Comments Pt has been doing himself Driving Driving Comments Pt has been doing himself M6 OT- IP Functional Cognition Start: 09/22/23 10:58 Freq: Status: Active Protocol: Document 09/23/23 15:53 CCC (Rec: 09/23/23 16:07 [facility] [id number]) Cognitive Factors Limiting Selfcare Function Cognitive Ability Level of Alertness Alert Patient Orientation Name,Age,Birthday,Month,Date, Year,Day of Week,Place, Situation Attention Span Ability Capable of Focused Attention, Capable of Sustained Attention Ability to Follow Commands Able to Follow One Step Commands with Increased Time, Able to Follow One Step Commands with Repetition Memory Description Short Term Impaired,Working Impaired Cognitive Tests SLUMS Pt scored 17/30 on the SLUMS which implies dementia, however pt had a R MCA subacute CVA which is probably affecting his cognition in addition to recent UTI's per pt. Pt having difficulty to subtract 23 from 100, able to states 11 animals in one minute, able to recall 1/5 objects after time passed, not able to draw the hands of the clock correctly after time given, and able to answer 2/4 questions write after paragraph read. Cognitive Comments Cognitive Assessment Comments Pt scored 130 on [place] Making Part B which is below 40th percentile for his age and implies significant deficits for speed of processing, task switching, mental flexibility, executive functioning, and visual attention. Pt is well aware not to drive at this time. Pt notes since having UTI has had more difficulty with his memory and at times forgetting to take his medications. Spoke of various option via set an alarm, to have an automatic pill dispenser. etc. OT- Balance Assessment Sitting Balance and Reactions Static Sitting Balance Ability Good Dynamic Sitting Balance Ability Good Standing Balance and Reactions Static Standing Balance Ability Fair Dynamic Standing Balance Ability Fair M8 OT- IP Objective Assessments Start: 09/22/23 10:58 Freq: Status: Active Protocol: Document 09/24/23 10:46 [facility] (Rec: 09/24/23 10:49 [facility] [id number]) OT Strength Comments Strength Comments Pt still not able to get 2nd digit MCP to fully flex. Went over exercises/activities on theraputty with pt to focus on extension versus flexion. M9 OT- IP Assessment and Plan Start: 09/22/23 10:58 Freq: Status: Active Protocol: Document 09/24/23 10:46 [facility] (Rec: 09/24/23 10:49 [facility] [id number]) OT Summary Assessment and Plan Potential Rehabilitation Potential Excellent Analytic Complexity at Evaluation High Summary OT Impairments Strength,Balance,Coordination, Functional Mobility,Self- Feeding,Grooming,Dressing, Toileting,Bathing,Toilet Transfers,Shower Transfers, Activity Tolerance Progress Towards Goals Progressing Toward Goals Assessment Summary Pt being discharged to [facility] for acute rehab. Goals Self-Feeding Goal Independent Grooming Goal Independent Dressing Goal Independent Toileting Goal Independent Bathing Goal Independent Toilet Transfer Goal Independent Shower Transfer Goal Independent Days to Meet Goals 19 Frequency of Treatment Frequency Of Treatment Once a Day Treatment Plan OT Treatment Plan ADL Training,Functional Mobility,Neuromuscular Re- education,Therapeutic Exercises,Patient/Family Education,Discharge Planning Discharge Recommendations OT Discharge Recommendations Acute Rehab Transportation Needs at Discharge Private Vehicle
--- NOTE | 2023-09-24 10:06 | CM.DPC ---
DCP Cont. Reviewed EMR and team rounds for status updates. Pt has been cleared to d/c to acute rehab at [facility]. His brother will be transporting him at 11:00. No further DCP needs identified at this time.
--- NOTE | 2023-09-24 11:46 | PC.NURSE ---
[facility], escorted off floor in wheelchair accompanied by hospital staff. IV removed, tele d/c'd, discharge packet sent with patient. Report called to Che at 1120 ([phone]). Patient left the room with all belongings.
== END 2023-09-24 11:49 | DRG 65 ==
LOC: ED 20:35 → AC 21:27
PROVIDERS: Admitting Provider Family Medicine; Emergency Provider Emergency Medicine; PCP Internal Medicine; Referring Provider Emergency Medicine; Visit Provider Internal Medicine
DX: I63.411 Cerebral infarction due to embolism of right middle cerebral artery (principal); G81.94 Hemiplegia, unspecified affecting left nondominant side; I48.20 Chronic atrial fibrillation, unspecified; R29.810 Facial weakness; R29.704 NIHSS score 4; I10 Essential (primary) hypertension; E78.2 Mixed hyperlipidemia; E11.29 Type 2 diabetes mellitus with other diabetic kidney complication; R80.9 Proteinuria, unspecified; J43.2 Centrilobular emphysema; I25.10 Atherosclerotic heart disease of native coronary artery without angina pectoris; K21.9 Gastro-esophageal reflux disease without esophagitis; F17.210 Nicotine dependence, cigarettes, uncomplicated; R29.705 NIHSS score 5; Z66 Do not resuscitate; Z79.01 Long term (current) use of anticoagulants; Z79.4 Long term (current) use of insulin; Z79.84 Long term (current) use of oral hypoglycemic drugs
CPT/HCPCS: 36415; 70450; 70496; 70498; 70551; 71045; 80048; 80053; 80061; 80320; 81001; 82550; 82962; 83036; 83735; 84443; 84484; 85025; 85610; 86850; 86900; 86901; 92610; 93005; 93306; 94640; 97110; 97112; 97116; 97129; 97130; 97162; 97167; 97530; 97535; 99284; A9270; J1815; J2060; J7613; Q9967

== ENCOUNTER 2023-10-03 21:56 | Emergency (ER) | payer MEDICARE, SELFPAY ==
[2023-10-03 22:00] VITALS: BP 121/66; PULSE 70; RESP 16; TEMP 36.3; O2SAT 99; BMI 25.0
[2023-10-03 22:39] LABS: Appearance Urine UA Slightly Cloudy
[2023-10-03 22:40] LABS: Color Urine UA ORANGE; RBC Urine 0-1/HPF (0-5/HPF); Urine Volume 10mL (spun)
[2023-10-03 22:41] LABS: Bacteria Urine Few (2-10); Culture Indicated Urine Specimen Cultured; Squamous Epithelial Cell Urine 0-1 /HPF (0-5/HPF); WBC Urine 10-30/HPF (0-5/HPF)
[2023-10-03 22:47] VITALS: PULSE 89; O2SAT 98
[2023-10-03 22:48] VITALS: BP 120/66; PULSE 88; O2SAT 98
--- NOTE | 2023-10-03 23:08 | ED.GENADULT ---
HPI - General Adult General Chief complaint: Urogenital-Male Stated complaint: urinating blood Time Seen by Provider: 10/03/23 22:09 Source: patient Mode of arrival: Wheelchair History of Present Illness HPI narrative: Patient is a 73-year-old male who is only was discharged from rehab facility after being admitted to the hospital for an acute CVA. He was here because he states that he started dysuria and what he thinks was blood in his urine earlier today. He did take an sena-pep-cglrudt azo tablet and when he urinated here in the ER he stated that the discomfort is much better than what it was. He was having some lower back pain. No fevers. No vomiting. He stated that he recently has been treated 2 times for urinary tract infections. He states that both times all of his symptoms have resolved and have now returned. Related Data Home Medications Medication Instructions Recorded Confirmed blood sugar diagnostic (True 09/20/23 09/20/23 Metrix Glucose Test Strip) blood-glucose meter,continuous 09/20/23 09/20/23 glipizide 10 mg tablet, extended 10 mg PO BID 09/20/23 09/20/23 release 24 hr insulin glargine 100 unit/mL (3 15 unit SUBCUT BID 09/20/23 09/20/23 mL) subcutaneous pen (Lantus Solostar U-100 Insulin) pen needle, diabetic 31 gauge x 09/20/23 09/20/23 3/16 (BD Ultra-Fine Mini Pen Needle) Previous Rx's Medication Instructions Recorded albuterol sulfate 90 mcg/actuation 2 puff inhalation Q6H PRN 09/07/21 aerosol inhaler shortness of breath or wheezing #54 grams metoprolol succinate 100 mg 100 mg PO BID #180 tabs 11/04/22 tablet,extended release 24 hr atorvastatin 20 mg tablet 20 mg PO DAILY #90 tabs 12/30/22 omeprazole 20 mg capsule,delayed 20 mg PO DAILY #90 caps 01/07/23 release apixaban 5 mg tablet (Eliquis) 5 mg PO BID #180 tabs 01/29/23 metformin 1,000 mg tablet 1,000 mg PO BID #180 tabs 02/28/23 lisinopril 20 mg tablet 20 mg PO DAILY #90 tabs 06/03/23 lancets 30 gauge #100 ea 07/23/23 Disabled Parking #1 ea 08/01/23 budesonide 3 mg 3 mg PO DAILY Colitis #90 ea 09/24/23 capsule,delayed,extended release pioglitazone 30 mg tablet (Actos) 30 mg PO DAILY Diabetes #90 tabs 09/24/23 nitrofurantoin 100 mg PO Q12H 5 days #10 caps 10/03/23 monohydrate/macrocrystals 100 mg capsule (Macrobid) Allergies Allergy/AdvReac Type Severity Reaction Status Date / Time naproxen Allergy Severe Anaphylaxis Verified 09/08/23 10:30 linagliptin AdvReac Severe myalgias Verified 09/08/23 10:30 Review of Systems Review of Systems Narrative: See HPI Patient History Medical History H/O adenomatous polyp of colon Fungal infection of toenail Mixed hyperlipidemia Essential hypertension Elevated PSA CAD (coronary artery disease) (~2005) Knee pain Vision disorder COPD (chronic obstructive pulmonary disease) (~2008) Hearing loss (~1999) Colitis (~2004) Diabetes mellitus (~2005) Atrial fibrillation (~2005) Surgical History Anesthesia History of heart artery stent (~2005) Family History Father History of heart disease Mother Aneurysm Sister Cancer Social History household members: none Smoking Status: Current every day smoker alcohol intake: current Smoking Status: Current every day smoker tobacco type: cigarettes alcohol intake frequency: a few times a month Alcohol type: beer Substance Use Type: does not use Exam Initial Vital Signs Initial Vital Signs: Vital Signs Temperature 97.4 F L 10/03/23 22:00 Pulse Rate 70 10/03/23 22:00 Respiratory Rate 16 10/03/23 22:00 Blood Pressure 121/66 10/03/23 22:00 Pulse Oximetry 99 10/03/23 22:00 Oxygen Delivery Method Room Air 10/03/23 22:00 GI Inspection: normal to inspection and non-distended Palpation: soft, No firm, No guarding and No tender Back/Spine/Pelvis Back: No CVA tenderness Skin General: no rashes or lesions noted Neuro General: patient alert, patient awake and moves all extremities Course Orders Ordered: ED Orders 10/03/23 22:10 Urinalysis and Microscopic Stat Urine Culture Stat Discontinued Medications Nitrofurantoin Macrocrystals (Nitrofurantoin Er 100 Mg Capsule) 100 mg PO NOW ONE Stop: 10/03/23 23:15 Last Admin: 10/03/23 23:24 Dose: 100 mg Documented By: CRISTY Vital Signs Vital signs: Vital Signs - 8 hr 10/03/23 22:00 10/03/23 22:47 10/03/23 22:48 Temperature 97.4 F L Pulse Rate 70 89 Respiratory Rate 16 Blood Pressure 121/66 120/66 Pulse Oximetry 99 98 Oxygen Delivery Method Room Air 10/03/23 22:48 10/03/23 23:34 Temperature Pulse Rate 88 82 Respiratory Rate 16 Blood Pressure 110/59 L Pulse Oximetry 98 100 Oxygen Delivery Method Room Air Room Air Medical Decision Making Medical Records Medical records reviewed: Yes I reviewed the patient's medical records. Lab Data Lab results reviewed: Yes I reviewed the patient's lab results. Labs: Lab Results 10/03/23 Range/Units 22:10 Urine Color [place] Urine Appearance Slightly cloudy Urine pH TNP Ur Specific [place] TNP Urine Protein TNP Urine Glucose (UA) TNP Urine Ketones TNP Urine Occult Blood TNP Urine Nitrate TNP Urine Bilirubin TNP Urine Urobilinogen TNP Ur Leukocyte Esterase TNP Urine RBC 0-1/hpf (0-5/HPF) Urine WBC 10-30/hpf H (0-5/HPF) Ur Squamous Epith Cells 0-1 /hpf (0-5/HPF) Urine Bacteria Few (2-10) H (None) Ur Culture Indicated? Specimen cultured Vol Urine Centrifuged 10ml (spun) MDM Narrative Medical decision making narrative: Based on his urinalysis which was somewhat limited because of the use of the azo in his presenting symptoms today do suspect urinary tract infection. Low suspicion for pyelonephritis. He tolerated a dose of antibiotics here in the ER. A urine culture was pending at the time of his discharge and he was instructed that we will contact him if we need to change antibiotics based on the results of this. Review of his medical record shows that in the past he has had a pansensitive E coli. According to the prior notes he has been given Macrobid. He stated that this did seem to work for him. We will start him on Macrobid once again. He does have a follow-up next week with his primary doctor and he was going to talk with his primary doctor about a referral to see Urology. He was given return precautions. He expressed understanding and agreement. Discharge Plan Departure Patient Disposition: Home Clinical Impression: Urinary tract infection Instructions: DI for Urinary Tract Infection (UTI) Activity Restrictions/Additional Instructions: Keep your scheduled appointment with your primary doctor at the end of next week. I do recommend that you talk with them about a referral to see Urology. Take the antibiotics as directed. A urine culture was pending at the time of your discharge and we will contact you if we need to switch antibiotics based on this. Return to the emergency department for new symptoms. Prescriptions: New nitrofurantoin monohyd/m-cryst [Macrobid] 100 mg capsule 100 mg PO Q12H 5 Days Qty: 10 0RF Rx Instructions: must administer with a meal/food No Action albuterol sulfate 90 mcg/actuation HFA aerosol inhaler 2 puff inhalation Q6H PRN (Reason: shortness of breath or wheezing) Qty: 54 0RF Patient Comments: takes PRN metoprolol succinate 100 mg tablet extended release 24 hr 100 mg PO BID Qty: 180 3RF atorvastatin 20 mg tablet 20 mg PO DAILY Qty: 90 3RF omeprazole 20 mg capsule,delayed release(DR/EC) 20 mg PO DAILY Qty: 90 3RF Eliquis 5 mg tablet 5 mg PO BID Qty: 180 3RF metformin 1,000 mg tablet 1,000 mg PO BID Qty: 180 3RF lisinopril 20 mg tablet 20 mg PO DAILY Qty: 90 3RF (DME) lancets 30 gauge misc See Rx Instructions .Route Qty: 100 3RF Rx Instructions: Use to check BS once daily. (DME) Disabled Parking See Rx Instructions .ROUTE .MEDSUPPLY Qty: 1 0RF Rx Instructions: Patient qualifies for disabled parking as per the attached form. pioglitazone [Actos] 30 mg tablet 30 mg PO DAILY Qty: 90 3RF budesonide 3 mg capsule,delayed,extend.release 3 mg PO DAILY Qty: 90 3RF glipizide 10 mg tablet extended release 24hr 10 mg PO BID insulin glargine [Lantus Solostar U-100 Insulin] 100 unit/mL (3 mL) insulin pen 15 unit SUBCUT BID Patient Comments: pt states Dr. Falk provided blood sugar perimeters for when to hold or admin med. Pt states I cut back on the dose (DME) True Metrix Glucose Test Strip Strip MISCELLANEOUS DAILY (DME) pen needle, diabetic [BD Ultra-Fine Mini Pen Needle] 31 gauge x 3/16 needle MISCELLANEOUS BID (DME) Dexcom Anesthesia Resident Misc MISCELLANEOUS Referrals: Homer Falk MD [Primary Care Provider] - Stand Alone Forms: Patient Portal/API
[2023-10-03] MEDS: NITROFURANTOIN ER 100 MG CAPSULE PO (23:24)
[2023-10-03 23:34] VITALS: BP 110/59; PULSE 82; RESP 16; O2SAT 100
== END 2023-10-03 23:30 | disposition home or self-care (01) ==
PROVIDERS: Emergency Provider Emergency Medicine; PCP Internal Medicine
DX: N39.0 Urinary tract infection, site not specified (principal); Z79.01 Long term (current) use of anticoagulants; Z79.899 Other long term (current) drug therapy
CPT/HCPCS: 81001; 87077; 87086; 87186; 99283

== ENCOUNTER → 2023-11-06 10:00 | Outpatient (CLI) | payer MEDICARE, SELFPAY ==
[2023-11-06 11:05] LABS: Add Manual Diff / Slide Review NO; Basophils Absolute Auto 100 /uL (0-100); Eosinophils Absolute Auto 200 /uL (0-450); Eosinophils Percent Auto 3.3 % (2-4); Hemoglobin 11.8 g/dL (13.5-17.5); Lymphocytes Absolute Auto 1000 /uL (1100-4500); Lymphocytes Percent Auto 13.7 % (25-40); Mean Corpuscular HGB Conc 33.7 % (30-36); Mean Corpuscular Volume 86.2 fL (80-100); Monocytes Absolute Auto 700 /uL (0-900); Monocytes Percent Auto 10.4 % (3-14); Neutrophils Absolute Auto 5100 /uL (1500-7000); Neutrophils Percent Auto 71.6 % (50-75); Platelet Count 261 X10^3/uL (150-400); Red Blood Cell Count 4.06 X10^6/uL (4.5-5.9); Red Cell Distribution Width 15.2 % (11.6-14.8); White Blood Cell Count 7.2 X10^3/uL (4.5-11.0)
[2023-11-06 11:25] LABS: Blood Urea Nitrogen 15 mg/dL (9-20); Carbon Dioxide 24 mmol/L (22-32); Chloride 107 mmol/L (98-107); Estimated Glomerular Filt Rate > 60 mL/min (>60); Glucose 136 mg/dL (80-110); HEMOLYSIS < 15 (0-50); Potassium 4.5 mmol/L (3.4-5.1); Sodium 138 mmol/L (137-145)
== END ==
PROVIDERS: PCP Internal Medicine; Referring Provider Internal Medicine; Visit Provider Internal Medicine
DX: E78.2 Mixed hyperlipidemia (principal); I10 Essential (primary) hypertension; R39.9 Unspecified symptoms and signs involving the genitourinary system; R31.0 Gross hematuria; R97.20 Elevated prostate specific antigen [PSA]; Z79.01 Long term (current) use of anticoagulants; N40.1 Benign prostatic hyperplasia with lower urinary tract symptoms; R35.0 Frequency of micturition; R39.15 Urgency of urination; N39.41 Urge incontinence; Z72.0 Tobacco use
CPT/HCPCS: 36415; 51798; 80048; 81002; 85025; 99214

== ENCOUNTER → 2023-11-13 14:31 | Outpatient (CLI) | payer MEDICARE, SELFPAY ==
--- NOTE | 2023-11-13 14:32 | DI.CT.S_ITS ---
PROCEDURE: CT ABDOMEN PELVIS WO/W CON INDICATIONS: Gross hematuria TECHNIQUE: Optional 5 mm thick noncontrast images acquired from the diaphragm to the symphysis pubis. After the administration of intravenous contrast, 5 mm thick images acquired from the diaphragm to the symphysis pubis after a 10-minute delay. 2 mm thick coronal and sagittal reformats were then performed of the kidneys and ureters. For radiation dose reduction, the following was used: automated exposure control, adjustment of mA and/or kV according to patient size. COMPARISON: [facility], CT, CT KIDNEY URETER BLADDER (KUB), 08/23/2023, 23:08. FINDINGS: Image quality: Diagnostic Lower chest: Atelectasis at the bases Trace hiatal hernia. Mild cardiomegaly. Coronary calcifications Liver: Unremarkable Gallbladder and biliary system: Unremarkable, nondilated Pancreas: No ductal dilation Spleen: Not enlarged Adrenals: 1.1-1.3 cm bilateral adrenal adenomas, with fatty attenuation on noncontrast images. Kidneys: Subcentimeter lesions are too small to characterize, Bosniak 2. Right posterior cyst is also present. No solid renal mass. No obstructing calcified stone. Subcapsular fatty density around the right kidney, present previously, probably from prior injury. Vessels and lymph nodes: Main portal vein is patent. No abdominal aortic aneurysm. No pathologic lymph nodes by size criteria. Bowel and peritoneum: Nonspecific gastric wall thickening again seen. No small bowel obstruction. No pathologic ascites. Body wall: Unremarkable Pelvis: Trabeculated bladder with some diverticula. No discrete mass. Prostate is heterogeneous and enlarged, not well evaluated on this study Bones: There are degenerative changes. No acute or suspicious osseous finding. IMPRESSION: No solid renal mass. No obstructing calcified stone. The lower tracts could be better evaluated with cystoscopy in the setting of hematuria. Bladder is trabeculated, with enlarged heterogeneous prostate. Consider also PSA correlation if indicated. Incidental bilateral adrenal adenomas, correlate with biochemical testing to determine functional status. Nonspecific gastric wall thickening again seen, consider endoscopy correlation if clinically indicated. Other findings as above. Dictated by: Nicho Queen M.D. on 11/14/2023 at 10:48 Approved by: Nicho Queen M.D. on 11/14/2023 at 10:58
== END ==
PROVIDERS: PCP Internal Medicine; Referring Provider Urology; Visit Provider Urology
DX: N20.0 Calculus of kidney (principal); N28.1 Cyst of kidney, acquired; N32.89 Other specified disorders of bladder; N40.0 Benign prostatic hyperplasia without lower urinary tract symptoms; D35.02 Benign neoplasm of left adrenal gland; D35.01 Benign neoplasm of right adrenal gland; J98.11 Atelectasis; I51.7 Cardiomegaly; I25.10 Atherosclerotic heart disease of native coronary artery without angina pectoris; R31.0 Gross hematuria
CPT/HCPCS: 74178; Q9967

== ENCOUNTER → 2023-12-10 12:15 | Outpatient (CLI) | payer MEDICARE, SELFPAY ==
[2023-12-10 14:14] LABS: BUN Creatinine Ratio 19.6 (6-22); Blood Urea Nitrogen 19 mg/dL (9-20); Calcium 9.5 mg/dL (8.4-10.2); Carbon Dioxide 27 mmol/L (22-32); Chloride 103 mmol/L (98-107); Estimated Glomerular Filt Rate > 60 mL/min (>60); Glucose 185 mg/dL (80-110); HEMOLYSIS < 15 (0-50); Magnesium 1.1 mg/dL (1.6-2.3); Potassium 4.2 mmol/L (3.4-5.1); Sodium 135 mmol/L (137-145)
== END ==
PROVIDERS: PCP Internal Medicine; Referring Provider Internal Medicine; Visit Provider Internal Medicine
DX: E11.9 Type 2 diabetes mellitus without complications (principal); I10 Essential (primary) hypertension; E78.2 Mixed hyperlipidemia
CPT/HCPCS: 80048; 83036; 83735

== ENCOUNTER → 2023-12-18 10:21 | Outpatient (CLI) | payer MEDICARE, SELFPAY | LOC: LAB 10:27 | PROVIDERS: PCP Internal Medicine; Referring Provider Urology; Visit Provider Urology | DX: R97.20 Elevated prostate specific antigen [PSA] (principal) | CPT/HCPCS: 36415; 84153 ==

== ENCOUNTER → 2024-01-27 16:45 | Outpatient (CLI) | payer MEDICARE, SELFPAY ==
[2024-01-27 17:28] LABS: BUN Creatinine Ratio 24.3 (6-22); Blood Urea Nitrogen 27 mg/dL (9-20); Calcium 9.6 mg/dL (8.4-10.2); Carbon Dioxide 29 mmol/L (22-32); Chloride 103 mmol/L (98-107); Estimated Glomerular Filt Rate > 60 mL/min (>60); Glucose 177 mg/dL (80-110); HEMOLYSIS < 15 (0-50); Potassium 4.4 mmol/L (3.4-5.1); Sodium 139 mmol/L (137-145)
== END ==
PROVIDERS: PCP Internal Medicine; Referring Provider Internal Medicine; Visit Provider Internal Medicine
DX: I10 Essential (primary) hypertension (principal); R60.0 Localized edema; E11.29 Type 2 diabetes mellitus with other diabetic kidney complication; R80.9 Proteinuria, unspecified
CPT/HCPCS: 36415; 80048

== ENCOUNTER 2024-02-08 02:43 | Inpatient (IN) | payer MEDICARE, SELFPAY ==
[2024-02-08] VITALS (23 sets, daily range): BP systolic 112–144; BP diastolic 57–94; PULSE 75–109; RESP 14–23; TEMP 35.7–37.7; O2SAT 91–100; BMI 26.2
--- NOTE | 2024-02-08 02:56 | PC.NURSE ---
Minor L facial droop noted. Pt reports hx stroke
--- NOTE | 2024-02-08 03:06 | ED_ITS ---
HPI - General Adult General Chief complaint: Weakness Stated complaint: weakness Time Seen by Provider: 02/08/24 02:47 Source: family and EMS Mode of arrival: EMS History of Present Illness HPI narrative: Patient is a 73-year-old male. Is on apixaban. History of a CVA with left- sided deficits. Is an insulin-dependent diabetic. History of COPD and hypertension. Brought in by EMS for evaluation weakness. Patient states that this evening he was sitting in his chair. Stated that he was unable to get up out of his chair. He did not fall. Has been several hours trying to get out of his chair. Was able to eventually get himself onto the floor where he crawled to the bedroom where his phone was and contacted EMS. He states he has been several hours trying to do this. States he was having some pain but the majority of his symptoms were weakness. He did not specifically describe whether was more right-sided or left-sided but given his left-sided deficits his left side was much more weak than normal. He was having some shortness of breath however he does have history of COPD this is baseline for him. He denies any headache or vision changes. He states that he generally feels sore because of tried to move himself for the past several hours. Related Data Home Medications Medication Instructions Recorded Confirmed blood sugar diagnostic (True 09/20/23 02/08/24 Metrix Glucose Test Strip) blood-glucose meter,continuous 09/20/23 02/08/24 pen needle, diabetic 31 gauge x 09/20/23 02/08/24/16 (BD Ultra-Fine Mini Pen Needle) Previous Rx's Medication Instructions Recorded albuterol sulfate 90 mcg/actuation 2 puff inhalation Q6H PRN 09/07/21 aerosol inhaler shortness of breath or wheezing #54 grams omeprazole 20 mg capsule,delayed 20 mg PO DAILY #90 caps 01/07/23 release apixaban 5 mg tablet (Eliquis) 5 mg PO BID #180 tabs 01/29/23 metformin 1,000 mg tablet 1,000 mg PO BID #180 tabs 02/28/23 lisinopril 20 mg tablet 20 mg PO DAILY #90 tabs 06/03/23 lancets 30 gauge #100 ea 07/23/23 Disabled Parking #1 ea 08/01/23 budesonide 3 mg 3 mg PO DAILY Colitis #90 ea 09/24/23 capsule,delayed,extended release tamsulosin 0.4 mg capsule 0.4 mg PO BEDTIME #90 caps 10/10/23 metoprolol succinate 100 mg 100 mg PO BID #180 tabs 11/20/23 tablet,extended release 24 hr glipizide 10 mg tablet, extended 10 mg PO BID #180 tabs 12/04/23 release 24 hr pioglitazone 30 mg tablet (Actos) 30 mg PO DAILY Diabetes #90 tabs 01/21/24 furosemide 20 mg tablet 20 - 40 mg (1 - 2 x 20 mg) PO 01/28/24 DAILY #225 tabs insulin glargine 100 unit/mL (3 20 unit (0.2 mL) SUBCUT BID #15 mL 02/11/24 mL) subcutaneous pen (Lantus Solostar U-100 Insulin) insulin lispro 100 unit/mL 1 - 6 unit (0.01 - 0.06 mL) SUBCUT 02/11/24 subcutaneous solution (Admelog QACHS #10 mL U-100 Insulin lispro) Allergies Allergy/AdvReac Type Severity Reaction Status Date / Time naproxen Allergy Severe Anaphylaxis Verified 01/27/24 16:16 atorvastatin AdvReac Severe Rhabdo Verified 02/12/24 08:34 linagliptin AdvReac Severe myalgias Verified 01/27/24 16:16 Review of Systems Review of Systems ROS Unobtainable: All systems reviewed & are unremarkable except as noted in HPI and below Patient History Medical History Peripheral edema Prostatitis Tobacco use Urge incontinence Benign prostatic hyperplasia with lower urinary tract symptoms Gross hematuria Heart attack CVA (cerebral vascular accident) H/O adenomatous polyp of colon Fungal infection of toenail Mixed hyperlipidemia Essential hypertension Elevated PSA CAD (coronary artery disease) (~2005) Knee pain Vision disorder COPD (chronic obstructive pulmonary disease) (~2008) Hearing loss (~1999) Colitis (~2004) Diabetes mellitus (~2005) Atrial fibrillation (~2005) Surgical History Hx of prostate biopsy Hx of hernia repair Hx of appendectomy Anesthesia History of heart artery stent (~2005) Family History Father History of heart disease Mother Aneurysm Sister Cancer Brother Cancer Social History marital status: household members: none Smoking Status: Current every day smoker alcohol intake: former caffeine: Yes Type(s) of exercise: none Smoking Status: Current every day smoker tobacco type: cigarettes alcohol intake frequency: a few times a month Alcohol type: beer Substance Use Type: does not use Exam Initial Vital Signs Initial Vital Signs: Vital Signs Blood Pressure 128/77 02/08/24 02:50 Const General: No ill appearing HENMT Head: normal to inspection and normocephalic Resp Effort & Inspection: normal respiratory effort Auscultation: clear to auscultation bilaterally Cardio Rate: regular rate Rhythm: regular rhythm GI Inspection: non-distended Skin Other: Superficial abrasions to bilateral knees Neuro General: patient alert, patient awake and patient oriented x3 Speech: speech normal Sensory Exam: no sensory deficits noted Extrem General: No edema Scores GCS Andrea coma scale eye opening: Spontaneous Andrea coma scale verbal response: Orientated [place] coma scale motor response: Obey commands [place] coma scale total score: 15 NIH Stroke Scale Level of Conciousness: Alert, keenly responsive Ask month/age: Answers both questions correctly. Open/close eyes, close hand: Performs both tasks correctly Best gaze horizontal: Normal Visual mendoza: No visual loss Facial palsy: Minor paralysis, flattened nasolabial fold, asymmetry on smiling (This is not new) Left arm drift: Drifts down, not to bed Right arm drift: No drift for full 10 sec Left leg drift: Some effort against gravity, cannot maintain, drifts down to bed Right leg drift: Drifts down, not to bed Limb ataxia: Present in two limbs Sensory on face/arms/legs: Normal, no sensory loss Best language: No aphasia, normal Dysarthria: Normal Extinction or inattention: No abnormality Total NIH Stroke scale score: 7 Course Orders Ordered: Discontinued Medications Acetaminophen (Acetaminophen 325 Mg Tablet) 650 mg PO Q6HR PRN PRN Reason: Fever Last Admin: 02/11/24 18:10 Dose: 650 mg Documented By: JERONIMO Al Hydrox/Mg Hydrox/Simethicone (Mag Hydrox/Alum/Simeth 30 Ml Udc) 30 ml PO Q6HR PRN PRN Reason: Dyspepsia Albuterol (Albuterol 2.5 Mg/3 Ml Neb (Adult)) 2.5 mg INH Q6H PRN PRN Reason: shortness of breath or wheezing Apixaban (Apixaban 5 Mg Tablet) 5 mg PO BID [facility] Last Admin: 02/12/24 09:37 Dose: 5 mg Documented By: Admin: 02/11/24 21:14 Dose: 5 mg Documented By: Admin: 02/11/24 08:24 Dose: 5 mg Documented By: Admin: 02/10/24 20:07 Dose: 5 mg Documented By: Admin: 02/10/24 08:23 Dose: 5 mg Documented By: Admin: 02/09/24 21:01 Dose: 5 mg Documented By: Admin: 02/09/24 08:52 Dose: 5 mg Documented By: Admin: 02/08/24 20:53 Dose: 5 mg Documented By: GENARO Aspirin (Aspirin Ec 81 Mg Tablet) 81 mg PO DAILY [facility] Last Admin: 02/12/24 09:40 Dose: 81 mg Documented By: Admin: 02/11/24 08:24 Dose: 81 mg Documented By: Admin: 02/10/24 08:23 Dose: 81 mg Documented By: Admin: 02/09/24 08:52 Dose: 81 mg Documented By: Admin: 02/08/24 11:26 Dose: 81 mg Documented By: JEAN Atorvastatin Calcium (Atorvastatin 20 Mg Tablet) 20 mg PO BEDTIME [facility] Budesonide (Budesonide 3 Mg Cap) 3 mg PO DAILY [facility] Last Admin: 02/12/24 09:37 Dose: 3 mg Documented By: Admin: 02/11/24 08:24 Dose: 3 mg Documented By: Admin: 02/10/24 08:23 Dose: 3 mg Documented By: Admin: 02/09/24 08:51 Dose: 3 mg Documented By: YING Diazepam (Diazepam 5 Mg Tablet) 5 mg PO NOW ONE Stop: 02/08/24 10:45 Last Admin: 02/08/24 11:26 Dose: 5 mg Documented By: JEAN Glipizide (Glipizide 5 Mg Tablet) 10 mg PO BID [facility] Last Admin: 02/12/24 09:38 Dose: 10 mg Documented By: Admin: 02/11/24 21:15 Dose: 10 mg Documented By: Admin: 02/11/24 08:24 Dose: 10 mg Documented By: Admin: 02/10/24 20:07 Dose: 10 mg Documented By: Admin: 02/10/24 08:24 Dose: 10 mg Documented By: Admin: 02/09/24 21:01 Dose: 10 mg Documented By: Admin: 02/09/24 08:51 Dose: 10 mg Documented By: Admin: 02/08/24 20:53 Dose: 10 mg Documented By: BR Sodium Chloride (Normal Saline 0.9%) 1,000 mls @ 150 mls/hr IV CONT YOU Last Infusion: 02/09/24 02:28 Dose: Infused Documented By: Infusion: 02/08/24 12:50 Dose: 84 mls/hr Documented By: Infusion: 02/08/24 12:23 Dose: 0 mls/hr Documented By: Infusion: 02/08/24 11:47 Dose: 84 mls/hr Documented By: Admin: 02/08/24 11:27 Dose: 150 mls/hr Documented By: Infusion: 02/08/24 11:27 Dose: Infused Documented By: Admin: 02/08/24 06:14 Dose: 150 mls/hr Documented By: NOEMÍ Dextrose (D10w) 100 mls @ 999 mls/hr IV PRN PRN PRN Reason: Hypoglycemia Sodium Chloride (Normal Saline 0.9%) 1,000 mls @ 84 mls/hr IV CONT YOU Last Infusion: 02/11/24 06:58 Dose: 0 mls/hr Documented By: Admin: 02/11/24 01:59 Dose: 84 mls/hr Documented By: Infusion: 02/11/24 01:59 Dose: Infused Documented By: Admin: 02/10/24 14:57 Dose: 84 mls/hr Documented By: Infusion: 02/10/24 14:53 Dose: Infused Documented By: Admin: 02/10/24 02:58 Dose: 84 mls/hr Documented By: Infusion: 02/10/24 02:58 Dose: Infused Documented By: Admin: 02/09/24 14:42 Dose: 84 mls/hr Documented By: Infusion: 02/09/24 14:23 Dose: Infused Documented By: Admin: 02/09/24 02:28 Dose: 84 mls/hr Documented By: Admin: 02/08/24 11:48 Dose: Not Given Documented By: TLS Insulin Glargine (Insulin Glargine 100 Unit/Ml 3ml Pen) 15 unit SUBCUT BID [facility] Last Admin: 02/10/24 21:18 Dose: 15 unit Documented By: GENARO Co-signed By: JOSEFA Admin: 02/10/24 08:24 Dose: Not Given Documented By: Admin: 02/09/24 21:01 Dose: Not Given Documented By: Admin: 02/09/24 08:52 Dose: Not Given Documented By: Admin: 02/08/24 21:00 Dose: 15 unit Documented By: GENARO Co-signed By: AT Insulin Glargine (Insulin Glargine 100 Unit/Ml 3ml Pen) 20 unit SUBCUT BID [facility] Last Admin: 02/12/24 09:46 Dose: 20 unit Documented By: JERONIMO Co-signed By: DEON Admin: 02/11/24 21:09 Dose: 20 unit Documented By: DOLLY Co-signed By: SUNSHINE Admin: 02/11/24 09:02 Dose: 20 unit Documented By: JERONIMO Co-signed By: JOSE Insulin Human Lispro (Insulin Lispro 100 Unit/Ml 3ml Vial) 0 unit SUBCUT ACHS [facility]; Protocol Last Admin: 02/12/24 08:16 Dose: Not Given Documented By: Admin: 02/11/24 20:53 Dose: Not Given Documented By: Admin: 02/11/24 17:26 Dose: 1 unit Documented By: JERONIMO Co-signed By: JOSE Admin: 02/11/24 12:45 Dose: 1 unit Documented By: JERONIMO Co-signed By: JOSE Admin: 02/11/24 07:37 Dose: Not Given Documented By: Admin: 02/10/24 21:17 Dose: 1 unit Documented By: GENARO Co-signed By: JOSEFA Admin: 02/10/24 17:18 Dose: 2 unit Documented By: YING Co-signed By: JOSE Admin: 02/10/24 12:20 Dose: Not Given Documented By: Admin: 02/10/24 08:12 Dose: Not Given Documented By: Admin: 02/09/24 21:01 Dose: Not Given Documented By: Admin: 02/09/24 16:42 Dose: 1 unit Documented By: YING Co-signed By: DEON Admin: 02/09/24 12:05 Dose: Not Given Documented By: Admin: 02/09/24 08:04 Dose: Not Given Documented By: Admin: 02/08/24 20:56 Dose: Not Given Documented By: Admin: 02/08/24 16:55 Dose: 1 unit Documented By: JEAN Co-signed By: YADIRA Admin: 02/08/24 12:54 Dose: 3 unit Documented By: JEAN Co-signed By: Lisinopril (Lisinopril 20 Mg Tablet) 20 mg PO DAILY [facility] Last Admin: 02/12/24 09:37 Dose: 20 mg Documented By: Admin: 02/11/24 08:24 Dose: 20 mg Documented By: Admin: 02/10/24 08:23 Dose: 20 mg Documented By: Admin: 02/09/24 08:52 Dose: 20 mg Documented By: YING Magnesium Hydroxide (Magnesium Hydroxide 30 Ml Udc) 30 ml PO DAILY PRN PRN Reason: Constipation Metformin HCl (Metformin Hcl 500 Mg Tablet) 1,000 mg PO BID [facility] Metoprolol Succinate (Metoprolol Er 50 Mg Tablet) 100 mg PO BID [facility] Last Admin: 02/12/24 09:38 Dose: 100 mg Documented By: Admin: 02/11/24 21:14 Dose: 100 mg Documented By: Admin: 02/11/24 08:24 Dose: 100 mg Documented By: Admin: 02/10/24 20:07 Dose: 100 mg Documented By: Admin: 02/10/24 08:23 Dose: 100 mg Documented By: Admin: 02/09/24 21:02 Dose: 100 mg Documented By: Admin: 02/09/24 08:52 Dose: 100 mg Documented By: Admin: 02/08/24 20:53 Dose: 100 mg Documented By: GENARO Naloxone HCl (Naloxone 0.4 Mg/Ml Vial) 0.2 mg IV Q2MIN PRN PRN Reason: Opiate Reversal Nf - Pioglitazone ( (Actos) 30 Mg Tablet) 30 mg PO DAILY [facility] Last Admin: 02/12/24 08:23 Dose: Not Given Documented By: Admin: 02/11/24 09:02 Dose: Not Given Documented By: Admin: 02/10/24 08:24 Dose: Not Given Documented By: Admin: 02/09/24 08:52 Dose: Not Given Documented By: YING Ondansetron HCl (Ondansetron 4 Mg/2 Ml Inj) 4 mg IV Q8HR PRN PRN Reason: Nausea And Vomiting Pantoprazole Sodium (Pantoprazole Dr 20 Mg Tablet) 20 mg PO 0600 [facility] Last Admin: 02/12/24 05:22 Dose: 20 mg Documented By: Admin: 02/11/24 06:02 Dose: 20 mg Documented By: Admin: 02/10/24 06:04 Dose: 20 mg Documented By: Admin: 02/09/24 05:29 Dose: 20 mg Documented By: GENARO Sodium Chloride (Sodium Chloride 0.9% Flush) 10 ml IV PRN PRN PRN Reason: Flush Sodium Chloride (Sodium Chloride 0.9% Flush) 10 ml IV BID [facility] Last Admin: 02/12/24 09:38 Dose: Not Given Documented By: JERONIMO Tamsulosin HCl (Tamsulosin 0.4 Mg Capsule) 0.4 mg PO BEDTIME [facility] Last Admin: 02/11/24 21:14 Dose: 0.4 mg Documented By: Admin: 02/10/24 20:07 Dose: Not Given Documented By: Admin: 02/09/24 21:02 Dose: Not Given Documented By: Admin: 02/08/24 20:57 Dose: Not Given Documented By: GENARO Vital Signs Vital signs: Vital Signs - 8 hr 02/08/24 02:50 02/08/24 02:51 02/08/24 02:51 Temperature 96.3 F L Pulse Rate 109 H 103 H Respiratory Rate 20 23 Blood Pressure 128/77 128/77 Pulse Oximetry 100 100 Oxygen Delivery Method Room Air 02/08/24 03:00 02/08/24 03:00 02/08/24 03:30 Temperature Pulse Rate 107 H Respiratory Rate 21 Blood Pressure 112/62 126/62 Pulse Oximetry 97 Oxygen Delivery Method 02/08/24 03:30 02/08/24 04:00 02/08/24 04:00 Temperature Pulse Rate 95 H 102 H Respiratory Rate 23 Blood Pressure 127/65 Pulse Oximetry 99 Oxygen Delivery Method 02/08/24 04:30 02/08/24 04:30 02/08/24 05:00 Temperature Pulse Rate 88 91 H Respiratory Rate 18 20 Blood Pressure 134/79 Pulse Oximetry 98 98 Oxygen Delivery Method 02/08/24 05:00 02/08/24 05:30 02/08/24 05:30 Temperature Pulse Rate 86 Respiratory Rate 20 Blood Pressure 144/82 H 118/79 Pulse Oximetry 97 Oxygen Delivery Method 02/08/24 06:12 02/08/24 06:13 02/08/24 06:13 Temperature Pulse Rate 81 89 Respiratory Rate 16 14 Blood Pressure 130/58 L Pulse Oximetry 99 98 Oxygen Delivery Method Medical Decision Making Medical Records Medical records reviewed: Yes I reviewed the patient's medical records. Lab Data Lab results reviewed: Yes I reviewed the patient's lab results. 02/09/24 05:24 02/11/24 05:12 Labs: Lab Results 02/08/24 02/08/24 02/08/24 Range/Units 03:05 04:00 05:33 WBC 8.4 (4.5-11.0) X10^3/uL RBC 4.26 L (4.5-5.9) X10^6/uL Hgb 12.3 L (13.5-17.5) g/dL Hct 37.1 L (41-53) % MCV 87.1 (80-100) fL MCH 29.0 (26-34) PG MCHC 33.3 (30-36) % RDW 14.6 (11.6-14.8) % Plt Count 224 (150-400) X10^3/uL Neut % (Auto) 84.3 H (50-75) % Lymph % (Auto) 4.9 L (25-40) % [place] % (Auto) 10.0 (3-14) % Eos % (Auto) 0.1 L (2-4) % Baso % (Auto) 0.7 (0-2) % Neut # (Auto) 7100 H (9490-2303) /uL Lymph # (Auto) 400 L (7154-0196) /uL [place] # (Auto) 800 (0-900) /uL Eos # (Auto) 0 (0-450) /uL Baso # (Auto) 100 (0-100) /uL Sodium 134 L (137-145) mmol/L Potassium 4.3 (3.4-5.1) mmol/L Chloride 102 (98-107) mmol/L Carbon Dioxide 27 (22-32) mmol/L BUN 26 H (9-20) mg/dL Creatinine 1.28 H (0.66-1.25) mg/dL Estimated GFR 58 L (>60) mL/min BUN/Creatinine Ratio 20.3 (6-22) Glucose 234 H (80-110) mg/dL Calcium 9.1 (8.4-10.2) mg/dL Total Bilirubin 0.6 (0.2-1.3) mg/dL AST 37 (17-59) IU/L ALT 23 (<50) IU/L Alkaline Phosphatase 80 (38-126) U/L Total Creatine Kinase 675 H 1428 H D (55-170) U/L Troponin I 0.020 0.026 (0.01-0.034) ng/mL Total Protein 7.3 (6.3-8.2) g/dL Albumin 4.2 (3.5-5.0) g/dL Globulin 3.1 (1.7-4.1) g/dL Albumin/Globulin Ratio 1.4 (1.0-2.8) Lipase 69 (23-300) U/L Urine RBC 0-1/hpf (0-5/HPF) Urine WBC None seen (0-5/HPF) Ur Squamous Epith Cells 0-1 /hpf (0-5/HPF) Urine Bacteria None seen (None) Ur Culture Indicated? Cult not indicated Vol Urine Centrifuged 10ml (spun) Urine Dip Bedside Urine Glucose 250 mg/dl Bedside Urine Bilirubin - Negative Bedside Urine Ketone - Negative Urine Specific [place] 1.015 Bedside Urine Occult Blood +++ Bedside Urine pH 6.0 Bedside Urine Protein + 30 Bedside Urine Urobilinogen - Negative Bedside Urine Nitrite - Negative Bedside Urine Leukocytes - Negative Esterase Point of care testing: Urine Dip Bedside Urine Glucose 250 mg/dl Bedside Urine Bilirubin - Negative Bedside Urine Ketone - Negative Urine Specific [place] 1.015 Bedside Urine Occult Blood +++ Bedside Urine pH 6.0 Bedside Urine Protein + 30 Bedside Urine Urobilinogen - Negative Bedside Urine Nitrite - Negative Bedside Urine Leukocytes - Negative Esterase Imaging Data CT scan - head: Radiologist's Impression: Age indeterminate lacunar infarct at the level of the left internal capsule no acute intracranial hemorrhage ECG Data Attestation: I personally reviewed and interpreted this ECG as follows: Interpretation: Atrial fibrillation Left axis deviation Ventricular rate 94 Right bundle-branch block MDM Narrative Medical decision making narrative: Patient with baseline left-sided weakness and left-sided facial droop. It appears that his left-sided weakness is worse than normal. He denies headache or chest pain. Initial labs were relatively unremarkable. No signs of an infection. EKG shows atrial fibrillation. He was anticoagulated. Patient was able to walk here in the emergency department with a walker but was very unsteady. Had a shuffling gait. Had very difficult time transitioning from sitting to standing. Initial CK somewhat elevated. Repeat CK now greater than 1000. Suspect a level of muscle breakdown/rhabdo because of the work that he was doing to try to stand earlier this evening. Head CT shows age-indeterminate lacunar infarcts. This was not present on the MRI that was done in September this year when he was diagnosed with his an acute CVA. Given the new findings of the CT scan in his elevation in his CK in his new weakness do feel that admission to the hospital is warranted. Discussed the case with Dr. Grant on-call for the patient's primary doctor. His CTA was still pending at the time of admission. No indication for tPA given that he is on apixaban. Will admit for further evaluation and treatment. Discharge Plan Departure Patient Disposition: Admitted As Inpatient Clinical Impression: Atrial fibrillation, Rhabdomyolysis, Weakness Admit Date/Time: 02/08/24 06:59 Admit Provider: Royce Grant
[2024-02-08 03:19] LABS: Add Manual Diff / Slide Review NO; Basophils Absolute Auto 100 /uL (0-100); Basophils Percent Auto 0.7 % (0-2); Eosinophils Absolute Auto 0 /uL (0-450); Eosinophils Percent Auto 0.1 % (2-4); Hematocrit 37.1 % (41-53); Hemoglobin 12.3 g/dL (13.5-17.5); Lymphocytes Absolute Auto 400 /uL (1100-4500); Lymphocytes Percent Auto 4.9 % (25-40); Mean Corpuscular HGB Conc 33.3 % (30-36); Mean Corpuscular Volume 87.1 fL (80-100); Monocytes Absolute Auto 800 /uL (0-900); Neutrophils Absolute Auto 7100 /uL (1500-7000); Neutrophils Percent Auto 84.3 % (50-75); Platelet Count 224 X10^3/uL (150-400); Red Blood Cell Count 4.26 X10^6/uL (4.5-5.9); Red Cell Distribution Width 14.6 % (11.6-14.8); White Blood Cell Count 8.4 X10^3/uL (4.5-11.0)
[2024-02-08 03:28] LABS: Alanine Aminotransferase 23 IU/L (<50); Albumin 4.2 g/dL (3.5-5.0); Albumin Globulin Ratio 1.4 (1.0-2.8); Alkaline Phosphatase 80 U/L (38-126); Aspartate Aminotransferase 37 IU/L (17-59); BUN Creatinine Ratio 20.3 (6-22); Bilirubin Total 0.6 mg/dL (0.2-1.3); Blood Urea Nitrogen 26 mg/dL (9-20); Calcium 9.1 mg/dL (8.4-10.2); Carbon Dioxide 27 mmol/L (22-32); Chloride 102 mmol/L (98-107); Estimated Glomerular Filt Rate 58 mL/min (>60); Globulin 3.1 g/dL (1.7-4.1); Glucose 234 mg/dL (80-110); HEMOLYSIS < 15 (0-50); Lipase 69 U/L (23-300); Potassium 4.3 mmol/L (3.4-5.1); Sodium 134 mmol/L (137-145); Total Protein 7.3 g/dL (6.3-8.2)
--- NOTE | 2024-02-08 04:11 | EKG_ITS ---
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
[2024-02-08 04:59] LABS: Bacteria Urine None Seen; Culture Indicated Urine Cult Not Indicated; RBC Urine 0-1/HPF (0-5/HPF); Squamous Epithelial Cell Urine 0-1 /HPF (0-5/HPF); Urine Volume 10mL (spun); WBC Urine None Seen (0-5/HPF)
[2024-02-08 05:02] LABS: Creatine Kinase 675 U/L (55-170)
--- NOTE | 2024-02-08 05:48 | DI.CT.S_ITS ---
PROCEDURE: CT ANGIO HEAD AND NECK INDICATIONS: weakness hx of stroke on anticoagulation TECHNIQUE: After the administration of intravenous contrast, 1 mm thick sections acquired from the aortic arch through the [place]. 3-dimensional agghcxk-yzvgfuduy-mgdmtpzwoi (MIP) and/or volume rendering reformats were acquired of the central intracranial vasculature and neck separately. For radiation dose reduction, the following was used: automated exposure control, adjustment of mA and/or kV according to patient size. COMPARISON: [facility], CT, CT ANGIO HEAD AND NECK, 09/20/2023, 19:15. FINDINGS: Image quality: Diagnostic. HEAD CT ANGIOGRAPHY: Anterior circulation: Intracranial internal carotid arteries are normal in size and flow. The flow within the paired anterior cerebral arteries is normal and symmetric. The flow within the middle cerebral arteries is normal and symmetric. The anterior communicating artery is seen. No aneurysms are seen. Posterior circulation: Visualized portions of the vertebral arteries demonstrate normal caliber, and join to form a normal appearing basilar artery. Flow within the posterior cerebral arteries is normal and symmetric. No aneurysms are seen. Less than 50 percent atherosclerosis of the left vertebral artery at the origin (2/320). NECK CT ANGIOGRAPHY: Carotid system: The great vessels demonstrate a conventional anatomy as they arise from the aortic arch. Mild atherosclerosis at the aortic arch and origins of the great vessels. Less than 50 percent calcified and noncalcified stenosis at the proximal right internal carotid artery/carotid bulb (3/99). The origins of the common carotid arteries otherwise appear patent. The common carotid arteries demonstrate normal caliber and courses. The bifurcation regions are both widely patent. The internal carotid arteries demonstrate normal calibers and courses. Posterior circulation: The origins of the vertebral arteries both appear widely patent. The more superior extracranial portions of both vertebral arteries also demonstrate normal courses and calibers. They join to form a normal appearing basilar artery. Soft tissues: Visualized neck soft tissues demonstrate no suspicious abnormalities. Biapical scarring of the lung parenchyma. Bones: No suspicious bony lesions. Visualized cervical spine appears normally aligned. IMPRESSION: 1. No large vessel occlusion, dissection, or aneurysm in the visualized head and neck arterial vasculature. 2. No hemodynamically significant stenosis of the visualized arterial vasculature. These findings are concordant with the preliminary report. Any quantitative measurements of stenosis were performed using NASCET criteria. Dictated by: Bob Melendez M.D. on 02/08/2024 at 7:42 Approved by: Bbo Melendez M.D. on 02/08/2024 at 7:50
--- NOTE | 2024-02-08 05:48 | DI.CT.S_ITS ---
PROCEDURE: CT HEAD/BRAIN WO CON INDICATIONS: weakness hx of stroke on anticoagulation TECHNIQUE: Noncontrast 4.5 mm thick angled axial sections acquired from the foramen magnum to the vertex, with coronal and sagittal reformats. For radiation dose reduction, the following was used: automated exposure control, adjustment of mA and/or kV according to patient size. COMPARISON: [facility], CT, CT ANGIO HEAD AND NECK, 02/08/2024, 5:56. [facility], MR, MR HEAD/BRAIN WO CON, 09/21/2023, 7:59. [facility], CT, CT HEAD/BRAIN WO CON, 09/20/2023, 19:15. [facility], CT, CT HEAD/BRAIN WO CON, 08/23/2023, 21:26. [facility], CT, CT HEAD/BRAIN WO CON, 06/06/2022, 14:53. [facility], CT, CT HEAD/BRAIN WO CON, 05/29/2022, 19:44. FINDINGS: Image quality: Diagnostic. CSF spaces: Basal cisterns are patent. No extra-axial fluid collections. The ventricles are symmetric in size and shape. Brain: Chronic lacunar infarct at the genu of the left internal capsule (4/18) as well as the right centrum semi ovale (/). No intracranial bleeds or masses. There is cerebral volume loss for age, with resultant ventricular and sulcal prominence. There are periventricular and deep white matter chronic small vessel ischemic changes. There is intracranial internal carotid artery atherosclerosis. Skull and face: Calvarium and visualized facial bones appear intact, without suspicious lesions. Sinuses: Mucosal thickening of the maxillary sinuses. Hypoplastic right sphenoid sinus. Possible prior left mastoidectomy. Visualized sinuses and mastoids are otherwise clear. IMPRESSION: No acute intracranial abnormality. These findings are in agreement with the preliminary report. Please note that comparisons were not available at the time of the preliminary dictation. Dictated by: Bob Melendez M.D. on 02/08/2024 at 7:36 Approved by: Bob Melendez M.D. on 02/08/2024 at 7:42
--- NOTE | 2024-02-08 05:48 | PC.NURSE ---
Pt was able to ambulate down mercado to with walker and stand by assist. Pt taken back to room in due to fatigue. Pt unable to stand from without mod assist. Dr Neville aware.
[2024-02-08 05:57] LABS: Creatine Kinase 1428 U/L (55-170)
[2024-02-08 06:10] LABS: Troponin I 0.026 ng/mL (0.01-0.034)
[2024-02-08] MEDS: SODIUM CHLORIDE 0.9% 1,000 ML 150 ML IV ×2 (06:14→11:27)
--- NOTE | 2024-02-08 07:20 | CM.MNRNOTE ---
Pt able to stand at bedside with moderate assist 1 person. While standing pt able to stand on his own but difficulty getting out of bed. Linens had been saturated and were changed. Pt assisted back into bed with warm blankets.
--- NOTE | 2024-02-08 09:59 | PC.NURSE ---
call placed to Dr Grant in regard to need of daily meds. Med list reconciled and awaiting orders. Pt in NAD. Eating breakfast.
--- NOTE | 2024-02-08 10:37 | DI.MRI.S_ITS ---
PROCEDURE: MR HEAD/BRAIN WO CON INDICATIONS: left leg weakness TECHNIQUE: Non-contrast axial T1 spin echo, axial T2 fast spin echo, sagittal and axial FLAIR, coronal T2 fast spin echo, axial gradient echo, axial diffusion and ADC through the brain. COMPARISON: [facility], CT, CT ANGIO HEAD AND NECK, 02/08/2024, 5:56. [facility], CT, CT HEAD/BRAIN WO CON, 02/08/2024, 5:56. [facility], MR, MR HEAD/BRAIN WO CON, 09/21/2023, 7:59. FINDINGS: Image quality: Excellent. CSF spaces: Ventricles appear symmetric in size and shape. Basal cisterns are patent. No extra-axial fluid collections. Brain: No intracranial bleeds or mass effects. There is cerebral volume loss for age. There are periventricular and deep white matter chronic small vessel ischemic changes. Brainstem appears normal. Diffusion-weighted images show no acute infarct. Areas of known remote infarct can be seen. Normal intravascular flow voids are present. Skull and face: Calvarial bone marrow is normal in signal. Orbits are normal. Sinuses: Scattered [id number] mucosal thickening can be seen within the paranasal sinuses. There is moderate left mastoid air cell fluid seen. IMPRESSION: No findings of acute or subacute infarction can be seen. Areas of remote infarct are noted. Additional findings: Brain parenchymal volume loss Chronic small vessel ischemic change Paranasal sinus disease Moderate left mastoid air cell fluid Dictated by: Mk Cotto M.D. on 02/08/2024 at 11:48 Approved by: Mk Cotto M.D. on 02/08/2024 at 11:50
--- NOTE | 2024-02-08 10:38 | DI.ECHO.S_ITS ---
[place] : : [address] : : [place] : : [id number] : : Phone: [phone] Echocardiogram Report + + :Name: CAREN LIN Study Date: 02/09/2024 Height: 75 in : :[facility] ReadingLocation: Weight: 210 lb : : Gender: Male BSA: 2.2 m2 : :: 1950 Age: 73 yrs BP: 135/77 mmHg: :Reason For Study: STROKE : :Ordering Physician: QUINCY, : :EUSEBIA Performed By: Jeri Oliva : :Referring: EUSEBIA MATHEW : + + Interpretation Summary The left ventricle is normal in size. Left ventricular systolic function is normal. The ejection fraction is estimated to be 55-60%. There are no obvious focal wall motion abnormalities noted but poor endocardial definition reduces the sensitivity for the detection of such. The right ventricle is normal size. Right ventricular systolic function is mildly reduced. The right ventricular systolic pressure is estimated to be at least 43 mmHg based on an estimated right atrial pressure of 8 mm Hg. The left atrium is moderately dilated. The right atrium is mildly dilated. There is mild mitral regurgitation. The aortic root is normal size. Procedure: A two-dimensional transthoracic echocardiogram with color flow and Doppler was performed. The study quality was technically adequate. Comparison is made with the echocardiogram of 09/21/2023. The patient was in sinus rhythm with heart rates between 70-94 bpm during the exam. Left Ventricle: The left ventricle is normal in size. There is mild concentric left ventricular hypertrophy. Left ventricular systolic function is normal. The ejection fraction is estimated to be 55-60%. There are no obvious focal wall motion abnormalities noted but poor endocardial definition reduces the sensitivity for the detection of such. Diastolic function could not be accurately assessed due to atrial fibrillation. Right Ventricle: The right ventricle is normal size. Right ventricular systolic function is mildly reduced. Atria: The left atrium is moderately dilated. The right atrium is mildly dilated. There is no Doppler evidence for an interatrial shunt. Mitral Valve: The mitral valve leaflets appear normal. There is no evidence of stenosis, fluttering, or prolapse. There is mild mitral annular calcification. There is mild mitral regurgitation. Aortic Valve: The aortic valve is trileaflet. The aortic valve is mildly calcified. There is discrete nodular thickening of the non- coronary cusp. There is no aortic valve stenosis. There is trace aortic regurgitation. Tricuspid Valve: The tricuspid valve is normal. There is mild tricuspid regurgitation. The right ventricular systolic pressure is estimated to be at least 43 mmHg based on an estimated right atrial pressure of 8 mm Hg. Pulmonic Valve: The pulmonic valve is not well seen, but is grossly normal. There is no pulmonic valvular regurgitation. Great Vessels: The aortic root is normal size. The dimensions of the ascending aorta are normal. The IVC is dilated (diameter is greater than 2.1 cm) yet it collapses greater than 50% with a sniff. This suggests a right atrial pressure of 8 mm Hg. Pericardium/ Pleura There is no pericardial effusion. There is no pleural effusion. MMode/2D Measurements & Calculations LVIDd: 5.1 cm LVOT diam: 2.2 cm LVIDs: 3.8 cm Ao root diam: 3.5 cm FS: 26.1 % asc Aorta Diam: 3.3 cm EPSS: 0.48 cm IVSd: 1.3 cm LVPWd: 1.3 cm LV rowland. diameter/BSA (cm/m^2): 2.3 LV sys. diameter/BSA (cm/m^2): 1.7 LA A2 area: 31.5 cm2 RA long axis: 5.7 cm LA A4 area: 24.0 cm2 RA area: 22.3 cm2 LA length (vol): 6.4 cm RA vol: 74.2 ml LA vol: 101.0 ml RA : 33.1 ml/m2 LA vol index: 45.1 ml/m2 IVC diam: 2.2 cm RVD1 (basal): 3.9 cm RVD2 (mid): 3.3 cm TAPSE: 1.3 cm Doppler Measurements & Calculations Ao V2 max: 161.0 cm/sec LVOT Max Marko: 79.9 cm/sec Ao V2 mean: 119.3 cm/sec LV V1 max P.6 mmHg Ao max P.4 mmHg LV V1 VTI: 14.6 cm Ao mean P.2 mmHg LAKESHA(I,D): 1.8 cm2 Ao V2 VTI: 30.3 cm LAKESHA(V,D): 1.8 cm2 sev ratio: 0.48 LAKESHA indexed to BSA (cm^2/m^2): 0.80 MV E max marko: 116.4 cm/sec TR max marko: 296.7 cm/sec MV A max marko: 1.1 cm/sec TR max P.2 mmHg MV E/A: 110.8 PA pr(Accel): 49.9 mmHg Med Peak E' Marko: 9.9 cm/sec E/E' med: 11.7 Lat Peak E' Marko: 7.2 cm/sec E/E' lat: 16.1 E/e' average: 13.9 MV dec time: 0.18 sec SV(LVOT): 54.4 ml Reading Physician:10:58 AM
--- NOTE | 2024-02-08 11:25 | PM.HP.1 ---
History of Present Illness History of Present Illness Date Patient Seen: 02/08/24 Time Patient Seen: 11:25 Date of Onset of Symptoms: 02/07/24 Chief complaint: weakness Narrative: Patient is a 73-year-old patient of Dr. Falk who I am cross covering for who presents to the emergency room with weakness. Patient has a history of CVA and has had some persistent left-sided facial droop mild and some mild right-sided weakness. Patient has been taking his medication. It is secondary to AFib and has been on his Eliquis. Apparently he was feeling great yesterday morning when he woke up but as the day went on he was becoming weaker and weaker. He describes this as diffuse weakness to the point where he could not get up out of his chair and eventually crawled across the bedroom to the phone. Contacted EMS. He has had no headaches no fevers no chills no numbness no tingling no chest pain no shortness a breath no orthopnea no PND. No abdominal pain no change in urine output although he has been put on Lasix recently and has been urinating a lot. No pain no. No blood. No change in his bowel movements. Currently hurting primarily his left leg all the way down from top to bottom. But no other changes. [facility] Medical History Peripheral edema Prostatitis Tobacco use Urge incontinence Benign prostatic hyperplasia with lower urinary tract symptoms Gross hematuria Heart attack CVA (cerebral vascular accident) H/O adenomatous polyp of colon Fungal infection of toenail Mixed hyperlipidemia Essential hypertension Elevated PSA CAD (coronary artery disease) (~2005) Knee pain Vision disorder COPD (chronic obstructive pulmonary disease) (~2008) Hearing loss (~1999) Colitis (~2004) Diabetes mellitus (~2005) Atrial fibrillation (~2005) Surgical History Hx of prostate biopsy Hx of hernia repair Hx of appendectomy Anesthesia History of heart artery stent (~2005) Family History Father History of heart disease Mother Aneurysm Sister Cancer Brother Cancer Social History marital status: household members: none Smoking Status: Current every day smoker alcohol intake: former caffeine: Yes Type(s) of exercise: none Meds Home Medications and Allergies Home Medications Medication Instructions Recorded Confirmed Type albuterol sulfate 90 mcg/actuation 2 puff inhalation Q6H PRN 09/07/21 02/08/24 Rx aerosol inhaler shortness of breath or wheezing #54 grams omeprazole 20 mg capsule,delayed 20 mg PO DAILY #90 caps 01/07/23 02/08/24 Rx release apixaban 5 mg tablet (Eliquis) 5 mg PO BID #180 tabs 01/29/23 02/08/24 Rx metformin 1,000 mg tablet 1,000 mg PO BID #180 tabs 02/28/23 02/08/24 Rx lisinopril 20 mg tablet 20 mg PO DAILY #90 tabs 06/03/23 02/08/24 Rx lancets 30 gauge #100 ea 07/23/23 02/08/24 Rx Disabled Parking #1 ea 08/01/23 02/08/24 Rx blood sugar diagnostic (True 09/20/23 02/08/24 History Metrix Glucose Test Strip) blood-glucose meter,continuous 09/20/23 02/08/24 History insulin glargine 100 unit/mL (3 15 unit SUBCUT BID 09/20/23 02/08/24 History mL) subcutaneous pen (Lantus Solostar U-100 Insulin) pen needle, diabetic 31 gauge x 09/20/23 02/08/24 History 3/16 (BD Ultra-Fine Mini Pen Needle) budesonide 3 mg 3 mg PO DAILY Colitis #90 ea 09/24/23 02/08/24 Rx capsule,delayed,extended release tamsulosin 0.4 mg capsule 0.4 mg PO BEDTIME #90 caps 10/10/23 02/08/24 Rx metoprolol succinate 100 mg 100 mg PO BID #180 tabs 11/20/23 02/08/24 Rx tablet,extended release 24 hr glipizide 10 mg tablet, extended 10 mg PO BID #180 tabs 12/04/23 02/08/24 Rx release 24 hr pioglitazone 30 mg tablet (Actos) 30 mg PO DAILY Diabetes #90 tabs 01/21/24 02/08/24 Rx atorvastatin 20 mg tablet 20 mg PO DAILY #90 tabs 11/19/24 12/01/24 Rx furosemide 20 mg tablet 20 - 40 mg (1 - 2 x 20 mg) PO 01/28/24 02/08/24 Rx DAILY #225 tabs Allergies Allergy/AdvReac Type Severity Reaction Status Date / Time naproxen Allergy Severe Anaphylaxis Verified 01/27/24 16:16 linagliptin AdvReac Severe myalgias Verified 01/27/24 16:16 Review of Systems Review of Systems Narrative: Alert interactive elderly male lying in bed in no acute distress HEENT exam is unremarkable. Neck supple without adenopathy JVD or bruits lungs are clear. Heart is irregular but controlled rate. No murmurs clicks rubs or gallops abdomen is soft positive bowel sounds nontender extremities Moi hip discomfort with internal rotation although it is not re-creating in his pain he has got muscle pain from basically is posterior thigh down to calf. Otherwise no significant change. Patient has 3/5 decreased hip extension flexion secondary to pain and 4/5 on the right. Calf strength actually feels normal to me. Motor upper extremities slight weakness on the left side with biceps and triceps testing. And strength appears normal. Cranial nerves 2 through 12 are intact except for left facial mild droop. Sensation appears intact. Did not have patient walk alert and oriented x3. Exam Vital Signs (past 8 hours): - 02/08/24 03:30 02/08/24 03:30 02/08/24 04:00 Temperature Pulse Rate 95 H 102 H Respiratory Rate 23 Blood Pressure 126/62 Pulse Oximetry 99 Oxygen Delivery Method Oxygen Flow Rate 02/08/24 04:00 02/08/24 04:30 02/08/24 04:30 Temperature Pulse Rate 88 Respiratory Rate 18 Blood Pressure 127/65 134/79 Pulse Oximetry 98 Oxygen Delivery Method Oxygen Flow Rate 02/08/24 05:00 02/08/24 05:00 02/08/24 05:30 Temperature Pulse Rate 91 H 86 Respiratory Rate 20 20 Blood Pressure 144/82 H Pulse Oximetry 98 97 Oxygen Delivery Method Oxygen Flow Rate 02/08/24 05:30 02/08/24 06:12 02/08/24 06:13 Temperature Pulse Rate 81 89 Respiratory Rate 16 14 Blood Pressure 118/79 Pulse Oximetry 99 98 Oxygen Delivery Method Oxygen Flow Rate 02/08/24 06:13 02/08/24 06:30 02/08/24 07:00 Temperature Pulse Rate 82 82 Respiratory Rate 20 17 Blood Pressure 130/58 L Pulse Oximetry 99 100 Oxygen Delivery Method Oxygen Flow Rate 02/08/24 07:00 02/08/24 07:30 02/08/24 08:00 Temperature Pulse Rate 88 89 Respiratory Rate 19 21 Blood Pressure 140/67 Pulse Oximetry Oxygen Delivery Method Room Air Oxygen Flow Rate 02/08/24 08:00 02/08/24 08:30 02/08/24 09:00 Temperature Pulse Rate 83 84 Respiratory Rate 14 22 Blood Pressure 127/82 Pulse Oximetry 99 Oxygen Delivery Method Oxygen Flow Rate 02/08/24 09:00 02/08/24 09:30 02/08/24 10:39 Temperature 99.5 F Pulse Rate 98 H 77 Respiratory Rate 23 19 Blood Pressure 132/63 127/57 L Pulse Oximetry 97 98 Oxygen Delivery Method Room Air Oxygen Flow Rate 0 02/08/24 10:53 Temperature Pulse Rate Respiratory Rate Blood Pressure Pulse Oximetry Oxygen Delivery Method Room Air Oxygen Flow Rate Oxygen Delivery Method Room Air Oxygen Flow Rate 0 Objective Labs 02/08/24 03:05 02/08/24 03:05 Labs: Laboratory Results - last 24 hr 02/08/24 02/08/24 02/08/24 03:05 04:00 05:33 WBC 8.4 RBC 4.26 L Hgb 12.3 L Hct 37.1 L MCV 87.1 MCH 29.0 MCHC 33.3 RDW 14.6 Plt Count 224 Neut % (Auto) 84.3 H Lymph % (Auto) 4.9 L Mckean % (Auto) 10.0 Eos % (Auto) 0.1 L Baso % (Auto) 0.7 Neut # (Auto) 7100 H Lymph # (Auto) 400 L Mckean # (Auto) 800 Eos # (Auto) 0 Baso # (Auto) 100 Sodium 134 L Potassium 4.3 Chloride 102 Carbon Dioxide 27 BUN 26 H Creatinine 1.28 H Estimated GFR 58 L BUN/Creatinine Ratio 20.3 Glucose 234 H Calcium 9.1 Total Bilirubin 0.6 AST 37 ALT 23 Alkaline Phosphatase 80 Total Creatine Kinase 675 H 1428 H D Troponin I 0.020 0.026 Total Protein 7.3 Albumin 4.2 Globulin 3.1 Albumin/Globulin Ratio 1.4 Lipase 69 Urine RBC 0-1/hpf Urine WBC None seen Ur Squamous Epith Cells 0-1 /hpf Urine Bacteria None seen Ur Culture Indicated? Cult not indicated Vol Urine Centrifuged 10ml (spun) Assessment & Plan Assessment & Plan narrative: Leg weakness. Left greater than right. It is not clear whether this is a stroke CT scan shows no definitive new findings. Will need MRI. It is almost like it is a pain syndrome more than it is a possible stroke. But it is unclear. He definitely was week prior to him being on the floor trying to get to the bedroom. And that maybe secondary now to his rhabdomyolysis. We are just going to have to see how he does. We will see what his MRI shows. PT OT. He really felt like it was completely arm and leg bilateral weakness which would be difficult for stroke to cause. He has no evidence of infection. And will just have to see how things go. Will re-evaluate in a.m.. Follow from there. Will add aspirin to his already anticoagulated state in the short term until decision on whether this represents stroke or not. Certainly too far out to intervene in any other way Rhabdomyolysis. CPK increase to 14 100s. Will recheck in a.m.. Gentle hydration for kidney protection. Will re-evaluate a.m.. And follow. Atrial fibrillation. Rate seems to be well-controlled I do not see any evidence of significant other change. We will continue his usual meds. Congestive heart failure. Patient is certainly not in any respiratory distress at this time. I would like to hold his Lasix until we see how his kidneys do with CPK elevation. And can always add tomorrow and discontinue fluids if all doing well. No other change. Coronary artery disease stable at this time no evidence of ischemic disease. Hypertension. Stable. Usual meds. Diabetes mellitus. Usual meds plus will control with short-acting if needed. Will hold metformin until we know that kidney function is stable probably can restart tomorrow. Depending on how things go. Code status. No code. DVT prophylaxis on Eliquis GI prophylaxis not needed at this time. Disposition. Patient with complicated presentation. Weakness and ability to do ADLs. My guess is is here at least 2-3 days. Without any other changes. Hopefully slowly improves need to follow kidney function. We discussed this with him. He understands. 75 minutes spent with the patient dictation chart review orders Time-Based Coding :: [TOTAL MINUTES] spent with patient and on the chart (including review of chart, obtaining history, exam, reviewing outside data, placing orders, documenting exam and treatment plan, and counseling patient) on [DATE]. Quality VTE Deep Vein Thrombosis/Pulmonary Embolism Present on Admission: No
[2024-02-08] MEDS: ASPIRIN EC 81 MG TABLET PO (11:26)
[2024-02-08] MEDS: diazePAM 5 MG TABLET PO (11:26)
--- NOTE | 2024-02-08 12:29 | PT.IIE ---
Surgical History (Last Reviewed 11/12/23 @ 15:04 by Sunday Polanco MD) Anesthesia History of heart artery stent (~2005) Hx of appendectomy Hx of hernia repair Hx of prostate biopsy Medical History (Last Reviewed 02/08/24 @ 06:47 by Andre Neville DO) Atrial fibrillation (~2005) Benign prostatic hyperplasia with lower urinary tract symptoms CAD (coronary artery disease) (~2005) Colitis (~2004) COPD (chronic obstructive pulmonary disease) (~2008) CVA (cerebral vascular accident) Diabetes mellitus (~2005) Elevated PSA Essential hypertension Fungal infection of toenail Gross hematuria H/O adenomatous polyp of colon Hearing loss (~1999) Heart attack Knee pain Mixed hyperlipidemia Peripheral edema Prostatitis Tobacco use Urge incontinence Vision disorder Physical Therapy Inpatient Evaluation/Re-Eval M1 PT/OT-IP Prior Functional Status Start: 02/08/24 11:57 Freq: NEEDED Status: Active Protocol: Document 02/08/24 11:55 MB (Rec: 02/08/24 12:29 MB [id number]) Medical Review Prior Functional Status Medical History Reviewed Yes Communication Unsure baseline diet and pt appears [place] Mobility and Gait Pt reports mod I with cane, falls Activities of Daily Living and IADL's Pt reports he drives but he has had some falls and decreased ability to take care of himself well at home. 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 He had some issues with weakness, c/o B quad pain, urinary issues prior to that time in another adm before stroke. Brother lives in [facility] and [facility] checks in on pt. So, at this point, it appears that pt has had at least 5 months of trouble caring for himself at home and this is at least third hospital adm since September 2023. Social History Household Members none Living Arrangements Mobile home Number of Floors (Floors) One Floor Number of Stairs To Enter/Railing? 7 steps and left rail to enter home Home Environment Standard Height Toilet,Walk in Shower Home Equipment Four Wheel Walker,Straight Cane Employment Status Retired M2 PT-IP Current Condition Start: 02/08/24 11:57 Freq: NEEDED Status: Active Protocol: Document 02/08/24 11:55 MB (Rec: 02/08/24 12:29 MB [id number]) Physical Therapy Current Condition Current Condition Evaluation Date 12/01/24 Treatment Diagnosis Weakness, could not get out of chair, crawled on knees to phone M3 PT-IP Subjective Start: 02/08/24 11:57 Freq: NEEDED Status: Active Protocol: Document 02/08/24 11:55 MB (Rec: 02/08/24 12:29 MB [id number]) Subjective Physical Therapy Visit Type Type Initial Evaluation Visit Start Time 11:55 Visit Stop Time 12:05 Number of BOARD CERTIFIED ORTHODONTIST Visits 0 Physical Therapy Visit Comments Patient Comments Pt appears [place], tries to answer questions and PT steps in to get eval done right before pt leaves for MRI Therapy Pain Assessment Pain When Pain Assessed At Rest Pain Present Pain Present Pain Reported Location Bilateral Leg Scale Used Knees, left leg with movement M4 PT-IP Mobility and Gait Start: 02/08/24 11:57 Freq: NEEDED Status: Active Protocol: Document 02/08/24 11:55 MB (Rec: 02/08/24 12:29 MB [id number]) PT-Bed Mobility Assessment Rolling Type of Rolling Roll to Right Level of Assist Contact Guard Assistance,1 Person Assistance Supine to Sit Supine to Sit Contact Guard Assistance,1 Person Assistance,Head of Bed Elevated,Bedrails Scooting Scooting to Edge of Bed Contact Guard Assistance PT-Transfer Assessment Sit to and From Stand Sit to and from Stand Moderate Assistance,1 Person Assistance,Use of Upper Extremities Equipment Transfer Assistive Device Gait Belt,Front Wheeled Walker Orthotic/Prosthetic Devices or Brace: No Transfers Transfer Destination Wheelchair Transfer Technique Stepping, left leg weakness Transfer Ability Level of Assist Moderate Assistance,1 Person Assistance,Use of Upper Extremities Gait Assessment Gait Gait Assistance Required: Moderate Assistance Distance (Feet) 3 Able to Maintain Weight Bearing Status Yes During Gait Assistive Devices Assistive Device Gait Belt,Front Wheeled Walker Orthotic/Prosthetic Devices or Brace: No Gait Deviations General Gait Pattern Decreased Stride Length, Decreased Feet Clearance, Flexed Trunk,Step-to Gait,Wide Based Gait Factors Limiting Gait Function Factors Limiting Gait Function Decreased Activity Tolerance, Decreased Strength,Difficulty Following Directions, Incoordination,Poor Balance, Poor Safety Awareness Comments Gait Comments Pt tends to step outside of walker and he presents with left sided leg weakness with mobility, has history of stroke affecting left side PT-Balance Assessment Sitting Balance and Reactions Static Sitting Balance Ability Good Dynamic Sitting Balance Ability Fair Standing Balance and Reactions Static Standing Balance Ability Fair Dynamic Standing Balance Ability Poor Device Used RW M5 PT-IP Objective Assessments Start: 02/08/24 11:57 Freq: NEEDED Status: Active Protocol: Document 02/08/24 11:55 MB (Rec: 02/08/24 12:29 MB [id number]) Orientation Orientation/Cognition Orientation Name,Age,Birthday,Month,Date, Year,Place Language Function Ability Hard of Hearing Safety Awareness Decreased Safety Awareness Memory Description Short Term Impaired Comments Pt state he dragged himself on his stomach and buttocks to get to phone but his knees have abrasions on them, pt presents with some confusion Gross Range of Motion Upper Extremity ROM Impairments Defer to OT Lower Extremity ROM Assessment Left Impaired Impairments LLE weakness noticed with transfer and stepping to w/c to go to MRI but will benefit from further assessment of range and strength in future treatments Strength Lower Extremity Strength Assessment Bilaterally Impaired Comments Strength Comments See comments above Coordination Assessment Gross Coordination Gross Coordination Impaired Assessment Coordination Comments Poor left-sided coordination with stepping today with walker Sensation Assessment Comments Sensation Comments Did not test Muscle Tone Comments Muscle Tone Comments Need to further assess tone in future treatments M7 PT-IP Assessment and Plan Start: 02/08/24 11:57 Freq: NEEDED Status: Active Protocol: Document 02/08/24 11:55 MB (Rec: 02/08/24 12:29 MB [id number]) PT Summary Assessment and Plan Potential Rehabilitation Potential Fair Status of Condition at Evaluation Evolving Summary Impairments Pain,ROM,Strength,Balance, Coordination,Sensation,Tone, Cognition,Bed Mobility, Transfers,Gait,Activity Tolerance Progress Towards Goals Progressing Toward Goals Assessment Summary Pt adm with weakness. PT recognizes pt and reviews chart. Pt suffered a right MCA stroke in September 2023 and he reports that he went to [facility] for rehab. He had some issues with weakness and B quad pain prior to that time in another adm before the stroke. So, at this point, it appears that pt has had at least 5 months of trouble caring for himself at home and this is at least his third hospital adm since September 2023. PT is concerned about the ongoing more global or B c /o weakness that pt has reported over the three admissions. Quick mobility assessment only this a.m. as pt headed to MRI. Will con't to assess range, strength, sensation and coordination over acute PT treatments. Recommend up to chair with RW and nsg assist for meals and SNF at d/c. Recommend OT consult and SLUMS. Goals Bed Mobility Goal Standby Assistance Transfer Goal Independent,Front Wheeled Walker Gait Goal Independent,Front Wheel Walker Gait Distance 100 Other Goals Pt will ascend and descend 7 steps with left rail ascend and no more than CGA to allow safe home entrance. Days to Meet Goals 5 Frequency of Treatment Frequency Of Treatment Once a Day Treatment Plan Physical Therapy Treatment Plan Bed Mobility Training,Transfer Training,Gait Training, Therapeutic Exercise,Balance Retraining,Discharge Planning, Hot or Cold Pack,Neuromuscular Re-ed,Coordination Retraining ,Manual Therapy Precautions Other Precautions Fall risk Recommendations To Nursing Amount of Assist Needed 1 Person Assist Discharge Recommendations PT Discharge Recommendations SNF Rehab Transportation Needs at Discharge Private Vehicle
[2024-02-08] MEDS: INSULIN LISPRO 100 UNIT/ML 3ML VIAL SUBCUT ×2 (12:54→16:55)
[2024-02-08] MEDS: glipiZIDE 5 MG TABLET 10 MG PO (20:53)
[2024-02-08] MEDS: METOPROLOL ER 50 MG TABLET 100 MG PO (20:53)
[2024-02-08] MEDS: APIXABAN 5 MG TABLET PO (20:53)
[2024-02-08] MEDS: INSULIN GLARGINE 100 UNIT/ML 3ML PEN 15 UNIT SUBCUT (21:00)
--- NOTE | 2024-02-08 23:13 | PC.NURSE ---
pt resting comfortably in bed. a&o x3-4 w/ slight forgetfulness. has left-sided facial droop w/ left upper extremity weakness. o2 sats 91% on room air. vss. on tele running a fib. trace edema in bilateral feet. abdomen soft, nontender. active bowel sounds x4. denies nausea. BLE weakness, 1 person assist w/ fww. denies pain. abrasions on bilateral knees. has a chronic rash on bilateral feet. scds on. bed in lowest position. bed alarm on, call light within reach.
[2024-02-09] VITALS (9 sets, daily range): BP systolic 130–147; BP diastolic 72–86; PULSE 68–86; RESP 17–19; TEMP 36.7–37; O2SAT 96–98
[2024-02-09] MEDS: SODIUM CHLORIDE 0.9% 1,000 ML 84 ML IV ×2 (02:28→14:42)
[2024-02-09] MEDS: PANTOPRAZOLE DR 20 MG TABLET PO (05:29)
[2024-02-09 05:59] LABS: Add Manual Diff / Slide Review NO; Basophils Absolute Auto 100 /uL (0-100); Basophils Percent Auto 1.2 % (0-2); Eosinophils Absolute Auto 0 /uL (0-450); Eosinophils Percent Auto 0.6 % (2-4); Hematocrit 34.2 % (41-53); Hemoglobin 11.4 g/dL (13.5-17.5); Lymphocytes Absolute Auto 800 /uL (1100-4500); Lymphocytes Percent Auto 17.2 % (25-40); Mean Corpuscular HGB Conc 33.4 % (30-36); Mean Corpuscular Volume 86.7 fL (80-100); Monocytes Absolute Auto 800 /uL (0-900); Neutrophils Absolute Auto 3100 /uL (1500-7000); Platelet Count 183 X10^3/uL (150-400); Red Blood Cell Count 3.94 X10^6/uL (4.5-5.9); Red Cell Distribution Width 14.8 % (11.6-14.8); White Blood Cell Count 4.9 X10^3/uL (4.5-11.0)
[2024-02-09 06:16] LABS: Alanine Aminotransferase 36 IU/L (<50); Albumin 3.4 g/dL (3.5-5.0); Albumin Globulin Ratio 1.2 (1.0-2.8); Alkaline Phosphatase 62 U/L (38-126); Aspartate Aminotransferase 100 IU/L (17-59); BUN Creatinine Ratio 23.9 (6-22); Bilirubin Total 0.4 mg/dL (0.2-1.3); Blood Urea Nitrogen 22 mg/dL (9-20); Calcium 8.4 mg/dL (8.4-10.2); Carbon Dioxide 25 mmol/L (22-32); Chloride 108 mmol/L (98-107); Estimated Glomerular Filt Rate > 60 mL/min (>60); Globulin 2.9 g/dL (1.7-4.1); Glucose 68 mg/dL (80-110); HEMOLYSIS < 15 (0-50); Potassium 3.6 mmol/L (3.4-5.1); Sodium 135 mmol/L (137-145); Total Protein 6.3 g/dL (6.3-8.2)
[2024-02-09 06:22] LABS: Creatine Kinase 2835 U/L (55-170)
--- NOTE | 2024-02-09 07:55 | P.PN_ITS ---
Subjective Subjective Date Patient Seen: 02/09/24 Time Patient Seen: 07:55 Interval history: Patient is status yesterday at time of admission reviewed with Dr. Grant. Subsequently MRI is not demonstrated any new findings. No evidence of acute CVA Patient's CPK reshma this morning basically double what it was yesterday. Fortunately renal function remains normal. Remains on IV fluids Blood sugars have been elevated although most recent numbers much improved This morning patient tells me his arms specially the back of the arms as well as the back of the legs in the calf area are quite sore. Feels like he has improved strength today verses yesterday when I ask him to lift his feet up off the bed etcetera Exam Vital Signs (past 8 hours): - 02/09/24 03:00 Temperature 98.1 F Pulse Rate 69 Respiratory Rate 18 Blood Pressure 135/77 Pulse Oximetry 96 Oxygen Flow Rate 0 Oxygen Delivery Method Room Air Oxygen Flow Rate 0 Objective Labs 02/09/24 05:24 02/09/24 05:24 Labs: Laboratory Results - last 24 hr 02/09/24 05:24 WBC 4.9 RBC 3.94 L Hgb 11.4 L Hct 34.2 L MCV 86.7 MCH 29.0 MCHC 33.4 RDW 14.8 Plt Count 183 Neut % (Auto) 64.0 D Lymph % (Auto) 17.2 L [place] % (Auto) 17.0 H Eos % (Auto) 0.6 L Baso % (Auto) 1.2 Neut # (Auto) 3100 Lymph # (Auto) 800 L [place] # (Auto) 800 Eos # (Auto) 0 Baso # (Auto) 100 Sodium 135 L Potassium 3.6 Chloride 108 H Carbon Dioxide 25 BUN 22 H Creatinine 0.92 Estimated GFR > 60 BUN/Creatinine Ratio 23.9 H Glucose 68 L D Calcium 8.4 Total Bilirubin 0.4 AST 100 H ALT 36 Alkaline Phosphatase 62 Total Creatine Kinase 2835 H D Total Protein 6.3 Albumin 3.4 L Globulin 2.9 Albumin/Globulin Ratio 1.2 PFSH Medical History Peripheral edema Prostatitis Tobacco use Urge incontinence Benign prostatic hyperplasia with lower urinary tract symptoms Gross hematuria Heart attack CVA (cerebral vascular accident) H/O adenomatous polyp of colon Fungal infection of toenail Mixed hyperlipidemia Essential hypertension Elevated PSA CAD (coronary artery disease) (~2005) Knee pain Vision disorder COPD (chronic obstructive pulmonary disease) (~2008) Hearing loss (~1999) Colitis (~2004) Diabetes mellitus (~2005) Atrial fibrillation (~2005) Surgical History Hx of prostate biopsy Hx of hernia repair Hx of appendectomy Anesthesia History of heart artery stent (~2005) Family History Father History of heart disease Mother Aneurysm Sister Cancer Brother Cancer Social History marital status: household members: none Smoking Status: Current every day smoker alcohol intake: former caffeine: Yes Type(s) of exercise: none Assessment & Plan Assessment & Plan narrative: 1. Rhabdomyolysis-seems like patient's presenting symptoms are more muscle weakness than anything else followed by some muscle pain. Clearly has an element of rhabdomyolysis given the elevated CPK with the appropriate clinical symptoms as well. Wonder if perhaps his statin therapy is an etiology for this. Do not have a better etiology at this time. Patient denies any significant alcohol intake. There was no fall or other sort of increased physical activity to induce muscle injury. No other high-risk medications At this point will keep him off his statin therapy and monitor his CPK and renal function. Get him up with physical therapy as well Perhaps some other pattern of his muscle weakness etcetera my suggest some other etiology but at this point this seems like a primary rhabdomyolysis 2. Diabetes-continue patient's usual meds and monitor his numbers. Continue with carb consistent diet 3. Atrial fibrillation-adequate rate control. Continue current meds including his anticoagulation. Echo has been ordered and performed (no interpretation available, yet) 4. History CVA-no evidence of recurrent neurologic event on MRI. Continue to monitor for evidence of a neurologic event causing his weakness etcetera. Time-Based Coding :: [TOTAL MINUTES] spent with patient and on the chart (including review of chart, obtaining history, exam, reviewing outside data, placing orders, documenting exam and treatment plan, and counseling patient) on [DATE]. Quality VTE Deep Vein Thrombosis/Pulmonary Embolism Present on Admission: No PROFEE Charge codes Subsequent inpatient/observation care: [id number]
[2024-02-09] MEDS: BUDESONIDE 3 MG CAP PO (08:51)
[2024-02-09] MEDS: glipiZIDE 5 MG TABLET 10 MG PO ×2 (08:51→21:01)
[2024-02-09] MEDS: APIXABAN 5 MG TABLET PO ×2 (08:52→21:01)
[2024-02-09] MEDS: ASPIRIN EC 81 MG TABLET PO (08:52)
[2024-02-09] MEDS: lisinopriL 20 MG TABLET PO (08:52)
[2024-02-09] MEDS: METOPROLOL ER 50 MG TABLET 100 MG PO ×2 (08:52→21:02)
--- NOTE | 2024-02-09 11:16 | OT.IP.EVAL ---
Current Diagnoses Weakness (02/08/24) Past Medical History (Last Reviewed 02/08/24 @ 06:47 by Andre Neville DO) Atrial fibrillation (~2005) Benign prostatic hyperplasia with lower urinary tract symptoms CAD (coronary artery disease) (~2005) Colitis (~2004) COPD (chronic obstructive pulmonary disease) (~2008) CVA (cerebral vascular accident) Diabetes mellitus (~2005) Elevated PSA Essential hypertension Fungal infection of toenail Gross hematuria H/O adenomatous polyp of colon Hearing loss (~1999) Heart attack Knee pain Mixed hyperlipidemia Peripheral edema Prostatitis Tobacco use Urge incontinence Vision disorder Surgical History (Last Reviewed 11/12/23 @ 15:04 by Sunday Polanco MD) Anesthesia History of heart artery stent (~2005) Hx of appendectomy Hx of hernia repair Hx of prostate biopsy Occupational Therapy Inpatient Evaluation/Re-Eval M1 PT/OT-IP Prior Functional Status Start: 02/08/24 11:57 Freq: NEEDED Status: Active Protocol: Document 02/09/24 16:22 CGR (Rec: 02/09/24 16:43 CGR [id number]) Medical Review Prior Functional Status Medical History Reviewed Yes Communication Pt is an effective verbal communicator but has a flat affect likely from hx of CVA Mobility and Gait Pt reports mod I with cane, falls Activities of Daily Living and IADL's Pt reports he drives but he has had some falls and decreased ability to take care of himself well at home. 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 He had some issues with weakness, c/o B quad pain, urinary issues prior to that time in another adm before stroke. Brother lives in town and [facility] checks in on pt. So, at this point, it appears that pt has had at least 5 months of trouble caring for himself at home and this is at least third hospital adm since September 2023. Social History Household Members none Living Arrangements Mobile home Number of Floors (Floors) One Floor Number of Stairs To Enter/Railing? 7 steps to enter with L railing Home Environment Standard Height Toilet,Walk in Shower Home Equipment Four Wheel Walker,Straight Cane,Shower Seat with Backrest Employment Status Retired M2 OT-IP Current Condition Start: 02/09/24 16:21 Freq: Status: Active Protocol: Document 02/09/24 16:22 CGR (Rec: 02/09/24 16:43 CGR [id number]) Occupational Therapy Current Condition Current Condition Evaluation Date 02/09/24 Treatment Diagnosis generalized weakness, MRI-, rhabdo Diagnosis Onset Date 02/08/24 M3 OT- IP Subjective and Pain Start: 02/09/24 16:21 Freq: Status: Active Protocol: Document 02/09/24 16:22 CGR (Rec: 02/09/24 16:43 CGR [id number]) OT- Subjective Occupational Therapy Visit Type Type Initial Evaluation Visit Start Time 10:51 Visit Stop Time 11:16 Notes Nursing requested that pt have SLUMs. Will plan for SLUMS tomorrow. OT Pain Assessment Pain When Pain Assessed At Rest Pain Present Pain Present Denied Pain M4 OT- IP ADL's Start: 02/09/24 16:21 Freq: Status: Active Protocol: Document 02/09/24 16:22 CGR (Rec: 02/09/24 16:43 CGR [id number]) OT [id number] Comments OT Self-Feeding Comments not meal time OT ADL-Grooming General Evaluation Grooming Ability Standby Assistance Areas Needing Assistance Face Washing Comments OT Grooming Comments standing at sink OT ADL-Oral Care General Eval Oral Care Ability Standby Assistance Areas of Assistance Brushing Teeth Comments Oral Care Comments standing at sink OT ADL-Dressing Comments OT Dressing Comments not performed on this date. OT ADL-Toileting Comments OT Toileting Comments not performed OT ADL-Bathing Comments OT Bathing Comments not performed M5 OT- IP IADL's Start: 02/09/24 16:21 Freq: Status: Active Protocol: Document 02/09/24 16:22 CGR (Rec: 02/09/24 16:43 CGR [id number]) OT-Instrumental Activities of Daily Living Deficits IADL Deficits Identified Deficits Home Safety Awareness Awareness of Need for Assistance at Home Decreased Awareness Ability to Problem Solve Emergency Unable to Problem Solve Situations Medication Management Medication Management Comments Concerns for pt's ability to perform Money Management Money Management Comments Concerns for pt's ability to perform Meal Preparation Meal Preparation Comments Concerns for pt's ability to perform Pst Supervisor Pst Supervisor Comments Concerns for pt's ability to perform Driving Driving Comments 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 Concerns for pt's ability to perform safely. M6 OT- IP Functional Cognition Start: 02/09/24 16:21 Freq: Status: Active Protocol: Document 02/09/24 16:22 CGR (Rec: 02/09/24 16:43 CGR [id number]) Cognitive Factors Limiting Selfcare Function Cognitive Ability Level of Alertness Alert Patient Orientation Name,Age,Birthday,Month,Date, Year,Day of Week,Place, Situation Attention Span Ability Capable of Focused Attention, Capable of Sustained Attention Ability to Follow Commands Able to Follow One Step Commands with Increased Time, Able to Follow One Step Commands with Repetition Cognitive Comments Cognitive Assessment Comments Will plan for SLUMS on another day. OT- Vision and Hearing OT- Hearing Assessment OT- Hearing Assessment Hearing Impaired OT- Vision Assessment Visual Acuity Glasses All The Time Visual Attentiveness WFL Occular Pursuits WFL Visual Convergence WFL M7 OT- IP Mobility and Balance Start: 02/09/24 16:21 Freq: Status: Active Protocol: Document 02/09/24 16:22 CGR (Rec: 02/09/24 16:43 CGR [id number]) OT-Transfer Assessment Sit to and From Stand Sit to and from Stand Moderate Assistance,1 Person Assistance Transfers Transfer Ability Contact Guard Assistance,1 Person Assistance Technique Transfer Destination Chair Transfer Technique Stand Step Pivot Devices Transfer Assistive Devices Gait Belt,Front Wheeled Walker Comments Mobility Comments Pt ambulated from chair to sink for ADLs then returned to sitting in chair at end of session. OT- Balance Assessment Sitting Balance and Reactions Static Sitting Balance Ability Good Dynamic Sitting Balance Ability Good M8 OT- IP Objective Assessments Start: 02/09/24 16:21 Freq: Status: Active Protocol: Document 02/09/24 16:22 CGR (Rec: 02/09/24 16:43 CGR [id number]) OT Gross Range of Motion Upper Extremity Range of Motion Assessment Within Functional Limits OT Strength Upper Extremity Strength Assessment Within Functional Limits Comments Strength Comments 4/5 throughout with delay to the LUE OT- Coordination Assessment Upper Extremity Finger to Nose Test Left UE Impaired Finger Tapping Test Left UE Impaired Comments Coordination Comments coordination is delayed to the LUE OT-Muscle Tone Assessment Muscle Tone WNL Yes OT Sensation Assessment Edema Edema Absent M9 OT- IP Assessment and Plan Start: 02/09/24 16:21 Freq: Status: Active Protocol: Document 02/09/24 16:22 CGR (Rec: 02/09/24 16:43 CGR [id number]) OT Summary Assessment and Plan Potential Rehabilitation Potential Good Analytic Complexity at Evaluation Moderate Summary OT Impairments Balance,Coordination, Functional Cognition, Functional Mobility,Grooming, Dressing,Toileting,Bathing, Toilet Transfers,Shower Transfers,Activity Tolerance Progress Towards Goals Slow Progress due to Activity Tolerance Assessment Summary Pt presents as a moderate complexity evaluation s/p admit for sudden onset of weakness. MRI was neg for acute process. Pt needed mod a for sit to stand and multiple attempts but then was able to ambulate to the sink with CGA . Pt will benefit from continued therapy services including a cog assessment and may benefit from SNF upon discharge. Goals Grooming Goal Independent Dressing Goal Independent Toileting Goal Independent Bathing Goal Independent Toilet Transfer Goal Independent Shower Transfer Goal Independent Days to Meet Goals 15 Frequency of Treatment Other frequency 5x a week Treatment Plan OT Treatment Plan ADL Training,Functional Cognition Training,Functional Mobility,Therapeutic Exercises ,Patient/Family Education, Discharge Planning Other Treatment Recommendations and Next SLUMS Treatment Focus Discharge Recommendations OT Discharge Recommendations SNF Rehab Transportation Needs at Discharge Wheelchair/Cabulance
--- NOTE | 2024-02-09 13:24 | CM.DANOTE ---
Patient is a 73 yo male who was admitted INPT Status on 02/08/24 for Weakness/Rhabdo. Pt has [facility] and [employer] for insurance and his PCP is Dr. Homer Falk. EMR was reviewed. Per MD, pt with hx of CVA this summer and some residual weakness and admitted to r/o TIA vs CVA but MRI negative and labs show pt with Rhabdo. Pt not yet medically stable to discharge today. Per PT/OT, pt below baseline with mobility and requiring increased assist and recommending SNF at d/c currently. SW met bedside with pt and explained role and pt confirms he still lives in the mobile home on his brother's property and is mostly independent with ADLs at baseline but does have a cane and FWW from his prior stroke. Pt drives short distances and his brother lives locally but sometimes goes to [place] with his and then starting in Apr they tend to go to [place] for warmer weather for a couple months but brother is currently in [place]. Pt confirms that he went to [facility] in September 2023 after a stroke and then discharged home with brother support and HH. Pt currently feels he is quite below baseline and might need rehab before going home depending on his progress. SW discussed the difference between stroke rehab and SNF and pt does not believe he has any hx of SNF before but would be willing to consider if he is not yet safe for home. SW provided SNF Choice list and currently [facility] is his preference due to location and aware next closest is [facility]. PASRR done in anticipation of SNF. [facility] referral made and they are reviewing. Plan: SW to follow for further PT to determine home with HH vs SNF pending progress. THEE Ferrell Discharge Planning/Care Management CM Discharge Assessment Start: 02/09/24 13:16 Freq: Status: Active Protocol: Document 02/09/24 13:16 BF (Rec: 02/09/24 13:23 BF [id number]) Discharge Planning Assessment Assigned Busboy THEE Arndt DPOA/Assigned Designee Name brother Contact Information [phone] Advance Directives? No Advance Directives on File No History Provided By Patient,Medical Record Has Patient been admitted in last 30 No days? Comment last admit in September 2023 this year for stroke and went to [facility] Acute Prior Living Arrangements Mobile home Household Members none Type of transporation used prior to Drives own vehicle admit Independent with ADL's Yes: mostly Is patient alert and oriented? Yes Needs Assistance With Home Chores / Shopping Caregiver for Another No DME Already Rented / Owned Cane Patient/Family Preference Long Term Facility,Home with Home Health Comment SNF vs HH pending progress Barriers to Discharge No Discharge Plan Long Term Facility Transportation Arrangement Brother if safe for home Referrals Initiated Long Term If patient plan is SNF: Has PASSR been Yes completed? Inpatient Status as of 02/08/24 Medicare Choice List Provided Yes Medicare choice list reviewed on patient electronic tablet with SNF/HH Preference [facility] Has Agency SNF been contacted Yes Whiteboard Updated in Patient Room with Yes name and ext. # of Busboy Review Status In Process Please Provide Date Initial DC 02/09/24 Assessment Was Performed Next Review Type Continued Stay Review
--- NOTE | 2024-02-09 13:43 | PT.IPTN ---
Current Diagnoses Weakness (02/08/24) Physical Therapy Treatment Note M2 PT-IP Current Condition Start: 02/08/24 11:57 Freq: NEEDED Status: Active Protocol: Document 02/08/24 11:55 MB (Rec: 02/08/24 12:29 MB [id number]) Physical Therapy Current Condition Current Condition Evaluation Date 02/08/24 Treatment Diagnosis Weakness, could not get out of chair, crawled on knees to phone M3 PT-IP Subjective Start: 02/08/24 11:57 Freq: NEEDED Status: Active Protocol: Document 02/09/24 13:21 MB (Rec: 02/09/24 13:42 MB [id number]) Subjective Physical Therapy Visit Type Type Treatment Note Visit Start Time 13:21 Visit Stop Time 13:33 Number of [employer] Visits 0 Physical Therapy Visit Comments Patient Comments Pt is agreeable to PT. 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 He con't to report concern that he does not know what happened at home. Therapy Pain Assessment Pain When Pain Assessed At Rest Pain Present Pain Present Pain Reported Location Bilateral Leg Scale Used All over, not rated M4 PT-IP Mobility and Gait Start: 02/08/24 11:57 Freq: NEEDED Status: Active Protocol: Document 02/09/24 13:21 MB (Rec: 02/09/24 13:42 MB [id number]) PT-Bed Mobility Assessment Sit to Supine Sit to Supine Contact Guard Assistance, Bedrails PT-Transfer Assessment Sit to and From Stand Sit to and from Stand Minimal Assistance,1 Person Assistance,Use of Upper Extremities Equipment Transfer Assistive Device Gait Belt,Front Wheeled Walker Orthotic/Prosthetic Devices or Brace: No Transfers Transfer Destination Bed Transfer Technique Ambulation Transfer Ability Level of Assist Minimal Assistance,1 Person Assistance,Use of Upper Extremities Comments Mobility Comments PT asks pt if he is light- headed after mobility he he states he is a little bit. BP cuff does not read on LUE. MMT sitting in chair today: B hip flexion 3-/5; right knee extension 4/5, left knee extension 4-/5, right knee flexion 3+/5, left knee flexion 3+/5; pt does not follow commands for DF and great toe extension well and is functionally weak on the left. Right greater than left LE edema and B LEs are purplish and pt found sitting in chair with feet on floor and legs in dependent position . Gait Assessment Gait Gait Assistance Required: Minimum Assistance,1 Person Assist Distance (Feet) 20 Able to Maintain Weight Bearing Status Yes During Gait Assistive Devices Assistive Device Gait Belt,Front Wheeled Walker Orthotic/Prosthetic Devices or Brace: No Gait Deviations General Gait Pattern Decreased Stride Length, Decreased Feet Clearance, Flexed Trunk,Step-to Gait,Wide Based Gait Factors Limiting Gait Function Factors Limiting Gait Function Decreased Activity Tolerance, Decreased Strength,Difficulty Following Directions, Incoordination,Poor Balance, Poor Safety Awareness Comments Gait Comments Pt tends to drag/shuffle his left foot with gait. PT-Balance Assessment Sitting Balance and Reactions Static Sitting Balance Ability Good Dynamic Sitting Balance Ability Fair Standing Balance and Reactions Static Standing Balance Ability Fair Dynamic Standing Balance Ability Poor Device Used RW M5 PT-IP Objective Assessments Start: 02/08/24 11:57 Freq: NEEDED Status: Active Protocol: Document 02/09/24 13:21 MB (Rec: 02/09/24 13:42 MB [id number]) Gross Range of Motion Lower Extremity ROM Impairments Decreased left ankle and great toe movement Strength Comments Strength Comments See findings above Coordination Assessment Assessment Coordination Comments Pt with global weakness, likely from rhabdo, and he cannot perform B heel to cox Sensation Assessment Comments Sensation Comments Decreased discrimination testing with light touch: when touching B legs, only states touching the right M7 PT-IP Assessment and Plan Start: 02/08/24 11:57 Freq: NEEDED Status: Active Protocol: Document 02/09/24 13:21 MB (Rec: 02/09/24 13:42 MB [id number]) PT Summary Assessment and Plan Potential Rehabilitation Potential Fair Status of Condition at Evaluation Evolving Summary Impairments Pain,ROM,Strength,Balance, Coordination,Sensation,Tone, Cognition,Bed Mobility, Transfers,Gait,Activity Tolerance Progress Towards Goals Progressing Toward Goals Assessment Summary PT assesses strength, coordination and sensation today. Pt with B, left greater than right, LE weakness and poor coordination. He has decreased discrimination sense LLE with B light touch sensation testing today. He presents with functional left foot drop with gait and B LE edema and erythema, right greater than left today. B LE weakness, perhaps from rhabdo, limits heel to cox testing B . He expresses concern about not knowing what happened at home. Recommend SLUMS/ cognitive assessment and OT is consulted. Recommend SNF at d /c. Goals Bed Mobility Goal Standby Assistance Transfer Goal Independent,Front Wheeled Walker Gait Goal Independent,Front Wheel Walker Gait Distance 100 Other Goals Pt will ascend and descend 7 steps with left rail ascend and no more than CGA to allow safe home entrance. Days to Meet Goals 5 Frequency of Treatment Frequency Of Treatment Once a Day Treatment Plan Physical Therapy Treatment Plan Bed Mobility Training,Transfer Training,Gait Training, Therapeutic Exercise,Balance Retraining,Discharge Planning, Hot or Cold Pack,Neuromuscular Re-ed,Coordination Retraining ,Manual Therapy Precautions Other Precautions Fall risk Recommendations To Nursing Amount of Assist Needed 1 Person Assist Discharge Recommendations PT Discharge Recommendations SNF Rehab Transportation Needs at Discharge Private Vehicle
--- NOTE | 2024-02-09 14:09 | PC.NURSE ---
pt alert and oriented working with speech therapy. This RN talked to pt regarding nutrition and pt stated he is only eating once a day- lunch from meals on wheels and sometimes a snack at night. Also mentioned that his blood sugars have been all over. Will chat with social work about a home plan. call light in reach and bed alarm on.
--- NOTE | 2024-02-09 14:21 | ST.IPCSEOM ---
Visit Care Team Role Provider Type Andre Neville DO Emergency Provider Physician Referring Provider Specialty: Emergency Medicine Address: [address] [place] [address], [address] Email: Homer Falk MD Attending Provider Physician Primary Care Provider Specialty: Internal Medicine Address: [address] [place] [address], Suite [facility], [place], [address] Email: [email or web address] Royce Grant MD Admit Provider Physician Other Providers Specialty: Family Practice Address: [facility], [facility], [place], [address] Email: [email or web address] Current Diagnoses Weakness (02/08/24) Past Medical History (Last Reviewed 02/08/24 @ 06:47 by Andre Neville DO) Atrial fibrillation (Medical ~2005) Benign prostatic hyperplasia with lower urinary tract symptoms (Medical) CAD (coronary artery disease) (Medical ~2005) [place] 2006 Colitis (Medical ~2004) COPD (chronic obstructive pulmonary disease) (Medical ~2008) CVA (cerebral vascular accident) (Medical) Diabetes mellitus (Medical ~2005) Elevated PSA (Medical) Negative biopsy in past Essential hypertension (Medical) Fungal infection of toenail (Medical) Gross hematuria (Medical) H/O adenomatous polyp of colon (Medical) Hearing loss (Medical ~1999) Heart attack (Medical) Knee pain (Medical) Mixed hyperlipidemia (Medical) Peripheral edema (Medical) Prostatitis (Medical) Tobacco use (Social Hx) Urge incontinence (Medical) Vision disorder (Medical) Wear glasses Speech-Language Pathology Swallow Evaluation 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 Falk Reason for Referral Possible CVA Setting Assessment Location Acute Care Visit Type Note Type Initial evaluation Patient Information Identification Type Name History Per H&P: Patient is a 73-year- old patient of Dr. Falk who I am cross covering for who presents to the emergency room with weakness. Patient has a history of CVA and has had some persistent left-sided facial droop mild and some mild right-sided weakness. Patient has been taking his medication. It is secondary to AFib and has been on his Eliquis. Apparently he was feeling great yesterday morning when he woke up but as the day went on he was becoming weaker and weaker. He describes this as diffuse weakness to the point where he could not get up out of his chair and eventually crawled across the bedroom to the phone. Contacted EMS. He has had no headaches no fevers no chills no numbness no tingling no chest pain no shortness a breath no orthopnea no PND. No abdominal pain no change in urine output although he has been put on Lasix recently and has been urinating a lot. No pain no. No blood. No change in his bowel movements. Currently hurting primarily his left leg all the way down from top to bottom. But no other changes. PMHx significant for: Peripheral edema Prostatitis Tobacco use Urge incontinence Benign prostatic hyperplasia with lower urinary tract symptoms Gross hematuria Heart attack CVA (cerebral vascular accident) H/O adenomatous polyp of colon Fungal infection of toenail Mixed hyperlipidemia Essential hypertension Elevated PSA CAD (coronary artery disease) (~2005) Knee pain Vision disorder COPD (chronic obstructive pulmonary disease) (~2008) Hearing loss (~1999) Colitis (~2004) Diabetes mellitus (~2005) Atrial fibrillation (~2005) Pt referred for ST evaluation d/t possible CVA. Subjective Observations Pt sleeping in bed, easily awoken with knock on door. Pt awake, alert and oriented x3. Speech/cognition/language appear WNL. Pt compliant with swallow evaluation. Pt reports baseline left facial droop from previous CVA. Reported by Patient/Caregiver Pain/Discomfort No Current Diet Regular (IDDSI 7) Baseline Feeding Method Independent in self-feeding The IDDSI Framework Protocol: IDDSI.1 Objective Assessment Mental Status Alert,Responsive,Cooperative Comment Oral motor exam revealed mild left sided facial droop, slight reduced strength L side lingual. ROM appeared WFL for lingual and labial strength and ROM appeared WFL. Full dentures, good condition. Food and Liquid Trials Position During Assessment Upright (90 degrees) Liquids Trialed Thin (IDDSI 0) Solid Trials Regular (IDDSI 7) Oral Impairment Within functional limits Oral Phase Comments Pt consumed 1/2 a peanut butter and jelly sandwich and 1 migdalia cracker with 4 oz of thin juice via cup. For solids , Pt demonstrated adequate bite size and rate, good oral acceptance and containment, prolonged mastication with sandwich, however adequate bolus formation and control. For thin liquids via cup, Pt exhibited adequate sip size and rate, good oral acceptance and containment. Pharyngeal Impairment Within functional limits Pharyngeal Phase Comments Pt with cough reflex prior to PO trials, however had been laying almost flat before being positioned upright for PO trials utilizing bed controls. Pt with no coughing, choking or reports of swallow difficulties with all PO trials. Fatigue/Endurance Endurance WNL The IDDSI Framework Protocol: IDDSI.1 Findings Swallowing Function Within functional limits Severity of Swallow Impairment Within functional limits Prognosis Good Impact on Safety and Functioning No limitations Recommendations Instrumental Assessment No Swallowing Treatment No Recommended Solids Regular (IDDSI 7) Recommended Liquids Thin (IDDSI 0) Other Recommendations Pt presents with oral and pharyngeal swallow function that appears WFL. ST recommends regular solids and thin liquids with the below safe swallowing strategies in place. ST recommends re- referral for speech if change in status. Safety Precautions/Swallowing Remain upright (90 degrees) Recommendations during all oral intake,Upright position at least 30 minutes after meals,Small bites and sips when eating,Slow rate; swallow between bites, Alternate liquids and solids, Strict oral care after intake Medication Recommendations As Tolerated
--- NOTE | 2024-02-09 15:42 | DIET.CONS ---
Dietary Consultation Note Admission Date: 02/08/2024 06:59 Assessment: 73 y M admitted for weakness/rhabdo. RD consulted for only eating 1 meal per day, educ needed. Met with pt in room. Reports good appetite, 75-100% PO intakes. No recent weight loss per chart (within past year weight is recorded between 90-95 kg) and per pt reported UBW. Diet recall: L-meals on wheels D-snacks or 3 x/wk has dinner with family (spaghetti and meatballs, meatlaof etc) and pt takes leftovers home. Doesn't feel need to eat more, is satisfied. Reports still using CGMs. BG drops most nights, alarm goes off and notes BG <55. Has no symptoms. Sometimes sleeps on arm that has CGM, but tries not to. Treats lows with glucose tablet or orange juice. Reports treating with between 3-5 tablets before BG comes up. However, does not wait the 15 minutes between tablets. Waits only 5 minutes and when he does not see BG rising, takes another d/t concern/panic of seeing an urgent low. Reports highs after meals with family. Dec 2023 A1c is 8%. Ht: 190.5 cm Wt: 95.254 kg BMI: 26.2 UBW: 210 lb (95.45 kg) per pt and per EMR. 95.453 kg on 01/27/24, 93.695 kg on 09/08/23, 92.986 kg on 04/29/23 Last BM: 02/08/24 (02/08/24 11:11) MNA: 14 Jamie Score: 19 Diet: 02/08/24 Lunch Carbohydrate Consistent Diet Diet Modifications: Carbohydrate level: Large (4 CHO) Bedtime snack: Yes Reflex DM orders: No Food Texture: Level 7 - Regular Liquid Consistency: Level 0 - Thin Nutrition Percent Meal Consumed 100% 02/09/24 13:10 Percent Meal Consumed 75% 02/09/24 09:20 Percent Meal Consumed 100% 02/08/24 17:43 Percent Meal Consumed 100% 02/08/24 14:40 Percent Meal Consumed 50% 02/08/24 09:56 Labs: RBC 3.94 X10^6/uL (4.5-5.9) L 02/09/24 05:24 Hgb 11.4 g/dL (13.5-17.5) L 02/09/24 05:24 Hct 34.2 % (41-53) L 02/09/24 05:24 Creatinine 0.92 mg/dL (0.66-1.25) 02/09/24 05:24 Nutrition Diagnosis: Altered nutrition related lab values (a1c, BG) r/t endocrine dysfunction aeb A1c 8.0% Interventions: 1. Reviewed rule of 15s - educ on importance of waiting 15 minutes before taking another tablet 2. Discussed consistent meals and snacks for BG management- discussed realistic options of protein+carb pairings 3. Coordination of care with DM educator for OP appt Monitoring/Evaluations: PO intakes, BG Electronically Signed by: Mini Mcgowan 02/09/24 15:42 Clinical Dietitian [address] [address]
[2024-02-09] MEDS: INSULIN LISPRO 100 UNIT/ML 3ML VIAL SUBCUT (16:42)
[2024-02-10] VITALS (9 sets, daily range): BP systolic 117–146; BP diastolic 68–87; PULSE 65–87; RESP 16–19; TEMP 36.3–37; O2SAT 94–99
[2024-02-10] MEDS: SODIUM CHLORIDE 0.9% 1,000 ML 84 ML IV ×2 (02:58→14:57)
[2024-02-10] MEDS: PANTOPRAZOLE DR 20 MG TABLET PO (06:04)
[2024-02-10 06:05] LABS: BUN Creatinine Ratio 22.7 (6-22); Blood Urea Nitrogen 20 mg/dL (9-20); Calcium 8.4 mg/dL (8.4-10.2); Carbon Dioxide 23 mmol/L (22-32); Chloride 106 mmol/L (98-107); Estimated Glomerular Filt Rate > 60 mL/min (>60); Glucose 94 mg/dL (80-110); HEMOLYSIS < 15 (0-50); Potassium 3.9 mmol/L (3.4-5.1); Sodium 133 mmol/L (137-145)
[2024-02-10 06:12] LABS: Creatine Kinase 2067 U/L (55-170)
--- NOTE | 2024-02-10 06:54 | PM.PN.1 ---
Subjective Subjective Date Patient Seen: 02/10/24 Time Patient Seen: 06:54 Interval history: Patient seen by PT and OT yesterday. Both are currently recommending nursing home placement. No pattern functional lost that would suggest anything other than perhaps some mild rhabdomyolysis and or residual from his CVA. Patient does continue to improve seem better on his feet yesterday than he did the day before CPK improve this morning as well certainly not back to baseline but trending in that direction Renal function normal Vital signs okay Blood sugar control better than average, very adequate Patient reports that his strength maybe slightly better this morning. Pain is probably about the same maybe a tiny bit better too. Again pointing mostly at his calves and his triceps area on his arms. Up with physical therapy yesterday was disappointed that he was not stronger than he was but definitely better than upon admission No new complaints or other issues Exam Vital Signs (past 8 hours): - 02/10/24 00:00 02/10/24 04:00 Temperature 97.8 F 98.6 F Pulse Rate 86 77 Respiratory Rate 19 18 Blood Pressure 140/72 134/86 Pulse Oximetry 97 94 Oxygen Flow Rate 0 0 Oxygen Delivery Method Room Air Oxygen Flow Rate 0 Objective Labs 02/09/24 05:24 02/10/24 05:08 Labs: Laboratory Results - last 24 hr 02/10/24 05:08 Sodium 133 L Potassium 3.9 Chloride 106 Carbon Dioxide 23 BUN 20 Creatinine 0.88 Estimated GFR > 60 BUN/Creatinine Ratio 22.7 H Glucose 94 Calcium 8.4 Total Creatine Kinase 2067 H PFSH Medical History Peripheral edema Prostatitis Tobacco use Urge incontinence Benign prostatic hyperplasia with lower urinary tract symptoms Gross hematuria Heart attack CVA (cerebral vascular accident) H/O adenomatous polyp of colon Fungal infection of toenail Mixed hyperlipidemia Essential hypertension Elevated PSA CAD (coronary artery disease) (~2005) Knee pain Vision disorder COPD (chronic obstructive pulmonary disease) (~2008) Hearing loss (~1999) Colitis (~2004) Diabetes mellitus (~2005) Atrial fibrillation (~2005) Surgical History Hx of prostate biopsy Hx of hernia repair Hx of appendectomy Anesthesia History of heart artery stent (~2005) Family History Father History of heart disease Mother Aneurysm Sister Cancer Brother Cancer Social History marital status: household members: none Smoking Status: Current every day smoker alcohol intake: former caffeine: Yes Type(s) of exercise: none Assessment & Plan Assessment & Plan narrative: 1. Rhabdomyolysis-seems like patient's presenting symptoms are more muscle weakness than anything else followed by some muscle pain. Seems like a combination of the rhabdo plus the underlying weakness from his CVA. Patient's ability to care for himself in the home setting is also somewhat suspect a I believe all this together contributes to his presentation. Continue with care as noted previously 2. Diabetes-continue patient's usual meds and monitor his numbers. Continue with carb consistent diet 3. Atrial fibrillation-adequate rate control. Continue current meds including his anticoagulation. Echo essentially normal as done on Friday, February 07. 4. History CVA-no evidence of recurrent neurologic event on MRI. Continue to monitor for evidence of a neurologic event causing his weakness etcetera. I do believe that his prior CVA is a contributing factor to his presentation with the noted left-sided weakness as well as probably some degree of failure to thrive at home. 5. Disposition-unless there is significant clinical change I think patient would benefit from placement in nursing home for continued rehabilitation. Will monitor evaluations by skilled therapies today as well. Time-Based Coding :: [TOTAL MINUTES] spent with patient and on the chart (including review of chart, obtaining history, exam, reviewing outside data, placing orders, documenting exam and treatment plan, and counseling patient) on [DATE]. Quality VTE Deep Vein Thrombosis/Pulmonary Embolism Present on Admission: No IH PROFEE Charge codes Subsequent inpatient/observation care: 40578
[2024-02-10] MEDS: BUDESONIDE 3 MG CAP PO (08:23)
[2024-02-10] MEDS: METOPROLOL ER 50 MG TABLET 100 MG PO ×2 (08:23→20:07)
[2024-02-10] MEDS: APIXABAN 5 MG TABLET PO ×2 (08:23→20:07)
[2024-02-10] MEDS: lisinopriL 20 MG TABLET PO (08:23)
[2024-02-10] MEDS: ASPIRIN EC 81 MG TABLET PO (08:23)
[2024-02-10] MEDS: glipiZIDE 5 MG TABLET 10 MG PO ×2 (08:24→20:07)
--- NOTE | 2024-02-10 09:10 | PT.IPTN ---
Current Diagnoses Weakness (02/08/24) Physical Therapy Treatment Note M2 PT-IP Current Condition Start: 02/08/24 11:57 Freq: NEEDED Status: Active Protocol: Document 02/08/24 11:55 MB (Rec: 02/08/24 12:29 MB [id number]) Physical Therapy Current Condition Current Condition Evaluation Date 02/08/24 Treatment Diagnosis Weakness, could not get out of chair, crawled on knees to phone M3 PT-IP Subjective Start: 02/08/24 11:57 Freq: NEEDED Status: Active Protocol: Document 02/10/24 09:35 TS (Rec: 02/10/24 09:42 TS [id number]) Subjective Physical Therapy Visit Type Type Treatment Note Visit Start Time 09:10 Visit Stop Time 09:30 Number of 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 M4 PT-IP Mobility and Gait Start: 02/08/24 11:57 Freq: NEEDED Status: Active Protocol: Document 02/10/24 09:35 TS (Rec: 02/10/24 09:42 TS [id number]) PT-Transfer Assessment Sit to and From Stand Sit to and from Stand Minimal Assistance,Moderate Assistance,1 Person Assistance Equipment Transfer Assistive Device Gait Belt,Front Wheeled Walker Orthotic/Prosthetic Devices or Brace: No Comments Mobility Comments Pt is impulsive to stand before therapist is ready with FWW. STS x1ModA, x1 Lidia from the chair. He ambulates 2x20' CGA/SBA with FWW. Pt reports weakness and fatigue. Pt was left back in the chair, all needs met. Gait Assessment Gait Gait Assistance Required: Standby Assistance,Contact Guard Assist,1 Person Assist Distance (Feet) 40 Able to Maintain Weight Bearing Status Yes During Gait Assistive Devices Assistive Device Gait Belt,Front Wheeled Walker Orthotic/Prosthetic Devices or Brace: No Gait Deviations General Gait Pattern Decreased Stride Length, Decreased Feet Clearance, Flexed Trunk,Step-to Gait,Wide Based Gait Factors Limiting Gait Function Factors Limiting Gait Function Decreased Activity Tolerance, Decreased Strength,Difficulty Following Directions, Incoordination,Poor Balance, Poor Safety Awareness PT-Balance Assessment Sitting Balance and Reactions Static Sitting Balance Ability Good Dynamic Sitting Balance Ability Good Standing Balance and Reactions Static Standing Balance Ability Fair Dynamic Standing Balance Ability Fair Device Used FWW M5 PT-IP Objective Assessments Start: 02/08/24 11:57 Freq: NEEDED Status: Active Protocol: Document 02/09/24 13:21 MB (Rec: 02/09/24 13:42 MB [id number]) Gross Range of Motion Lower Extremity ROM Impairments Decreased left ankle and great toe movement Strength Comments Strength Comments See findings above Coordination Assessment Assessment Coordination Comments Pt with global weakness, likely from rhabdo, and he cannot perform B heel to cox Sensation Assessment Comments Sensation Comments Decreased discrimination testing with light touch: when touching B legs, only states touching the right M7 PT-IP Assessment and Plan Start: 02/08/24 11:57 Freq: NEEDED Status: Active Protocol: Document 02/10/24 09:35 TS (Rec: 02/10/24 09:42 TS [id number]) PT Summary Assessment and Plan Potential Rehabilitation Potential Fair Summary Progress Towards Goals Slow Progress due to Activity Tolerance Assessment Summary Pt is making some progress with his mobility but remains limited by weakness and poor activity tolerance. He ambulates 2x20' with rest break inbetween. He quickly fatigues with gait and becomes weak. PT continues to recommend to recommend SNF. Pt does not have assistance at home and could benefit from SNF to improve strength. Goals Bed Mobility Goal Standby Assistance Transfer Goal Independent,Front Wheeled Walker Gait Goal Independent,Front Wheel Walker Gait Distance 100 Other Goals Pt will ascend and descend 7 steps with left rail ascend and no more than CGA to allow safe home entrance. Days to Meet Goals 5 Frequency of Treatment Frequency Of Treatment Once a Day Treatment Plan Physical Therapy Treatment Plan Bed Mobility Training,Transfer Training,Gait Training, Therapeutic Exercise,Balance Retraining,Discharge Planning, Hot or Cold Pack,Neuromuscular Re-ed,Coordination Retraining ,Manual Therapy Precautions Other Precautions Fall risk Recommendations To Nursing Amount of Assist Needed 1 Person Assist Discharge Recommendations PT Discharge Recommendations SNF Rehab Transportation Needs at Discharge Private Vehicle
--- NOTE | 2024-02-10 11:56 | CM.DPC ---
DCP Continued: Reviewed EMR and team rounds for pt?s medical status. Per PT/OT, recommending SNF Rehab. DCP updated [facility] requesting update on acceptance, pending response. Plan: Anticipating discharge to Rehab, pending acceptance before safe discharge home. CM Team will continue to follow for coordination of discharge plans. GREY Reyna
--- NOTE | 2024-02-10 12:30 | OT.IP.TRT ---
Current Diagnoses Weakness (02/08/24) Occupational Therapy Treatment Note M2 OT-IP Current Condition Start: 02/09/24 16:21 Freq: Status: Active Protocol: Document 02/09/24 16:22 CGR (Rec: 02/09/24 16:43 CGR [id number]) Occupational Therapy Current Condition Current Condition Evaluation Date 02/09/24 Treatment Diagnosis generalized weakness, MRI-, rhabdo Diagnosis Onset Date 02/08/24 M3 OT- IP Subjective and Pain Start: 02/09/24 16:21 Freq: Status: Active Protocol: Document 02/10/24 12:46 CCC (Rec: 02/10/24 12:54 [facility] [id number]) OT- Subjective Occupational Therapy Visit Type Type Treatment Note Visit Start Time 12:06 Visit Stop Time 12:30 Occupational Therapy Visit Comments Patient Comments Pt's brother in the room. Pt agreed to do cognitive assessment. Pt's brother requesting info on [facility], pamphlet given. Patient/Caregiver Goals To go home. OT Pain Assessment Pain When Pain Assessed At Rest Pain Present Pain Present Denied Pain M4 OT- IP ADL's Start: 02/09/24 16:21 Freq: Status: Active Protocol: Document 02/09/24 16:22 CGR (Rec: 02/09/24 16:43 CGR [id number]) OT [id number] Comments OT Self-Feeding Comments not meal time OT ADL-Grooming General Evaluation Grooming Ability Standby Assistance Areas Needing Assistance Face Washing Comments OT Grooming Comments standing at sink OT ADL-Oral Care General Eval Oral Care Ability Standby Assistance Areas of Assistance Brushing Teeth Comments Oral Care Comments standing at sink OT ADL-Dressing Comments OT Dressing Comments not performed on this date. OT ADL-Toileting Comments OT Toileting Comments not performed OT ADL-Bathing Comments OT Bathing Comments not performed M5 OT- IP IADL's Start: 02/09/24 16:21 Freq: Status: Active Protocol: Document 02/09/24 16:22 CGR (Rec: 02/09/24 16:43 CGR [id number]) OT-Instrumental Activities of Daily Living Deficits IADL Deficits Identified Deficits Home Safety Awareness Awareness of Need for Assistance at Home Decreased Awareness Ability to Problem Solve Emergency Unable to Problem Solve Situations Medication Management Medication Management Comments Concerns for pt's ability to perform Money Management Money Management Comments Concerns for pt's ability to perform Meal Preparation Meal Preparation Comments Concerns for pt's ability to perform 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 Concerns for pt's ability to perform safely. M6 OT- IP Functional Cognition Start: 02/09/24 16:21 Freq: Status: Active Protocol: Document 02/10/24 12:46 [facility] (Rec: 02/10/24 12:54 [facility] [id number]) Cognitive Factors Limiting Selfcare Function Cognitive Ability Level of Alertness Alert Patient Orientation Name,Age,Birthday,Month,Date, Year,Day of Week,Place, Situation Attention Span Ability Capable of Focused Attention, Capable of Sustained Attention Ability to Follow Commands Able to Follow One Step Commands Memory Description Short Term Impaired Cognitive Tests SLUMS Pr scored 23/30 which implies mild cognitive impairments. Pt able to recall 10 animals in one minute, able to recall 2/5 objects after time passed, no able to states 4 digit number backwards, and not able to draw the hour hands of the clock correctly after time given. Cognitive Comments Cognitive Assessment Comments Pt's brother states his brother having more issues with his memory and trouble with accurately medications when his blood sugars are low. Suggested pt talk to his PCP of possible change in meds or time of medications as per pt' s brother states pt's blood sugars seem to go down at night. M7 OT- IP Mobility and Balance Start: 02/09/24 16:21 Freq: Status: Active Protocol: Document 02/09/24 16:22 CGR (Rec: 02/09/24 16:43 CGR [id number]) OT-Transfer Assessment Sit to and From Stand Sit to and from Stand Moderate Assistance,1 Person Assistance Transfers Transfer Ability Contact Guard Assistance,1 Person Assistance Technique Transfer Destination Chair Transfer Technique Stand Step Pivot Devices Transfer Assistive Devices Gait Belt,Front Wheeled Walker Comments Mobility Comments Pt ambulated from chair to sink for ADLs then returned to sitting in chair at end of session. OT- Balance Assessment Sitting Balance and Reactions Static Sitting Balance Ability Good Dynamic Sitting Balance Ability Good M8 OT- IP Objective Assessments Start: 02/09/24 16:21 Freq: Status: Active Protocol: Document 02/09/24 16:22 CGR (Rec: 02/09/24 16:43 CGR [id number]) OT Gross Range of Motion Upper Extremity Range of Motion Assessment Within Functional Limits OT Strength Upper Extremity Strength Assessment Within Functional Limits Comments Strength Comments 4/5 throughout with delay to the LUE OT- Coordination Assessment Upper Extremity Finger to Nose Test Left UE Impaired Finger Tapping Test Left UE Impaired Comments Coordination Comments coordination is delayed to the LUE OT-Muscle Tone Assessment Muscle Tone WNL Yes OT Sensation Assessment Edema Edema Absent M9 OT- IP Assessment and Plan Start: 02/09/24 16:21 Freq: Status: Active Protocol: Document 02/10/24 12:46 [facility] (Rec: 02/10/24 12:54 [facility] [id number]) OT Summary Assessment and Plan Potential Rehabilitation Potential Good Analytic Complexity at Evaluation Moderate Summary OT Impairments Balance,Coordination, Functional Cognition, Functional Mobility,Grooming, Dressing,Toileting,Bathing, Toilet Transfers,Shower Transfers,Activity Tolerance Progress Towards Goals Slow Progress due to Activity Tolerance,Slow Progress due to Cognition Assessment Summary Pt will benefit from skilled rehab at this time to help improve his overall level of independence with all ADL and mobility needs. Pamphlet given to pt's brother regarding [facility]. Pt to go to skilled rehab when medically stable. Goals Grooming Goal Independent Dressing Goal Independent Toileting Goal Independent Bathing Goal Independent Toilet Transfer Goal Independent Shower Transfer Goal Independent Days to Meet Goals 15 Frequency of Treatment Other frequency 5x a week Treatment Plan OT Treatment Plan ADL Training,Functional Cognition Training,Functional Mobility,Therapeutic Exercises ,Patient/Family Education, Discharge Planning Discharge Recommendations OT Discharge Recommendations SNF Rehab Transportation Needs at Discharge Wheelchair/Cabulance
[2024-02-10] MEDS: INSULIN LISPRO 100 UNIT/ML 3ML VIAL SUBCUT ×2 (17:18→21:17)
[2024-02-10] MEDS: INSULIN GLARGINE 100 UNIT/ML 3ML PEN 15 UNIT SUBCUT (21:18)
[2024-02-11] VITALS (10 sets, daily range): BP systolic 123–151; BP diastolic 72–95; PULSE 64–76; RESP 14–18; TEMP 36.5–37.2; O2SAT 96–100
[2024-02-11] MEDS: SODIUM CHLORIDE 0.9% 1,000 ML 84 ML IV (01:59)
[2024-02-11 05:56] LABS: BUN Creatinine Ratio 20.2 (6-22); Blood Urea Nitrogen 19 mg/dL (9-20); Calcium 8.4 mg/dL (8.4-10.2); Carbon Dioxide 24 mmol/L (22-32); Chloride 107 mmol/L (98-107); Creatine Kinase 956 U/L (55-170); Estimated Glomerular Filt Rate > 60 mL/min (>60); Glucose 110 mg/dL (80-110); HEMOLYSIS < 15 (0-50); Potassium 4.1 mmol/L (3.4-5.1); Sodium 134 mmol/L (137-145)
[2024-02-11] MEDS: PANTOPRAZOLE DR 20 MG TABLET PO (06:02)
--- NOTE | 2024-02-11 06:41 | P.PN_ITS ---
Subjective Subjective Date Patient Seen: 02/11/24 Time Patient Seen: 06:41 Interval history: CPK now down to under a 1000. Renal function remains normal. Blood sugars a bit more elevated than they had been Seen by both PT and OT yesterday who continue to recommend correction placement Patient tells me his muscle symptoms primarily in his arms is indeed somewhat better. Does feel like he was stronger on his feet working with skilled therapies yesterday than he was the day before so clearly an improvement. Exam Vital Signs (past 8 hours): - 02/11/24 00:00 Temperature 98.1 F Pulse Rate 64 Respiratory Rate 14 Blood Pressure 125/72 Pulse Oximetry 97 Oxygen Delivery Method Room Air Oxygen Flow Rate 0 Objective Labs 02/09/24 05:24 02/11/24 05:12 Labs: Laboratory Results - last 24 hr 02/11/24 05:12 Sodium 134 L Potassium 4.1 Chloride 107 Carbon Dioxide 24 BUN 19 Creatinine 0.94 Estimated GFR > 60 BUN/Creatinine Ratio 20.2 Glucose 110 Calcium 8.4 Total Creatine Kinase 956 H D PFSH Medical History Peripheral edema Prostatitis Tobacco use Urge incontinence Benign prostatic hyperplasia with lower urinary tract symptoms Gross hematuria Heart attack CVA (cerebral vascular accident) H/O adenomatous polyp of colon Fungal infection of toenail Mixed hyperlipidemia Essential hypertension Elevated PSA CAD (coronary artery disease) (~2005) Knee pain Vision disorder COPD (chronic obstructive pulmonary disease) (~2008) Hearing loss (~1999) Colitis (~2004) Diabetes mellitus (~2005) Atrial fibrillation (~2005) Surgical History Hx of prostate biopsy Hx of hernia repair Hx of appendectomy Anesthesia History of heart artery stent (~2005) Family History Father History of heart disease Mother Aneurysm Sister Cancer Brother Cancer Social History marital status: household members: none Smoking Status: Current every day smoker alcohol intake: former caffeine: Yes Type(s) of exercise: none Assessment & Plan Assessment & Plan narrative: 1. Rhabdomyolysis-CPK improving. Will continue patient off of statin therapy now as I believe that to be the most likely culprit. 2. Diabetes-blood sugars a bit higher than I would like. I am going to increase his long-acting insulin and continue his other meds 3. Atrial fibrillation-adequate rate control. Continue current meds including his anticoagulation. Echo essentially normal as done on Friday, February 07. 4. History CVA-no evidence of recurrent neurologic event on MRI. Continue to monitor for evidence of a neurologic event causing his weakness etcetera. I do believe that his prior CVA is a contributing factor to his presentation with the noted left-sided weakness as well as probably some degree of failure to thrive at home. 5. Neuro-does appear to have some element cognitive decline. Scored a 23 on the SLUMS exam. Actually I would have expected a lower score so perhaps his cognition is better than it seems at this time. No reason for any particular intervention at this time 5. Disposition-unless there is significant clinical change I think patient would benefit from placement in correction for continued rehabilitation. Will monitor evaluations by skilled therapies today as well. May well be ready for discharge to correction in the next 24-48 hours. Discussed this with the patient who understands he would not be safe returning home in his current state. He was still quite traumatized by his inability to get up and even get to the phone on the day he was admitted etcetera. This point unless there some clinical decline plan for tentative discharge to correction probably tomorrow. Time-Based Coding :: [TOTAL MINUTES] spent with patient and on the chart (including review of chart, obtaining history, exam, reviewing outside data, placing orders, documenting exam and treatment plan, and counseling patient) on [DATE]. Quality VTE Deep Vein Thrombosis/Pulmonary Embolism Present on Admission: No IH PROFEE Charge codes Subsequent inpatient/observation care: [id number]
[2024-02-11] MEDS: ASPIRIN EC 81 MG TABLET PO (08:24)
[2024-02-11] MEDS: BUDESONIDE 3 MG CAP PO (08:24)
[2024-02-11] MEDS: METOPROLOL ER 50 MG TABLET 100 MG PO ×2 (08:24→21:14)
[2024-02-11] MEDS: glipiZIDE 5 MG TABLET 10 MG PO ×2 (08:24→21:15)
[2024-02-11] MEDS: lisinopriL 20 MG TABLET PO (08:24)
[2024-02-11] MEDS: APIXABAN 5 MG TABLET PO ×2 (08:24→21:14)
[2024-02-11] MEDS: INSULIN GLARGINE 100 UNIT/ML 3ML PEN 20 UNIT SUBCUT ×2 (09:02→21:09)
--- NOTE | 2024-02-11 10:45 | PT.IPTN ---
Current Diagnoses Weakness (02/08/24) Physical Therapy Treatment Note M2 PT-IP Current Condition Start: 02/08/24 11:57 Freq: NEEDED Status: Active Protocol: Document 02/08/24 11:55 MB (Rec: 02/08/24 12:29 MB [id number]) Physical Therapy Current Condition Current Condition Evaluation Date 02/08/24 Treatment Diagnosis Weakness, could not get out of chair, crawled on knees to phone M3 PT-IP Subjective Start: 02/08/24 11:57 Freq: NEEDED Status: Active Protocol: Document 02/11/24 11:04 TS (Rec: 02/11/24 11:08 TS [id number]) Subjective Physical Therapy Visit Type Type Treatment Note Visit Start Time 10:45 Visit Stop Time 11:00 Number of BELT TENDER Visits 2 Physical Therapy Visit Comments Patient Comments Pt found resting in the chair, he is agreeable to PT. M4 PT-IP Mobility and Gait Start: 02/08/24 11:57 Freq: NEEDED Status: Active Protocol: Document 02/11/24 11:04 TS (Rec: 02/11/24 11:08 TS [id number]) PT-Transfer Assessment Sit to and From Stand Sit to and from Stand Minimal Assistance,1 Person Assistance Equipment Transfer Assistive Device Gait Belt,Front Wheeled Walker Orthotic/Prosthetic Devices or Brace: No Comments Mobility Comments STS with FWW Lidia, pt has a posterior lean. He ambualtes with FWW ~100'CGA/SBA. Pt fatigues quickly with gait and reports weakness in legs. pt ambulates back to the room, all needs met, chair alarm set . Gait Assessment Gait Gait Assistance Required: Standby Assistance,Contact Guard Assist,1 Person Assist Distance (Feet) 100 Able to Maintain Weight Bearing Status Yes During Gait Assistive Devices Assistive Device Gait Belt,Front Wheeled Walker Orthotic/Prosthetic Devices or Brace: No Gait Deviations General Gait Pattern Decreased Stride Length, Decreased Feet Clearance, Flexed Trunk,Step-to Gait,Wide Based Gait Factors Limiting Gait Function Factors Limiting Gait Function Decreased Activity Tolerance, Decreased Strength,Difficulty Following Directions, Incoordination,Poor Balance, Poor Safety Awareness PT-Balance Assessment Sitting Balance and Reactions Static Sitting Balance Ability Good Dynamic Sitting Balance Ability Good Standing Balance and Reactions Static Standing Balance Ability Fair Dynamic Standing Balance Ability Fair Device Used FWW M5 PT-IP Objective Assessments Start: 02/08/24 11:57 Freq: NEEDED Status: Active Protocol: Document 02/09/24 13:21 MB (Rec: 02/09/24 13:42 MB [id number]) Gross Range of Motion Lower Extremity ROM Impairments Decreased left ankle and great toe movement Strength Comments Strength Comments See findings above Coordination Assessment Assessment Coordination Comments Pt with global weakness, likely from rhabdo, and he cannot perform B heel to cox Sensation Assessment Comments Sensation Comments Decreased discrimination testing with light touch: when touching B legs, only states touching the right M7 PT-IP Assessment and Plan Start: 02/08/24 11:57 Freq: NEEDED Status: Active Protocol: Document 02/11/24 11:04 TS (Rec: 02/11/24 11:08 TS [id number]) PT Summary Assessment and Plan Potential Rehabilitation Potential Fair Summary Progress Towards Goals Slow Progress due to Activity Tolerance Assessment Summary Pt is made some progress with his mobility but he is limited by weakness and poor activity tolerance. He requires Lidia for STS. He progressed his gait to ~100SBA/CGA. Pt reports fatigue and weakness in legs fairly quickly. PT continues to recommend SNF to improve strength and activity tolerance. Goals Bed Mobility Goal Standby Assistance Transfer Goal Independent,Front Wheeled Walker Gait Goal Independent,Front Wheel Walker Gait Distance 100 Other Goals Pt will ascend and descend 7 steps with left rail ascend and no more than CGA to allow safe home entrance. Days to Meet Goals 5 Frequency of Treatment Frequency Of Treatment Once a Day Treatment Plan Physical Therapy Treatment Plan Bed Mobility Training,Transfer Training,Gait Training, Therapeutic Exercise,Balance Retraining,Discharge Planning, Hot or Cold Pack,Neuromuscular Re-ed,Coordination Retraining ,Manual Therapy Precautions Other Precautions Fall risk Recommendations To Nursing Amount of Assist Needed 1 Person Assist Discharge Recommendations PT Discharge Recommendations SNF Rehab Transportation Needs at Discharge Private Vehicle
[2024-02-11] MEDS: INSULIN LISPRO 100 UNIT/ML 3ML VIAL SUBCUT ×2 (12:45→17:26)
--- NOTE | 2024-02-11 14:24 | OT.IP.TRT ---
Current Diagnoses Weakness (02/08/24) Occupational Therapy Treatment Note M2 OT-IP Current Condition Start: 02/09/24 16:21 Freq: Status: Active Protocol: Document 02/09/24 16:22 CGR (Rec: 02/09/24 16:43 CGR [id number]) Occupational Therapy Current Condition Current Condition Evaluation Date 02/09/24 Treatment Diagnosis generalized weakness, MRI-, rhabdo Diagnosis Onset Date 02/08/24 M3 OT- IP Subjective and Pain Start: 02/09/24 16:21 Freq: Status: Active Protocol: Document 02/11/24 14:25 [facility] (Rec: 02/11/24 14:36 [facility] [id number]) OT- Subjective Occupational Therapy Visit Type Type Treatment Note Visit Start Time 13:44 Visit Stop Time 14:24 Occupational Therapy Visit Comments Patient Comments Pt agreed to shower. Patient/Caregiver Goals TO get better. OT Pain Assessment Pain When Pain Assessed At Rest Pain Present Pain Present Denied Pain M4 OT- IP ADL's Start: 02/09/24 16:21 Freq: Status: Active Protocol: Document 02/11/24 14:25 [facility] (Rec: 02/11/24 14:36 [facility] [id number]) OT ADL-Grooming General Evaluation Grooming Ability Standby Assistance OT ADL-Oral Care Comments Oral Care Comments NOt performed. OT ADL-Dressing General Eval Upper Body Dressing Ability Minimal Assistance Lower Body Dressing Ability Minimal Assistance Areas Needing Assistance Underpants/Brief,Socks Comments OT Dressing Comments Assist to pull up the brief in the back. OT ADL-Toileting Comments OT Toileting Comments Not performed. Pt had an external catheter on and nurse states okay to stay off for the shower as coming off anyways. OT ADL-Bathing Bathing Type Bathing Type Shower General Evaluation Bathing Ability Minimal Assistance Areas Needing Assistance Wash/Dry Back Comments OT Bathing Comments CGA while standing for balance and use of grab bars as well. Noted red cracked line on his toes that started to bleed while showering, nursing notified. M5 OT- IP IADL's Start: 02/09/24 16:21 Freq: Status: Active Protocol: Document 02/09/24 16:22 CGR (Rec: 02/09/24 16:43 CGR [id number]) OT-Instrumental Activities of Daily Living Deficits IADL Deficits Identified Deficits Home Safety Awareness Awareness of Need for Assistance at Home Decreased Awareness Ability to Problem Solve Emergency Unable to Problem Solve Situations Medication Management Medication Management Comments Concerns for pt's ability to perform Money Management Money Management Comments Concerns for pt's ability to perform Meal Preparation Meal Preparation Comments Concerns for pt's ability to perform Printing Pressman Printing Pressman Comments Concerns for pt's ability to perform Driving Driving Comments 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 Concerns for pt's ability to perform safely. M6 OT- IP Functional Cognition Start: 02/09/24 16:21 Freq: Status: Active Protocol: Document 02/11/24 14:25 [facility] (Rec: 02/11/24 14:36 [facility] [id number]) Cognitive Factors Limiting Selfcare Function Cognitive Comments Cognitive Assessment Comments Pt thinking and processing much better today and maybe beneficial to re-do the SLUMS on pt tomorrow. M7 OT- IP Mobility and Balance Start: 02/09/24 16:21 Freq: Status: Active Protocol: Document 02/11/24 14:25 [facility] (Rec: 02/11/24 14:36 [facility] [id number]) OT-Transfer Assessment Sit to and From Stand Sit to and from Stand Contact Guard Assistance Transfers Transfer Ability Standby Assistance,Contact Guard Assistance Technique Transfer Destination Chair,Shower Stall Transfer Technique Stand Step Pivot Devices Transfer Assistive Devices Gait Belt,Front Wheeled Walker Comments Mobility Comments CGA to stand from lower surfaces, and SBA to CGA with FWW. BELL to help step over threshold on the shower. OT- Balance Assessment Sitting Balance and Reactions Static Sitting Balance Ability Normal Dynamic Sitting Balance Ability Normal Standing Balance and Reactions Static Standing Balance Ability Good Dynamic Standing Balance Ability Good M8 OT- IP Objective Assessments Start: 02/09/24 16:21 Freq: Status: Active Protocol: Document 02/09/24 16:22 [facility] (Rec: 02/09/24 16:43 [facility] [id number]) OT Gross Range of Motion Upper Extremity Range of Motion Assessment Within Functional Limits OT Strength Upper Extremity Strength Assessment Within Functional Limits Comments Strength Comments 4/5 throughout with delay to the LUE OT- Coordination Assessment Upper Extremity Finger to Nose Test Left UE Impaired Finger Tapping Test Left UE Impaired Comments Coordination Comments coordination is delayed to the LUE OT-Muscle Tone Assessment Muscle Tone WNL Yes OT Sensation Assessment Edema Edema Absent M9 OT- IP Assessment and Plan Start: 02/09/24 16:21 Freq: Status: Active Protocol: Document 02/11/24 14:25 [facility] (Rec: 02/11/24 14:36 [facility] [id number]) OT Summary Assessment and Plan Potential Rehabilitation Potential Good Analytic Complexity at Evaluation Moderate Summary OT Impairments Balance,Coordination, Functional Cognition, Functional Mobility,Grooming, Dressing,Toileting,Bathing, Toilet Transfers,Shower Transfers,Activity Tolerance Progress Towards Goals Progressing Toward Goals Assessment Summary Pt much improved with his thinking and processing today and able to participate in showering needs. Pt still needing some assist for his balance while standing to shower. Pt will benefit from skilled rehab prior to going home. Goals Grooming Goal Independent Dressing Goal Independent Toileting Goal Independent Bathing Goal Independent Toilet Transfer Goal Independent Shower Transfer Goal Independent Days to Meet Goals 14 Frequency of Treatment Other frequency 5x a week Treatment Plan OT Treatment Plan ADL Training,Functional Cognition Training,Functional Mobility,Therapeutic Exercises ,Patient/Family Education, Discharge Planning Other Treatment Recommendations and Next redo SLUMS and try [place] [facility] Making Part B Discharge Recommendations OT Discharge Recommendations SNF Rehab Transportation Needs at Discharge Wheelchair/Cabulance
--- NOTE | 2024-02-11 14:50 | CM.DPNOTE ---
DCP note PLATE SETTER reviewed EMR. Dr. Falk anticipates pt will likely be stable for dc to SNF tomorrow. Per Jeny at , able to accept tomorrow, transport set up for 1515. Per Jeny at , can bill his insurance as long as documentation indicates improving and not improved for his Rhabdo. with current diagnosis, anticipate pt will only qualify for 4-5 days of SNF coverage. will continue to re-eval and attempt to justify it if needed throughout the days to come. Jeny hopeful this PLATE SETTER would give pt a heads up about potential for limited SNF days. pt always has option to pay privately. PLATE SETTER met with pt and brother in room. Reviewed above information. PLATE SETTER answered questions to best of ability. Pt and brother could not remember name of HH agency worked with previously. PLATE SETTER explained that could help setup HH at discharge. Pt likely wants HH after SNF stay. express verbal understanding of potential for only a few days of available rehab ins coverage but that they will continue to reassess. pt reports he does not have the financial resources to pay privately and plans to return home after ins coverage stops. Pt plans on getting [facility] after recent fall at home. Reports he still doesn't understand why this happened, PLATE SETTER referral pt to Dr. Falk for more nuanced understanding of medical reason for his fall at home. Pt confirms preference to DC to [facility] prior to returning home. PASRR previously completed. P: anticipate dc to [facility] tomorrow() at 1515. PASRR done, med list needed. CM team will continue to follow closely THEE Rosas
[2024-02-11] MEDS: ACETAMINOPHEN 325 MG TABLET 650 MG PO (18:10)
[2024-02-11] MEDS: TAMSULOSIN 0.4 MG CAPSULE PO (21:14)
[2024-02-12 00:27] VITALS: BP 134/72; PULSE 74; RESP 15; TEMP 36.2; O2SAT 98
[2024-02-12 04:00] VITALS: BP 127/76; PULSE 78; RESP 15; TEMP 37; O2SAT 97
[2024-02-12] MEDS: PANTOPRAZOLE DR 20 MG TABLET PO (05:22)
[2024-02-12 07:00] VITALS: O2SAT 97
[2024-02-12 08:00] VITALS: BP 141/80; PULSE 83; RESP 16; TEMP 36.8; O2SAT 97
--- NOTE | 2024-02-12 08:30 | P.DS_ITS ---
History of Present Illness History of Present Illness Date Patient Seen: 02/12/24 Time Patient Seen: 08:31 Chief complaint: weakness Narrative: Patient is a 73-year-old patient of Dr. Falk who I am cross covering for who presents to the emergency room with weakness. Patient has a history of CVA and has had some persistent left-sided facial droop mild and some mild right-sided weakness. Patient has been taking his medication. It is secondary to AFib and has been on his Eliquis. Apparently he was feeling great yesterday morning when he woke up but as the day went on he was becoming weaker and weaker. He describes this as diffuse weakness to the point where he could not get up out of his chair and eventually crawled across the bedroom to the phone. Contacted EMS. He has had no headaches no fevers no chills no numbness no tingling no chest pain no shortness a breath no orthopnea no PND. No abdominal pain no change in urine output although he has been put on Lasix recently and has been urinating a lot. No pain no. No blood. No change in his bowel movements. Currently hurting primarily his left leg all the way down from top to bottom. But no other changes. [from Dr. Grant's H&P 02/08/2024} Discharge Providers Provider Date of admission: 02/08/24 06:59 Discharge Date: 02/12/24 Primary care physician: Homer Falk MD Consults: 02/08/24 06:59 Consult to Physician Stat Comment: Consulting Provider: Royce Grant Reason for consultation: admission Has provider been notified: Yes 02/08/24 10:35 Consult to Discharge Planning Routine Comment: Consult to Occupational Therapy Evaluate & Treat Comment: Physician Instructions: Evaluate and treat Consult to Physical Therapy Evaluate & Treat Comment: Physician Instructions: Evaluate and Treat Consult to Speech Therapy Evaluate & Treat Comment: Physician Instructions: Evaluate and treat 02/09/24 14:17 Consult to Dietitian, Adult Routine Comment: Reason For Exam: Patient only eating one meal a day, education need Discharge provider: Homer Falk MD Summary Hospital Course Discharge Diagnosis: 1. Rhabdomyolysis and acute muscle injury thought to be secondary to medication 2. Weakness secondary to acute muscle injury/rhabdomyolysis 3. Diabetes type 2 on insulin 4. COPD 5. Chronic atrial fibrillation 6. Status post CVA with left-sided weakness chronically 7. Coronary artery disease, not active this hospitalization 8. Lower urinary tract symptoms secondary to BPH Hospital Course: As above patient was admitted after displaying significant weakness and found to have elevated CPK levels and muscle weakness and pain. No clear etiology for this was found beyond the fact that patient had somewhat recently been started on statin therapy after his CVA to lower his further risk. Patient was continued IV fluids to help protect his renal function from the rhabdomyolysis and eventually his CPK decreased significantly. Renal function remained stable. IV fluids were subsequently discontinued Blood sugars were adequately controlled although did required increase in his baseline long-acting insulin dosing Patient was seen by skilled therapies and while improving during this hospitalization with not felt to be safe to return home when he was ready for discharge. Therefore he was discharged to [facility] to continued rehabilitation. Patient did have notable improvement in his strength and muscle pain during this hospitalization so it is anticipated this will resolve completely and returned to normal Status at Discharge Cognitive/behavioral status at discharge: at baseline, oriented Functional status at discharge: uses cane/walker Overall status at discharge: patient is progressing back to baseline Exam Vital Signs (past 8 hours): - 02/12/24 04:00 02/12/24 08:00 Temperature 98.6 F 98.3 F Pulse Rate 78 83 Respiratory Rate 15 16 Blood Pressure 127/76 141/80 H Pulse Oximetry 97 97 Oxygen Flow Rate 0 Oxygen Delivery Method Room Air Oxygen Flow Rate 0 Objective Labs 02/09/24 05:24 02/11/24 05:12 [facility] Medical History Peripheral edema Prostatitis Tobacco use Urge incontinence Benign prostatic hyperplasia with lower urinary tract symptoms Gross hematuria Heart attack CVA (cerebral vascular accident) H/O adenomatous polyp of colon Fungal infection of toenail Mixed hyperlipidemia Essential hypertension Elevated PSA CAD (coronary artery disease) (~2005) Knee pain Vision disorder COPD (chronic obstructive pulmonary disease) (~2008) Hearing loss (~1999) Colitis (~2004) Diabetes mellitus (~2005) Atrial fibrillation (~2005) Surgical History Hx of prostate biopsy Hx of hernia repair Hx of appendectomy Anesthesia History of heart artery stent (~2005) Family History Father History of heart disease Mother Aneurysm Sister Cancer Brother Cancer Social History marital status: household members: none Smoking Status: Current every day smoker alcohol intake: former caffeine: Yes Type(s) of exercise: none Discharge Assessment & Plan Assessment and Plan Plan of Treatment: Patient to be discharged to [facility] to continue rehabilitation and strengthening prior to returning home Patient should remain off of statin therapy at this time, as it was felt to be the culprit behind his myalgias/rhabdomyolysis Discharge Plan Discharge Plan Patient Disposition: SNF Transfer to: [facility] Consult as needed: Dental, Hearing, Mental health, Podiatry and Vision Discharge orders & Medications Prescriptions: New insulin glargine [Lantus Solostar U-100 Insulin] 100 unit/mL (3 mL) Insulin Pen 20 unit SUBCUT BID Qty: 15 0RF insulin lispro [Admelog U-100 Insulin lispro] 100 unit/mL Solution 1 - 6 unit SUBCUT QACHS Qty: 10 0RF Rx Instructions: per insulin coverage schedule (attached) Continued albuterol sulfate 90 mcg/actuation HFA aerosol inhaler 2 puff inhalation Q6H PRN (Reason: shortness of breath or wheezing) Qty: 54 0RF Patient Comments: takes PRN omeprazole 20 mg capsule,delayed release(DR/EC) 20 mg PO DAILY Qty: 90 3RF Eliquis 5 mg tablet 5 mg PO BID Qty: 180 3RF metformin 1,000 mg tablet 1,000 mg PO BID Qty: 180 3RF lisinopril 20 mg tablet 20 mg PO DAILY Qty: 90 3RF budesonide 3 mg capsule,delayed,extend.release 3 mg PO DAILY Qty: 90 3RF metoprolol succinate 100 mg tablet extended release 24 hr 100 mg PO BID Qty: 180 3RF glipizide 10 mg tablet extended release 24hr 10 mg PO BID Qty: 180 3RF pioglitazone [Actos] 30 mg tablet 30 mg PO DAILY Qty: 90 2RF furosemide 20 mg tablet 20 - 40 mg PO DAILY Qty: 225 3RF Rx Instructions: take 1 tab every other day, alternating with 2 tabs every other day tamsulosin 0.4 mg capsule 0.4 mg PO BEDTIME Qty: 90 3RF Discontinued atorvastatin 20 mg tablet 20 mg PO DAILY Qty: 90 3RF insulin glargine [Lantus Solostar U-100 Insulin] 100 unit/mL (3 mL) insulin pen 15 unit SUBCUT BID Patient Comments: pt states Dr. Falk provided blood sugar perimeters for when to hold or admin med. Pt states I cut back on the dose No Action (DME) lancets 30 gauge misc See Rx Instructions .Route Qty: 100 3RF Rx Instructions: Use to check BS once daily. (DME) Disabled Parking See Rx Instructions .ROUTE .MEDSUPPLY Qty: 1 0RF Rx Instructions: Patient qualifies for disabled parking as per the attached form. (DME) True Metrix Glucose Test Strip Strip MISCELLANEOUS DAILY (DME) pen needle, diabetic [BD Ultra-Fine Mini Pen Needle] 31 gauge x 3/16 needle MISCELLANEOUS BID (DME) Dexcom Accounting Specialist Misc MISCELLANEOUS Follow up/Referrals: Homer Falk MD [Primary Care Provider] - Discharge Health Status Multidrug resistant organism: No MDRO Precautions: [place] Diet/Activity/Treatments Diet: Diet as Tolerated and Carb-consistent/Diabetic Liquid consistency: Normal/Thin Food texture: Regular [facility] Reason for rehabilitation: Recovery r/t decondition Rehab type: Physical therapy, Occupational therapy and Speech therapy Visit Report/Discharge Packet Stand Alone Forms: Patient Portal/API Discharge Data Primary Care Provider: Homer Falk Quality VTE Deep Vein Thrombosis/Pulmonary Embolism Present on Admission: No IH PROFEE Charge Codes Discharge inpatient/observation: [id number]
[2024-02-12 09:37] VITALS: BP 141/80; PULSE 83
[2024-02-12] MEDS: BUDESONIDE 3 MG CAP PO (09:37)
[2024-02-12] MEDS: lisinopriL 20 MG TABLET PO (09:37)
[2024-02-12] MEDS: APIXABAN 5 MG TABLET PO (09:37)
[2024-02-12 09:38] VITALS: BP 141/80; PULSE 83
[2024-02-12] MEDS: METOPROLOL ER 50 MG TABLET 100 MG PO (09:38)
[2024-02-12] MEDS: glipiZIDE 5 MG TABLET 10 MG PO (09:38)
--- NOTE | 2024-02-12 09:38 | CM.DPNOTE ---
DC Note Patient is discharging to [facility], wheelchair transport is scheduled for 1100 picking crew supervisor. Patient remains agreeable. RN updated with plan. Discharge med list and PASRR emailed to Jeny at [facility]. Plan: Discharge to [facility] today via wheelchair van, scheduled to picking crew supervisor at 1100. TOMAS
[2024-02-12] MEDS: ASPIRIN EC 81 MG TABLET PO (09:40)
[2024-02-12] MEDS: INSULIN GLARGINE 100 UNIT/ML 3ML PEN 20 UNIT SUBCUT (09:46)
--- NOTE | 2024-02-12 10:50 | PC.NURSE ---
Patient is A&OX4, VSS, afebrile on RA. Patient denies pain. Initially BG 69, but shortly after beginning to eat breakfast recheck was 78. MD Falk at bedside this a.m. clearing patient medically for discharge to [facility]. CM arranged transport for 11 a.m. and patient is aware as well as agreeable. Report called to Charlee. He is prepared for discharge this a.m. and discharge packet to be given to transporter.
== END 2024-02-12 11:20 | DRG 558 ==
LOC: ED 02:57 → AC 07:00
PROVIDERS: Admitting Provider Family Medicine; Emergency Provider Emergency Medicine; PCP Internal Medicine; Referring Provider Emergency Medicine; Visit Provider Internal Medicine
DX: M62.82 Rhabdomyolysis (principal); I69.354 Hemiplegia and hemiparesis following cerebral infarction affecting left non-dominant side; I48.20 Chronic atrial fibrillation, unspecified; R29.810 Facial weakness; I11.0 Hypertensive heart disease with heart failure; I50.9 Heart failure, unspecified; E11.9 Type 2 diabetes mellitus without complications; J44.9 Chronic obstructive pulmonary disease, unspecified; N40.1 Benign prostatic hyperplasia with lower urinary tract symptoms; T46.6X5A Adverse effect of antihyperlipidemic and antiarteriosclerotic drugs, initial encounter; F17.200 Nicotine dependence, unspecified, uncomplicated; Z79.4 Long term (current) use of insulin; Z79.01 Long term (current) use of anticoagulants; Z79.84 Long term (current) use of oral hypoglycemic drugs
CPT/HCPCS: 36415; 70450; 70496; 70498; 70551; 80048; 80053; 81003; 81015; 82550; 82962; 83690; 84484; 85025; 87086; 92610; 93005; 93306; 96360; 96361; 97129; 97130; 97161; 97166; 97530; 97535; 99233; 99238; 99285; J1815; Q9967

== ENCOUNTER → 2024-03-02 11:04 | Outpatient (CLI) | payer MEDICARE, SELFPAY ==
[2024-02-08 10:53] VITALS: BMI 26.2
[2024-03-02 12:00] LABS: Add Manual Diff / Slide Review NO; Basophils Absolute Auto 100 /uL (0-100); Basophils Percent Auto 1.2 % (0-2); Eosinophils Absolute Auto 100 /uL (0-450); Eosinophils Percent Auto 1.5 % (2-4); Hematocrit 38.5 % (41-53); Hemoglobin 12.8 g/dL (13.5-17.5); Lymphocytes Absolute Auto 1500 /uL (1100-4500); Lymphocytes Percent Auto 21.7 % (25-40); Mean Corpuscular HGB Conc 33.2 % (30-36); Mean Corpuscular Hemoglobin 28.6 PG (26-34); Mean Corpuscular Volume 86.2 fL (80-100); Monocytes Absolute Auto 700 /uL (0-900); Monocytes Percent Auto 9.5 % (3-14); Neutrophils Absolute Auto 4600 /uL (1500-7000); Neutrophils Percent Auto 66.1 % (50-75); Platelet Count 287 X10^3/uL (150-400); Red Blood Cell Count 4.47 X10^6/uL (4.5-5.9); Red Cell Distribution Width 14.7 % (11.6-14.8)
[2024-03-02 12:11] LABS: Hemoglobin A1C% w Est Avg Glu 8.1 % (4.0-6.0)
[2024-03-02 12:43] LABS: Alanine Aminotransferase 17 IU/L (<50); Albumin 4.1 g/dL (3.5-5.0); Albumin Globulin Ratio 1.4 (1.0-2.8); Alkaline Phosphatase 82 U/L (38-126); Aspartate Aminotransferase 20 IU/L (17-59); BUN Creatinine Ratio 22.5 (6-22); Bilirubin Total 0.5 mg/dL (0.2-1.3); Blood Urea Nitrogen 23 mg/dL (9-20); Calcium 9.7 mg/dL (8.4-10.2); Carbon Dioxide 27 mmol/L (22-32); Chloride 102 mmol/L (98-107); Creatine Kinase 46 U/L (55-170); Estimated Glomerular Filt Rate > 60 mL/min (>60); Glucose 176 mg/dL (80-110); HEMOLYSIS < 15 (0-50); Potassium 4.9 mmol/L (3.4-5.1); Sodium 135 mmol/L (137-145); Total Protein 7.1 g/dL (6.3-8.2)
== END ==
PROVIDERS: PCP Internal Medicine; Referring Provider Internal Medicine; Visit Provider Internal Medicine
DX: E11.9 Type 2 diabetes mellitus without complications (principal); I25.10 Atherosclerotic heart disease of native coronary artery without angina pectoris; M62.82 Rhabdomyolysis; I10 Essential (primary) hypertension; E78.2 Mixed hyperlipidemia; Z79.01 Long term (current) use of anticoagulants
CPT/HCPCS: 36415; 80053; 82550; 83036; 85025

== ENCOUNTER → 2024-03-17 14:01 | Outpatient (CLI) | payer MEDICARE, SELFPAY ==
[2024-02-08 10:53] VITALS: BMI 26.2
--- NOTE | 2024-03-17 16:54 | DIAB.MNTFU ---
Follow-up Diabetes Medical Nutrition Therapy Assessment Name: Jim Dominguez Date: 03/17/23 Time: 210-3p Dx: Type II Diabetes Jim presents for Dm follow-up. Back to DM education since his fall. States he was in rehab and was frequently going low. Now getting PT in home. [facility] PCP took him off statin due to concerns with muscle loss. Reports difficulty remembering what he eats most days. some days quite a bit of high BG vs others with in range after meal numbers in the morning. Diet recall: black coffee 1130a: MOW, 1/2c rice, chicken, veggies, +/- dessert 1-2p: banana 6p: 2 pieces pizza OR sausage with green beans OR Lean Cuisine TV dinner OR hot dog and mac n cheese (68g CHO) OR omelete and potatoes 8p: sf cookies x 4-5 and 8oz milk water Wants knee replacement but unsure if he will qualify, in part at least due to elevated hgA1c. Plans to see ortho this month. Self-Monitoring Blood Glucose: Elevated BG sometimes in the morning and often after eating. Some mornings he is in range for FBG, so unclear if increasing basal insulin is appropriate at this time. Given Jim's medication conditions, we may adjust expectations/goals for TIR, however if he does want to get a knee replacement additional DM medication may be warranted. Today TIR: 8% very high 33% high 59% in range 0% low 0% very low 171mg/dl average 52 mg/dl std dev 30.5% variation Last TIR: 3% very high 24% high 72% in range <1% low 0% very low 150mg/dl average 50mg/dl std dev 33.5% variation Diabetes Medications: 1000mg Metformin BID 10 mg glipizide BID 30mg pioglitizone 12u BID Glargine (down to 10u 1x per day) Pertinent Labs: HgA1c 8.6% 07/2022 8.3% 10/2022 9.4% 01/2023 8.9% 03/2023 9.5% 06/2023 8.1% 02/2024 Past Medical History: (Last Updated 03/12/24 @ 15:41 by Sunday Polanco MD) Atrial fibrillation (~2005) Benign prostatic hyperplasia with lower urinary tract symptoms CAD (coronary artery disease) (~2005) [place] 2006 Colitis (~2004) COPD (chronic obstructive pulmonary disease) (~2008) CVA (cerebral vascular accident) Diabetes mellitus (~2005) Elevated PSA Negative biopsy in past Essential hypertension Fungal infection of toenail Gross hematuria H/O adenomatous polyp of colon Hearing loss (~1999) Heart attack Knee pain Mixed hyperlipidemia Overactive bladder Peripheral edema Prostatitis Tobacco use Urge incontinence Vision disorder Wear glasses Nutrition Rx: Carbohydrates: Meal:45-60g Snack:15-30g Nutrition Diagnosis: Physical inactivity r/t knee and leg pain, SOB, unsteadiness aeb pt report- in progress Predicted inconsistent energy intake r/t limited nutrition knowledge or cooking abilities aeb pt report and inconsistent BG results in CGM Intervention: This participant was very receptive. Provided appropriate educational handouts. Discussed the following topics: TIR goals, ie aiming for more in range BG if needing knee replacement vs more loose goals since recent medical challenges Impact of BG on healing Impact of higher carb meals on BG Review of carb contents of foods he eats Potential for keeping a food journal to review with CGM Carb portion recs Created SMART goals for patient self-care and success. Goals: Ask ortho about A1c needs for knee sx Keep a food journal Try to keep CHO to 1c at meals Follow-up: YUSEF BURDICK follow-up in 2-3 weeks Rahel Bartlett RDN, GENNARO Certified Diabetes Care and Canine Service Instructor Trainer P: [phone] Thank you for this referral
== END ==
LOC: DIET 14:04
PROVIDERS: PCP Internal Medicine; Referring Provider Internal Medicine
DX: E11.29 Type 2 diabetes mellitus with other diabetic kidney complication (principal); R80.9 Proteinuria, unspecified; Z71.3 Dietary counseling and surveillance; Z79.84 Long term (current) use of oral hypoglycemic drugs; Z79.4 Long term (current) use of insulin
CPT/HCPCS: 97803

== ENCOUNTER → 2024-04-07 14:04 | Outpatient (CLI) | payer MEDICARE, SELFPAY ==
[2024-02-08 10:53] VITALS: BMI 26.2
--- NOTE | 2024-04-07 14:08 | DIAB.FU ---
Addendum entered by Rahel Bartlett 04/15/24 17:28: Called Jim today and left a voice message to call back at his earliest convenience to chat about BG trends Original Note: Follow-up Diabetes Education Assessment Name: Jim Dominguez Date: 04/07/2024 Time: 205-235p Dx: Type II Diabetes Jim presents for Dm follow-up. Less pain in knees since injections, completed two weeks ago per report. Potential to avoid knee replacements is the plan with ortho per report. Reports a goal of 7.5% a1c if he decides to do knee sx. BG elevated last couple days, seems exacerbated potentially by steroid injections, though seems like a late onset 2 weeks later. Brought a few entries for food journal and MOW menu. Most meals did not cause large spikes in BG, however ice cream last night with 2c went up to 350mg/dl in the night. Checks feet daily. Endorses slow healing. Applying a liquid to feet rec by labor economics teacher per report, cannot remember name. Wearing slippers in home with sole. Physical Activity: Done with PT, but doing daily exercises at home. Resistance training with bands. Balance exercises and squats. Recently went on a walk in his neighborhood, but cold weather deterred him. Self-Monitoring Blood Glucose: Predicted elevations exacerbated by recent steroid injection. Hesitant to suggest change in insulin given previous mornings this week and last were significantly lower. Last 3 days showing abnormal elevations for him. Today TIR: 18% very high 41% high 41% in range 0% low 0% very low 196mg/dl average 64 mg/dl std dev 32.4% variation Last TIR: 8% very high 33% high 59% in range 0% low 0% very low 171mg/dl average 52 mg/dl std dev 30.5% variation Diabetes Medications: 1000mg Metformin BID 10 mg glipizide BID 30mg pioglitizone 12u BID Glargine (down to 11u 1x per day) Pertinent Labs: HgA1c 8.6% 07/2022 8.3% 10/2022 9.4% 01/2023 8.9% 03/2023 9.5% 06/2023 8.1% 02/2024 Past Medical History: (Last Updated 03/12/24 @ 15:41 by Sunday Polanco MD) Atrial fibrillation (~2005) Benign prostatic hyperplasia with lower urinary tract symptoms CAD (coronary artery disease) (~2005) [place] 2006 Colitis (~2004) COPD (chronic obstructive pulmonary disease) (~2008) CVA (cerebral vascular accident) Diabetes mellitus (~2005) Elevated PSA Negative biopsy in past Essential hypertension Fungal infection of toenail Gross hematuria H/O adenomatous polyp of colon Hearing loss (~1999) Heart attack Knee pain Mixed hyperlipidemia Overactive bladder Peripheral edema Prostatitis Tobacco use Urge incontinence Vision disorder Wear glasses Nutrition Rx: Carbohydrates: Meal:45-60g Snack:15-30g Nutrition Diagnosis: Physical inactivity r/t knee and leg pain, SOB, unsteadiness aeb pt report- improved Predicted inconsistent energy intake r/t limited nutrition knowledge or cooking abilities aeb pt report and inconsistent BG results in CGM- in progress Predicted excessive CHO intake r/t portions of sweets aeb pt report - new Intervention: This participant was very receptive. Provided appropriate educational handouts. Discussed the following topics: Review of food journal and MOW menu Review of BG trends and increased elevations Impact of steroids on BG POtential for adjusting insulin in the future if trends continue Encouraged contacting provider if BG >250mg/dl consistently Impact of sweets and portions on BG results physical activity plan/progress Created SMART goals for patient self-care and success. Goals: Ask ortho about A1c needs for knee sx- met Keep a food journal- met Try to keep CHO to 1c at meals- in progress Avoid sweets for 1 week- new Follow-up: YUSEF BURDICK follow-up in 1 week over the phone and 2 weeks in-person. If hyperglycemia persists will consider even a temp titration for insulin and contact PCP. Rahel Bartlett RDN, AGUSTINES Certified Diabetes Care and Order Checker P: [phone] Thank you for this referral
== END ==
LOC: DIET 14:05
PROVIDERS: PCP Internal Medicine; Referring Provider Internal Medicine
DX: E11.65 Type 2 diabetes mellitus with hyperglycemia (principal); T38.0X5A Adverse effect of glucocorticoids and synthetic analogues, initial encounter; Z71.3 Dietary counseling and surveillance; Z79.84 Long term (current) use of oral hypoglycemic drugs; Z79.4 Long term (current) use of insulin
CPT/HCPCS: 97803

== ENCOUNTER → 2024-04-21 14:57 | Outpatient (CLI) | payer MEDICARE, SELFPAY ==
[2024-02-08 10:53] VITALS: BMI 26.2
--- NOTE | 2024-05-18 13:42 | DIAB.MNTFU ---
Follow-up Diabetes Medical Nutrition Therapy Assessment Name: Jim Dominguez Date: 04/21/24 Time: 315-330p Dx: Type II Diabetes Jim presents for Dm follow-up. Reports getting treatment for knee pain, but denies steroid injections. States he learned about only using insulin pen x 28-30 days from pharmacy. Misses eating his sf cookies. Avoiding bananas Overall, reducing CHO intake. Physical Activity: Done with PT, but doing daily exercises at home. Resistance training with bands. Balance exercises and squats. Self-Monitoring Blood Glucose: Much improved TIR, though above goal for very high >250mg/dl. Today TIR: 10% very high 26% high 64% in range 0% low 0% very low 173mg/dl average 7.4% GMI 51 mg/dl std dev 29.7% variation Last TIR: 18% very high 41% high 41% in range 0% low 0% very low 196mg/dl average 64 mg/dl std dev 32.4% variation Diabetes Medications: 1000mg Metformin BID 10 mg glipizide BID 30mg pioglitizone 12u BID Glargine (down to 11u 1x per day) Pertinent Labs: HgA1c 8.6% 07/2022 8.3% 10/2022 9.4% 01/2023 8.9% 03/2023 9.5% 06/2023 8.1% 02/2024 Past Medical History: (Last Updated 03/12/24 @ 15:41 by Sunday Polanco MD) Atrial fibrillation (~2005) Benign prostatic hyperplasia with lower urinary tract symptoms CAD (coronary artery disease) (~2005) [place] 2006 Colitis (~2004) COPD (chronic obstructive pulmonary disease) (~2008) CVA (cerebral vascular accident) Diabetes mellitus (~2005) Elevated PSA Negative biopsy in past Essential hypertension Fungal infection of toenail Gross hematuria H/O adenomatous polyp of colon Hearing loss (~1999) Heart attack Knee pain Mixed hyperlipidemia Overactive bladder Peripheral edema Prostatitis Tobacco use Urge incontinence Vision disorder Wear glasses Nutrition Rx: Carbohydrates: Meal:45-60g Snack:15-30g Nutrition Diagnosis: Physical inactivity r/t knee and leg pain, SOB, unsteadiness aeb pt report- improved Predicted inconsistent energy intake r/t limited nutrition knowledge or cooking abilities aeb pt report and inconsistent BG results in CGM- in progress Predicted excessive CHO intake r/t portions of sweets aeb pt report - improved Intervention: This participant was very receptive. Provided appropriate educational handouts. Discussed the following topics: Carb portion recs Choosing SF options for sweets in moderation Insulin therapy dosing TIR goals Created SMART goals for patient self-care and success. Goals: Avoid sweets for 1 week- met Try half a banana- new If having sf cookies, limit to 2-3 small- new Follow-up: YUSEF BURDICK follow-up in 3-4 weeks Rahel Bartlett RDN, GENNARO Certified Diabetes Care and Incident Response Consultant P: [phone] Thank you for this referral
== END ==
LOC: DIET 14:57
PROVIDERS: PCP Internal Medicine; Referring Provider Internal Medicine
DX: E11.29 Type 2 diabetes mellitus with other diabetic kidney complication (principal); R80.9 Proteinuria, unspecified; Z79.84 Long term (current) use of oral hypoglycemic drugs; Z79.4 Long term (current) use of insulin; Z71.3 Dietary counseling and surveillance
CPT/HCPCS: 97803

== ENCOUNTER → 2024-05-18 14:55 | Outpatient (CLI) | payer MEDICARE, SELFPAY ==
[2024-02-08 10:53] VITALS: BMI 26.2
--- NOTE | 2024-05-18 15:09 | DIAB.FU ---
Follow-up Diabetes Education Assessment Name: Jim Dominguez Date: 05/18/24 Time: 305-330p Dx: Type II Diabetes Jim presents for Dm follow-up. Reports some slow healing on feet. Endorses h/o rash on feet, saw media planner and found to have athlete's foot. States it never did heal >6 months. States he is considering going to the walk-in clinic. Has a cut on the left foot that is non healing x a year. Sees mass communications professor q 3 months. Wearing a slipper with sole at home. Has not been taking HS insulin for the last few days, though is having elevations. Previously taking 11u. Does not take any if BG <160mg/dl HS. No h/o lows. Elevations improved but still mostly daily, especially when eating out at [employer]. PCP appt 06/29. Physical Activity: Doing daily exercises at home. Resistance training with bands. Balance exercises and squats. Self-Monitoring Blood Glucose: Improved TIR and reduced time >250mg/dl. Today TIR: 5% very high 25% high 70% in range 0% low 0% very low 163mg/dl average 7.2% GMI 28.6 mg/dl std dev 47% variation Last TIR: 10% very high 26% high 64% in range 0% low 0% very low 173mg/dl average 7.4% GMI 51 mg/dl std dev 29.7% variation Diabetes Medications: 1000mg Metformin BID 10 mg glipizide BID 30mg pioglitizone 12u BID Glargine Pertinent Labs: HgA1c 8.6% 07/2022 8.3% 10/2022 9.4% 01/2023 8.9% 03/2023 9.5% 06/2023 8.1% 02/2024 Past Medical History: (Last Updated 03/12/24 @ 15:41 by Sunday Polanco MD) Atrial fibrillation (~2005) Benign prostatic hyperplasia with lower urinary tract symptoms CAD (coronary artery disease) (~2005) [place] 2006 Colitis (~2004) COPD (chronic obstructive pulmonary disease) (~2008) CVA (cerebral vascular accident) Diabetes mellitus (~2005) Elevated PSA Negative biopsy in past Essential hypertension Fungal infection of toenail Gross hematuria H/O adenomatous polyp of colon Hearing loss (~1999) Heart attack Knee pain Mixed hyperlipidemia Overactive bladder Peripheral edema Prostatitis Tobacco use Urge incontinence Vision disorder Wear glasses Intervention: This participant was very receptive. Provided appropriate educational handouts. Discussed the following topics: TIR goals and BG Foot care with DM Insulin dosing Carb portions when eating out Created SMART goals for patient self-care and success. Goals: Try half a banana- met If having sf cookies, limit to 2-3 small- met Try 8-11u HS insulin - new [employer] meal, take half home- new Get foot looked at- new Follow-up: YUSEF BURDICK follow-up in 3-4 weeks Rahel Bartlett RDN, GENNARO Certified Diabetes Care and Vocational Education Teacher P: [phone] Thank you for this referral
== END ==
PROVIDERS: PCP Internal Medicine; Referring Provider Internal Medicine
DX: E11.65 Type 2 diabetes mellitus with hyperglycemia (principal); B35.3 Tinea pedis; T38.3X6A Underdosing of insulin and oral hypoglycemic [antidiabetic] drugs, initial encounter; Z79.4 Long term (current) use of insulin; Z71.3 Dietary counseling and surveillance; Z91.148 Patient's other noncompliance with medication regimen for other reason; Z79.84 Long term (current) use of oral hypoglycemic drugs
CPT/HCPCS: G0108

== ENCOUNTER → 2024-06-15 13:52 | Outpatient (CLI) | payer MEDICARE, SELFPAY ==
[2024-02-08 10:53] VITALS: BMI 26.2
--- NOTE | 2024-06-15 14:15 | DIAB.FU ---
Follow-up Diabetes Education Assessment Name: Jim Dominguez Date: 06/15/24 Time: 210-128p Dx: Type II Diabetes Jim presents for Dm follow-up. Saw bridge teacher for foot concerns. States there is no rash, but discoloration d/t poor circulation. Sees bridge teacher q 3 months. Blister on the left foot. Was told to keep an eye on it and if infected to go in right away. Not eating breakfast or a cup of apple sauce. Lunch MOW delivery: minestrone soup with brownie OR chicken and rice with fruit Dinner: mac and cheese with braut OR abdi with eggs and green beans, toast x 1 OR hamburger Considering d/c of MOW service due to not liking food. blood sugars most of the morning are <180mg/dl but anytime he eats BG go >200mg/dl. Would like to be more active, though historically balance concerns have been a barrier, and now the blister is his main concern. Endorses UTD on eye appt, just a couple months ago. PCP appt 06/29. Physical Activity: Doing daily exercises at home. Resistance training with bands. Balance exercises and squats. Self-Monitoring Blood Glucose: Similar time in range as last visit. Today TIR: 4% very high 28% high 68% in range 0% low 0% very low 163mg/dl average 7.2% GMI 46 mg/dl std dev 28.5% variation Last TIR: 5% very high 25% high 70% in range 0% low 0% very low 163mg/dl average 7.2% GMI Diabetes Medications: 1000mg Metformin BID 10 mg glipizide BID 30mg pioglitizone 11u Glargine Pertinent Labs: HgA1c 8.6% 07/2022 8.3% 10/2022 9.4% 01/2023 8.9% 03/2023 9.5% 06/2023 8.1% 02/2024 Past Medical History: (Last Updated 03/12/24 @ 15:41 by Sunday Polanco MD) Atrial fibrillation (~2005) Benign prostatic hyperplasia with lower urinary tract symptoms CAD (coronary artery disease) (~2005) [place] 2006 Colitis (~2004) COPD (chronic obstructive pulmonary disease) (~2008) CVA (cerebral vascular accident) Diabetes mellitus (~2005) Elevated PSA Negative biopsy in past Essential hypertension Fungal infection of toenail Gross hematuria H/O adenomatous polyp of colon Hearing loss (~1999) Heart attack Knee pain Mixed hyperlipidemia Overactive bladder Peripheral edema Prostatitis Tobacco use Urge incontinence Vision disorder Wear glasses Intervention: This participant was very receptive. Provided appropriate educational handouts. Discussed the following topics: Food choices and carb portions Food health and strategies for checking feet daily safely BG goals and trends DM medications Created SMART goals for patient self-care and success. Goals: Try 8-11u HS insulin - met [employer] meal, take half home- met Get foot looked at- met Cut mac and cheese in half- new Save dessert or fruit from MOW for later- new Check feet daily in front of closet mirror seated- new Follow-up: YUSEF BURDICK follow-up in 4-6 weeks Rahel Bartlett RDN, GENNARO Certified Diabetes Care and Facs Teacher P: [phone] Thank you for this referral
== END ==
PROVIDERS: PCP Internal Medicine; Referring Provider Internal Medicine
DX: E11.29 Type 2 diabetes mellitus with other diabetic kidney complication (principal); R80.9 Proteinuria, unspecified; Z79.84 Long term (current) use of oral hypoglycemic drugs; Z79.4 Long term (current) use of insulin; Z71.3 Dietary counseling and surveillance
CPT/HCPCS: G0108

== ENCOUNTER → 2024-06-25 10:25 | Outpatient (CLI) | payer MEDICARE, SELFPAY ==
[2024-02-08 10:53] VITALS: BMI 26.2
[2024-06-25 10:54] LABS: Hemoglobin A1C% w Est Avg Glu 7.3 % (4.0-6.0)
[2024-06-25 11:08] LABS: Alanine Aminotransferase 16 IU/L (<50); Albumin 4.4 g/dL (3.5-5.0); Albumin Globulin Ratio 1.5 (1.0-2.8); Alkaline Phosphatase 86 U/L (38-126); Aspartate Aminotransferase 19 IU/L (17-59); BUN Creatinine Ratio 21.8 (6-22); Bilirubin Total 0.7 mg/dL (0.2-1.3); Blood Urea Nitrogen 22 mg/dL (9-20); Calcium 9.3 mg/dL (8.4-10.2); Carbon Dioxide 26 mmol/L (22-32); Chloride 103 mmol/L (98-107); Estimated Glomerular Filt Rate > 60 mL/min (>60); Globulin 2.9 g/dL (1.7-4.1); Glucose 207 mg/dL (80-110); HEMOLYSIS < 15 (0-50); Sodium 136 mmol/L (137-145); Total Protein 7.3 g/dL (6.3-8.2)
== END ==
PROVIDERS: PCP Internal Medicine; Referring Provider Internal Medicine; Visit Provider Internal Medicine
DX: E11.9 Type 2 diabetes mellitus without complications (principal); I10 Essential (primary) hypertension; J44.9 Chronic obstructive pulmonary disease, unspecified
CPT/HCPCS: 36415; 80053; 83036

== ENCOUNTER → 2024-08-19 12:13 | Outpatient (CLI) | payer MEDICARE, SELFPAY ==
[2024-02-08 10:53] VITALS: BMI 26.2
[2024-08-19 13:43] LABS: BUN Creatinine Ratio 25.5 (6-22); Blood Urea Nitrogen 26 mg/dL (9-20); Calcium 9.1 mg/dL (8.4-10.2); Carbon Dioxide 23 mmol/L (22-32); Chloride 105 mmol/L (98-107); Estimated Glomerular Filt Rate > 60 mL/min (>60); Glucose 141 mg/dL (70-99); HEMOLYSIS < 15 (0-50); Magnesium 1.4 mg/dL (1.6-2.3); Potassium 4.2 mmol/L (3.4-5.1); Sodium 136 mmol/L (137-145)
== END ==
PROVIDERS: PCP Internal Medicine; Referring Provider Internal Medicine; Visit Provider Internal Medicine
DX: I10 Essential (primary) hypertension (principal)
CPT/HCPCS: 36415; 80048; 83735

== ENCOUNTER → 2024-08-31 13:55 | Outpatient (CLI) | payer MEDICARE, SELFPAY ==
[2024-02-08 10:53] VITALS: BMI 26.2
--- NOTE | 2024-09-02 11:14 | DIAB.FU ---
Follow-up Diabetes Education Assessment Name: Jim Dominguez Date: 08/31/24 Time: 205-235p Dx: Type II Diabetes Jim presents for Dm follow-up. Discontinued MOW due to not liking meals provided. Checking feet daily. Noticed a cut on his foot with some excessive bleeding per report. Attributes this to blood thinner meds. Endorses foot healed well and timely. Has questions about fruit intake. Stopped insulin after seeing PCP but now noticing excessive hyperglycemia. Did have a moment waking up in the 60s mg/dl without insulin, but RD wonders if this was a false low or compression low. Keeps glucose tabs close and uses to treat lows. Eating BID: Lunch and dinner Lunch: 1/2c rice with chicken and veggies-- BG 253mg/dl Dinner: shrimp linguini x 1c Physical Activity: Reported last visit: Doing daily exercises at home. Resistance training with bands. Balance exercises and squats. Self-Monitoring Blood Glucose: Significant increase in time >250mg/dl. Likely will impact HgA1c. Likely needs reinstatement of Hs insulin. Encouraged him to reach out to provider about restarting. Could not access boat canvas maker installer CGM reports today. Got TIR from his boat canvas maker installer. Today TIR: 14% very high 30% high 55% in range 1% low 0% very low mg/dl average % GMI mg/dl std dev % variation Last TIR: 4% very high 28% high 68% in range 0% low 0% very low 163mg/dl average 7.2% GMI 46 mg/dl std dev 28.5% variation Diabetes Medications: 1000mg Metformin BID 10 mg glipizide BID 30mg pioglitizone 11u Glargine --- d/c Pertinent Labs: HgA1c 8.6% 07/2022 8.3% 10/2022 9.4% 01/2023 8.9% 03/2023 9.5% 06/2023 8.1% 02/2024 7.3% 06/2024 Past Medical History: (Last Updated 03/12/24 @ 15:41 by Sunday Polanco MD) Atrial fibrillation (~2005) Benign prostatic hyperplasia with lower urinary tract symptoms CAD (coronary artery disease) (~2005) [place] 2006 Colitis (~2004) COPD (chronic obstructive pulmonary disease) (~2008) CVA (cerebral vascular accident) Diabetes mellitus (~2005) Elevated PSA Negative biopsy in pastEssential hypertension Fungal infection of toenail Gross hematuria H/O adenomatous polyp of colon Hearing loss (~1999) Heart attack Knee pain Mixed hyperlipidemia Overactive bladder Peripheral edema Prostatitis Tobacco use Urge incontinence Vision disorder Wear glasses Intervention: This participant was very receptive. Provided appropriate educational handouts. Discussed the following topics: Insulin therapy BG goals and trends Caring for feet Healing and BG management Created SMART goals for patient self-care and success. Goals: Cut mac and cheese in half- d/c with MOW Save dessert or fruit from MOW for later- d/c with MOW Check feet daily in front of closet mirror seated- met Consider restart of HS insulin, reach out to PCP- new Follow-up: YUSEF BURDICK follow-up in 3-4 weeks Rahel Bartlett RDN, GENNARO Certified Diabetes Care and Real Estate Administrative Assistant P: [phone] Thank you for this referral
== END ==
PROVIDERS: PCP Internal Medicine; Referring Provider Internal Medicine
DX: E11.65 Type 2 diabetes mellitus with hyperglycemia (principal); Z71.3 Dietary counseling and surveillance; Z79.84 Long term (current) use of oral hypoglycemic drugs
CPT/HCPCS: G0108

== ENCOUNTER → 2024-09-24 12:07 | Outpatient (CLI) | payer MEDICARE, SELFPAY ==
[2024-02-08 10:53] VITALS: BMI 26.2
[2024-09-24 13:13] LABS: Hemoglobin A1C% w Est Avg Glu 7.1 % (4.0-6.0)
[2024-09-24 13:30] LABS: Alanine Aminotransferase 12 IU/L (<50); Albumin 4.2 g/dL (3.5-5.0); Albumin Globulin Ratio 1.4 (1.0-2.8); Alkaline Phosphatase 67 U/L (38-126); Blood Urea Nitrogen 20 mg/dL (9-20); Calcium 9.1 mg/dL (8.4-10.2); Carbon Dioxide 24 mmol/L (22-32); Chloride 105 mmol/L (98-107); Cholesterol 185 mg/dL (140-199); Estimated Glomerular Filt Rate > 60 mL/min (>60); Globulin 2.9 g/dL (1.7-4.1); Glucose 145 mg/dL (70-99); HDL Cholesterol 52 mg/dL (40-60); HEMOLYSIS < 15 (0-50); Potassium 5.0 mmol/L (3.4-5.1); Sodium 136 mmol/L (137-145); Total Protein 7.1 g/dL (6.3-8.2); Triglycerides 60 mg/dL (35-150)
== END ==
PROVIDERS: PCP Internal Medicine; Referring Provider Internal Medicine; Visit Provider Internal Medicine
DX: E78.2 Mixed hyperlipidemia (principal); E11.9 Type 2 diabetes mellitus without complications; I10 Essential (primary) hypertension
CPT/HCPCS: 36415; 80053; 80061; 83036

== ENCOUNTER → 2024-10-01 10:59 | Outpatient (CLI) | payer MEDICARE, SELFPAY ==
[2024-02-08 10:53] VITALS: BMI 26.2
--- NOTE | 2024-11-04 11:16 | DIAB.FU ---
Follow-up Diabetes Education Assessment Name: Jim Dominguez Date: 10/01/24 Time: 1110-7810a Dx: Type II Diabetes Jim presents for Dm follow-up. Restarted MOW due to convenience. UTD on eye appt. Getting a knee injection in March. Unclear if this is steroid based or not. Sometimes having lows after elevations, 2x last week. Diet recall indicates 2 meals per day and 1 snack. Most seem in goal for CHO recs. States he misses being active. Knees have been better with injections. Had previously considered knee replacement. At the time, his hgA1c was too high. HgA1c has since improved. States he is interested in discussing knee replacement with ortho again. Physical Activity: Would like to start walking again. d/c PT. Doing home resistance bands. Has stationary bike. Self-Monitoring Blood Glucose: Improved tiem in range, however excessive time >180 and >250mg/dl Today TIR: 4% very high 32% high 64% in range 0% low 0% very low 163mg/dl average 7.2% GMI 48mg/dl std dev 29.6% variation Last TIR: 14% very high 30% high 55% in range 1% low 0% very low mg/dl average % GMI mg/dl std dev % variation Diabetes Medications: 1000mg Metformin BID 10 mg glipizide BID 30mg pioglitizone 11u Glargine --- d/c Pertinent Labs: HgA1c 8.6% 07/2022 8.3% 10/2022 9.4% 01/2023 8.9% 03/2023 9.5% 06/2023 8.1% 02/2024 7.3% 06/2024 7.1% 09/2024 Past Medical History: (Last Updated 03/12/24 @ 15:41 by Sunday Polanco MD)Atrial fibrillation (~2005) Benign prostatic hyperplasia with lower urinary tract symptoms CAD (coronary artery disease) (~2005) [place] 2006 Colitis (~2004) COPD (chronic obstructive pulmonary disease) (~2008) CVA (cerebral vascular accident) Diabetes mellitus (~2005) Elevated PSA Negative biopsy in pastEssential hypertension Fungal infection of toenail Gross hematuria H/O adenomatous polyp of colon Hearing loss (~1999) Heart attack Knee pain Mixed hyperlipidemia Overactive bladder Peripheral edema Prostatitis Tobacco use Urge incontinence Vision disorder Wear glasses Intervention: This participant was very receptive. Provided appropriate educational handouts. Discussed the following topics: Physical activity BG goals and trends Barriers to movement Created SMART goals for patient self-care and success. Goals: Consider restart of HS insulin, reach out to PCP- d/c Restart stationary bike- new Move more after eating- new Call ortho for a plan prn- new Follow-up: YUSEF BURDICK follow-up in 2-3 months Rahel Bartlett RDN, AGUSTINES Certified Diabetes Care and Beveler P: [phone] Thank you for this referral
== END ==
PROVIDERS: PCP Internal Medicine; Referring Provider Internal Medicine
DX: E11.9 Type 2 diabetes mellitus without complications (principal); Z71.3 Dietary counseling and surveillance; Z79.84 Long term (current) use of oral hypoglycemic drugs; Z79.85 Long-term (current) use of injectable non-insulin antidiabetic drugs
CPT/HCPCS: G0108

== ENCOUNTER → 2024-11-30 15:05 | Outpatient (CLI) | payer MEDICARE, SELFPAY ==
[2024-02-08 10:53] VITALS: BMI 26.2
== END ==
PROVIDERS: PCP Internal Medicine; Visit Provider Registered Nurse
DX: R30.0 Dysuria (principal)
CPT/HCPCS: 81002; 87077; 87086; 87186

== ENCOUNTER → 2025-01-04 13:01 | Outpatient (CLI) | payer MEDICARE, SELFPAY ==
[2024-02-08 10:53] VITALS: BMI 26.2
--- NOTE | 2025-01-21 17:16 | DIAB.MNTFU ---
Follow-up Diabetes Medical Nutrition Therapy Assessment Name: Jim Dominguez Date: 01/04/25 Time: 115-145p Dx: Type II Diabetes Jim presents for Dm follow-up. Reports increased carb intake when eating out. use to cut down to half portions. Eating sf cookies x 3-4 with milk, though cookies still have carbs and may be contributing to elevated BG. Increased eating out in general. Trying to reduce cigarettes. Diet recall: 1130-12: MOW meal-- 1c mac n cheese with hot dog no bun and green beans sn: nothing or banana or sf cookie 530p: eating out mostly, ie casino burger and tater tots OR fish and chips OR shrimp scampi OR omelette with potatoes Eats at brother's home 2x per week water 4-5 x 16oz Endorses [place] in November. Physical Activity: Would like to start walking again. Plans to restart cardio rehab Self-Monitoring Blood Glucose: Increased time above goal with hyperglycemia Today TIR: 16% very high 38% high 46% in range 0% low 0% very low 192mg/dl average 7.9% GMI 61mg/dl std dev 31.7% variation Last TIR: 4% very high 32% high 64% in range 0% low 0% very low 163mg/dl average 7.2% GMI 48mg/dl std dev 29.6% variation Diabetes Medications: 1000mg Metformin BID 10 mg glipizide BID 30mg pioglitizone 11u Glargine --- d/c Pertinent Labs: HgA1c 8.6% 07/2022 8.3% 10/2022 9.4% 01/2023 8.9% 03/2023 9.5% 06/2023 8.1% 02/2024 7.3% 06/2024 7.1% 09/2024 Past Medical History: (Last Updated 12/24/24 @ 10:33 by Homer Falk MD) Atrial fibrillation (~2005) Benign prostatic hyperplasia with lower urinary tract symptoms CAD (coronary artery disease) (~2005) [place] 2006 Chronic prostatitis Colitis (~2004) COPD (chronic obstructive pulmonary disease) (~2008) CVA (cerebral vascular accident) Diabetes mellitus (~2005) Elevated PSA Negative biopsy in past Essential hypertension Frequency-urgency syndrome Fungal infection of toenail Gross hematuria H/O adenomatous polyp of colon Hearing loss (~1999) Heart attack History of nocturia Knee pain Mixed hyperlipidemia Overactive bladder Peripheral edema Primary osteoarthritis of both knees Prostatitis Tobacco use Urge incontinence Venous stasis Vision disorder Wear glasses Nutrition Rx: Carbohydrates: Meal:45-60g Snack:15-30g Nutrition Diagnosis: Predicted excessive CHO intake r/t portions and eating out frequency aeb pt report, BG elevations, and diet recall Intervention: This participant was very receptive. Provided appropriate educational handouts. Discussed the following topics: BG goals and trends Nutrition recs Eating out Impact of hyperglycemia on heart health Smoking cessation Created SMART goals for patient self-care and success. Goals: Restart stationary bike- nnot met Move more after eating- not met Call ortho for a plan prn- met Take half meal home from casino- new Remove breading on fish- new Eat at home 3x per week- new Limit Sf cookies to 1-2- new Follow-up: YUSEF BURDICK follow-up in 3-4 weeks Rahel Bartlett RDN, GENNARO Certified Diabetes Care and Class B Driver P: [phone] Thank you for this referral
== END ==
LOC: DIET 13:02
PROVIDERS: PCP Internal Medicine; Referring Provider Internal Medicine
DX: E11.65 Type 2 diabetes mellitus with hyperglycemia (principal); Z71.3 Dietary counseling and surveillance; Z79.84 Long term (current) use of oral hypoglycemic drugs
CPT/HCPCS: 97803

== ENCOUNTER → 2025-03-07 15:09 | Outpatient (CLI) | payer MEDICARE, SELFPAY ==
[2024-02-08 10:53] VITALS: BMI 26.2
--- NOTE | 2025-03-07 15:13 | DI.RAD.S_ITS ---
PROCEDURE: XR CHEST 2V INDICATIONS: SOB TECHNIQUE: 2 views of the chest were acquired. COMPARISON: [facility], CR, XR CHEST 1V, 11/06/2024, 8:41. FINDINGS: Surgical changes and devices: None. Lungs and pleura: Lungs are clear. No pleural effusions or pneumothorax. Mediastinum: Mediastinal contours are normal. Heart size is enlarged. Bones and chest wall: No suspicious bony abnormalities. Soft tissues appear unremarkable. IMPRESSION: No acute pulmonary process. Dictated by: Netta Fernando M.D. on 03/08/2025 at 1:22 Approved by: Netta Fernando M.D. on 03/08/2025 at 1:22
[2025-03-07 17:25] LABS: Add Manual Diff / Slide Review NO; Lymphocytes Absolute Auto 1300 /uL (1100-4500); Mean Corpuscular HGB Conc 30.8 % (30-36); Mean Corpuscular Hemoglobin 20.0 PG (26-34); Mean Corpuscular Volume 64.8 fL (80-100); Platelet Count 309 X10^3/uL (150-400)
[2025-03-07 17:38] LABS: Hematocrit 20.9 % (41-53); Hemoglobin 6.4 g/dL (13.5-17.5)
[2025-03-07 17:44] LABS: Alanine Aminotransferase 14 IU/L (<50); Albumin 4.6 g/dL (3.5-5.0); Albumin Globulin Ratio 1.6 (1.0-2.8); Alkaline Phosphatase 72 U/L (38-126); Blood Urea Nitrogen 32 mg/dL (9-20); Calcium 9.4 mg/dL (8.4-10.2); Carbon Dioxide 22 mmol/L (22-32); Chloride 106 mmol/L (98-107); Estimated Glomerular Filt Rate 57 mL/min (>60); Globulin 2.9 g/dL (1.7-4.1); Glucose 204 mg/dL (70-99); HEMOLYSIS < 15 (0-50); Potassium 4.4 mmol/L (3.4-5.1); Sodium 140 mmol/L (137-145); Total Protein 7.5 g/dL (6.3-8.2)
[2025-03-07 17:52] LABS: NT-proBNP (BNP-Adult 18+) 3560 pg/mL (<450)
[2025-03-07 18:10] LABS: Microcytosis 2+
[2025-03-07 18:12] LABS: Hypochromasia 1+
== END ==
PROVIDERS: PCP Internal Medicine; Referring Provider Internal Medicine Cardiovascular Disease; Visit Provider Internal Medicine Cardiovascular Disease
DX: R06.02 Shortness of breath (principal)
CPT/HCPCS: 36415; 71046; 80053; 83880; 85025

== ENCOUNTER 2025-03-07 18:23 | Emergency (ER) | payer MEDICARE, SELFPAY ==
[2024-02-08 10:53] VITALS: BMI 26.2
[2025-03-07] VITALS (19 sets, daily range): BP systolic 109–126; BP diastolic 53–63; PULSE 74–95; RESP 14–23; TEMP 36.6–37.1; O2SAT 91–100; BMI 25.3
[2025-03-07 19:01] LABS: Add Manual Diff / Slide Review NO; Lymphocytes Absolute Auto 1700 /uL (1100-4500); Mean Corpuscular HGB Conc 31.2 % (30-36); Mean Corpuscular Hemoglobin 20.2 PG (26-34); Mean Corpuscular Volume 64.6 fL (80-100); Platelet Count 295 X10^3/uL (150-400)
[2025-03-07 19:04] LABS: Hematocrit 20.2 % (41-53); Hemoglobin 6.3 g/dL (13.5-17.5)
[2025-03-07 19:09] LABS: INR 1.5 (0.9-1.3); Prothrombin Time 16.5 SECONDS (9.4-12.5)
[2025-03-07 19:12] LABS: PTT Partial Thromboplastin Tim 32 SECONDS (25.1-36.5)
[2025-03-07 19:14] LABS: Alanine Aminotransferase 17 IU/L (<50); Albumin 4.7 g/dL (3.5-5.0); Albumin Globulin Ratio 1.5 (1.0-2.8); Alkaline Phosphatase 67 U/L (38-126); Blood Urea Nitrogen 32 mg/dL (9-20); Calcium 9.4 mg/dL (8.4-10.2); Carbon Dioxide 20 mmol/L (22-32); Chloride 106 mmol/L (98-107); Estimated Glomerular Filt Rate 50 mL/min (>60); Globulin 3.1 g/dL (1.7-4.1); Glucose 222 mg/dL (70-99); HEMOLYSIS < 15 (0-50); Potassium 4.2 mmol/L (3.4-5.1); Sodium 142 mmol/L (137-145); Total Protein 7.8 g/dL (6.3-8.2)
[2025-03-07 19:21] LABS: Hypochromasia 1+; Microcytosis 2+
--- NOTE | 2025-03-07 23:05 | ED.RECABL ---
HPI - Recheck/Abnormal Lab/Rx General Chief Complaint: Recheck/Abnormal Lab/Rx Stated Complaint: Abnormal labs Time Seen by Provider: 03/07/25 18:42 Source: patient Mode of arrival: Ambulatory History of Present Illness HPI narrative: Patient is a 74-year-old man who presents today with an abnormal lab perform any outpatient workup. History of stent placement , atrial fibrillation, insulin dependent diabetes, history of cva with mild left sided deficits, currently anticoagulated on Eliquis 5 mg. He has baseline short of breath secondary to COPD and states that this has not been exacerbated. Denies any chest pain, diaphoresis, nausea, vomiting. No lightheadedness, dizziness, vision changes, fatigue. No fevers, chills, nausea, vomiting. Related Data Home Medications ?Medication ?Instructions ?Recorded ?Confirmed blood sugar diagnostic (True 09/20/23 01/24/25 Metrix Glucose Test Strip) blood-glucose,shipper/receiver,cont 09/20/23 01/24/25 pen needle, diabetic 31 gauge x 09/20/23 01/24/2505/23 (BD Ultra-Fine Mini Pen Needle) clopidogrel 75 mg tablet 75 mg PO DAILY 11/10/24 01/24/25 ezetimibe 10 mg tablet 10 mg PO DAILY 11/10/24 01/24/25 pravastatin 10 mg tablet 10 mg PO BEDTIME 11/10/24 01/24/25 Previous Rx's ?Medication ?Instructions ?Recorded lancets 30 gauge #100 ea 07/23/23 Disabled Parking #1 ea 08/01/23 apixaban 5 mg tablet (Eliquis) 5 mg PO BID #180 tabs 02/23/24 furosemide 20 mg tablet 20 mg PO DAILY #90 tabs 03/11/24 metformin 1,000 mg tablet 1,000 mg PO BID #180 tabs 03/25/24 metoprolol succinate 100 mg 100 mg PO BID #180 tabs 09/24/24 tablet,extended release 24 hr budesonide 3 mg 3 mg PO DAILY Colitis #90 ea 10/25/24 capsule,delayed,extended release pioglitazone 30 mg tablet (Actos) 30 mg PO DAILY Diabetes #90 tabs 10/25/24 omeprazole 20 mg capsule,delayed 20 mg PO DAILY #90 caps 12/08/24 release albuterol sulfate 90 mcg/actuation 2 puff inhalation Q6H PRN 01/04/25 aerosol inhaler shortness of breath or wheezing #54 grams glipizide 10 mg tablet, extended 10 mg PO BID #180 tabs 01/17/25 release 24 hr vibegron 75 mg tablet 75 mg PO DAILY #90 tabs 01/24/25 Allergies Allergy/AdvReac Type Severity Reaction Status Date / Time naproxen Allergy Severe Anaphylaxis Verified 01/24/25 13:28 atorvastatin AdvReac Severe Rhabdo Verified 01/24/25 13:28 linagliptin AdvReac Severe myalgias Verified 01/24/25 13:28 Review of Systems Review of Systems Narrative: See HPI. Patient History Medical History Primary osteoarthritis of both knees Venous stasis History of nocturia Chronic prostatitis Frequency-urgency syndrome Overactive bladder Peripheral edema Prostatitis Tobacco use Urge incontinence Benign prostatic hyperplasia with lower urinary tract symptoms Gross hematuria Heart attack CVA (cerebral vascular accident) H/O adenomatous polyp of colon Fungal infection of toenail Mixed hyperlipidemia Essential hypertension Elevated PSA CAD (coronary artery disease) (~2005) Knee pain Vision disorder COPD (chronic obstructive pulmonary disease) (~2008) Hearing loss (~1999) Colitis (~2004) Diabetes mellitus (~2005) Atrial fibrillation (~2005) Surgical History Hx of prostate biopsy Hx of hernia repair Hx of appendectomy Anesthesia History of heart artery stent (~10/2024) Family History Father History of heart disease Mother Aneurysm Sister Cancer Brother Cancer Social History marital status: household members: none Smoking Status: Current every day smoker alcohol intake: former caffeine: Yes Type(s) of exercise: none Smoking Status: Current every day smoker tobacco type: cigarettes alcohol intake frequency: a few times a month Alcohol type: beer Exam Narrative Exam Narrative: See HPI. Initial Vital Signs Initial Vital Signs: Vital Signs Temperature 98.0 F 03/07/25 18:27 Pulse Rate 74 03/07/25 18:27 Respiratory Rate 17 03/07/25 18:27 Blood Pressure 117/63 03/07/25 18:27 Pulse Oximetry 92 03/07/25 18:27 Oxygen Delivery Method Room Air 03/07/25 18:27 Course Orders Ordered: ED Orders 03/07/25 18:50 Complete Blood Count AUTO DIFF Stat Comprehensive Metabolic Panel Stat PTT Partial Thromboplastin Randall Stat Packed Cells Stat Prothrombin Time INR Stat Type and Screen Stat 03/07/25 22:39 Hemoglobin and Hematocrit Stat Discontinued Medications Ondansetron HCl (Ondansetron 4 Mg/2 Ml Inj) 4 mg IV NOW PRN PRN Reason: Nausea And Vomiting Ondansetron HCl (Ondansetron 4 Mg Odt) 4 mg PO NOW PRN PRN Reason: Nausea And Vomiting Vital Signs Vital signs: Vital Signs - 8 hr 03/07/25 18:27 03/07/25 18:39 03/07/25 18:40 Temperature 98.0 F Pulse Rate 74 Respiratory Rate 17 Blood Pressure 117/63 120/53 L Pulse Oximetry 92 91 Oxygen Delivery Method Room Air 03/07/25 19:06 03/07/25 19:07 03/07/25 19:07 Temperature Pulse Rate Respiratory Rate Blood Pressure 109/57 L Pulse Oximetry 93 98 Oxygen Delivery Method Room Air 03/07/25 19:29 03/07/25 19:30 03/07/25 19:30 Temperature Pulse Rate 90 87 Respiratory Rate 17 14 Blood Pressure 123/58 L Pulse Oximetry 100 100 Oxygen Delivery Method 03/07/25 20:00 03/07/25 20:09 03/07/25 20:09 Temperature Pulse Rate 92 H 83 Respiratory Rate 17 22 Blood Pressure 123/59 L Pulse Oximetry 100 100 Oxygen Delivery Method 03/07/25 20:15 03/07/25 20:30 03/07/25 20:30 Temperature 97.8 F 98.7 F Pulse Rate 83 82 82 Respiratory Rate 18 18 21 Blood Pressure 123/59 L 115/56 L Pulse Oximetry 100 Oxygen Delivery Method 03/07/25 20:34 03/07/25 20:34 03/07/25 21:00 Temperature Pulse Rate 85 Respiratory Rate 22 Blood Pressure 115/56 L 125/57 L Pulse Oximetry 100 Oxygen Delivery Method 03/07/25 21:00 03/07/25 21:30 03/07/25 21:30 Temperature Pulse Rate 84 81 Respiratory Rate 19 19 Blood Pressure 119/58 L Pulse Oximetry 100 100 Oxygen Delivery Method 03/07/25 22:00 03/07/25 22:00 03/07/25 22:05 Temperature Pulse Rate 80 Respiratory Rate 22 Blood Pressure 126/60 111/55 L Pulse Oximetry 100 Oxygen Delivery Method 03/07/25 22:05 03/07/25 22:22 03/07/25 23:49 Temperature 98.8 F Pulse Rate 85 85 95 H Respiratory Rate 23 18 Blood Pressure 111/55 L Pulse Oximetry 100 99 Oxygen Delivery Method Room Air 03/07/25 23:50 Temperature Pulse Rate Respiratory Rate Blood Pressure 117/61 Pulse Oximetry Oxygen Delivery Method MDM - Recheck/Abnormal Lab/Rx Lab Data 03/07/25 22:39 03/07/25 18:50 Labs: Lab Results 03/07/25 03/07/25 Range/Units 18:50 22:39 WBC 8.2 (4.5-11.0) X10^3/uL RBC 3.13 L (4.5-5.9) X10^6/uL Hgb 6.3 L* 7.1 L (13.5-17.5) g/dL Hct 20.2 L* 22.5 L (41-53) % MCV 64.6 L (80-100) fL MCH 20.2 L (26-34) PG MCHC 31.2 (30-36) % RDW 17.1 H (11.6-14.8) % Plt Count 295 (150-400) X10^3/uL Neut % (Auto) 66.8 (50-75) % Lymph % (Auto) 21.1 L (25-40) % Ashley % (Auto) 9.9 (3-14) % Eos % (Auto) 0.4 L (2-4) % Baso % (Auto) 1.8 (0-2) % Neut # (Auto) 5500 (1211-3370) /uL Lymph # (Auto) 1700 (7192-4250) /uL Ashley # (Auto) 800 (0-900) /uL Eos # (Auto) 0 (0-450) /uL Baso # (Auto) 100 (0-100) /uL RBC Morphology See below Hypochromasia 1+ H Microcytosis 2+ H PT 16.5 H (9.4-12.5) SECONDS INR 1.5 H (0.9-1.3) APTT 32 (25.1-36.5) SECONDS Sodium 142 (137-145) mmol/L Potassium 4.2 (3.4-5.1) mmol/L Chloride 106 (98-107) mmol/L Carbon Dioxide 20 L (22-32) mmol/L BUN 32 H (9-20) mg/dL Creatinine 1.45 H (0.66-1.25) mg/dL Estimated GFR 50 L (>60) mL/min BUN/Creatinine Ratio 22.1 H (6-22) Glucose 222 H (70-99) mg/dL Calcium 9.4 (8.4-10.2) mg/dL Total Bilirubin 0.4 (0.2-1.3) mg/dL AST 28 (17-59) IU/L ALT 17 (<50) IU/L Alkaline Phosphatase 67 (38-126) U/L Total Protein 7.8 (6.3-8.2) g/dL Albumin 4.7 (3.5-5.0) g/dL Globulin 3.1 (1.7-4.1) g/dL Albumin/Globulin Ratio 1.5 (1.0-2.8) Blood Type A Positive Antibody Screen Negative Crossmatch See Detail MDM Narrative Medical decision making narrative: Patient is a 74-year-old man who presents with anemia on outpatient workup. EMR Review: Complete. Differential diagnosis: Hemorrhage, are deficiency, anemia chronic disease, a plastic or myelodysplastic disorder, megaloblastic anemia to include vitamin B12 versus folate deficiency, other. Labs: Hemoglobin 6.3, hematocrit 20.2. No leukocytosis or left shift. Platelets are normal. MCV 64.6 consistent with mild headache anemia. PT 16.5, INR 1.5, APTT 32. CMP with increased creatinine (Cr 1.45), baseline Cr 1.08. Imaging: Chest x-ray without any consolidation, pulmonary edema, or effusions on my read. EKG: None. Consultation: None. ED course: The patient arrived afebrile and hemodynamically stable. Physical examination was unremarkable with no significant abnormal findings. He received 1 unit of packed red blood cells, after which his hemoglobin level was measured at 7.1 g/dL. A discussion was held regarding the option of administering an additional unit of blood; however, the patient declined further transfusion and expressed a preference to be discharged home. He was counseled on the importance of close outpatient follow?up with his primary care physician for repeat hemoglobin testing, evaluation for potential need for additional transfusion, and a comprehensive workup for newly diagnosed anemia. The patient was discharged from the emergency department in improved and stable condition. Discharge Plan Departure Patient Disposition: Home Clinical Impression: Anemia Activity Restrictions/Additional Instructions: You were seen in the emergency department at the recommendation of your physician for low blood count. In the ER: - Your hemoglobin level was 6.3, and 6.4. You were given 1 unit of red blood cell and repeat hemoglobin was 7.1. Recommend: - Follow up with your primary care physician for repeat blood work - Outpatient workup for determination for the cause of your anemia Return to the ER if you develop any new or worsening symptoms to include chest pain, shortness of breath, lightheadedness, fainting or any other concerning signs or symptoms. Prescriptions: No Action (DME) lancets 30 gauge misc See Rx Instructions .Route Qty: 100 3RF Rx Instructions: Use to check BS once daily. (DME) Disabled Parking See Rx Instructions .ROUTE .MEDSUPPLY Qty: 1 0RF Rx Instructions: Patient qualifies for disabled parking as per the attached form. Eliquis 5 mg tablet 5 mg PO BID Qty: 180 3RF furosemide 20 mg tablet 20 mg PO DAILY Qty: 90 3RF metformin 1,000 mg tablet 1,000 mg PO BID Qty: 180 3RF metoprolol succinate 100 mg tablet extended release 24 hr 100 mg PO BID Qty: 180 3RF pioglitazone [Actos] 30 mg tablet 30 mg PO DAILY Qty: 90 3RF budesonide 3 mg capsule,delayed,extend.release 3 mg PO DAILY Qty: 90 3RF omeprazole 20 mg capsule,delayed release(DR/EC) 20 mg PO DAILY Qty: 90 3RF albuterol sulfate 90 mcg/actuation HFA aerosol inhaler 2 puff inhalation Q6H PRN (Reason: shortness of breath or wheezing) Qty: 54 3RF Patient Comments: takes PRN glipizide 10 mg tablet extended release 24hr 10 mg PO BID Qty: 180 3RF clopidogrel 75 mg tablet 75 mg PO DAILY ezetimibe 10 mg tablet 10 mg PO DAILY pravastatin 10 mg tablet 10 mg PO BEDTIME (DME) True Metrix Glucose Test Strip Strip MISCELLANEOUS DAILY (DME) pen needle, diabetic [BD Ultra-Fine Mini Pen Needle] 31 gauge x 3/16 needle MISCELLANEOUS BID (DME) Dexcom Jd Edwards Consultant Misc MISCELLANEOUS vibegron 75 mg tablet 75 mg PO DAILY Qty: 90 1RF Referrals: Homer Falk MD [Primary Care Provider, Internal Medicine] Stand Alone Forms: Patient Portal/API
[2025-03-07 23:12] LABS: Hematocrit 22.5 % (41-53); Hemoglobin 7.1 g/dL (13.5-17.5)
== END 2025-03-07 23:54 | disposition home or self-care (01) ==
PROVIDERS: Emergency Provider Student in an Organized Health Care Education/Training Program; PCP Internal Medicine
DX: D64.9 Anemia, unspecified (principal); E11.8 Type 2 diabetes mellitus with unspecified complications; Z79.4 Long term (current) use of insulin; Z86.79 Personal history of other diseases of the circulatory system
CPT/HCPCS: 36415; 36430; 71046; 80053; 83880; 85014; 85018; 85025; 85610; 85730; 86850; 86900; 86901; 99284; P9016

== ENCOUNTER → 2025-03-08 14:56 | Outpatient (CLI) | payer MEDICARE, SELFPAY ==
[2024-02-08 10:53] VITALS: BMI 26.2
[2025-03-08 15:37] LABS: Hematocrit 23.5 % (41-53); Hemoglobin 7.5 g/dL (13.5-17.5); Mean Corpuscular HGB Conc 31.8 % (30-36); Mean Corpuscular Hemoglobin 21.4 PG (26-34); Mean Corpuscular Volume 67.1 fL (80-100); Platelet Count 294 X10^3/uL (150-400)
[2025-03-08 17:36] LABS: HEMOLYSIS < 15 (0-50); Iron 16 ug/dL (49-181)
[2025-03-08 17:40] LABS: Alanine Aminotransferase 14 IU/L (<50); Albumin 4.5 g/dL (3.5-5.0); Albumin Globulin Ratio 1.7 (1.0-2.8); Alkaline Phosphatase 66 U/L (38-126); Blood Urea Nitrogen 31 mg/dL (9-20); Calcium 9.0 mg/dL (8.4-10.2); Carbon Dioxide 21 mmol/L (22-32); Chloride 104 mmol/L (98-107); Estimated Glomerular Filt Rate > 60 mL/min (>60); Globulin 2.7 g/dL (1.7-4.1); Glucose 298 mg/dL (70-99); HEMOLYSIS < 15 (0-50); Potassium 4.4 mmol/L (3.4-5.1); Sodium 137 mmol/L (137-145); Total Protein 7.2 g/dL (6.3-8.2)
[2025-03-08 17:46] LABS: Percent Iron Saturation 3 % (20-50); Total Iron Binding Capacity 466 ug/dL (261-462); Transferrin 377 mg/dL (206-381)
[2025-03-08 18:14] LABS: Ferritin 6 ng/mL (18-464)
[2025-03-08 18:25] LABS: Vitamin B12 < 159 pg/mL (239-931)
== END ==
PROVIDERS: Internal Medicine; PCP Internal Medicine; Referring Provider Internal Medicine; Visit Provider Internal Medicine
DX: E53.8 Deficiency of other specified B group vitamins (principal); D50.9 Iron deficiency anemia, unspecified; N17.9 Acute kidney failure, unspecified
CPT/HCPCS: 36415; 80053; 82607; 82728; 83540; 83550; 85027